=== PATIENT | male | born 1950 | race Caucasian/White ===

== ENCOUNTER 2017-03-02 13:34 | Emergency (ER) | payer MEDICARE ==
[~2017-03-02] VITALS: Ht 177.8 cm; Wt 89.4 kg
[2017-03-02 15:05] VITALS: BP 127/57
[2017-03-02] MEDS ORDERED: ACETAMINOPHEN/CODEINE#3 (300/30mg) TAB PO ONE (15:30)
== END 2017-03-02 16:12 | disposition home or self-care (01) ==
LOC: ER 13:38
DX: S52.501A Unspecified fracture of the lower end of right radius, initial encounter for closed fracture (principal); I10 Essential (primary) hypertension; E11.9 Type 2 diabetes mellitus without complications; E78.5 Hyperlipidemia, unspecified; Z88.6 Allergy status to analgesic agent; W18.2XXA Fall in (into) shower or empty bathtub, initial encounter; Y93.E1 Activity, personal bathing and showering; Y99.8 Other external cause status; Y92.89 Other specified places as the place of occurrence of the external cause
CPT/HCPCS: 29125; 73110

== ENCOUNTER 2017-09-13 10:59 | Inpatient (IN) | payer MEDICARE ==
[~2017-09-13] VITALS: Ht 177.8 cm; Wt 91.4 kg
[~2017-09-13 10:59] MED LIST: ASPI81CH43 PO; ATOR40TA52 PO; CLOP75TA28 PO; LISI10TA6 PO; METF-371 PO
[2017-09-13 12:11] LABS: Basophils # (auto) 0.1 uL; Basophils % (auto) 0.9 % (0.0-2.0); Eosinophils # (auto) 0.3 uL; Eosinophils % (auto) 3.4 % (0.0-7.0); Hematocrit 38.3 % (41.0-53.0); Hemoglobin 12.9 g/dL (13.5-17.5); Lymphocytes # (auto) 1.4 uL; Lymphocytes % (auto) 16.1 % (10.0-50.0); Mean Corpuscular Hemoglobin 31.4 pg (28.0-32.0); Mean Corpuscular Hgb Conc. 33.8 g/dL (32.0-36.0); Monocytes # (auto) 0.7 uL; Monocytes % (auto) 8.2 % (0.0-12.0); Neutrophils # (auto) 6.3 uL; Neutrophils % (auto) 71.4 % (37.0-80.0); Nucleated Red Blood Cells % 0.1 %; Platelet Count (auto) 358 10^3/uL (140-450); Red Blood Cells 4.12 10^6/uL (4.5-5.90); Red Cell Distribution Width 13.4 % (11.8-14.3); White Blood Cell 8.8 10^3/uL (4.4-10.8)
[2017-09-13 12:43] LABS: Potassium 4.8 mmol/L (3.5-5.1)
[2017-09-13 12:47] LABS: Albumin 3.9 g/dL (3.4-5.0); BUN/Creatinine Ratio 15.3; Magnesium 1.9 mg/dL (1.6-2.6)
[2017-09-13 12:52] LABS: Bilirubin, Total 0.6 mg/dL (0.2-1.0); Total Protein 8.9 g/dL (6.4-8.2)
[2017-09-13] MEDS ORDERED: ASPirin 81 mg TAB ONE (15:15)
[2017-09-13] MEDS ORDERED: ASPirin 81 mg TAB PO ONE ×2 (15:30)
[2017-09-13 16:03] LABS: INR 0.99 (0.9-1.15); Prothrombin Time 10.8 sec (9.37-12.3)
[2017-09-13] MEDS ORDERED: MORPHINE SULFATE 4 MG/ML SYR/VIAL IV PRN ×2 (16:30)
[2017-09-13] MEDS ORDERED: NITROGLYCERIN 0.4 MG SL TAB SL PRN (16:30)
[2017-09-13] MEDS ORDERED: LORazepam 0.5 MG TAB PO PRN (16:30)
[2017-09-13] MEDS ORDERED: TEMAZEPAM 15 MG CAP PO PRN (16:30)
[2017-09-13] MEDS ORDERED: LACTULOSE 20Gm/30ML SOLN PO PRN (16:30)
[2017-09-13] MEDS ORDERED: ACETAMINOPHEN 500 MG TAB PO PRN (16:30)
[2017-09-13] MEDS ORDERED: DEXTROSE (50%) 50ML SYRG IV PRN (16:30)
[2017-09-13] MEDS ORDERED: CLOPIDOGREL BISULFATE 75 MG TAB PO ONE (16:30)
[2017-09-13] MEDS ORDERED: HYDROcodone-ACET 5/325MG TAB PO PRN (16:30)
[2017-09-13] MEDS ORDERED: PROMETHAZINE HCL 25 MG/ML 1ML IV PRN (16:30)
[2017-09-13] MEDS ORDERED: CLOPIDOGREL BISULFATE 75 MG TAB ONE (17:00)
[2017-09-13] MEDS: ACCU-CHEK COMFORT CURVE STRIP VI SCH (17:44)
[2017-09-13] MEDS: InsuLIN REG 1unit/0.01ml Soln (100units/ml) SC SCH (17:53)
[2017-09-13] MEDS ORDERED: NITROGLYCERIN 50MG/250ML 250 ML IV SCH (17:54)
[2017-09-13] MEDS ORDERED: HEPARIN SODIUM (PORCINE) 5000 UNITS/ML 1ML VIAL ONE (17:57)
[2017-09-13] MEDS ORDERED: NITROGLYCERIN 50MG/250ML 250 ML IV ONE ×2 (17:57→18:00)
[2017-09-13] MEDS ORDERED: HEPARIN SODIUM (PORCINE) 5000 UNITS/ML 1ML VIAL IV ONE ×2 (18:00→18:15)
[2017-09-13] MEDS: SODIUM CHLORIDE 0.9% 1,000 ML IV SCH (18:04)
[2017-09-13 19:00] VITALS: BP 156/76
[2017-09-13 19:30] VITALS: BP 151/74
[2017-09-13] MEDS ORDERED: LIDOCAINE 2%HCL (LOCAL ANESTH.) INJ 20ML MDV ONE (19:57)
[2017-09-13] MEDS ORDERED: IOHEXOL 350 MG/ML 100ML IJ ONE (19:57)
[2017-09-13 20:00] VITALS: BP_SYST 151; BP_SYST 154; BP_DIAS 71; BP_DIAS 85
[2017-09-13] MEDS ORDERED: fentaNYL CITRATE 100 MCG/2 ML VL ONE (20:29)
[2017-09-13] MEDS ORDERED: MIDAZOLAM HCL 1MG/1ML-2 ML VIAL ONE (20:30)
[2017-09-13] MEDS ORDERED: IODIXANOL 320MG/ML 100ML BTL IV ONE (20:35)
[2017-09-13] MEDS ORDERED: EPTIFIBATIDE INJ (2MG/ML) 10ML VIAL IV ONE (20:45)
[2017-09-13] MEDS ORDERED: EPTIFIBATIDE DRIP(0.75MG/ML) 100 ML IV ONE (20:45)
[2017-09-13] MEDS ORDERED: PRASUGREL HCL 10 MG TAB ONE (21:15)
[2017-09-13] MEDS ORDERED: cloNIDine HCL 0.1 MG TAB ONE (21:16)
[2017-09-13] MEDS ORDERED: amLODIPine BESYLATE 5 MG TAB ONE (21:16)
[2017-09-13] MEDS ORDERED: cloNIDine HCL 0.1 MG TAB PO ONE (21:45)
[2017-09-13] MEDS ORDERED: amLODIPine BESYLATE 5 MG TAB PO ONE (21:45)
[2017-09-13] MEDS ORDERED: ENOXAPARIN SOD 80 MG/0.8ML SYRINGE SC SCH (22:00)
[2017-09-13] MEDS ORDERED: CARVEDILOL 3.125 MG TAB PO SCH ×2 (22:00)
[2017-09-13] MEDS ORDERED: ATORVASTATIN 20 MG TAB PO SCH (22:00)
[2017-09-14] MEDS: SODIUM CHLORIDE 0.9% 1,000 ML IV SCH (05:10)
[2017-09-14 05:23] VITALS: BP 129/76
[2017-09-14] MEDS ORDERED: cloNIDine HCL 0.1 MG TAB PO SCH (06:00)
[2017-09-14 06:37] LABS: Potassium 3.9 mmol/L (3.5-5.1)
[2017-09-14 06:46] LABS: Albumin 3.4 g/dL (3.4-5.0); BUN/Creatinine Ratio 15.6; Calcium 8.9 mg/dL (8.5-10.1); Total Protein 7.6 g/dL (6.4-8.2)
[2017-09-14] MEDS: InsuLIN REG 1unit/0.01ml Soln (100units/ml) SC SCH ×2 (06:54→12:27)
[2017-09-14] MEDS: ACCU-CHEK COMFORT CURVE STRIP VI SCH ×2 (06:54→12:27)
[2017-09-14 06:58] LABS: Bilirubin, Total 0.8 mg/dL (0.2-1.0)
[2017-09-14 08:33] VITALS: BP 126/72
[2017-09-14] MEDS ORDERED: CLOPIDOGREL BISULFATE 75 MG TAB PO SCH (10:00)
[2017-09-14] MEDS ORDERED: LISINOPRIL 10 MG TAB PO SCH (10:00)
[2017-09-14] MEDS ORDERED: amLODIPine BESYLATE 5 MG TAB PO SCH (10:00)
[2017-09-14] MEDS ORDERED: PANTOPRAZOLE 40 MG TAB PO SCH (10:00)
[2017-09-14] MEDS ORDERED: NITROGLYCERIN 0.2MG/HR TOPICAL PATCH TD SCH (10:00)
[2017-09-14] MEDS ORDERED: ASPirin 81 mg TAB PO ONE (12:45)
[2017-09-14 13:00] VITALS: BP 119/52
[2017-09-14 14:27] VITALS: BP 119/52
== END 2017-09-14 15:38 | disposition home or self-care (01) | DRG 250 ==
LOC: ER 10:59 → TELE 11:00 → TELE-WESTW 22:59
PROVIDERS: ADMIT Internal Medicine; ATTEND Family Medicine
PROC: 02703ZZ Dilation of Coronary Artery, One Artery, Percutaneous Approach (ICD-10-PCS; principal; 2017-09-13)
PROC: 4A023N7 Measurement of Cardiac Sampling and Pressure, Left Heart, Percutaneous Approach (ICD-10-PCS; 2017-09-13)
PROC: B2111ZZ Fluoroscopy of Multiple Coronary Arteries using Low Osmolar Contrast (ICD-10-PCS; 2017-09-13)
DX: T82.855A Stenosis of coronary artery stent, initial encounter (principal); I21.09 ST elevation (STEMI) myocardial infarction involving other coronary artery of anterior wall; I16.1 Hypertensive emergency; E11.22 Type 2 diabetes mellitus with diabetic chronic kidney disease; E11.41 Type 2 diabetes mellitus with diabetic mononeuropathy; D64.9 Anemia, unspecified; E78.00 Pure hypercholesterolemia, unspecified; E78.5 Hyperlipidemia, unspecified; I12.9 Hypertensive chronic kidney disease with stage 1 through stage 4 chronic kidney disease, or unspecified chronic kidney disease; Y84.0 Cardiac catheterization as the cause of abnormal reaction of the patient, or of later complication, without mention of misadventure at the time of the procedure; K59.00 Constipation, unspecified; F41.9 Anxiety disorder, unspecified; G47.00 Insomnia, unspecified; I25.10 Atherosclerotic heart disease of native coronary artery without angina pectoris; M54.12 Radiculopathy, cervical region; N18.2 Chronic kidney disease, stage 2 (mild); Z79.02 Long term (current) use of antithrombotics/antiplatelets; Z79.82 Long term (current) use of aspirin; Z82.49 Family history of ischemic heart disease and other diseases of the circulatory system; Z87.891 Personal history of nicotine dependence; Z88.6 Allergy status to analgesic agent; Z79.899 Other long term (current) drug therapy; Y92.89 Other specified places as the place of occurrence of the external cause
CPT/HCPCS: 36415; 71046; 80053; 80061; 82550; 82962; 83036; 83735; 83880; 84443; 84484; 85025; 85379; 85610; 85652; 85730; 87081; 92920; 93005; 93458; 94761; 96374; 96375; 99152; C1874; J1815; J2250; Q9967

== ENCOUNTER 2017-09-23 08:01 | Inpatient (IN) | payer MEDICARE ==
[~2017-09-23] VITALS: Ht 177.8 cm; Wt 86.2 kg
[2017-09-23] MEDS ORDERED: SODIUM CHLORIDE 0.9% 1,000 ML IV ONE ×2 (08:42→13:15)
[2017-09-23] MEDS ORDERED: LORazepam 2MG/ML-1ML VIAL IV ONE (08:45)
[2017-09-23] MEDS ORDERED: FUROSEMIDE 20 MG/2 ML VIAL IV ONE (08:45)
[2017-09-23] MEDS ORDERED: MECLIZINE HCL 25 MG TAB PO ONE (08:45)
[2017-09-23 09:50] LABS: Basophils # (auto) 0.1 uL; Basophils % (auto) 1.1 % (0.0-2.0); Eosinophils # (auto) 0.2 uL; Eosinophils % (auto) 2.8 % (0.0-7.0); Hematocrit 37.4 % (41.0-53.0); Hemoglobin 12.5 g/dL (13.5-17.5); Lymphocytes % (auto) 16.3 % (10.0-50.0); Mean Corpuscular Hemoglobin 30.6 pg (28.0-32.0); Mean Corpuscular Hgb Conc. 33.3 g/dL (32.0-36.0); Mean Corpuscular Volume 91.9 fL (80.0-100.0); Monocytes # (auto) 0.5 uL; Monocytes % (auto) 7.3 % (0.0-12.0); Neutrophils # (auto) 4.5 uL; Neutrophils % (auto) 72.5 % (37.0-80.0); Platelet Count (auto) 305 10^3/uL (140-450); Red Blood Cells 4.07 10^6/uL (4.5-5.90); Red Cell Distribution Width 12.8 % (11.8-14.3); White Blood Cell 6.2 10^3/uL (4.4-10.8)
[2017-09-23 10:01] LABS: INR 1.03 (0.9-1.15); Partial Thromboplastin Time 28.1 sec (22.64-33.71); Prothrombin Time 11.2 sec (9.37-12.3)
[2017-09-23 10:05] LABS: Albumin 3.5 g/dL (3.4-5.0); BUN/Creatinine Ratio 22.5; Calcium 8.4 mg/dL (8.5-10.1); Potassium 5.3 mmol/L (3.5-5.1)
[2017-09-23 10:10] LABS: Bilirubin, Total 0.4 mg/dL (0.2-1.0); Total Protein 7.9 g/dL (6.4-8.2)
[2017-09-23] MEDS ORDERED: PROMETHAZINE HCL 25 MG/ML 1ML IV PRN (12:45)
[2017-09-23] MEDS ORDERED: MORPHINE SULFATE 4 MG/ML SYR/VIAL IV PRN (12:45)
[2017-09-23] MEDS ORDERED: DEXTROSE (50%) 50ML SYRG IV PRN (12:45)
[2017-09-23] MEDS ORDERED: LACTULOSE 20Gm/30ML SOLN PO PRN (12:45)
[2017-09-23] MEDS ORDERED: LORazepam 0.5 MG TAB PO PRN (12:45)
[2017-09-23] MEDS ORDERED: ACETAMINOPHEN 500 MG TAB PO PRN (12:45)
[2017-09-23] MEDS ORDERED: NITROGLYCERIN 0.4 MG SL TAB SL PRN (12:45)
[2017-09-23] MEDS ORDERED: LABETALOL HCL 5 MG/ML ML 20ML VIAL IV PRN (12:45)
[2017-09-23] MEDS ORDERED: MECLIZINE HCL 25 MG TAB PO PRN (12:45)
[2017-09-23] MEDS ORDERED: SODIUM POLYSTYRENE SULF 15GM/60ML SUSP PO ONE (13:15)
[2017-09-23] MEDS: ENOXAPARIN SOD 40 MG/0.4 ML SYRINGE SC SCH (13:54)
[2017-09-23 13:59] LABS: CRP High Sensitivity 0.56 mg/dL (< 0.3)
[2017-09-23] MEDS ORDERED: ISOS20TA56 PO (16:20)
[2017-09-23] MEDS ORDERED: METF-370 PO (16:20)
[2017-09-23] MEDS ORDERED: GABA300C10 PO (16:20)
[2017-09-23] MEDS ORDERED: ACE3T PO (16:20)
[2017-09-23 16:22] VITALS: BP 153/80
[2017-09-23] MEDS: SODIUM CHLORIDE 0.9% 1,000 ML IV SCH (16:29)
[2017-09-23 16:58] VITALS: BP 153/80
[2017-09-23] MEDS: ACCU-CHEK COMFORT CURVE STRIP VI SCH ×2 (17:20→22:03)
[2017-09-23] MEDS: InsuLIN REG 1unit/0.01ml Soln (100units/ml) SC SCH ×2 (17:21→22:00)
[2017-09-23] MEDS ORDERED: PNEUMOCOCCAL VACC POLYS 25 MCG/0.5 ML VIAL IM ONE (18:15)
[2017-09-23] MEDS ORDERED: CARV3.1240 PO (18:51)
[2017-09-23] MEDS: ISOSORBIDE DINITRATE 10 MG TAB PO SCH (22:02)
[2017-09-23] MEDS: METOPROLOL TARTRATE 25 MG TAB PO SCH (22:02)
[2017-09-23] MEDS: ATORVASTATIN 20 MG TAB PO SCH (22:02)
[2017-09-23] MEDS: GABAPENTIN 300 MG CAP PO SCH (22:03)
[2017-09-23 22:49] VITALS: BP 137/77
[2017-09-24] MEDS: SODIUM CHLORIDE 0.9% 1,000 ML IV SCH ×2 (01:08→13:34)
[2017-09-24 04:00] VITALS: BP 122/67
[2017-09-24] MEDS: ACCU-CHEK COMFORT CURVE STRIP VI SCH ×4 (06:21→21:17)
[2017-09-24] MEDS: InsuLIN REG 1unit/0.01ml Soln (100units/ml) SC SCH ×4 (06:45→21:34)
[2017-09-24 07:22] LABS: Basophils # (auto) 0.1 uL; Basophils % (auto) 0.9 % (0.0-2.0); Eosinophils # (auto) 0.2 uL; Eosinophils % (auto) 2.3 % (0.0-7.0); Hematocrit 34.9 % (41.0-53.0); Hemoglobin 11.5 g/dL (13.5-17.5); Lymphocytes # (auto) 1.4 uL; Lymphocytes % (auto) 20.1 % (10.0-50.0); Mean Corpuscular Hemoglobin 30.6 pg (28.0-32.0); Mean Corpuscular Hgb Conc. 33.1 g/dL (32.0-36.0); Mean Corpuscular Volume 92.4 fL (80.0-100.0); Monocytes # (auto) 0.6 uL; Monocytes % (auto) 8.7 % (0.0-12.0); Neutrophils # (auto) 4.7 uL; Nucleated Red Blood Cells % 0.1 %; Platelet Count (auto) 308 10^3/uL (140-450); Red Blood Cells 3.78 10^6/uL (4.5-5.90); Red Cell Distribution Width 13.1 % (11.8-14.3); White Blood Cell 6.9 10^3/uL (4.4-10.8)
[2017-09-24 07:48] LABS: Albumin 3.2 g/dL (3.4-5.0); BUN/Creatinine Ratio 18.7; Calcium 8.3 mg/dL (8.5-10.1); Potassium 3.9 mmol/L (3.5-5.1)
[2017-09-24 07:51] LABS: Bilirubin, Total 0.5 mg/dL (0.2-1.0); Total Protein 7.1 g/dL (6.4-8.2)
[2017-09-24 08:00] VITALS: BP 144/79
[2017-09-24 08:16] LABS: Urine Bacteria NONE SEEN /hpf (None Seen); Urine Blood Negative /uL (Negative); Urine Mucus FEW (None Seen); Urine Specific Gravity 1.015 (1.001-1.035); Urine WBC 1 /hpf (0 - 3)
[2017-09-24 08:25] LABS: Alcohol, Urine < 3.0 mg/dL (0-5); Amphetamine Screen, Urine NEGATIVE (NEGATIVE); Barbiturate Scree,Urine NEGATIVE (NEGATIVE); Benzodiazephine Screen, Urine NEGATIVE (NEGATIVE); Cannabinoid Screen, Urine NEGATIVE (NEGATIVE); Cocaine Screen, Urine NEGATIVE (NEGATIVE); Opiate Scree,Urine NEGATIVE (NEGATIVE); Phencyclidine Screen, Urine NEGATIVE (NEGATIVE)
[2017-09-24] MEDS: PRASUGREL HCL 10 MG TAB PO SCH (08:56)
[2017-09-24] MEDS: PANTOPRAZOLE 40 MG TAB PO SCH (08:57)
[2017-09-24] MEDS: ASPirin 81 mg TAB PO SCH (08:58)
[2017-09-24] MEDS: ENOXAPARIN SOD 40 MG/0.4 ML SYRINGE SC SCH (08:59)
[2017-09-24] MEDS: ISOSORBIDE DINITRATE 10 MG TAB PO SCH ×2 (09:01→21:33)
[2017-09-24] MEDS: METOPROLOL TARTRATE 25 MG TAB PO SCH (09:02)
[2017-09-24] MEDS ORDERED: ASPirin 81 mg TAB PO SCH (10:00)
[2017-09-24] MEDS ORDERED: EFFIENT 10 MG PO SCH (10:00)
[2017-09-24] MEDS ORDERED: PATIENTS OWN MEDICATION (Atorvastatin Calcium 1 TAB) PO SCH (10:00)
[2017-09-24] MEDS ORDERED: LISINOPRIL 10 MG TAB PO SCH (10:00)
[2017-09-24 12:00] VITALS: BP 139/71
[2017-09-24] MEDS ORDERED: LISINOPRIL 10 MG TAB PO ONE (16:00)
[2017-09-24 17:04] VITALS: BP 166/88
[2017-09-24] MEDS: metFORMIN HYDROCHLORIDE 500 MG TAB PO SCH (17:23)
[2017-09-24] MEDS: GABAPENTIN 300 MG CAP PO SCH ×2 (21:33→21:34)
[2017-09-24] MEDS: CARVEDILOL 3.125 MG TAB PO SCH (21:33)
[2017-09-24] MEDS: ATORVASTATIN 20 MG TAB PO SCH (21:33)
[2017-09-24 22:00] VITALS: BP 159/84
[2017-09-24] MEDS: TEMAZEPAM 15 MG CAP PO PRN (22:37)
[2017-09-25] VITALS: BP 115/57
[2017-09-25] MEDS: SODIUM CHLORIDE 0.9% 1,000 ML IV SCH ×2 (02:04→18:34)
[2017-09-25 05:50] VITALS: BP 125/73
[2017-09-25] MEDS: ACCU-CHEK COMFORT CURVE STRIP VI SCH ×4 (06:02→21:51)
[2017-09-25] MEDS: InsuLIN REG 1unit/0.01ml Soln (100units/ml) SC SCH ×4 (06:02→21:50)
[2017-09-25] MEDS: metFORMIN HYDROCHLORIDE 500 MG TAB PO SCH ×2 (06:03→18:34)
[2017-09-25] MEDS: HYDROcodone-ACET 5/325MG TAB PO PRN (07:31)
[2017-09-25 08:07] VITALS: BP 130/75
[2017-09-25] MEDS: MORPHINE SULFATE 4 MG/ML SYR/VIAL IV PRN ×2 (09:35→14:50)
[2017-09-25 09:55] LABS: Folate (Folic Acid) 12.54 ng/mL (5.38-24)
[2017-09-25] MEDS: LISINOPRIL 10 MG TAB PO SCH (10:00)
[2017-09-25] MEDS: GABAPENTIN 300 MG CAP PO SCH ×2 (10:00→21:50)
[2017-09-25] MEDS: ENOXAPARIN SOD 40 MG/0.4 ML SYRINGE SC SCH (10:47)
[2017-09-25] MEDS: PANTOPRAZOLE 40 MG TAB PO SCH (10:49)
[2017-09-25] MEDS: ISOSORBIDE DINITRATE 10 MG TAB PO SCH ×2 (10:49→21:50)
[2017-09-25] MEDS: ASPirin 81 mg TAB PO SCH (10:49)
[2017-09-25] MEDS: CARVEDILOL 3.125 MG TAB PO SCH ×2 (10:50→21:49)
[2017-09-25] MEDS: PRASUGREL HCL 10 MG TAB PO SCH (10:51)
[2017-09-25 12:00] VITALS: BP 104/58
[2017-09-25 17:11] VITALS: BP 117/65
[2017-09-25] MEDS: ATORVASTATIN 20 MG TAB PO SCH (21:50)
[2017-09-25] MEDS: TEMAZEPAM 15 MG CAP PO PRN (21:51)
[2017-09-25 22:00] VITALS: BP 121/72
[2017-09-26] MEDS: SODIUM CHLORIDE 0.9% 1,000 ML IV SCH (03:04)
[2017-09-26 06:00] VITALS: BP 135/75
[2017-09-26] MEDS: InsuLIN REG 1unit/0.01ml Soln (100units/ml) SC SCH (06:28)
[2017-09-26] MEDS: metFORMIN HYDROCHLORIDE 500 MG TAB PO SCH (06:28)
[2017-09-26] MEDS: ACCU-CHEK COMFORT CURVE STRIP VI SCH (06:29)
[2017-09-26 08:00] VITALS: BP 140/72
[2017-09-26] MEDS: HYDROcodone-ACET 5/325MG TAB PO PRN (08:20)
[2017-09-26 09:22] VITALS: BP 121/72
[2017-09-26] MEDS: ISOSORBIDE DINITRATE 10 MG TAB PO SCH (09:52)
[2017-09-26] MEDS: PRASUGREL HCL 10 MG TAB PO SCH (09:53)
[2017-09-26] MEDS: PANTOPRAZOLE 40 MG TAB PO SCH (09:54)
[2017-09-26] MEDS: LISINOPRIL 10 MG TAB PO SCH (09:54)
[2017-09-26] MEDS: ASPirin 81 mg TAB PO SCH (09:56)
[2017-09-26] MEDS: CARVEDILOL 3.125 MG TAB PO SCH (09:57)
[2017-09-26] MEDS: ENOXAPARIN SOD 40 MG/0.4 ML SYRINGE SC SCH (10:00)
[2017-09-26] MEDS: GABAPENTIN 300 MG CAP PO SCH (10:00)
== END 2017-09-26 11:00 | disposition home or self-care (01) | DRG 310 ==
LOC: ER 08:01 → EDBD 08:01 → TELE 08:02 → TELE-CENTR 15:42
PROVIDERS: ADMIT Internal Medicine; ATTEND Family Medicine
DX: I49.9 Cardiac arrhythmia, unspecified (principal); E11.21 Type 2 diabetes mellitus with diabetic nephropathy; I67.2 Cerebral atherosclerosis; E11.22 Type 2 diabetes mellitus with diabetic chronic kidney disease; E78.00 Pure hypercholesterolemia, unspecified; E78.5 Hyperlipidemia, unspecified; I12.9 Hypertensive chronic kidney disease with stage 1 through stage 4 chronic kidney disease, or unspecified chronic kidney disease; R91.1 Solitary pulmonary nodule; I25.10 Atherosclerotic heart disease of native coronary artery without angina pectoris; J45.909 Unspecified asthma, uncomplicated; N18.3 Chronic kidney disease, stage 3 (moderate); Z79.82 Long term (current) use of aspirin; Z79.899 Other long term (current) drug therapy; Z23 Encounter for immunization; Z82.49 Family history of ischemic heart disease and other diseases of the circulatory system; Z82.5 Family history of asthma and other chronic lower respiratory diseases; I25.2 Old myocardial infarction; Z87.891 Personal history of nicotine dependence; Z95.5 Presence of coronary angioplasty implant and graft; Z98.49 Cataract extraction status, unspecified eye; Z88.6 Allergy status to analgesic agent
CPT/HCPCS: 36415; 70450; 71046; 71250; 80053; 80307; 81001; 82550; 82607; 82746; 82962; 83036; 83735; 84443; 84484; 85025; 85379; 85610; 85652; 85730; 86141; 87081; 93005; 93886; 94761; 96361; 96374; 96375; J1815

== ENCOUNTER 2024-01-18 23:05 | Inpatient (IN) | payer MEDICARE, OTHER ==
[~2024-01-18] VITALS: Ht 177.8 cm; Wt 79.5 kg
[~2024-01-18 23:05] MED LIST changes: +ACE3T PO; +CARV3.1240 PO; +GABA-1250 PO; +ISOS20TA5 PO; +LISI10TA34 PO; -LISI10TA6 PO; +METF-370 PO; -METF-371 PO
[2024-01-18 23:29] LABS: Basophils # (auto) 0.1 10 ^3/uL (0-0.2); Basophils % (auto) 0.6 % (0.0-2.0); Eosinophils # (auto) 0.3 10 ^3/uL (0-0.8); Eosinophils % (auto) 3.9 % (0.0-7.0); Hematocrit 31.3 % (41.0-53.0); Hemoglobin 10.4 g/dL (13.5-17.5); Lymphocytes # (auto) 1.3 10 ^3/uL (0.4-5.4); Lymphocytes % (auto) 15.5 % (10.0-50.0); Mean Corpuscular Hemoglobin 27.8 pg (28.0-32.0); Mean Corpuscular Hgb Conc. 33.3 g/dL (32.0-36.0); Mean Corpuscular Volume 83.4 fL (80.0-100.0); Monocytes # (auto) 0.4 10 ^3/uL (0-1.3); Monocytes % (auto) 5.2 % (0.0-12.0); Neutrophils # (auto) 6.3 10 ^3/uL (1.6-8.6); Neutrophils % (auto) 74.8 % (37.0-80.0); Nucleated Red Blood Cells % 0.1 %; Red Blood Cells 3.75 10^6/uL (4.5-5.90); Red Cell Distribution Width 19.8 % (11.8-14.3); White Blood Cell 8.4 10^3/uL (4.4-10.8)
[2024-01-18 23:44] LABS: Alanine Aminotransferase 17 U/L (7-40); Alkaline Phosphatase 136 U/L (46-116); Anion Gap 11 (5-15); Aspartate Aminotransferase < 8 U/L (13-40); BUN/Creatinine Ratio 17.9 (10.0-20.0); Bilirubin, Total 0.7 mg/dL (0.2-1.0); Blood Urea Nitrogen 49 mg/dL (9-23); Calcium 9.4 mg/dL (8.7-10.4); Carbon Dioxide 20 mmol/L (20-30); Chloride 103 mmol/L (98-107); Glucose 391 mg/dL (74-106); Potassium 3.9 mmol/L (3.5-5.1); Sodium 134 mmol/L (136-145); Total Protein 8.1 g/dL (5.7-8.2)
[2024-01-19 00:47] VITALS: PULSE 79; RESP 20; O2SAT 90
[2024-01-19] MEDS: FUROSEMIDE 100 MG/10ML VIAL IV ONE (01:19)
[2024-01-19] MEDS ORDERED: ACETAMINOPHEN 325 MG TAB PO PRN (02:00)
[2024-01-19] MEDS ORDERED: hydrALAZINE HCL 20 MG/ML VL IV PRN (02:00)
[2024-01-19] MEDS ORDERED: DEXTROSE (50%) 50ML SYRG IV PRN (02:00)
[2024-01-19] MEDS ORDERED: ONDANSETRON HCL 4 MG/2 ML VIAL IV PRN (02:00)
[2024-01-19] MEDS ORDERED: DOCUSATE SOD 100 MG CAP PO PRN (02:00)
[2024-01-19] MEDS ORDERED: HYDROcodone-ACET 5/325MG TAB PO PRN (02:00)
[2024-01-19] MEDS: ACCU-CHEK COMFORT CURVE STRIP VI SCH (04:00)
[2024-01-19] MEDS: InsuLIN REG 1unit/0.01ml Soln (100units/ml) SC SCH (04:39)
[2024-01-19 04:55] LABS: Basophils # (auto) 0.1 10 ^3/uL (0-0.2); Basophils % (auto) 0.9 % (0.0-2.0); Eosinophils # (auto) 0.3 10 ^3/uL (0-0.8); Eosinophils % (auto) 3.4 % (0.0-7.0); Hematocrit 29.4 % (41.0-53.0); Hemoglobin 9.3 g/dL (13.5-17.5); Lymphocytes # (auto) 1.1 10 ^3/uL (0.4-5.4); Mean Corpuscular Hemoglobin 26.3 pg (28.0-32.0); Mean Corpuscular Hgb Conc. 31.8 g/dL (32.0-36.0); Monocytes # (auto) 0.6 10 ^3/uL (0-1.3); Monocytes % (auto) 6.8 % (0.0-12.0); Neutrophils # (auto) 7.1 10 ^3/uL (1.6-8.6); Neutrophils % (auto) 76.9 % (37.0-80.0); Red Blood Cells 3.55 10^6/uL (4.5-5.90); Red Cell Distribution Width 19.7 % (11.8-14.3); White Blood Cell 9.3 10^3/uL (4.4-10.8)
[2024-01-19 05:05] LABS: Alanine Aminotransferase 15 U/L (7-40); Albumin 3.7 g/dL (3.2-4.8); Alkaline Phosphatase 124 U/L (46-116); Anion Gap 7 (5-15); Aspartate Aminotransferase < 8 U/L (13-40); BUN/Creatinine Ratio 18.8 (10.0-20.0); Blood Urea Nitrogen 49 mg/dL (9-23); Calcium 9.4 mg/dL (8.7-10.4); Carbon Dioxide 24 mmol/L (20-30); Chloride 104 mmol/L (98-107); Glucose 344 mg/dL (74-106); Sodium 135 mmol/L (136-145)
[2024-01-19 05:06] LABS: Bilirubin, Total 0.8 mg/dL (0.2-1.0); Total Protein 7.7 g/dL (5.7-8.2)
[2024-01-19] MEDS: SODIUM CHLOR 0.9% PF (SALINE LOCK) 10ML VIAL/SYR IV SCH (06:02)
[2024-01-19] MEDS ORDERED: NITROGLYCERIN 0.4 MG SL TAB SL PRN (06:15)
[2024-01-19] MEDS ORDERED: MORPHINE SULFATE INJ 2 MG/ml SYRG IV PRN (06:15)
[2024-01-19 09:36] VITALS: TEMP 98.3
[2024-01-19] MEDS: CLOPIDOGREL BISULFATE 75 MG TAB PO SCH (10:09)
[2024-01-19] MEDS: FUROSEMIDE 40 MG/4 ML VIAL IV SCH (10:10)
[2024-01-19] MEDS ORDERED: CLOP75TA28 PO (14:12)
[2024-01-19] MEDS ORDERED: FURO1TAB33 PO (14:13)
[2024-01-19 16:00] VITALS: BP 112/51; PULSE 62; RESP 12; O2SAT 92
[2024-01-19] MEDS ORDERED: ATORVASTATIN 20 MG TAB PO SCH (22:00)
== END 2024-01-19 16:30 | disposition home or self-care (01) | DRG 291 ==
LOC: ER 23:05 → TELE 01-19 06:02
PROVIDERS: ADMIT Nurse Practitioner Family; ATTEND Internal Medicine Geriatric Medicine
DX: I13.0 Hypertensive heart and chronic kidney disease with heart failure and stage 1 through stage 4 chronic kidney disease, or unspecified chronic kidney disease (principal); I50.43 Acute on chronic combined systolic (congestive) and diastolic (congestive) heart failure; E11.65 Type 2 diabetes mellitus with hyperglycemia; N18.30 Chronic kidney disease, stage 3 unspecified; I25.10 Atherosclerotic heart disease of native coronary artery without angina pectoris; E78.5 Hyperlipidemia, unspecified; I48.91 Unspecified atrial fibrillation; E11.22 Type 2 diabetes mellitus with diabetic chronic kidney disease; Z95.1 Presence of aortocoronary bypass graft; Z79.4 Long term (current) use of insulin; Z88.6 Allergy status to analgesic agent; Z87.891 Personal history of nicotine dependence; Z79.02 Long term (current) use of antithrombotics/antiplatelets; Z79.01 Long term (current) use of anticoagulants; Z95.5 Presence of coronary angioplasty implant and graft
CPT/HCPCS: 36415; 80053; 82962; 83036; 83880; 84484; 85025; 93005; 93306; 99291; G0378; J1815

== ENCOUNTER 2024-01-28 22:25 | Inpatient (IN) | payer OTHER ==
[~2024-01-28] VITALS: Ht 177.8 cm; Wt 79.0 kg
[~2024-01-28 22:25] MED LIST changes: +FURO1TAB33 PO
[2024-01-28 22:55] LABS: Basophils # (auto) 0.1 10 ^3/uL (0-0.2); Basophils % (auto) 0.7 % (0.0-2.0); Eosinophils # (auto) 0.3 10 ^3/uL (0-0.8); Eosinophils % (auto) 2.8 % (0.0-7.0); Hematocrit 29.3 % (41.0-53.0); Hemoglobin 9.4 g/dL (13.5-17.5); Lymphocytes # (auto) 0.9 10 ^3/uL (0.4-5.4); Lymphocytes % (auto) 9.9 % (10.0-50.0); Mean Corpuscular Hemoglobin 27.6 pg (28.0-32.0); Mean Corpuscular Hgb Conc. 32.3 g/dL (32.0-36.0); Mean Corpuscular Volume 85.6 fL (80.0-100.0); Monocytes # (auto) 0.4 10 ^3/uL (0-1.3); Monocytes % (auto) 4.6 % (0.0-12.0); Neutrophils # (auto) 7.7 10 ^3/uL (1.6-8.6); Red Blood Cells 3.42 10^6/uL (4.5-5.90); White Blood Cell 9.3 10^3/uL (4.4-10.8)
[2024-01-28 23:00] VITALS: PULSE 74; RESP 17; O2SAT 92
[2024-01-28 23:04] LABS: Red Cell Distribution Width 20.2 % (11.8-14.3)
[2024-01-28 23:14] LABS: Alanine Aminotransferase 10 U/L (7-40); Albumin 3.7 g/dL (3.2-4.8); Alkaline Phosphatase 119 U/L (46-116); Anion Gap 8 (5-15); Aspartate Aminotransferase < 8 U/L (13-40); Blood Urea Nitrogen 43 mg/dL (9-23); Calcium 8.8 mg/dL (8.7-10.4); Carbon Dioxide 23 mmol/L (20-30); Chloride 104 mmol/L (98-107); Glucose 141 mg/dL (74-106); Potassium 4.1 mmol/L (3.5-5.1); Sodium 135 mmol/L (136-145)
[2024-01-28 23:15] LABS: Bilirubin, Total 0.6 mg/dL (0.2-1.0); Total Protein 7.6 g/dL (5.7-8.2)
[2024-01-29] MEDS: IPRATROPIUM BROM 0.5 MG/2.5ML INH SOL NEB ONE (01:59)
[2024-01-29] MEDS: ALBUTEROL SULF 2.5 MG/0.5ML(0.5%) NEB SOLN NEB ONE (02:00)
[2024-01-29] MEDS: ALBUTEROL SULF 2.5 MG/0.5ML(0.5%) NEB SOLN ONE (02:00)
[2024-01-29] MEDS: IPRATROPIUM BROM 0.5 MG/2.5ML INH SOL ONE (02:01)
[2024-01-29] MEDS: AZITHROMYCIN 500MG/ 250ML 250 ML IV ONE (02:24)
[2024-01-29] MEDS: cefTRIAXone 1GM/50ML D5W 50 ML IV ONE ×2 (02:25→09:48)
[2024-01-29] MEDS: methylPREDNISolone SOD SUCC 125 MG/2 ML VL IV ONE (02:26)
[2024-01-29] MEDS: FUROSEMIDE 20 MG/2 ML VIAL IV ONE (02:29)
[2024-01-29 02:54] LABS: Base Excess -1.4 mmol/L (-2.0-2.0)
[2024-01-29] MEDS: ONDANSETRON HCL 4 MG/2 ML VIAL IV ONE (03:11)
[2024-01-29 05:05] LABS: INR 1.15 (0.9-1.15); Prothrombin Time 12.1 sec (9.3-11.8)
[2024-01-29] MEDS ORDERED: ACETAMINOPHEN 325 MG TAB PO PRN (07:00)
[2024-01-29] MEDS ORDERED: ONDANSETRON HCL 4 MG/2 ML VIAL IV PRN (07:00)
[2024-01-29] MEDS ORDERED: IPRATROPIUM BROM 0.5 MG/2.5ML INH SOL NEB PRN (07:00)
[2024-01-29] MEDS ORDERED: ALBUTEROL SULF 2.5 MG/0.5ML(0.5%) NEB SOLN NEB PRN (07:00)
[2024-01-29] MEDS ORDERED: MORPHINE SULFATE INJ 2 MG/ml SYRG IV PRN (07:00)
[2024-01-29] MEDS: ACCU-CHEK COMFORT CURVE STRIP VI SCH (07:00)
[2024-01-29] MEDS ORDERED: NITROGLYCERIN 0.4 MG SL TAB SL PRN (07:00)
[2024-01-29] MEDS ORDERED: DEXTROSE (50%) 50ML SYRG IV PRN (07:00)
[2024-01-29] MEDS: InsuLIN REG 1unit/0.01ml Soln (100units/ml) SC SCH ×2 (07:49→23:32)
[2024-01-29 08:00] VITALS: PULSE 71; RESP 12; O2SAT 93
[2024-01-29 08:00] LABS: Basophils # (auto) 0 10 ^3/uL (0-0.2); Basophils % (auto) 0.2 % (0.0-2.0); Eosinophils # (auto) 0 10 ^3/uL (0-0.8); Eosinophils % (auto) 0.1 % (0.0-7.0); Hematocrit 29.6 % (41.0-53.0); Hemoglobin 9.6 g/dL (13.5-17.5); Lymphocytes # (auto) 0.4 10 ^3/uL (0.4-5.4); Lymphocytes % (auto) 3.8 % (10.0-50.0); Mean Corpuscular Hemoglobin 27.7 pg (28.0-32.0); Mean Corpuscular Hgb Conc. 32.5 g/dL (32.0-36.0); Mean Corpuscular Volume 85.3 fL (80.0-100.0); Monocytes # (auto) 0.1 10 ^3/uL (0-1.3); Monocytes % (auto) 1.2 % (0.0-12.0); Neutrophils # (auto) 10.7 10 ^3/uL (1.6-8.6); Neutrophils % (auto) 94.7 % (37.0-80.0); Red Blood Cells 3.48 10^6/uL (4.5-5.90); Red Cell Distribution Width 20.9 % (11.8-14.3); White Blood Cell 11.3 10^3/uL (4.4-10.8)
[2024-01-29 08:07] LABS: Basophils % (manual) 0 (0.0-2.0); Blast Cells 0; Eosinophils % (manual) 0 (0-7); Metamyelocytes % 0; Myelocytes % 0; Promyelocytes % 0; Reactive Lymphocytes 0
[2024-01-29 08:20] LABS: Band Neutrophils % (manual) 5; Lymphocytes % (manual) 5 (10.0-50.0); Monocytes % (manual) 2 (0-12)
[2024-01-29 08:21] LABS: Anisocytosis Slight; Platelet Estimate Adequate
[2024-01-29 08:24] LABS: Alanine Aminotransferase 11 U/L (7-40); Alkaline Phosphatase 131 U/L (46-116); Anion Gap 10 (5-15); Aspartate Aminotransferase < 8 U/L (13-40); BUN/Creatinine Ratio 14.7 (10.0-20.0); Blood Urea Nitrogen 52 mg/dL (9-23); Carbon Dioxide 23 mmol/L (20-30); Chloride 101 mmol/L (98-107); Glucose 188 mg/dL (74-106); Potassium 4.2 mmol/L (3.5-5.1); Sodium 134 mmol/L (136-145)
[2024-01-29 08:25] LABS: Albumin 3.9 g/dL (3.2-4.8); Bilirubin, Total 0.6 mg/dL (0.2-1.0); Total Protein 7.6 g/dL (5.7-8.2)
[2024-01-29] MEDS ORDERED: CLOP75TA28 PO (08:59)
[2024-01-29] MEDS ORDERED: METO25TA5 PO (08:59)
[2024-01-29] MEDS ORDERED: METH500T44 PO (08:59)
[2024-01-29] MEDS ORDERED: ASCO500T11 PO (08:59)
[2024-01-29] MEDS ORDERED: ALLO100T PO (08:59)
[2024-01-29] MEDS ORDERED: APIX5TAB PO (08:59)
[2024-01-29] MEDS ORDERED: LORA-622 PO (08:59)
[2024-01-29] MEDS ORDERED: BUDE3CAP18 PO (08:59)
[2024-01-29] MEDS ORDERED: AMIO200T33 PO (08:59)
[2024-01-29] MEDS ORDERED: AMLO1TAB22 PO (08:59)
[2024-01-29] MEDS ORDERED: SODI650T PO (08:59)
[2024-01-29] MEDS ORDERED: INSLANTI SC (08:59)
[2024-01-29] MEDS ORDERED: PANC24002 PO (08:59)
[2024-01-29] MEDS ORDERED: MONT-8 PO (08:59)
[2024-01-29] MEDS ORDERED: MAGN400T40 PO (08:59)
[2024-01-29] MEDS ORDERED: DULA4.5I SC (08:59)
[2024-01-29] MEDS ORDERED: POM PO (08:59)
[2024-01-29] MEDS ORDERED: TAMS0.4C36 PO (08:59)
[2024-01-29] MEDS ORDERED: TRAZ-181 PO (08:59)
[2024-01-29] MEDS ORDERED: GABA-1250 PO (08:59)
[2024-01-29] MEDS ORDERED: MELA10CA PO (08:59)
[2024-01-29] MEDS ORDERED: KRIL1CAP14 PO (08:59)
[2024-01-29] MEDS: cefTRIAXone 1GM/50ML D5W 50 ML IV SCH (09:44)
[2024-01-29 09:50] LABS: Magnesium 2.4 mg/dL (1.6-2.6)
[2024-01-29 09:52] VITALS: BP 109/52; PULSE 69; RESP 12; O2SAT 93
[2024-01-29] MEDS: FUROSEMIDE 100 MG/10ML VIAL IV ONE (09:55)
[2024-01-29] MEDS: methylPREDNISolone SOD SUCC 40 MG/ML VL IV SCH (09:56)
[2024-01-29] MEDS ORDERED: FUROSEMIDE 20 MG/2 ML VIAL IV SCH (10:00)
[2024-01-29] MEDS: AZITHROMYCIN 500MG/ 250ML 250 ML IV SCH (10:51)
[2024-01-29] MEDS: CARVEDILOL 3.125 MG TAB PO SCH (10:55)
[2024-01-29] MEDS: ASPirin 81 mg TAB PO SCH (10:55)
[2024-01-29 11:47] LABS: Urine Bacteria None Seen /hpf (None Seen)
[2024-01-29 12:06] LABS: Urine Blood Negative /uL (Negative); Urine Clarity Clear (Clear); Urine Color Light-Yellow (Yellow); Urine Hyaline Cast MANY /lpf (0 - 2); Urine Mucus FEW (None Seen); Urine Protein, UAD Negative (Negative); Urine Specific Gravity 1.013 (1.001-1.035); Urine Urobilinogen Normal (Negative); Urine WBC <1 /hpf (0 - 3)
[2024-01-29 12:12] LABS: Creatinine, Urine 83.85 mg/dL (30.0-125.0)
[2024-01-29 13:07] LABS: COVID19 ANTIGEN SOFIA FIA NEGATIVE (NEGATIVE)
[2024-01-29] MEDS: SODIUM CHLOR 0.9% PF (SALINE LOCK) 10ML VIAL/SYR IV SCH (13:36)
[2024-01-29] MEDS ORDERED: methylPREDNISolone SOD SUCC 40 MG/ML VL IV SCH (14:00)
[2024-01-29 15:49] LABS: Phosphorus 4.9 mg/dL (2.4-5.1)
[2024-01-29 15:57] LABS: % Iron Saturation 14.5 % (20-55)
[2024-01-29] MEDS: FUROSEMIDE 40 MG/4 ML VIAL IV SCH ×2 (16:25→17:14)
[2024-01-29 16:52] LABS: Anion Gap 8 (5-15); Carbon Dioxide 23 mmol/L (20-30); Chloride 101 mmol/L (98-107); Potassium 4.3 mmol/L (3.5-5.1); Sodium 132 mmol/L (136-145)
[2024-01-29 16:58] LABS: BUN/Creatinine Ratio 14.8 (10.0-20.0); Blood Urea Nitrogen 54 mg/dL (9-23); Glucose 260 mg/dL (74-106)
[2024-01-29 17:38] VITALS: O2SAT 95
[2024-01-29 19:15] VITALS: PULSE 70; RESP 16; O2SAT 92
[2024-01-29 21:13] VITALS: BP 114/60; PULSE 74; RESP 17; RESP 18; O2SAT 91
[2024-01-29] MEDS: ATORVASTATIN 20 MG TAB PO SCH (23:24)
[2024-01-30] VITALS (19 sets, daily range): BP systolic 95–144; BP diastolic 52–73; PULSE 70–99; RESP 16–90; TEMP 97.7–98.7; O2SAT 78–95
[2024-01-30] MEDS ORDERED: POTA-215 PO (01:24)
[2024-01-30] MEDS ORDERED: PANT1INJ3 PO (01:24)
[2024-01-30] MEDS: TEMAZEPAM 15 MG CAP PO ONE ×2 (01:34→21:36)
[2024-01-30 07:13] LABS: Basophils # (auto) 0 10 ^3/uL (0-0.2); Basophils % (auto) 0.4 % (0.0-2.0); Eosinophils # (auto) 0 10 ^3/uL (0-0.8); Hematocrit 29.3 % (41.0-53.0); Hemoglobin 9.5 g/dL (13.5-17.5); Lymphocytes # (auto) 0.6 10 ^3/uL (0.4-5.4); Lymphocytes % (auto) 5.3 % (10.0-50.0); Mean Corpuscular Hemoglobin 27.4 pg (28.0-32.0); Mean Corpuscular Hgb Conc. 32.3 g/dL (32.0-36.0); Mean Corpuscular Volume 84.7 fL (80.0-100.0); Monocytes # (auto) 0.6 10 ^3/uL (0-1.3); Monocytes % (auto) 5.3 % (0.0-12.0); Neutrophils # (auto) 10.8 10 ^3/uL (1.6-8.6); Red Blood Cells 3.46 10^6/uL (4.5-5.90); White Blood Cell 12.2 10^3/uL (4.4-10.8)
[2024-01-30 07:39] LABS: Alanine Aminotransferase 11 U/L (7-40); Alkaline Phosphatase 113 U/L (46-116); Anion Gap 8 (5-15); BUN/Creatinine Ratio 18.2 (10.0-20.0); Blood Urea Nitrogen 60 mg/dL (9-23); Calcium 9.2 mg/dL (8.5-10.1); Carbon Dioxide 25 mmol/L (20-30); Chloride 102 mmol/L (98-107); Glucose 187 mg/dL (74-106); Potassium 4.2 mmol/L (3.5-5.1); Sodium 135 mmol/L (136-145)
[2024-01-30 07:40] LABS: Albumin 3.8 g/dL (3.2-4.8); Aspartate Aminotransferase < 8 U/L (13-40); Bilirubin, Total 0.7 mg/dL (0.2-1.0); Total Protein 7.5 g/dL (5.7-8.2)
[2024-01-30] MEDS: ACETYLCYSTEINE ORAL for CIN 20%(200MG/ML) 4ML PO SCH (13:08)
[2024-01-30 13:27] LABS: Base Excess -2.5 mmol/L (-2.0-2.0)
[2024-01-30] MEDS: ALPRAZolam 0.25 MG TAB PO ONE (13:53)
[2024-01-30] MEDS: FUROSEMIDE 40 MG/4 ML VIAL IV ONE (13:56)
[2024-01-30] MEDS: LIDOCAINE 2%HCL (LOCAL ANESTH.) INJ 20ML MDV ONE (13:57)
[2024-01-30] MEDS: IOHEXOL 350 MG/ML 100ML IJ ONE (13:57)
[2024-01-30] MEDS: HEPARIN IN NS 1000Units/500mL 1,500 ML ONE (13:58)
[2024-01-30] MEDS: DOBUTamine 1000MCG/ML 250 ML IV SCH (14:57)
[2024-01-30 14:58] LABS: Base Excess -3.6 mmol/L (-2.0-2.0)
[2024-01-30] MEDS: SODIUM CHLORIDE 0.9% 1,000 ML IV SCH (15:00)
[2024-01-30] MEDS: fentaNYL CITRATE 100 MCG/2 ML VL ONE (15:06)
[2024-01-30] MEDS: ANGIOMAX 250 MG VIAL IV ONE (15:06)
[2024-01-30] MEDS: MIDAZOLAM HCL 2MG/2ML 2ml VIAL (1mg/ml) ONE (15:07)
[2024-01-30] MEDS: IODIXANOL 320MG/ML 100ML BTL IV ONE (15:07)
[2024-01-30] MEDS: SODIUM CHL 0.9% 0 ML ONE (15:07)
[2024-01-30] MEDS: DOBUTamine 1000MCG/ML 250 ML IV ONE (15:08)
[2024-01-30] MEDS: HYDROcodone-ACET 5/325MG TAB PO PRN (15:44)
[2024-01-30] MEDS: FUROSEMIDE INJECTION 100 MG in SODIUM CHL 0.9% 100 ML IV SCH (18:25)
[2024-01-31] VITALS (11 sets, daily range): BP systolic 109–137; BP diastolic 40–93; PULSE 74–90; RESP 18–21; TEMP 97.9–98.2; O2SAT 94–100
[2024-01-31 07:05] LABS: Chloride 100 mmol/L (98-107); Potassium 4.1 mmol/L (3.5-5.1); Sodium 132 mmol/L (136-145)
[2024-01-31 07:06] LABS: Anion Gap 6 (5-15); Calcium 9.6 mg/dL (8.7-10.4); Carbon Dioxide 26 mmol/L (20-30)
[2024-01-31 07:09] LABS: Hematocrit 30.6 % (41.0-53.0); Hemoglobin 9.7 g/dL (13.5-17.5); Mean Corpuscular Hgb Conc. 31.8 g/dL (32.0-36.0); Red Blood Cells 3.61 10^6/uL (4.5-5.90); White Blood Cell 14.1 10^3/uL (4.4-10.8)
[2024-01-31 07:11] LABS: BUN/Creatinine Ratio 21.6 (10.0-20.0); Blood Urea Nitrogen 58 mg/dL (9-23); Glucose 223 mg/dL (74-106)
[2024-01-31 07:49] LABS: Band Neutrophils % (manual) 0; Basophils % (manual) 0 (0.0-2.0); Blast Cells 0; Eosinophils % (manual) 0 (0-7); Metamyelocytes % 0; Myelocytes % 0; Promyelocytes % 0; Reactive Lymphocytes 0
[2024-01-31] MEDS: CLOPIDOGREL BISULFATE 75 MG TAB PO SCH (09:32)
[2024-01-31 11:01] LABS: Lymphocytes % (manual) 3 (10.0-50.0); Monocytes % (manual) 6 (0-12)
[2024-01-31 11:02] LABS: Anisocytosis Slight; Platelet Estimate Adequate
[2024-01-31] MEDS ORDERED: DEXTROSE (50%) 50ML SYRG IV PRN (12:30)
[2024-01-31] MEDS: ACCU-CHEK COMFORT CURVE STRIP VI SCH (17:00)
[2024-01-31] MEDS: InsuLIN REG 1unit/0.01ml Soln (100units/ml) SC SCH ×2 (18:09→22:54)
[2024-01-31] MEDS: DOCUSATE SOD 100 MG CAP PO PRN (22:43)
[2024-01-31] MEDS: INSULIN LANTUS (GLARGINE) 1 /0.01ml (100units/ml) SC SCH (22:58)
[2024-01-31] MEDS: ACETYLCYSTEINE 20%(200MG/ML) SOL 4ML ONE (23:21)
[2024-01-31] MEDS: TEMAZEPAM 15 MG CAP PO ONE (23:53)
[2024-02-01] VITALS (10 sets, daily range): BP systolic 106–133; BP diastolic 58–75; PULSE 73–98; RESP 17–18; TEMP 97.4–98.5; O2SAT 92–99
[2024-02-01 06:10] LABS: Basophils # (auto) 0 10 ^3/uL (0-0.2); Basophils % (auto) 0.1 % (0.0-2.0); Eosinophils # (auto) 0 10 ^3/uL (0-0.8); Hematocrit 30.5 % (41.0-53.0); Lymphocytes # (auto) 0.7 10 ^3/uL (0.4-5.4); Lymphocytes % (auto) 5.7 % (10.0-50.0); Mean Corpuscular Hemoglobin 27.7 pg (28.0-32.0); Mean Corpuscular Hgb Conc. 32.8 g/dL (32.0-36.0); Mean Corpuscular Volume 84.5 fL (80.0-100.0); Monocytes # (auto) 0.7 10 ^3/uL (0-1.3); Monocytes % (auto) 5.8 % (0.0-12.0); Neutrophils # (auto) 10.4 10 ^3/uL (1.6-8.6); Neutrophils % (auto) 88.4 % (37.0-80.0); Red Blood Cells 3.61 10^6/uL (4.5-5.90); White Blood Cell 11.7 10^3/uL (4.4-10.8)
[2024-02-01 06:11] LABS: Red Cell Distribution Width 21.6 % (11.8-14.3)
[2024-02-01 06:32] LABS: Alkaline Phosphatase 94 U/L (46-116); Anion Gap 8 (5-15); Blood Urea Nitrogen 63 mg/dL (9-23); Calcium 9.9 mg/dL (8.7-10.4); Carbon Dioxide 28 mmol/L (20-30); Chloride 97 mmol/L (98-107); Glucose 193 mg/dL (74-106); Magnesium 2.2 mg/dL (1.6-2.6); Sodium 133 mmol/L (136-145)
[2024-02-01 06:33] LABS: Aspartate Aminotransferase < 8 U/L (13-40); Bilirubin, Total 1.1 mg/dL (0.2-1.0)
[2024-02-01 06:48] LABS: Alanine Aminotransferase 9 U/L (7-40)
[2024-02-01] MEDS: TEMAZEPAM 15 MG CAP PO ONE (23:05)
[2024-02-02] VITALS (8 sets, daily range): BP systolic 126–143; BP diastolic 60–78; PULSE 69–90; RESP 16–20; TEMP 97.4–98; O2SAT 93–98
[2024-02-02] MEDS: FUROSEMIDE 20 MG TAB PO SCH (09:27)
[2024-02-02 14:12] LABS: Basophils # (auto) 0 10 ^3/uL (0-0.2); Basophils % (auto) 0.1 % (0.0-2.0); Eosinophils # (auto) 0 10 ^3/uL (0-0.8); Hematocrit 35.8 % (41.0-53.0); Hemoglobin 11.6 g/dL (13.5-17.5); Lymphocytes # (auto) 0.5 10 ^3/uL (0.4-5.4); Lymphocytes % (auto) 4.2 % (10.0-50.0); Mean Corpuscular Hemoglobin 27.2 pg (28.0-32.0); Mean Corpuscular Hgb Conc. 32.4 g/dL (32.0-36.0); Mean Corpuscular Volume 84.2 fL (80.0-100.0); Monocytes # (auto) 0.2 10 ^3/uL (0-1.3); Monocytes % (auto) 1.7 % (0.0-12.0); Neutrophils # (auto) 11.6 10 ^3/uL (1.6-8.6); Red Blood Cells 4.26 10^6/uL (4.5-5.90); Red Cell Distribution Width 20.9 % (11.8-14.3); White Blood Cell 12.3 10^3/uL (4.4-10.8)
[2024-02-02 14:26] LABS: Alanine Aminotransferase 12 U/L (7-40); Albumin 4.1 g/dL (3.2-4.8); Alkaline Phosphatase 96 U/L (46-116); Anion Gap 9 (5-15); Aspartate Aminotransferase < 8 U/L (13-40); BUN/Creatinine Ratio 30.4 (10.0-20.0); Bilirubin, Total 0.7 mg/dL (0.2-1.0); Calcium 9.8 mg/dL (8.5-10.1); Carbon Dioxide 27 mmol/L (20-30); Chloride 95 mmol/L (98-107); Glucose 292 mg/dL (74-106); Magnesium 2.2 mg/dL (1.6-2.6); Potassium 3.9 mmol/L (3.5-5.1); Sodium 131 mmol/L (136-145); Total Protein 8.3 g/dL (5.7-8.2)
[2024-02-02 14:27] LABS: Blood Urea Nitrogen 73 mg/dL (9-23)
[2024-02-02] MEDS: BUMETANIDE 1 MG TAB PO SCH (17:54)
[2024-02-02] MEDS: TEMAZEPAM 15 MG CAP PO ONE (22:08)
[2024-02-03 01:23] VITALS: BP 128/66; PULSE 76; RESP 18; TEMP 97.8; O2SAT 93
[2024-02-03 01:24] VITALS: BP 143/71; PULSE 79; RESP 17; TEMP 97.7; O2SAT 99
[2024-02-03 05:00] VITALS: BP 108/59; PULSE 82; RESP 20; TEMP 98.2; O2SAT 94
[2024-02-03 07:23] VITALS: O2SAT 97
[2024-02-03 08:00] VITALS: PULSE 69
[2024-02-03] MEDS ORDERED: CLOP75TA70 PO (09:29)
[2024-02-03] MEDS ORDERED: BUM1T PO (09:29)
[2024-02-03] MEDS ORDERED: METH4PAK PO (09:29)
[2024-02-03] MEDS ORDERED: AZIT-185 PO (09:29)
[2024-02-03 09:43] VITALS: BP 120/80; PULSE 82; TEMP 36.8
== END 2024-02-03 10:50 | disposition home or self-care (01) | DRG 280 ==
LOC: ER 22:25 → EDBD 22:25 → ER 01-29 07:27 → TELE 01-29 07:27 → TELE-WESTW 01-29 21:12
PROVIDERS: ADMIT Nurse Practitioner Family; ATTEND Internal Medicine
PROC: B211YZZ Fluoroscopy of Multiple Coronary Arteries using Other Contrast (ICD-10-PCS; principal; 2024-01-30)
PROC: 4A023N7 Measurement of Cardiac Sampling and Pressure, Left Heart, Percutaneous Approach (ICD-10-PCS; 2024-01-30)
PROC: B218YZZ Fluoroscopy of Left Internal Mammary Bypass Graft using Other Contrast (ICD-10-PCS; 2024-01-30)
PROC: B21FYZZ Fluoroscopy of Other Bypass Graft using Other Contrast (ICD-10-PCS; 2024-01-30)
DX: I21.4 Non-ST elevation (NSTEMI) myocardial infarction (principal); I50.31 Acute diastolic (congestive) heart failure; J18.9 Pneumonia, unspecified organism; J96.01 Acute respiratory failure with hypoxia; I13.0 Hypertensive heart and chronic kidney disease with heart failure and stage 1 through stage 4 chronic kidney disease, or unspecified chronic kidney disease; N17.9 Acute kidney failure, unspecified; J44.0 Chronic obstructive pulmonary disease with (acute) lower respiratory infection; J44.1 Chronic obstructive pulmonary disease with (acute) exacerbation; I25.10 Atherosclerotic heart disease of native coronary artery without angina pectoris; I48.91 Unspecified atrial fibrillation; Z20.822 Contact with and (suspected) exposure to COVID-19; E78.5 Hyperlipidemia, unspecified; I35.0 Nonrheumatic aortic (valve) stenosis; I25.5 Ischemic cardiomyopathy; D63.1 Anemia in chronic kidney disease; E66.9 Obesity, unspecified; E11.65 Type 2 diabetes mellitus with hyperglycemia; G47.00 Insomnia, unspecified; G47.33 Obstructive sleep apnea (adult) (pediatric); J43.9 Emphysema, unspecified; E11.22 Type 2 diabetes mellitus with diabetic chronic kidney disease; N18.32 Chronic kidney disease, stage 3b; Z88.1 Allergy status to other antibiotic agents; Z79.82 Long term (current) use of aspirin; Z79.899 Other long term (current) drug therapy; Z95.1 Presence of aortocoronary bypass graft; Z88.6 Allergy status to analgesic agent; Z87.891 Personal history of nicotine dependence; Z79.4 Long term (current) use of insulin; Z79.01 Long term (current) use of anticoagulants; Z79.84 Long term (current) use of oral hypoglycemic drugs; Z82.49 Family history of ischemic heart disease and other diseases of the circulatory system; Z82.5 Family history of asthma and other chronic lower respiratory diseases; Z68.25 Body mass index [BMI] 25.0-25.9, adult; Z98.61 Coronary angioplasty status
CPT/HCPCS: 36415; 36600; 71045; 80048; 80053; 81001; 82043; 82570; 82728; 82805; 82962; 83540; 83550; 83605; 83735; 83880; 84100; 84300; 84484; 85007; 85025; 85027; 85379; 85610; 87426; 93005; 93459; 94640; 96365; 96367; 96368; 96372; 96375; 99152; 99291; G0378; J1815; J2250; J2405; Q9967

== ENCOUNTER → 2024-02-29 | Outpatient (CLI) | payer OTHER ==
[~2024-02-29] MED LIST changes: -ACE3T PO; +ALLO100T PO; +AMIO200T33 PO; +AMLO1TAB22 PO; +APIX5TAB PO; +ASCO500T11 PO; -ASPI81CH43 PO; +AZIT-185 PO; +BUM1T PO; -CARV3.1240 PO; -CLOP75TA28 PO; +CLOP75TA70 PO; +DULA4.5I SC; -FURO1TAB33 PO; -GABA-1250 PO; +INSLANTI SC; +KRIL1CAP14 PO; +LORA-622 PO; +MAGN400T40 PO; -METF-370 PO; +METH4PAK PO; +METO25TA5 PO; +MONT-8 PO; +PANC24002 PO; +PANT1INJ3 PO; +POTA-215 PO; +SODI650T PO; +TAMS0.4C36 PO; +TRAZ-181 PO
[2024-02-29 16:08] VITALS: BP 124/78; PULSE 54
[2024-02-29 16:22] VITALS: BP 118/78; PULSE 52
== END | disposition home or self-care (01) ==
LOC: CHF HDHVI 14:54
PROVIDERS: ATTEND Internal Medicine Cardiovascular Disease
DX: I25.118 Atherosclerotic heart disease of native coronary artery with other forms of angina pectoris (principal); I25.5 Ischemic cardiomyopathy; I50.23 Acute on chronic systolic (congestive) heart failure
CPT/HCPCS: G0166

== ENCOUNTER → 2024-03-01 | Outpatient (CLI) | payer OTHER ==
[2024-03-01 11:26] VITALS: BP 118/69; PULSE 60
[2024-03-01 11:27] VITALS: BP 119/68; PULSE 57
== END | disposition home or self-care (01) ==
LOC: CHF HDHVI 10:33
PROVIDERS: ATTEND Internal Medicine Cardiovascular Disease
DX: I25.118 Atherosclerotic heart disease of native coronary artery with other forms of angina pectoris (principal); I25.5 Ischemic cardiomyopathy; I50.23 Acute on chronic systolic (congestive) heart failure
CPT/HCPCS: G0166

== ENCOUNTER → 2024-03-04 | Outpatient (CLI) | payer OTHER ==
[2024-03-04 14:36] VITALS: BP 124/86; PULSE 56
[2024-03-04 14:37] VITALS: BP 118/78; PULSE 56
== END | disposition home or self-care (01) ==
LOC: CHF HDHVI 13:45
PROVIDERS: ATTEND Internal Medicine Cardiovascular Disease
DX: I25.118 Atherosclerotic heart disease of native coronary artery with other forms of angina pectoris (principal); I25.5 Ischemic cardiomyopathy; I50.23 Acute on chronic systolic (congestive) heart failure
CPT/HCPCS: G0166

== ENCOUNTER → 2024-03-11 | Outpatient (CLI) | payer OTHER ==
[2024-03-11 12:47] VITALS: BP 124/72; PULSE 58
[2024-03-11 12:48] VITALS: BP 122/71; PULSE 62
== END | disposition home or self-care (01) ==
LOC: CHF HDHVI 10:49
PROVIDERS: ATTEND Internal Medicine Cardiovascular Disease
DX: I25.118 Atherosclerotic heart disease of native coronary artery with other forms of angina pectoris (principal); I25.5 Ischemic cardiomyopathy; I50.23 Acute on chronic systolic (congestive) heart failure; Z98.61 Coronary angioplasty status; Z95.1 Presence of aortocoronary bypass graft; R06.02 Shortness of breath; E11.9 Type 2 diabetes mellitus without complications
CPT/HCPCS: G0166

== ENCOUNTER → 2024-03-12 | Outpatient (CLI) | payer OTHER ==
[~2024-03-12] MED LIST changes: +PANC2400 PO; -PANC24002 PO; -TAMS0.4C36 PO; +TAMS0.4C39 PO
[2024-03-12 13:41] VITALS: BP 120/68; PULSE 60
[2024-03-12 13:42] VITALS: BP 122/64; PULSE 57
== END | disposition home or self-care (01) ==
LOC: CHF HDHVI 09:51
PROVIDERS: ATTEND Internal Medicine Cardiovascular Disease
DX: I25.118 Atherosclerotic heart disease of native coronary artery with other forms of angina pectoris (principal); I25.5 Ischemic cardiomyopathy; I50.23 Acute on chronic systolic (congestive) heart failure; E11.9 Type 2 diabetes mellitus without complications; Z95.1 Presence of aortocoronary bypass graft
CPT/HCPCS: G0166

== ENCOUNTER → 2024-03-13 | Outpatient (CLI) | payer OTHER ==
[2024-03-13 12:44] VITALS: BP 122/68; PULSE 63
[2024-03-13 12:45] VITALS: BP 117/66; PULSE 66
== END | disposition home or self-care (01) ==
LOC: CHF HDHVI 10:58
PROVIDERS: ATTEND Internal Medicine Cardiovascular Disease
DX: I25.118 Atherosclerotic heart disease of native coronary artery with other forms of angina pectoris (principal); E11.9 Type 2 diabetes mellitus without complications; I25.5 Ischemic cardiomyopathy; I50.23 Acute on chronic systolic (congestive) heart failure; R06.02 Shortness of breath; Z95.1 Presence of aortocoronary bypass graft; Z98.61 Coronary angioplasty status
CPT/HCPCS: G0166

== ENCOUNTER → 2024-03-14 | Outpatient (CLI) | payer OTHER ==
[2024-03-14 10:49] VITALS: BP 121/68; PULSE 66
[2024-03-14 11:29] VITALS: BP 119/69; PULSE 64
== END | disposition home or self-care (01) ==
LOC: CHF HDHVI 09:57
PROVIDERS: ATTEND Internal Medicine Cardiovascular Disease
DX: I25.118 Atherosclerotic heart disease of native coronary artery with other forms of angina pectoris (principal); R94.31 Abnormal electrocardiogram [ECG] [EKG]; I25.5 Ischemic cardiomyopathy; I50.23 Acute on chronic systolic (congestive) heart failure
CPT/HCPCS: 93005; G0166

== ENCOUNTER → 2024-03-15 | Outpatient (CLI) | payer OTHER ==
[2024-03-15 10:44] VITALS: BP 121/70; PULSE 65
[2024-03-15 10:59] VITALS: BP 119/70; PULSE 66
== END | disposition home or self-care (01) ==
LOC: CHF HDHVI 09:49
PROVIDERS: ATTEND Internal Medicine Cardiovascular Disease
DX: I25.118 Atherosclerotic heart disease of native coronary artery with other forms of angina pectoris (principal); E11.9 Type 2 diabetes mellitus without complications; I25.5 Ischemic cardiomyopathy; I50.23 Acute on chronic systolic (congestive) heart failure; Z95.1 Presence of aortocoronary bypass graft; Z98.61 Coronary angioplasty status
CPT/HCPCS: G0166

== ENCOUNTER → 2024-03-18 | Outpatient (CLI) | payer OTHER ==
[2024-03-18 11:33] VITALS: BP 128/78; PULSE 57
[2024-03-18 11:34] VITALS: BP 127/85; PULSE 66
== END | disposition home or self-care (01) ==
LOC: CHF HDHVI 10:06
PROVIDERS: ATTEND Internal Medicine Cardiovascular Disease
DX: I25.118 Atherosclerotic heart disease of native coronary artery with other forms of angina pectoris (principal); I25.5 Ischemic cardiomyopathy; I50.23 Acute on chronic systolic (congestive) heart failure
CPT/HCPCS: G0166

== ENCOUNTER → 2024-03-19 | Outpatient (CLI) | payer OTHER ==
[2024-03-19 16:03] VITALS: BP_SYST 130; BP_SYST 132; BP_DIAS 68; BP_DIAS 80; PULSE 67; PULSE 78
== END | disposition home or self-care (01) ==
LOC: CHF HDHVI 14:12
PROVIDERS: ATTEND Internal Medicine Cardiovascular Disease
DX: I25.118 Atherosclerotic heart disease of native coronary artery with other forms of angina pectoris (principal); I25.5 Ischemic cardiomyopathy; I50.23 Acute on chronic systolic (congestive) heart failure
CPT/HCPCS: G0166

== ENCOUNTER → 2024-03-20 | Outpatient (CLI) | payer OTHER ==
[~2024-03-20] MED LIST changes: +IOHEXOL 300 MG/ML 100ML BOTTLE IJ ONE
[2024-03-20 14:21] VITALS: BP 122/78; PULSE 59
[2024-03-20 14:22] VITALS: BP 119/72; PULSE 62
== END | disposition home or self-care (01) ==
LOC: CHF HDHVI 10:08
PROVIDERS: ATTEND Internal Medicine Cardiovascular Disease
DX: I25.118 Atherosclerotic heart disease of native coronary artery with other forms of angina pectoris (principal); I25.5 Ischemic cardiomyopathy; E11.9 Type 2 diabetes mellitus without complications; I50.23 Acute on chronic systolic (congestive) heart failure; Z95.1 Presence of aortocoronary bypass graft
CPT/HCPCS: G0166

== ENCOUNTER → 2024-03-21 | Outpatient (CLI) | payer OTHER ==
[~2024-03-21] MED LIST changes: -IOHEXOL 300 MG/ML 100ML BOTTLE IJ ONE
[2024-03-21 13:01] VITALS: BP_SYST 119; BP_SYST 125; BP_DIAS 78; BP_DIAS 83; PULSE 59; PULSE 63
== END | disposition home or self-care (01) ==
LOC: CHF HDHVI 09:52
PROVIDERS: ATTEND Internal Medicine Cardiovascular Disease
DX: I25.118 Atherosclerotic heart disease of native coronary artery with other forms of angina pectoris (principal); I25.5 Ischemic cardiomyopathy; I50.23 Acute on chronic systolic (congestive) heart failure
CPT/HCPCS: G0166

== ENCOUNTER → 2024-03-22 | Outpatient (CLI) | payer OTHER ==
[2024-03-22 15:15] VITALS: BP 118/86; PULSE 59
[2024-03-22 15:16] VITALS: BP 116/88; PULSE 54
== END | disposition home or self-care (01) ==
LOC: CHF HDHVI 10:02
PROVIDERS: ATTEND Internal Medicine Cardiovascular Disease
DX: I25.118 Atherosclerotic heart disease of native coronary artery with other forms of angina pectoris (principal); I25.5 Ischemic cardiomyopathy; I50.23 Acute on chronic systolic (congestive) heart failure
CPT/HCPCS: G0166

== ENCOUNTER → 2024-03-25 | Outpatient (CLI) | payer OTHER ==
[2024-03-25 13:37] VITALS: BP 126/80; PULSE 54
[2024-03-25 13:38] VITALS: BP 119/84; PULSE 57
== END | disposition home or self-care (01) ==
LOC: CHF HDHVI 10:46
PROVIDERS: ATTEND Internal Medicine Cardiovascular Disease
DX: I25.118 Atherosclerotic heart disease of native coronary artery with other forms of angina pectoris (principal); I25.5 Ischemic cardiomyopathy; I50.23 Acute on chronic systolic (congestive) heart failure; R06.02 Shortness of breath; E11.9 Type 2 diabetes mellitus without complications; Z95.1 Presence of aortocoronary bypass graft
CPT/HCPCS: G0166

== ENCOUNTER → 2024-03-26 | Outpatient (CLI) | payer OTHER ==
[2024-03-26 11:31] VITALS: BP 126/83; PULSE 52
[2024-03-26 11:32] VITALS: BP 124/80; PULSE 56
== END | disposition home or self-care (01) ==
LOC: CHF HDHVI 09:58
PROVIDERS: ATTEND Internal Medicine Cardiovascular Disease
DX: I25.118 Atherosclerotic heart disease of native coronary artery with other forms of angina pectoris (principal); I25.5 Ischemic cardiomyopathy; I50.23 Acute on chronic systolic (congestive) heart failure; R06.02 Shortness of breath; E11.9 Type 2 diabetes mellitus without complications; Z95.1 Presence of aortocoronary bypass graft; Z98.61 Coronary angioplasty status
CPT/HCPCS: G0166

== ENCOUNTER → 2024-03-27 | Outpatient (CLI) | payer OTHER ==
[2024-03-27 13:57] VITALS: BP 124/78; PULSE 55
[2024-03-27 13:58] VITALS: BP 121/84; PULSE 57
== END | disposition home or self-care (01) ==
LOC: CHF HDHVI 11:01
PROVIDERS: ATTEND Internal Medicine Cardiovascular Disease
DX: I25.118 Atherosclerotic heart disease of native coronary artery with other forms of angina pectoris (principal); R06.02 Shortness of breath; E11.9 Type 2 diabetes mellitus without complications; I50.23 Acute on chronic systolic (congestive) heart failure; I25.5 Ischemic cardiomyopathy; Z95.1 Presence of aortocoronary bypass graft
CPT/HCPCS: G0166

== ENCOUNTER → 2024-03-28 | Outpatient (CLI) | payer OTHER ==
[2024-03-28 13:20] VITALS: BP 124/81; PULSE 58
[2024-03-28 13:21] VITALS: BP 126/81; PULSE 61
== END | disposition home or self-care (01) ==
LOC: CHF HDHVI 10:09
PROVIDERS: ATTEND Internal Medicine Cardiovascular Disease
DX: I25.118 Atherosclerotic heart disease of native coronary artery with other forms of angina pectoris (principal); I25.5 Ischemic cardiomyopathy; I50.23 Acute on chronic systolic (congestive) heart failure; R06.02 Shortness of breath; E11.9 Type 2 diabetes mellitus without complications; Z98.61 Coronary angioplasty status; Z95.1 Presence of aortocoronary bypass graft
CPT/HCPCS: G0166

== ENCOUNTER → 2024-04-10 | Outpatient (CLI) | payer OTHER ==
[2024-04-10 13:45] VITALS: BP 126/84; PULSE 63
[2024-04-10 13:46] VITALS: BP 121/83; PULSE 68
== END | disposition home or self-care (01) ==
LOC: CHF HDHVI 11:17
PROVIDERS: ATTEND Internal Medicine Cardiovascular Disease
DX: I25.118 Atherosclerotic heart disease of native coronary artery with other forms of angina pectoris (principal); I25.5 Ischemic cardiomyopathy; I50.33 Acute on chronic diastolic (congestive) heart failure; E11.9 Type 2 diabetes mellitus without complications; Z95.1 Presence of aortocoronary bypass graft
CPT/HCPCS: G0166

== ENCOUNTER → 2024-04-19 | Outpatient (CLI) | payer OTHER ==
[2024-04-19 11:23] VITALS: BP 134/78; PULSE 56
[2024-04-19 11:24] VITALS: BP 124/79; PULSE 68
== END | disposition home or self-care (01) ==
LOC: CHF HDHVI 10:04
PROVIDERS: ATTEND Internal Medicine Cardiovascular Disease
DX: I25.118 Atherosclerotic heart disease of native coronary artery with other forms of angina pectoris (principal); I25.5 Ischemic cardiomyopathy; I50.23 Acute on chronic systolic (congestive) heart failure
CPT/HCPCS: G0166

== ENCOUNTER → 2024-04-22 | Outpatient (CLI) | payer OTHER ==
[2024-04-22 11:14] VITALS: BP 124/84; PULSE 60
[2024-04-22 11:15] VITALS: BP 125/79; PULSE 70
== END | disposition home or self-care (01) ==
LOC: CHF HDHVI 10:03
PROVIDERS: ATTEND Internal Medicine Cardiovascular Disease
DX: I25.118 Atherosclerotic heart disease of native coronary artery with other forms of angina pectoris (principal); I25.5 Ischemic cardiomyopathy; I50.23 Acute on chronic systolic (congestive) heart failure
CPT/HCPCS: G0166

== ENCOUNTER → 2024-04-23 | Outpatient (CLI) | payer OTHER ==
[2024-04-23 11:38] VITALS: BP_SYST 119; BP_SYST 135; BP_DIAS 81; PULSE 60; PULSE 67
== END | disposition home or self-care (01) ==
LOC: CHF HDHVI 09:52
PROVIDERS: ATTEND Internal Medicine Cardiovascular Disease
DX: I25.118 Atherosclerotic heart disease of native coronary artery with other forms of angina pectoris (principal); I25.5 Ischemic cardiomyopathy; I50.23 Acute on chronic systolic (congestive) heart failure
CPT/HCPCS: G0166

== ENCOUNTER → 2024-04-24 | Outpatient (CLI) | payer OTHER ==
[2024-04-24 11:06] VITALS: BP 126/81; PULSE 55
[2024-04-24 11:07] VITALS: BP 123/78; PULSE 56
== END | disposition home or self-care (01) ==
LOC: CHF HDHVI 09:40
PROVIDERS: ATTEND Internal Medicine Cardiovascular Disease
DX: I25.118 Atherosclerotic heart disease of native coronary artery with other forms of angina pectoris (principal); I25.5 Ischemic cardiomyopathy; I50.23 Acute on chronic systolic (congestive) heart failure
CPT/HCPCS: G0166

== ENCOUNTER → 2024-04-25 | Outpatient (CLI) | payer OTHER ==
[2024-04-25 11:05] VITALS: BP 122/76; PULSE 62
[2024-04-25 11:08] VITALS: BP 127/71; PULSE 72
== END | disposition home or self-care (01) ==
LOC: CHF HDHVI 09:48
PROVIDERS: ATTEND Internal Medicine Cardiovascular Disease
DX: I25.118 Atherosclerotic heart disease of native coronary artery with other forms of angina pectoris (principal); I25.5 Ischemic cardiomyopathy; I50.23 Acute on chronic systolic (congestive) heart failure
CPT/HCPCS: G0166

== ENCOUNTER → 2024-04-29 | Outpatient (CLI) | payer OTHER ==
[2024-04-29 14:23] VITALS: BP 134/80; PULSE 64
[2024-04-29 14:24] VITALS: BP 128/79; PULSE 67
== END | disposition home or self-care (01) ==
LOC: CHF HDHVI 12:56
PROVIDERS: ATTEND Internal Medicine Cardiovascular Disease
DX: I25.118 Atherosclerotic heart disease of native coronary artery with other forms of angina pectoris (principal); I25.5 Ischemic cardiomyopathy; I50.23 Acute on chronic systolic (congestive) heart failure; R06.02 Shortness of breath; E11.9 Type 2 diabetes mellitus without complications; Z98.61 Coronary angioplasty status; Z95.1 Presence of aortocoronary bypass graft
CPT/HCPCS: G0166

== ENCOUNTER → 2024-05-10 | Outpatient (CLI) | payer OTHER | END | disposition home or self-care (01) | LOC: Rad HDHVI 10:52 | PROVIDERS: ATTEND Internal Medicine Cardiovascular Disease | DX: I10 Essential (primary) hypertension (principal); I25.5 Ischemic cardiomyopathy | CPT/HCPCS: 93306 ==

== ENCOUNTER 2024-08-04 05:24 | Inpatient (IN) | payer OTHER ==
[~2024-08-04] VITALS: Ht 177.8 cm; Wt 81.0 kg
[2024-08-04] VITALS (25 sets, daily range): BP systolic 91–162; BP diastolic 51–85; PULSE 43–83; RESP 16–28; O2SAT 96–100
[2024-08-04] MEDS: DOPamine 1600MCG/ML D5W 250 ML IV SCH (02:30)
[~2024-08-04 05:24] MED LIST changes: +BUME1TAB3 PO; +GABA-1250 PO; +INSU100I54 SC; +METO25TA93 PO; +PANT40TA57 PO; +SODI325T PO; +VERI5TAB PO
--- NOTE | 2024-08-04 06:22 | ED.PDOC ---
HPI Comments A 74 year old male brought in by EMS presents to the ED with a chief complaint of bradycardia and syncopal episode onset today. Per EMS, patient had an aortic valve replacement at [facility] about 2 days ago, has a Holter monitor in place. [facility] called patient to let him know his HR rate was low and he should go to ED. Upon ED arrival, HR was 36. Patient states he is currently experiencing dizziness, generalized weakness and nausea. PMHx anemia, CHF, COPD, DM, HLD, HTN. Denies chest pain, shortness of breath, headache, diarrhea, vomiting. No other symptoms or modifying factors present at this time. Chief Complaint: Syncope Time Seen by MD: 06:16 Primary Care Provider: Mandie Reviewed Notes: Medications, Allergies Allergies: Coded Allergies: Ibuprofen (Verified Allergy, Unknown, 03/02/17) Home Meds Active Scripts Bumetanide (Bumex Tablet) 1 Mg Tab, 1 MG PO BIDD, #60 TAB Prov:LOUIE MÁRQUEZ MD 02/03/24 Methylprednisolone (Medrol Dosepak) 4 Mg Bennie, 4 MG PO UD, #21 TAB UAD Prov:LOUIE MÁRQUEZ MD 02/03/24 Azithromycin (ZITHROMAX TABLET) 250 Mg Tb, 250 MG PO DAILY, #6 TAB Take 2 tablets the first day then one tab daily until finish. Prov:LOUIE MÁRQUEZ MD 02/03/24 Clopidogrel Bisulfate (CLOPIDOGREL) 75 Mg Tab, 75 MG PO DAILY, #30 TAB 5 Refills Prov:LOUIE MÁRQUEZ MD 02/03/24 Reported Medications Pantoprazole Sodium (PANTOPRAZOLE SODIUM) 40 Mg Inj, 40 MG PO DAILY, INJ 01/30/24 Potassium Chloride (Klor-Con M10) 10 Meq Tab, 1 TAB PO BID, #30 TAB 5 Refills 01/30/24 Pancreatic Enzymes (Creon) 24,000 Unt Cap, 14373 UNT PO TID, CAP 01/29/24 Amlodipine Besylate (Amlodipine Besylate) 5 Mg Tab, 10 MG PO QAM for HTN, MG 01/29/24 Tamsulosin Hcl (Tamsulosin Hcl) 0.4 Mg Cap, 0.4 MG PO QPM for BPH for 30 Days, MG 01/29/24 Sodium Bicarbonate (Sodium Bicarbonate) 650 Mg Tab, 650 MG PO BID, TAB 01/29/24 Montelukast Sodium (MONTELUKAST SODIUM) 10 Mg Tab, 1 TAB PO HS for ALLEGIES, #30 TAB 5 Refills 01/29/24 Loratadine (Claritin) 10 Mg Tab, 1 TAB PO DAILY for ALLERGIES, #30 TAB 5 Refills 01/29/24 Apixaban Base (ELIQUIS) 5 Mg Tab, 5 MG PO BID, TAB 01/29/24 Insulin Glargine (Lantus) 100 Unit/Ml Inj, 21-23 UNIT SC DAILY for DIABETES, INJ 01/29/24 Dulaglutide (Trulicity) 4.5 Mg/0.5 Ml Inj, 4.5 MG SC QWEEKLY for DIABETES, INJ 01/29/24 Amiodarone Hcl (Amiodarone Hcl) 200 Mg Tab, 200 MG PO DAILY for ARRHYTHMIA 01/29/24 Trazodone HCl (Trazodone Hydrochloride) 50 Mg Tab, 50 MG PO QPM for INSOMNIA, TAB 01/29/24 Ascorbic Acid (VITAMIN C TABLET) 500 Mg Tb, 2 TAB PO DAILY for SUPPLEMENT, #30 TAB 3 Refills 01/29/24 Magnesium Oxide (MAGNESIUM OXIDE) 400 Mg Tab, 1 TAB PO DAILY for SUPPLEMENT, #30 TAB 5 Refills 01/29/24 Krill Oil (Niles-3 500 mg) 1 Cap Cap, 2 CAP PO BID for SUPPLEMENT, CAP 01/29/24 Allopurinol (Allopurinol) 100 Mg Tab, 100 MG PO BID for GOUT, MG 01/29/24 Metoprolol Tartrate (Metoprolol Tartrate) 25 Mg Tab, 25 MG PO DAILY for HTN for 30 Days, MG 01/29/24 Isosorbide Dinitrate (Isosorbide Dinitrate) 20 Mg Tab, 20 MG PO BID, MG 09/23/17 Lisinopril (Lisinopril) 10 Mg Tab, 10 MG PO DAILY for 30 Days, MG 03/24/17 Atorvastatin Calcium (ATORVASTATIN CALCIUM) 40 Mg Tab, 1 TAB PO DAILY, #30 TAB 5 Refills 03/24/17 Information Source: Patient, Emergency Med Personnel Mode of Arrival: EMS Severity: Moderate Timing: Hours Duration: Since onset Prehospital treatment: 12 Lead EKG Modifying Factors: Nothing Associated Signs and Symptoms: N/V, Syncope, None (bradycardia ) Past Medical History PAST MEDICAL HISTORY: Anemia, CHF, COPD, DM, High Lipids, HTN Surgical History: CABG, PTCA Family History Family History: No family hx of Heart michael, No family hx of HTN Social History Smoker: Non-Smoker, Quit Greater Than 1 Year, Cigarettes Alcohol: Denies ETOH Use Drugs: Denies Drug Use Lives In: Home Constitutional: reports: weakness; denies: chills, diaphoresis, fatigue, fever, malaise, sweats, others EENTM: denies: blurred vision, double vision, ear bleeding, ear discharge, ear drainage, ear pain, ear ringing, eye pain, eye redness, hearing loss, mouth pain, mouth swelling, nasal discharge, nose bleeding, nose congestion, nose pain, photophobia, tearing, throat pain, throat swelling, voice changes, others Respiratory: denies: cough, hemoptysis, orthopnea, SOB at rest, shortness of breath, SOB with excertion, stridor, wheezing, others Cardiovascular: reports: irregular heart beat; denies: chest pain, dizzy spells, diaphoresis, Dyspnea on exertion, edema, left arm pain, lightheadedness, palpitations, PND, syncope, others Gastrointestinal: reports: nausea; denies: abdomen distended, abdominal pain, blood streaked bowels, constipated, diarrhea, dysphagia, difficulty swallowing, hematemesis, melena, poor appetite, poor fluid intake, rectal bleeding, rectal pain, vomiting, others Genitourinary: denies: burning, dysuria, flank pain, frequency, hematuria, incontinence, penile discharge, penile sore, pain, testicle pain, testicle swelling, urgency, others Neurological: reports: dizziness, weakness, others (syncope); denies: fainting, headache, left sided numbness, left sided weakness, numbness, paresthesia, pre- existing deficit, right sided numbness, right sided weakness, seizure, speech problems, tingling, tremors Musculoskeletal: denies: back pain, gout, joint pain, joint swelling, muscle pain, muscle stiffness, neck pain, others Integumetry: denies: bruises, change in color, change in hair/nails, dryness, laceration, lesions, lumps, rash, wounds, others Allergic/Immunocompromised: denies: Difficulty Healing, Frequent Infections, Hives, Itching, others Hematologic/Lymphatic: denies: anemia, blood clots, easy bleeding, easy bruising, swollen glands, others Endocrine: denies: excessive hunger, excessive sweating, excessive thirst, excessive urination, flushing, intolerance to cold, intolerance to heat, un explained weight gain, unexplained weight loss, others Psychiatric: denies: anxiety, bipolar disorder, depression, hopeless, panic disorder, schizophrenia, sleepless, suicidal, others All Other Systems: Reviewed and Negative Physical Exam General Appearance: Moderate Distress HEENT: Normal ENT Inspection, Pharynx Normal, TMs Normal Neck: Full Range of Motion, Non-Tender, Normal, Normal Inspection Respiratory: Chest Non-Tender, Lungs Clear, No Accessory Muscle Use, No Respiratory Distress, Normal Breath Sounds Cardiovascular: Bradycardia Breast Exam: Deferred Gastrointestinal: No Organomegaly, Non Tender, No Pulsatile Mass, Normal Bowel Sounds, Soft Genitalia: Deferred Pelvic: Deferred Rectal: Deferred Extremities: No calf tenderness, Normal capillary refill, Normal inspection, Normal range of motion, Non-tender, No pedal edema Musculoskeletal : Apperance: Normal Neurologic: Alert, cnc manager II-XII nml as Tested, No Motor Deficits, Normal Affect, Normal Mood, No Sensory Deficits Cerebellar Function: NOT DONE Reflexes: NOT DONE Skin: Dry, Normal Color, Warm Peripheral Pulses: 3+ Radial (R), 3+ Radial (L) Lymphatic: No Adenopathy Was a procedure done? Was a procedure done?: Yes Sedation Sedation?: Yes Informed consent obtained: Yes Sedation start time: 07:54 Sedation end time: 08:15 Sedation total time: 21 min Central Line Recorder of insertion practice: Electrical Sign Wirer Occupation of marketing program manager: Attending Physician Indication: Inability to obtain IV Room prepared for procedure: Yes Electrical Sign Wirer performed hand hygien: Yes Maximal sterile barrier precau: Mask/Eye shield, Sterile gown, Cap, Sterlie gloves, Large sterlie drape Skin Preparation: Chlorhexidine gluconate, Providine iodine Skin preparation completely dr: Yes Insertion site: Right, Internal jugular Central line catheter type: Smy-[id number] dialysis Number of lumens: 3 Central line exchanged over a: No Antiseptic ointment applied to: Yes Post Assessment: Chest X-Ray Informed consent obtained: Yes Risks/benefits/alt described: Yes Intubation Indication: Airway Protection Prep: Preoxygenation Pretreated with: Sedation Medicated with: Other (Etomidate 20 mg, Rocuronium 100 mg) Intubation Approach: Orotracheal Intubation size: cm (24) Informed consent obtained: Yes Risks/benefits/alt described: Yes CP Differential Dx Differential Diagnosis: A-fib, A-Flutter, Angina, Anxiety / Panic Attack, Atrial Dysrhythmia, Electrolyte Disorder X-Ray, Labs, Meds, VS Vital Signs Date Time Temp Pulse Resp B/P (MAP) Pulse Ox O2 Delivery O2 Flow Rate FiO2 08/04/24 14:30 70 13 134/74 (94) 100 08/04/24 14:15 69 19 148/68 (94) 98 08/04/24 14:00 97.4 69 25 148/68 (94) 99 97.4 08/04/24 13:45 69 25 138/65 (89) 98 08/04/24 13:30 69 24 134/67 (89) 97 08/04/24 13:15 53 24 138/60 (86) 97 08/04/24 13:00 69 24 141/67 (91) 96 08/04/24 12:45 69 26 115/73 (87) 96 08/04/24 12:30 69 26 123/63 (83) 96 08/04/24 12:22 69 26 133/66 (88) 96 30 08/04/24 12:16 69 26 133/66 (88) 96 100 08/04/24 12:15 69 26 133/66 (88) 96 08/04/24 12:00 69 25 124/58 (80) 96 08/04/24 11:45 68 25 139/63 (88) 96 08/04/24 11:30 69 08/04/24 11:30 70 25 135/55 (81) 96 08/04/24 11:27 135/63 08/04/24 11:15 70 18 141/61 (87) 97 08/04/24 11:01 79 17 154/70 (98) 100 08/04/24 11:00 154/70 08/04/24 10:46 83 24 100 Mechanical Ventilator+ 100 100 08/04/24 10:30 82 24 146/67 (93) 100 08/04/24 10:30 80 25 146/67 (93) 100 100 08/04/24 10:15 84 25 147/64 (91) 100 08/04/24 10:14 94 Ambu-Bag 08/04/24 10:00 150/60 08/04/24 10:00 87 23 150/60 (90) 100 08/04/24 09:45 91 24 151/58 (89) 100 08/04/24 09:30 91 24 153/58 (89) 100 08/04/24 09:15 92 24 147/61 (89) 100 08/04/24 09:00 98 22 143/57 (85) 100 08/04/24 09:00 143/57 08/04/24 08:49 111 23 168/69 (102) 100 08/04/24 08:30 122 22 173/70 (104) 100 08/04/24 08:29 54 21 197/82 (120) 96 100 08/04/24 08:24 197/82 08/04/24 08:15 131 22 204/89 (127) 100 08/04/24 08:00 58 25 184/62 (102) 89 08/04/24 07:54 105/38 08/04/24 07:45 51 26 105/38 (60) 89 08/04/24 07:34 29 14 108/36 (60) 94 08/04/24 07:30 27 08/04/24 06:30 36 14 126/42 (70) 96 08/04/24 06:00 139/37 08/04/24 05:32 97.6 36 20 156/48 (84) 93 08/04/24 05:27 33 Lab Test 08/04/24 11:02 08/04/24 10:13 08/04/24 08:55 08/04/24 07:42 Range/Units Blood Gas Specimen Type Arterial Arterial Blood Gas Sample Site Right radial Right radial Blood Gas Patient Temperature 37.0 37.0 Arterial Blood Date Drawn [id number] Arterial Blood pH 7.346 L 7.240 *L 7.350-7.450 Arterial Blood Partial Pressure CO2 44.7 53.0 H 35.0-48.0 mmHg Arterial Blood Partial Pressure O2 323.2 *H 263.3 H 83.0-108.0 mmHg Arterial Blood HCO3 23.9 22.2 21.0-28.0 mmol/L Arterial Blood Oxygen Saturation 99.3 H 99.1 H 94.0-98.0 % Arterial Blood Base Excess -1.8 -5.4 L -2.0-3.0 mmol/L Arterial Blood Oxyhemoglobin 98.5 H 98.2 H 94.0-98.0 % Arterial Blood Carboxyhemoglobin 0.5 0.6 0.5-1.5 % Arterial Blood Methemoglobin 0.3 0.3 0.0-1.5 % Mike Test Modified Modified Blood Gas Total Hemoglobin 10.70 L 10.90 L 13.5-17.5 g/dL Blood Gas Set Respiration Rate 24.0 18.0 Blood Gas Modality Vent - ac Vent - ac FiO2 % 100.0 100.0 Blood Gas Tidal Volume 500.0 500.0 Blood Gas PEEP or CPAP 5.0 5.0 Blood Gas Critical Value Read Back Yes yes Blood Gas Notified Whom Dr.tummala foster Blood Gas Notified Time [id number] Blood Gas Notified By Medical Liaison bety cardiology physician bety Lactic Acid Level 1.2 0.4-2.0 mmol/L White Blood Count 17.6 H 4.4-10.8 10^3/uL Red Blood Count 3.40 L 4.5-5.90 10^6/uL Hemoglobin 10.2 L 13.5-17.5 g/dL Hematocrit 31.5 L 41.0-53.0 % Mean Corpuscular Volume 92.6 80.0-100.0 fL Mean Corpuscular Hemoglobin 29.9 28.0-32.0 pg Mean Corpuscular Hemoglobin Concent 32.3 32.0-36.0 g/dL Red Cell Distribution Width 18.0 H 11.8-14.3 % Platelet Count 189 140-450 10^3/uL Mean Platelet Volume 7.9 6.9-10.8 fL Neutrophils (%) (Auto) 87.7 H 37.0-80.0 % Lymphocytes (%) (Auto) 6.1 L 10.0-50.0 % Monocytes (%) (Auto) 4.5 0.0-12.0 % Eosinophils (%) (Auto) 1.2 0.0-7.0 % Basophils (%) (Auto) 0.5 0.0-2.0 % Neutrophils # (Auto) 15.4 H 1.6-8.6 10 ^3/uL Lymphocytes # (Auto) 1.1 0.4-5.4 10 ^3/uL Monocytes # (Auto) 0.8 0-1.3 10 ^3/uL Eosinophils # (Auto) 0.2 0-0.8 10 ^3/uL Basophils # (Auto) 0.1 0-0.2 10 ^3/uL Nucleated Red Blood Cells 0.0 % Sodium Level 135 L 136-145 mmol/L Potassium Level 4.9 3.5-5.1 mmol/L Chloride Level 103 98-107 mmol/L Carbon Dioxide Level 23 20-31 mmol/L Anion Gap 9 5-15 Blood Urea Nitrogen 54 H 9-23 mg/dL Creatinine 2.75 H 0.700-1.30 mg/dL Glomerular Filtration Rate Calc 24 >90 mL/min BUN/Creatinine Ratio 19.6 10.0-20.0 Serum Glucose 331 H 74-106 mg/dL Hemoglobin A1c 7.1 H <5.7 % A1C Calcium Level 9.3 8.7-10.4 mg/dL Magnesium Level 2.2 1.6-2.6 mg/dL Troponin I High Sensitivity 66 *H </=54 ng/L B-Type Natriuretic Peptide 257.06 0-100 pg/mL Triglycerides Level 103 < 150 mg/dL Cholesterol Level 110 < 200 mg/dL LDL Cholesterol 64 < 100 mg/dL HDL Cholesterol 26 L 40-59 mg/dL Thyroid Stimulating Hormone (TSH) 2.48 0.55-4.78 uIU/mL Current Medications Medications (Trade) Dose Ordered Sig/Leatha Route Start Time Stop Time Status Last Admin Dopamine HCl/ Dextrose 250 ml @ 15.188 mls/ hr [id number] IV 08/04/24 06:15 08/04/24 06:00 Ondansetron HCl (Zofran) 4 mg ONCE ONCE IV 08/04/24 07:15 08/04/24 07:16 DC 08/04/24 07:15 Glucagon (Glucagen) 1 mg ONCE ONCE IV 08/04/24 06:45 08/04/24 07:12 DC 08/04/24 06:45 Midazolam HCl 50 ml @ 1 mls/hr Q24H IV 08/04/24 08:00 08/04/24 15:33 Etomidate 20 mg ONCE ONCE IV 08/04/24 07:54 08/04/24 08:03 DC 08/04/24 07:54 Rocuronium [place] 100 mg ONCE ONCE IV 08/04/24 07:54 08/04/24 08:03 DC 08/04/24 07:54 Ceftriaxone Sodium 50 ml @ 100 mls/hr ONCE ONCE IV 08/04/24 09:15 08/04/24 09:44 DC 08/04/24 11:54 Patient alert. Came in because of chest discomfort. Heart rate is low. Blood pressure within normal limits. Was given glucagon. Was given dopamine. Started isoproterenol. Complete block. Pacemaker. Cardiology consultation. EKG reviewed does show block. Reviewed his previous visit at [facility]. He had TAVR procedure. Has a history of coronary artery bypass graft in the past. Explained to the patient. Continue cardiac monitoring. Time of 1ST Reevaluation: 06:46 Reevaluation 1ST: Unchanged Patient Education/Counseling: Diagnosis, Treatment, Prognosis Family Education/Counseling: No Family Present Additional Information I reviewed the following notes from patient's past medical encounters: none The following tests were ordered, and results were reviewed by me: EKG, TROP, CBC, XY CHEST, BMP Additional Information was gathered from interviewing the following independent historians: EMT I reviewed and agreed with the following test results read by other providers: XY CHEST I discussed treatment and results with medical personnel and patient Departure 1 Departure Time of Disposition: 07:03 Impression: Primary Impression: Complete atrioventricular block Additional Impressions: Uncontrolled diabetes mellitus Qualified Codes: E13.65 - Other specified diabetes mellitus with hyperglycemia Acute exacerbation of congestive heart failure Qualified Codes: I50.43 - Acute on chronic combined systolic (congestive) and diastolic (congestive) heart failure Disposition: 09 ADMITTED INPATIENT Admit to: Med Surg Condition: Guarded Critical Care Note Critical Care Time?: Yes (90 min-critical care time only) Stability Stability form required: No Heart Score Heart Score: Heart Score Response (Comments) Value History Moderate Suspicious 1 EKG Normal 0 Age >65 2 Risk Factors >3 or Hx ASHD 2 Troponin Normal limit 0 Total 5 I personally scribed for SJ DINERO MD ([email or web address]) on 08/04/24 at 06:22. Electronically submitted by Rosalina Guerrero ([email or web address]). I personally scribed for SJ DINERO MD ([email or web address]) on 08/04/24 at 06:50. Electronically submitted by Rosalina Guerrero ([email or web address]). I personally scribed for SJ DINERO MD ([email or web address]) on 08/04/24 at 07:24. Electronically submitted by Rosalina Guerrero ([email or web address]). I personally scribed for SJ DINERO MD ([email or web address]) on 08/04/24 at 07:27. Electronically submitted by Rosalina Guerrero ([email or web address]). I personally scribed for SJ DINERO MD ([email or web address]) on 08/04/24 at 08:08. Electronically submitted by Rosalina Guerrero ([email or web address]). I personally scribed for SJ DINERO MD ([email or web address]) on 08/04/24 at 16:00. Electronically submitted by Rosalina Guerrero ([email or web address]). SJ DINERO MD Aug 04, 2024 06:22
[2024-08-04] MEDS: GLUCAGON EMERG KIT 1mg/1ml IV ONE (06:45)
[2024-08-04] MEDS: ONDANSETRON HCL 4 MG/2 ML VIAL IV ONE (07:15)
--- NOTE | 2024-08-04 07:45 | DVH ---
CHEST RADIOGRAPH Indication: sob Technique: Single frontal view of the chest was obtained Comparison: XY CHEST PORTABLE on DOS: 01/31/24, XY CHEST PORTABLE on DOS: 01/28/24, XY CHEST PORTABLE on DOS: 01/19/24, XY CHEST PORTABLE on DOS: 01/31/24 FINDINGS: Cardiomediastinal silhouette. Bilateral patchy infiltrates appear increased since the prior study. No effusions or pneumothorax. IMPRESSION: 1. Cardiomediastinal silhouette. Bilateral patchy infiltrates appear increased since the prior study. No effusions or pneumothorax.
[2024-08-04 07:53] LABS: Basophils # (auto) 0.1 10 ^3/uL (0-0.2); Basophils % (auto) 0.5 % (0.0-2.0); Eosinophils # (auto) 0.2 10 ^3/uL (0-0.8); Eosinophils % (auto) 1.2 % (0.0-7.0); Hematocrit 31.5 % (41.0-53.0); Hemoglobin 10.2 g/dL (13.5-17.5); Lymphocytes # (auto) 1.1 10 ^3/uL (0.4-5.4); Lymphocytes % (auto) 6.1 % (10.0-50.0); Mean Corpuscular Hemoglobin 29.9 pg (28.0-32.0); Mean Corpuscular Hgb Conc. 32.3 g/dL (32.0-36.0); Mean Corpuscular Volume 92.6 fL (80.0-100.0); Monocytes # (auto) 0.8 10 ^3/uL (0-1.3); Monocytes % (auto) 4.5 % (0.0-12.0); Neutrophils # (auto) 15.4 10 ^3/uL (1.6-8.6); Neutrophils % (auto) 87.7 % (37.0-80.0); Platelet Count (auto) 189 10^3/uL (140-450); White Blood Cell 17.6 10^3/uL (4.4-10.8)
[2024-08-04] MEDS: ROCURONIUM 10MG/ML 10ML VIAL IV ONE ×2 (07:54→13:50)
[2024-08-04] MEDS: ETOMIDATE (2MG/ML) 20ML VIAL IV ONE ×2 (07:54→13:50)
--- NOTE | 2024-08-04 07:56 | DVHINCON2 ---
Date Seen: Aug 04, 2024 Referring Physician MD Eric Reason for Consultation Complete heart block History of Present Illness This is a 74-year-old male who presented to the emergency room via EMS with a chief complaint of bradycardia. Per at bedside, the patient developed a sudden onset of involuntary muscle contractions and tremors around 0120 a.m. described as seizure-like activity with the patient never losing consciousness. The patient underwent a TAVR procedure at [facility] on 07/29/24 and discharged home the following day with an event monitor. At that time, he was told to stop his metoprolol therapy with the possibility of an eventual need for a permanent pacemaker implantation. Today, around 0430 a.m., the patient received a phone call from [facility] advised him for urgent referral to the nearest emergency room given severe bradycardia. Upon arrival to the emergency room he underwent a 12- lead electrocardiogram revealing a complete heart block with an associated right bundle branch block and a heart rate of 33 bpm. At time of assessment, the patient was found on a dopamine drip at 5 mcg/kg/min with a HR in the 20s bpm and to be symptomatic including lethargy, hypoxic, and and nausea. He was immediately initiated on TC pacing with subsequent cardiac arrest for approximately 1-2 min. He was then endotracheally intubated for airway protection and scheduled for emergent temporary transvenous pacing. Primary tool marker, Dr. Castro, was notified of patient's condition. Significant medical history includes critical aortic stenosis status post TAVR on 07/29/2024, coronary artery disease status post quintuple vessel CABG in 2019 status post PTCA of occluded stent on 01/30/2024 secondary to underinflated stent in 2017 and on Plavix therapy, paroxysmal atrial fibrillation on Eliquis/a miodarone, ischemic cardiomyopathy, hypertension, dyslipidemia, diabetes mellitus, chronic kidney disease, anemia and chronic disease, ANNEL on BiPAP HS, and obesity. Past Medical History Past medical history reviewed. No other significant than mentioned above. Past Surgical History See HPI. Family History: Asthma G8 FATHER FH: heart attack G8 FATHER Hypertension G8 MOTHER G8 FATHER Family History Family history reviewed. Social History Denies the use of illicit drugs, alcohol, or tobacco use. Allergies: Coded Allergies: Ibuprofen (Verified Allergy, Unknown, 03/02/17) Home Meds Active Scripts Bumetanide (Bumex Tablet) 1 Mg Tab, 1 MG PO BIDD, #60 TAB Prov:LOUIE MÁRQUEZ MD 02/03/24 Methylprednisolone (Medrol Dosepak) 4 Mg Bennie, 4 MG PO UD, #21 TAB UAD Prov:LOUIE MÁRQUEZ MD 02/03/24 Azithromycin (ZITHROMAX TABLET) 250 Mg Tb, 250 MG PO DAILY, #6 TAB Take 2 tablets the first day then one tab daily until finish. Prov:LOUIE MÁRQUEZ MD 02/03/24 Clopidogrel Bisulfate (CLOPIDOGREL) 75 Mg Tab, 75 MG PO DAILY, #30 TAB 5 Refills Prov:LOUIE MÁRQUEZ MD 02/03/24 Reported Medications Pantoprazole Sodium (PANTOPRAZOLE SODIUM) 40 Mg Inj, 40 MG PO DAILY, INJ 01/30/24 Potassium Chloride (Klor-Con M10) 10 Meq Tab, 1 TAB PO BID, #30 TAB 5 Refills 01/30/24 Pancreatic Enzymes (Creon) 24,000 Unt Cap, 77061 UNT PO TID, CAP 01/29/24 Amlodipine Besylate (Amlodipine Besylate) 5 Mg Tab, 10 MG PO QAM for HTN, MG 01/29/24 Tamsulosin Hcl (Tamsulosin Hcl) 0.4 Mg Cap, 0.4 MG PO QPM for BPH for 30 Days, MG 01/29/24 Sodium Bicarbonate (Sodium Bicarbonate) 650 Mg Tab, 650 MG PO BID, TAB 01/29/24 Montelukast Sodium (MONTELUKAST SODIUM) 10 Mg Tab, 1 TAB PO HS for ALLEGIES, #30 TAB 5 Refills 01/29/24 Loratadine (Claritin) 10 Mg Tab, 1 TAB PO DAILY for ALLERGIES, #30 TAB 5 Refills 01/29/24 Apixaban Base (ELIQUIS) 5 Mg Tab, 5 MG PO BID, TAB 01/29/24 Insulin Glargine (Lantus) 100 Unit/Ml Inj, 21-23 UNIT SC DAILY for DIABETES, INJ 01/29/24 Dulaglutide (Trulicity) 4.5 Mg/0.5 Ml Inj, 4.5 MG SC QWEEKLY for DIABETES, INJ 01/29/24 Amiodarone Hcl (Amiodarone Hcl) 200 Mg Tab, 200 MG PO DAILY for ARRHYTHMIA 01/29/24 Trazodone HCl (Trazodone Hydrochloride) 50 Mg Tab, 50 MG PO QPM for INSOMNIA, TAB 01/29/24 Ascorbic Acid (VITAMIN C TABLET) 500 Mg Tb, 2 TAB PO DAILY for SUPPLEMENT, #30 TAB 3 Refills 01/29/24 Magnesium Oxide (MAGNESIUM OXIDE) 400 Mg Tab, 1 TAB PO DAILY for SUPPLEMENT, #30 TAB 5 Refills 01/29/24 Krill Oil ([place]-3 500 mg) 1 Cap Cap, 2 CAP PO BID for SUPPLEMENT, CAP 01/29/24 Allopurinol (Allopurinol) 100 Mg Tab, 100 MG PO BID for GOUT, MG 01/29/24 Metoprolol Tartrate (Metoprolol Tartrate) 25 Mg Tab, 25 MG PO DAILY for HTN for 30 Days, MG 01/29/24 Isosorbide Dinitrate (Isosorbide Dinitrate) 20 Mg Tab, 20 MG PO BID, MG 09/23/17 Lisinopril (Lisinopril) 10 Mg Tab, 10 MG PO DAILY for 30 Days, MG 03/24/17 Atorvastatin Calcium (ATORVASTATIN CALCIUM) 40 Mg Tab, 1 TAB PO DAILY, #30 TAB 5 Refills 03/24/17 Home Meds Home medications reviewed. Current Medications Current Medications Medications (Trade) Dose Ordered Sig/Leatha Route PRN Reason Start Time Stop Time Status Last Admin Dopamine HCl/ Dextrose 250 ml @ 15.188 mls/ hr [id number] IV 08/04/24 06:15 08/04/24 06:00 Isoproterenol HCl 1 mg/Dextrose 255 ml @ 30.6 mls/hr Q8H20M IV 08/04/24 07:00 08/04/24 09:59 Review of Systems Constitutional: Generalized weakness, tremors Ears, Nose, & Throat: No symptom reported Eyes: No symptom reported Neurological: No symptoms reported Pulmonary/Respiratory: No symptom reported Cardiovascular: No symptom reported Gastrointestinal: Nausea Genitourinary: No symptom reported Musculoskeletal: No symptom reported Skin: No symptom reported Psychiatric: No symptom reported Endocrine: No symptom reported Hemotologic/Lymphatic: No symptom reported Vital Signs Vital Signs Date Time Temp Pulse Resp B/P (MAP) Pulse Ox O2 Delivery O2 Flow Rate FiO2 08/04/24 07:34 29 14 108/36 (60) 94 08/04/24 05:32 97.6 Physical Exam General Appearance: Cooperative. Lethargic. Severe acute distress Head Exam: Normal inspection Neck Exam: Normal inspection. Non-tender. Normal alignment Pulmonary/Respiratory: Coarse bilateral breath sounds Cardiovascular/Chest: Regular rate and rhythm. S1, S2. Complete heart block. + JVD. Peripheral Pulses: 2+ Radial (R). 2+ Radial (L). 2+ Pedal (R). 2+ Pedal (L) Abdominal Exam: Normal bowel sounds. Soft. Nontender. No hepatospenomegaly. No masses Ankle Exam: Negative ankle edema Lower extremities: Negative lower extremity edema Neuro/Mental Status: A&O x3. Coherent Thoughts/Psych: Normal thought pattern. Appearance: Severe acute distress Skin Exam: Normal inspection. Normal color. Warm. Dry Labs/Diagnostic Data Labs Test 08/04/24 07:42 Range/Units White Blood Count 17.6 H 4.4-10.8 10^3/uL Red Blood Count 3.40 L 4.5-5.90 10^6/uL Hemoglobin 10.2 L 13.5-17.5 g/dL Hematocrit 31.5 L 41.0-53.0 % Mean Corpuscular Volume 92.6 80.0-100.0 fL Mean Corpuscular Hemoglobin 29.9 28.0-32.0 pg Mean Corpuscular Hemoglobin Concent 32.3 32.0-36.0 g/dL Red Cell Distribution Width 18.0 H 11.8-14.3 % Platelet Count 189 140-450 10^3/uL Mean Platelet Volume 7.9 6.9-10.8 fL Neutrophils (%) (Auto) 87.7 H 37.0-80.0 % Lymphocytes (%) (Auto) 6.1 L 10.0-50.0 % Monocytes (%) (Auto) 4.5 0.0-12.0 % Eosinophils (%) (Auto) 1.2 0.0-7.0 % Basophils (%) (Auto) 0.5 0.0-2.0 % Neutrophils # (Auto) 15.4 H 1.6-8.6 10 ^3/uL Lymphocytes # (Auto) 1.1 0.4-5.4 10 ^3/uL Monocytes # (Auto) 0.8 0-1.3 10 ^3/uL Eosinophils # (Auto) 0.2 0-0.8 10 ^3/uL Basophils # (Auto) 0.1 0-0.2 10 ^3/uL Nucleated Red Blood Cells 0.0 % Assessment Complete heart block Transient cardiac arrest/asystole Conduction disturbances status post TAVR Severe CAD s/p 5 vessel CABG (2019) s/p PTCA (2023), on Plavix Paroxysmal atrial fibrillation on Eliquis/Amiodarone Acute on chronic decompensated HFpEF GRACIE on CKD Plan/Recommendation (Dr. Cali) Case discussed with Dr. Cali. The patient post TAVR at [facility] on 07/29/24 pr esents with conduction disturbances including a complete heart block and cardiac arrest for which he will undergo an emergent temporary transvenous pacemaker insertion. This was discussed with patient and at bedside who agreed with POC. In the meantime, continue dopamine drip for HR support and TC pacing as indicated. Avoid AV franco blocking agents. Obtain a transthoracic e chocardiogram. Primary tool marker Dr. Castro was notified on patient's status stating he will continue with rest of cardiac clinical care. Thank you for allowing us to participate in this patient's care. Please call if you have any questions or concerns. Critical care time: 74 min. This medical document was created using an electronic medical record system with voice recognition software and computerized dictation system. Although this document has been carefully reviewed, there might still be some phonetic and typographical errors. Occasional wrong-word or ``sound-alike substitutions may have occurred due to the inherent limitations of voice recognition software. These areas are purely typographical due to imperfections of the software programs and do not reflect any compromise in the patient's medical care. Please read the chart carefully and recognize, using context, where these substitutions have occurred. Plan discussed with: Patient, Spouse, Other Date of Service: Aug 04, 2024 Billing Provider: CONCHITA CALI MD Cardiology Common Codes: 90704-[id number] CARE 30-74 MIN ZHANE RAZA Aug 04, 2024 07:56
[2024-08-04 08:04] LABS: Chloride 103 mmol/L (98-107); Potassium 4.9 mmol/L (3.5-5.1)
[2024-08-04 08:05] LABS: Anion Gap 9 (5-15); Calcium 9.3 mg/dL (8.7-10.4); Carbon Dioxide 23 mmol/L (20-31)
[2024-08-04 08:10] LABS: BUN/Creatinine Ratio 19.6 (10.0-20.0); Blood Urea Nitrogen 54 mg/dL (9-23); Glucose 331 mg/dL (74-106); Sodium 135 mmol/L (136-145)
[2024-08-04 08:15] LABS: Magnesium 2.2 mg/dL (1.6-2.6)
[2024-08-04] MEDS: MIDAZOLAM DRIP 50 mg/50mL 50 ML IV SCH (08:24)
[2024-08-04 09:02] LABS: Base Excess -5.4 mmol/L (-2.0-3.0)
--- NOTE | 2024-08-04 09:06 | DVH ---
XY CHEST XRAY 1 VIEW, HISTORY: post intubation COMPARISON: XY CHEST PORTABLE on DOS: 08/04/24, XY CHEST PORTABLE on DOS: 01/31/24, XY CHEST PORTABLE on DOS: 01/28/24 XY CHEST PORTABLE on DOS: 08/04/24, XY CHEST PORTABLE on DOS: 01/31/24, XY CHEST PORTABLE on DOS: 01/28/24 TECHNICAL DATA: 1 view of the chest was obtained. FINDINGS: Lines and tubes: ET in the mid thoracic trachea. NG in the stomach. Cardiomediastinal silhouette: Enlarged Pulmonary vasculature: Prominent Lung expansion: normal Lung airspace: Patchy perihilar airspace opacities. Lung interstitium: prominent Pleura: normal Pneumothorax: no Bones: Unremarkable Other: no IMPRESSION: Patchy perihilar airspace opacities could be pulmonary edema. Tubes positioned, as above. Cardiomegaly.
[2024-08-04] MEDS: METOCLOPRAMIDE HCL 5MG/ml INJ 2ml VIAL IV ONE (09:26)
--- NOTE | 2024-08-04 10:14 | RESUS ---
CODE BLUE ASSESSSMENT History of Events History of Events: PATIENT'S HEART RATE DROPPED TO THE 20s BEFORE PATIENT LOST PULSES AT 0746. CPR INITIATED BY ARGELIA RAZA. ROSC ACHIEVED AT 0748. PT LOST PULSES AGAIN AT 0805. ROSC ACHIEVED AT 0806. Initial Information Date: Aug 04, 2024 Time: 07:46 Location of Arrest: ER Arrest Witnessed: Yes CPR started initial time: 07:46 CPR started by whom: Hospital Staff Type of arrest: Cardiac Pulse Present: No Monitoring: Pulse Oximetry, Telemetry Crash Cart Opened and Supplies: Yes Airway Ventilation Breathing at Onset: Assisted O2 Sat by Pulse Oximetry: 94 Oxygen Delivery Method: Ambu-Bag Artificial Ventilation: Bag/Endo tube Intubation Time: 07:58 Intubation Size: 8.0 cuffed Intubated by: DR DINERO Intubated orally: Yes Tube secured at: 24 CO2 indicator used: Yes Confirmation: Auscultation, Exhaled CO2, Chest X-ray Suctioning (Oral/Tracheal): Yes Circulation Circulation #1: Time: 07:48 Pulse Rate (adult): 99 Circulation Comment: ROSC Circulation #2: Time: 08:06 Pulse Rate (adult): 30 Circulation Comment: ROSC Medications & Response Medications and Responses #1: Medication Time: 08:06 ADULT Medications Given ADULT: Epinephrine 1 mg Route of Administration: IV Heart Rate: 0 EKG Rhythm: Asystole EKG Rhythm: 3rd Degree HB Medications and Responses #2: Medication Time: 08:07 ADULT Medications Given ADULT: Sodium Bacarbinate 50 meq Route of Administration: IV EKG Rhythm: 3rd Degree HB EKG Rhythm: 3rd Degree HB Nurses Notes Pupil Reaction: Brisk Time Code Ended Time Code Ended: 08:07 Outcome of code: Successful Code Team Present: DR DINERO RT HERLINDA RT NAVEED RAZA ROSC Time of ROSC: 08:06 MOAR GEE Aug 04, 2024 10:14
--- NOTE | 2024-08-04 11:05 | DVH ---
EXAM: CT HEAD WITHOUT CONTRAST INDICATION: S/p cardiac arrest TECHNIQUE: CT of the head without intravenous contrast. Radiation Dose Information: CT Dose: CTDI volume is 25 mGy. Dose-length product is 250 mGy*cm The dose indicators for CT are the volume Computed Tomography (CT) Dose Index (CTDIvol) and the Dose Length Product (DLP), and are measured in units of mGy and mGy-cm, respectively. These indicators are not patient dose, but values generated from the CT scanner acquisition factors. The report includes radiation exposure data for exposures received during this examination. COMPARISON: None FINDINGS: There is no evidence of acute intracranial hemorrhage, extra-axial collection, mass effect, midline s hift, herniation or hydrocephalus. The ventricles, sulci and cisterns are age appropriate. The isidro-white differentiation is intact. Patchy periventricular and subcortical white matter hypoattenuation is nonspecific but may be related to small vessel ischemic disease. The visualized paranasal sinuses and mastoid air cells are clear. The surrounding soft tissues and osseous structures are unremarkable. IMPRESSION: No acute intracranial abnormality.
[2024-08-04 11:09] LABS: Base Excess -1.8 mmol/L (-2.0-3.0)
[2024-08-04] MEDS: SODIUM CHLORIDE 0.9% 1,000 ML IV ONE (11:27)
[2024-08-04] MEDS: fentaNYL Drip 2500mCg/250mlNS 250 ML IV SCH (11:31)
[2024-08-04] MEDS: ISOPROTERENOL HCL INJECTION 1 MG in D5W 5% 250 ML IV SCH (11:31)
[2024-08-04] MEDS: cefTRIAXone 1GM/50ML D5W 50 ML IV ONE (11:54)
[2024-08-04] MEDS: DOPamine 1600MCG/ML D5W 250 ML IV ONE (13:49)
[2024-08-04] MEDS: MIDAZOLAM DRIP 50 mg/50mL 50 ML IV ONE (13:50)
[2024-08-04] MEDS: GLUCAGON EMERG KIT 1mg/1ml ONE (13:50)
[2024-08-04] MEDS: METOCLOPRAMIDE HCL 5MG/ml INJ 2ml VIAL ONE (13:50)
[2024-08-04] MEDS: LIDOCAINE 2%HCL (LOCAL ANESTH.) INJ 20ML MDV ONE (13:51)
[2024-08-04] MEDS ORDERED: NITROGLYCERIN 0.4 MG SL TAB SL PRN (14:45)
[2024-08-04 14:50] LABS: Urine Bacteria None Seen /hpf (None Seen)
[2024-08-04] MEDS ORDERED: DEXTROSE (50%) 50ML SYRG IV PRN (15:00)
[2024-08-04 15:01] LABS: Urine Blood Negative /uL (Negative); Urine Clarity Clear (Clear); Urine Color Light-Yellow (Yellow); Urine Hyaline Cast FEW /lpf (0 - 2); Urine Protein, UAD 1+ (Negative); Urine Specific Gravity 1.016 (1.001-1.035); Urine Squamous Epithelial Cell None Seen /hpf (<5); Urine Urobilinogen Normal (Negative); Urine WBC 1 /hpf (0 - 3); Urine pH 5.5 (5.0-9.0)
--- NOTE | 2024-08-04 15:02 | DVHSR ---
APPROVED REPORT EXAM: Two-dimensional and M-mode echocardiogram with Doppler and color Doppler. Blood Pressure: 143/57 mmHg INDICATION Cardiac Arrest Surgery/Intervention Valve Replacement: Type: TAVR RISK FACTORS Height: 5' 10", Weight: 178 DIMENSIONS LVDd4.9 (3.8-5.7cm)LA (2D)5.3 (1.9-4.0cm)Aortic Root (2.0-3.7cm) LVDs4.0 (2.5-4.0cm)LA (MM) (1.9-4.0cm)Aortic Cusp Exc (1.5-2.0cm) EF (%) 40.0 (55-70%)Rt. Atrium4.2 (1.9-4.0cm)Asc. Aorta cm IVSd1.2 (0.7-1.1cm)RV (D) (1.8-2.4cm) PWd1.2 (0.7-1.1cm) Mitral Valve MitralMitral Stenosis E wave1.80m/sMV Mean GR.mmHg E/A ratio0.02D MVAcm2 Aortic Valve Aortic ValveAortic Stenosis V10.70m/Maria Teresa Mean GR.9mmHg V22.00m/Maria Teresa Peak GR.17mmHg LVOT Diameter2.2 (1.8-2.4cm)Doppler AVA1.33cm2 LEFT VENTRICLE The left ventricle is normal size. There is normal left ventricular wall thickness. Left ventricular systolic function is midly reduced, LVEF is 40-45%. There is global hypokinesis of the left ventricle. Septal motion consistent with conduction abnormality. RIGHT VENTRICLE The right ventricular systolic function visually appears normal. There is a pacemaker lead in the right ventricle. ATRIA The left atrium is mildly dilated. The right atrium size is normal. MITRAL VALVE The mitral valve is grossly normal. Mitral regurgitation is mild. PULMONIC VALVE The pulmonic valve is not well visualized. TRICUSPID VALVE The tricuspid valve is not well visualized. There is trace tricuspid regurgitation. AORTIC VALVE The prosthetic aortic valve is not well visualized. PERICARDIAL EFFUSION No evidence of pericardial effusion. Other Information Quality : Technically LimitedRhythm : Technically limited study due to on vent. Conclusion Compared to prior echocardiogram from 04/2024: LVEF is mildly reduced to 40-45% from normal. The left ventricle is normal size.There is normal left ventricular wall thickness. Left ventricular s ystolic function is midly reduced, LVEF is 40-45%. There is global hypokinesis of the left ventricle. Septal motion consistent with conduction abnormality. The right ventricular systolic function visually appears normal. Temp pacer in the right ventricle. The left atrium is mildly dilated. The prosthetic aortic valve is not well visualized. No evidence of pericardial effusion.
--- NOTE | 2024-08-04 15:03 | DVHHP2 ---
History of Present Illness Reason for Visit: Bradycardia History of Present Illness This 74-year-old male presents in the ED via EMS with a chief complaint of bradycardia. The patient is currently intubated, medical history obtained from medical record who apparently patient came in with a complete heart block leading to syncopal episode and transient cardiac arrest. The patient is currently on dopamine and TC pacing for heart rate support. The patient with significant cardiac history including status post TAVR, paroxysmal AFib, CAD s/p CABG,HfpEF, diabetes, hypertension, COPD, anemia, and hyperlipidemia. Past Medical History As stated in HPI Past Surgical History CABG TAVR Family History Reviewed, non-contributory to the management of this case. Past Social History The patient lives at home, denies smoking, alcohol or illicit drugs abuse. Review of Systems Review of Systems ROS see HPI Allergies: Coded Allergies: Ibuprofen (Verified Allergy, Unknown, 03/02/17) Medications Current Medications Medications Dose Ordered Sig/Leatha Route Start Time Stop Time Status Last Admin Dose Admin Dopamine HCl/ Dextrose 250 ml @ 15.188 mls/ hr [id number] IV 08/04/24 06:15 08/04/24 06:00 15.188 MLS/HR Midazolam HCl 50 ml @ 1 mls/hr Q24H IV 08/04/24 08:00 08/04/24 11:27 10 MLS/HR Fentanyl Citrate 250 ml @ 2.5 mls/hr Q24H IV 08/04/24 08:00 Ceftriaxone Sodium 50 ml @ 100 mls/hr DAILY@09 IV 08/05/24 09:00 Exam Vital Signs Vital Signs Date Time Temp Pulse Resp B/P (MAP) Pulse Ox O2 Delivery O2 Flow Rate FiO2 08/04/24 14:00 97.4 69 25 148/68 (94) 99 97.4 08/04/24 12:22 30 08/04/24 10:46 Mechanical Ventilator+ Exam INITIAL VITAL SIGNS: Reviewed by me GENERAL: Intubated, Sedated HEAD: Head is normocephalic and atraumatic. EYES: EOMI, PERRL. ENT: Moist mucous membranes. RESPIRATORY: Orally intubated CV: TC pacing GI/: Active bowel sounds, soft, nondistended, nontender, indwelling urinary catheter draining yellow color urine output INTEGUMENTARY: Warm and dry. No obvious rashes. NEUROLOGIC: Sedated Labs/Xrays Labs Test 08/04/24 11:02 08/04/24 10:13 08/04/24 07:42 Range/Units Blood Gas Specimen Type Arterial Blood Gas Sample Site Right radial Blood Gas Patient Temperature 37.0 Arterial Blood Date Drawn [id number] Arterial Blood pH 7.346 L 7.350-7.450 Arterial Blood Partial Pressure CO2 44.7 35.0-48.0 mmHg Arterial Blood Partial Pressure O2 323.2 *H 83.0-108.0 mmHg Arterial Blood HCO3 23.9 21.0-28.0 mmol/L Arterial Blood Oxygen Saturation 99.3 H 94.0-98.0 % Arterial Blood Base Excess -1.8 -2.0-3.0 mmol/L Arterial Blood Oxyhemoglobin 98.5 H 94.0-98.0 % Arterial Blood Carboxyhemoglobin 0.5 0.5-1.5 % Arterial Blood Methemoglobin 0.3 0.0-1.5 % Mike Test Modified Blood Gas Total Hemoglobin 10.70 L 13.5-17.5 g/dL Blood Gas Set Respiration Rate 24.0 Blood Gas Modality Vent - ac FiO2 % 100.0 Blood Gas Tidal Volume 500.0 Blood Gas PEEP or CPAP 5.0 Blood Gas Critical Value Read Back Yes Blood Gas Notified Whom Blood Gas Notified Time [id number] Blood Gas Notified By Photostat Operator Helper bety Lactic Acid Level 1.2 0.4-2.0 mmol/L White Blood Count 17.6 H 4.4-10.8 10^3/uL Red Blood Count 3.40 L 4.5-5.90 10^6/uL Hemoglobin 10.2 L 13.5-17.5 g/dL Hematocrit 31.5 L 41.0-53.0 % Mean Corpuscular Volume 92.6 80.0-100.0 fL Mean Corpuscular Hemoglobin 29.9 28.0-32.0 pg Mean Corpuscular Hemoglobin Concent 32.3 32.0-36.0 g/dL Red Cell Distribution Width 18.0 H 11.8-14.3 % Platelet Count 189 140-450 10^3/uL Mean Platelet Volume 7.9 6.9-10.8 fL Neutrophils (%) (Auto) 87.7 H 37.0-80.0 % Lymphocytes (%) (Auto) 6.1 L 10.0-50.0 % Monocytes (%) (Auto) 4.5 0.0-12.0 % Eosinophils (%) (Auto) 1.2 0.0-7.0 % Basophils (%) (Auto) 0.5 0.0-2.0 % Neutrophils # (Auto) 15.4 H 1.6-8.6 10 ^3/uL Lymphocytes # (Auto) 1.1 0.4-5.4 10 ^3/uL Monocytes # (Auto) 0.8 0-1.3 10 ^3/uL Eosinophils # (Auto) 0.2 0-0.8 10 ^3/uL Basophils # (Auto) 0.1 0-0.2 10 ^3/uL Nucleated Red Blood Cells 0.0 % Sodium Level 135 L 136-145 mmol/L Potassium Level 4.9 3.5-5.1 mmol/L Chloride Level 103 98-107 mmol/L Carbon Dioxide Level 23 20-31 mmol/L Anion Gap 9 5-15 Blood Urea Nitrogen 54 H 9-23 mg/dL Creatinine 2.75 H 0.700-1.30 mg/dL Glomerular Filtration Rate Calc 24 >90 mL/min BUN/Creatinine Ratio 19.6 10.0-20.0 Serum Glucose 331 H 74-106 mg/dL Hemoglobin A1c 7.1 H <5.7 % A1C Calcium Level 9.3 8.7-10.4 mg/dL Magnesium Level 2.2 1.6-2.6 mg/dL Troponin I High Sensitivity 66 *H </=54 ng/L B-Type Natriuretic Peptide 257.06 0-100 pg/mL Triglycerides Level 103 < 150 mg/dL Cholesterol Level 110 < 200 mg/dL LDL Cholesterol 64 < 100 mg/dL HDL Cholesterol 26 L 40-59 mg/dL Thyroid Stimulating Hormone (TSH) 2.48 0.55-4.78 uIU/mL PROCEDURE(s): CXRP - CHEST PORTABLE REASON: sob ORDER NUMBER(s): [id number], ACCESSION NUMBER(s): [id number] CHEST RADIOGRAPH Indication: sob Technique: Single frontal view of the chest was obtained Comparison: XY CHEST PORTABLE on DOS: 01/31/24, XY CHEST PORTABLE on DOS: 01/28/24, XY CHEST PORTABLE on DOS: 01/19/24, XY CHEST PORTABLE on DOS: 01/31/24 FINDINGS: Cardiomediastinal silhouette. Bilateral patchy infiltrates appear increased since the prior study. No effusions or pneumothorax. IMPRESSION: 1. Cardiomediastinal silhouette. Bilateral patchy infiltrates appear increased since the prior study. No effusions or pneumothorax. Assessment/Plan Assessment/Plan # complete AV heart block # s/p cardiac arrest # paroxysmal AFib on Eliquis # s/p TAVR # CAD, HFpEF Admit to ICU Continue with dopamine and TC pacing for heart rate support Cardiology consult # possible pneumonia Empiric antibiotic azithromycin and ceftriaxone Blood and sputum culture Chest x-ray in a.m. # GRACIE on CKD 4 soft IV fluid Nephrology consult # DM type 2 with hyperglycemia, A1C 7.1 ISS lantus Check A1c, lipid panel # BPH Tamsulosin # Gout Allopurinol PUD and DVT prophylaxis Medical plan discussed with patient and RN Plan discussed with: Patient, Other (RN) My Orders Orders - JOVITA PARR Procedure Category Date Status Time Admit ADMIT 08/04/24 Verified 14:39 Code Status CODE 08/04/24 Verified 14:39 Enoxaparin Sodium PHA 08/05/24 Verified (Lovenox) 10:00 Fall Risk Precautions [facility] 08/04/[address] 14:39 Complete Blood Count LAB 08/05/24 Verified 04:00 Comprehensive LAB 08/05/24 Verified Metabolic Panel 04:00 Condition: Critical [facility] 08/04/24 Verified 14:39 Nitroglycerin PHA 08/04/24 Verified Sublingual (Ntrostat 14:45 Morphine Sulfate PHA 08/04/24 Verified Injection 14:45 Stat Ekg For Chest [facility] 08/04/24 Verified Pain 14:39 Notify Md Of Changes [facility] 08/04/24 Verified From Base 14:39 Bathing Suit Maker For [facility] 08/04/24 Verified 24 Hours 14:[address] [facility] 08/04/24 Verified Protocol 14:[address] [facility] 08/04/24 Verified Every Shift 14:39 Oxygen By Nasal RT 08/04/24 Verified Cannula 14:39 Azithromycin 500mg/ PHA 08/05/24 Verified 250ml (Zithromax 50 10:00 Azithromycin 500mg/ PHA 08/04/24 Verified 250ml (Zithromax 50 14:45 Urinalysis LAB 08/04/24 Verified 14:39 Urine Bacterial SHABBIR 08/04/24 Verified Culture 14:39 Date of Service: Aug 04, 2024 Billing Provider: JOVITA PARR Common Visit Codes: [id number] INP/OBS CARE (HIGH) JOVITA PARR Aug 04, 2024 15:03
[2024-08-04] MEDS: SODIUM CHLORIDE 0.9% 1,000 ML IV SCH (15:34)
[2024-08-04] MEDS: AZITHROMYCIN 500MG/ 250ML 250 ML IV ONE (15:40)
--- NOTE | 2024-08-04 16:27 | DVHNC2 ---
Central Line Recorder of insertion practice: Inside Barrel Polisher Occupation of report writer: Attending Physician Indication: Hypotension Room prepared for procedure: Yes Inside Barrel Polisher performed hand hygien: Yes Maximal sterile barrier precau: Mask/Eye shield, Sterile gown Skin Preparation: Chlorhexidine gluconate, Providine iodine Skin preparation completely dr: Yes Insertion site: Right, Femoral Central line catheter type: Lfg-[id number]-[id number] dialysis Number of lumens: 3 Antiseptic ointment applied to: Yes Date of Service: Aug 04, 2024 Billing Provider: SJ DINERO MD Common Visit Codes: [id number] INP/OBS CARE (HIGH) Secondary Visit Codes: [id number] STANDBY SERVICE Consultation Codes: [id number] CONSULT <45MIN Procedure Codes: 18369-[id number] SEDATION +15MIN SJ DINERO MD Aug 04, 2024 16:27
--- NOTE | 2024-08-04 17:26 | DVH ---
EXAM: XY CHEST PORTABLE TECHNIQUE: Single frontal chest radiograph CLINICAL HISTORY: Cortis confirmation COMPARISON: XY CHEST XRAY 1 VIEW on DOS: 08/04/24, XY CHEST PORTABLE on DOS: 08/04/24, XY CHEST PORTABLE on DOS: 01/31/24 Findings/Impression: Frontal chest radiograph demonstrates no acute osseous or superficial soft tissue abnormalities. Endotracheal tube measures 7.4 cm from the otis. Recommend advancing 2-3 cm for more optimal positi oning. Enteric tube is overlying the plane of the stomach. Right sided IJ catheter terminates in the right a trium. The trachea is midline. Mild cardiomegaly with pulmonary vascular congestion. No pneumothorax, pleural effusions, or consolidations.
[2024-08-04] MEDS: VANCOMYCIN 1GM/250ML KIT 250 ML IV ONE (18:18)
--- NOTE | 2024-08-04 18:47 | DVHOP2 ---
Operative Report Temporary transvenous pacemaker placement (IJ): Using a micropuncture technique and ultrasound guidance, right internal jugular venous access was obtained with placement of a 6Fr sheath over a wire. A bipolar pacing catheter was advanced into the sheath. The catheter was advanced to approximately 15 centimeters whereupon the balloon was inflated. It was further advanced into the right atrium and then the right ventricle to a depth of 35 cm at which point pacing was achieved. Capture achieved again at 0.3 mAmp. The patient tolerated the procedure well. Procedure: Temporary transvenous pacemaker Attending Physician: Mehul Parsons MD Referring Provider: Eber Reyes MD INDICATIONS: complete heart block PROCEDURES PERFORMED: Temporary transvenous pacemaker placement DESCRIPTION OF PROCEDURE Pre-procedural summary: The risks, benefits, alternatives, and expected outcomes were explained in full to the patient's . She verbalized understanding and wanted to proceed. Informed written consent was obtained and placed in chart. Patient was intubated, sedated post code blue due to complete heart block/asystole. Procedure done at bedside in the ER emergently. The patient was prepped and draped in the usual sterile fashion, and a timeout was performed. Temporary transvenous pacemaker placement (IJ): Previously placed Cordis in the right internal jugular accessed and a bipolar pacing catheter was advanced into the sheath. The catheter was advanced to approximately 15 centimeters whereupon the balloon was inflated. It was further advanced into the right atrium and then the right ventricle to a depth of 35 cm at which point pacing was achieved. Capture achieved again at 0.6 mAmp. The patient tolerated the procedure well. Temp wire visualized in the right ventricle on TTE. INTRAPROCEDURAL COMPLICATIONS: None. CONCLUSIONS: 1. Successful placement of a temporary transvenous pacemaker. Mehul Parsons MD [employer] And Joining Supervisor [facility] MEHUL PARSONS MD Aug 04, 2024 18:47
--- NOTE | 2024-08-04 18:53 | DVHOP2 ---
Operative Report Procedure: Temporary transvenous pacemaker repositioning Attending Physician: Mehul Parsons MD Referring Provider: Eber Buckner MD INDICATIONS: complete heart block loss of capture PROCEDURES PERFORMED: Temporary transvenous pacemaker placement DESCRIPTION OF PROCEDURE Pre-procedural summary: Emergent procedure. The patient was brought to the cardiac catheterization laboratory and prepped and draped in the usual sterile fashion, and a timeout was performed. Patient intubated, sedated on fentanyl and versed. Temporary transvenous pacemaker placement (IJ): The bipolar pacing catheter was noted looping in the RA. Balloon was checked and made sure it was deflated and catheter withdrawn under fluoroscopy. The catheter was then advanced past the sheath. The catheter was advanced to approximately 15 centimeters whereupon the balloon was inflated. It was further advanced into the right atrium and then the right ventricle to a depth of 39 cm at which point pac ing was achieved. Capture achieved again at 0.6 mAmp. The patient tolerated the procedure well. INTRAPROCEDURAL COMPLICATIONS: None. FLUORO TIME: see report AIR KERMA: see report TOTAL CONTRAST USED: 0 mls of contrast CONCLUSIONS: 1. Successful placement of temporary transvenous pacemaker. Mehul Parsons MD End User Support Specialist MEHUL PARSONS MD Aug 04, 2024 18:53
--- NOTE | 2024-08-04 18:56 | DVH ---
EXAM: XY CHEST PORTABLE TECHNIQUE: Single frontal chest radiograph CLINICAL HISTORY: S/P TEMPORARY PACEMAKER INSERTION COMPARISON: XY CHEST PORTABLE on DOS: 08/04/24, XY CHEST XRAY 1 VIEW on DOS: 08/04/24, XY CHEST PORTABLE on DOS: 08/04/24 Findings/Impression: Frontal chest radiograph demonstrates no acute osseous or superficial soft tissue abnormalities. Endotracheal tube terminates 6.7 cm from the otis. Enteric tube is overlying the plane of the stoma ch. Right sided IJ catheter terminates in the right atrium. The trachea is midline. Mild cardiomegaly with pulmonary vascular congestion, unchanged. No pneumothorax, pleural effusions, or consolidations.
[2024-08-04] MEDS: TAMSULOSIN HYDROCHLORIDE 0.4 MG CAP PO SCH (19:03)
[2024-08-04] MEDS: ACCU-CHEK COMFORT CURVE STRIP VI SCH (19:03)
[2024-08-04] MEDS: InsuLIN REG 1unit/0.01ml Soln (100units/ml) SC SCH (19:21)
[2024-08-04] MEDS: ALLOPURINOL 100 MG TAB PO SCH (22:00)
[2024-08-04] MEDS: INSULIN LANTUS (GLARGINE) 1 /0.01ml (100units/ml) SC SCH (22:00)
--- NOTE | 2024-08-04 23:41 | DVHINCON2 ---
Date of service: Aug 04, 2024 Referring Physician SIDNEY Carey Reason for Consultation Acute hypoxic respiratory failure requiring mechanical ventilator History of Present Illness A 74-year-old man with significant PMHx that includes status post TAVR, paroxysmal AFib, CAD s/p CABG, HFpEF, COPD, diabetes, hypertension, anemia, and hyperlipidemia. who presents to the ED today via EMS with a chief complaint of bradycardia. The patient is currently intubated, medical history obtained from medical record. Apparently, patient came in with a complete heart block leading to syncopal episode and transient cardiac arrest. The patient is currently on dopamine and TC pacing for heart rate support. He was admitted for further care and pulmonary consultation is called for evaluation and management of acute hypoxic respiratory failure requiring mechanical ventilator. Review of Systems: Unable to obtain d/t intubated status. Past Medical History COPD, status post TAVR, paroxysmal AFib, CAD s/p CABG, HFpEF, diabetes, hypertension, anemia, and hyperlipidemia. Past Surgical History CABG TAVR Medications: Reviewed. Allergies: Ibuprofen Family History: Asthma, heart attack, hypertension. Social History: Nonsmoker. No alcohol or illicit drug use. Family History: Asthma G8 FATHER FH: heart attack G8 FATHER Hypertension G8 MOTHER G8 FATHER Allergies: Coded Allergies: Ibuprofen (Verified Allergy, Unknown, 03/02/17) Home Meds Reported Medications Insulin Lispro (Insulin Lispro Kwikpen) 100 Unit/Ml Inj, 2-10 UNIT SC TID for 50 Days, #15 DIRECTED INJECT 2-10 UNITS SUBCUTANEOUSLY 3 TIMES DAILY WITH EACH MEAL PER SLINDING SCALE. 08/05/24 Gabapentin (Gabapentin) 300 Mg Cap, 1 CAP PO BID for 30 Days, #60 08/05/24 Vericiguat (Verquvo) 5 Mg Tab, 0.5 TAB PO BID for 30 Days, #30 TAKE 1/2 TABLET (2.5 MG) BY MOUTH 2 TIMES EVERY DAY. 08/05/24 Loratadine (Claritin) 10 Mg Tab, 1 TAB PO DAILY for 90 Days, #90 08/05/24 Clopidogrel Bisulfate (CLOPIDOGREL) 75 Mg Tab, 1 TAB PO DAILY for 88 Days, #88 08/05/24 Bumetanide (Bumetanide) 1 Mg Tab, 1 TAB PO BID for 90 Days, #180 08/05/24 Pantoprazole Sodium Sesquihydr (Pantoprazole Sodium Dr) 40 Mg Tab, 1 TAB PO DAILY for 90 Days, #90 08/05/24 Sodium Bicarbonate (Sodium Bicarbonate) 325 Mg Tab, 2 TAB PO BID for 90 Days, #360 08/05/24 Insulin Glargine (Insulin Glargine Solostar) 100 Unit/Ml Inj, 25 UNIT SC DAILY for 60 Days, #15 08/05/24 Metoprolol Succinate (Metoprolol Succinate Er) 25 Mg Tab, 1 TAB PO DAILY for 30 Days, #30 08/05/24 Potassium Chloride (Klor-Con M10) 10 Meq Tab, 1 TAB PO BID for 90 Days, #180 01/30/24 Pancreatic Enzymes (Creon) 24,000 Unt Cap, 1 CAP PO TID for 66 Days, #200 01/29/24 Amlodipine Besylate (Amlodipine Besylate) 5 Mg Tab, 10 MG PO QAM for HTN, MG 01/29/24 Tamsulosin Hcl (Tamsulosin Hcl) 0.4 Mg Cap, 0.4 MG PO QPM for BPH for 30 Days, MG 01/29/24 Montelukast Sodium (MONTELUKAST SODIUM) 10 Mg Tab, 1 TAB PO HS for ALLEGIES for 90 Days, #90 01/29/24 Apixaban Base (ELIQUIS) 5 Mg Tab, 1 TAB PO BID for 30 Days, #60 01/29/24 Dulaglutide (Trulicity) 4.5 Mg/0.5 Ml Inj, 4.5 MG SC QWEEKLY for DIABETES, INJ 01/29/24 Amiodarone Hcl (Amiodarone Hcl) 200 Mg Tab, 1 TAB PO DAILY for ARRHYTHMIA for 90 Days, #90 01/29/24 Trazodone HCl (Trazodone Hydrochloride) 50 Mg Tab, 2 TAB PO HS for INSOMNIA for 90 Days, #180 01/29/24 Ascorbic Acid (VITAMIN C TABLET) 500 Mg Tb, 2 TAB PO DAILY for SUPPLEMENT, #30 TAB 3 Refills 01/29/24 Magnesium Oxide (MAGNESIUM OXIDE) 400 Mg Tab, 1 TAB PO DAILY for SUPPLEMENT, #30 TAB 5 Refills 01/29/24 Krill Oil (Severance-3 500 mg) 1 Cap Cap, 2 CAP PO BID for SUPPLEMENT, CAP 01/29/24 Allopurinol (Allopurinol) 100 Mg Tab, 100 MG PO BID for GOUT, MG 01/29/24 Isosorbide Dinitrate (Isosorbide Dinitrate) 20 Mg Tab, 20 MG PO BID, MG 09/23/17 Lisinopril (Lisinopril) 10 Mg Tab, 10 MG PO DAILY for 30 Days, MG 03/24/17 Atorvastatin Calcium (ATORVASTATIN CALCIUM) 40 Mg Tab, 1 TAB PO DAILY, #30 TAB 5 Refills 03/24/17 Discontinued Reported Medications Pantoprazole Sodium (PANTOPRAZOLE SODIUM) 40 Mg Inj, 40 MG PO DAILY, INJ 01/30/24 Sodium Bicarbonate (Sodium Bicarbonate) 650 Mg Tab, 650 MG PO BID, TAB 01/29/24 Metoprolol Tartrate (Metoprolol Tartrate) 25 Mg Tab, 25 MG PO DAILY for HTN for 30 Days, MG 01/29/24 Current Medications Current Medications Medications (Trade) Dose Ordered Sig/Leatha Route PRN Reason Start Time Stop Time Status Last Admin Dopamine HCl/ Dextrose 250 ml @ 15.188 mls/ hr [id number] IV 08/04/24 06:15 08/04/24 06:00 Isoproterenol HCl 1 mg/Dextrose 255 ml @ 30.6 mls/hr Q8H20M IV 08/04/24 07:00 08/04/24 09:59 DC Midazolam HCl 50 ml @ 1 mls/hr Q24H IV 08/04/24 08:00 08/04/24 15:33 Fentanyl Citrate 250 ml @ 2.5 mls/hr Q24H IV 08/04/24 08:00 08/04/24 17:15 Ceftriaxone Sodium 50 ml @ 100 mls/hr DAILY@09 IV 08/05/24 09:00 Enoxaparin Sodium (Lovenox) 30 mg DAILY SC 08/05/24 10:00 Nitroglycerin (Ntrostat Sublingual) 0.4 mg Q5MINP PRN SL FOR CHEST PAIN 08/04/24 14:45 Morphine Sulfate 2 mg Q30M PRN IV FOR CHEST PAIN 08/04/24 14:45 Azithromycin 250 ml @ 125 mls/hr DAILY IV 08/05/24 10:00 Sodium Chloride 1,000 ml @ 75 mls/hr [id number] IV 08/04/24 15:00 08/04/24 15:34 Diagnostic Test (Pha) (Accu-Chek Comfort Curve T) 1 strip Q6HR 08/04/24 18:00 08/04/24 19:03 Insulin Human Regular (InsuLIN R) Q6HR SC 08/04/24 18:00 08/04/24 19:21 Dextrose 50 ml UD PRN IV Blood Sugar LESS THAN 60 08/04/24 15:00 Insulin Glargine (Lantus) 10 units HS SC 08/04/24 22:00 Pantoprazole Sodium (Protonix) 40 mg DAILY IV 08/05/24 10:00 Allopurinol (Zyloprim Tablet) 100 mg BID PO 08/04/24 22:00 Tamsulosin HCl (Flomax) 0.4 mg QPM PO 08/04/24 18:00 Vital Signs Vital Signs Date Time Temp Pulse Resp B/P (MAP) Pulse Ox O2 Delivery O2 Flow Rate FiO2 08/04/24 22:39 80 24 158/51 (86) 99 40 08/04/24 14:00 97.4 97.4 08/04/24 10:46 Mechanical Ventilator+ Physical Exam Gen.: Patient lying in bed in medical ICU. Sedated, intubated on mechanical ventilator. Head: Normocephalic, atraumatic. Eyes: PERRLA. Ears: Normal external anatomy. Throat: Endotracheal tube and orogastric tube in place. Neck: Supple, trachea midline. Chest: Transmitted breath sounds bilaterally. Decreased air entry bilaterally. No wheezing. Bibasilar crackles. Cardiovascular: Positive S1, positive S2. Regular rate and rhythm. Abdomen: Positive bowel sounds in all 4 quadrants. Soft, nontender, nondistended. : Lugo in place. Normal external genitalia. Rectal: Deferred. Skin: Warm, dry. Intact. Extremities: 2+ radial pulses bilaterally. No lower extremity edema. Neuro: Sedated. Labs/Diagnostic Data Labs Test 08/04/24 14:48 08/04/24 11:02 08/04/24 10:13 08/04/24 07:42 Range/Units Urine Color Light-yellow Yellow Urine Clarity Clear Clear Urine pH 5.5 5.0-9.0 Urine Specific [place] 1.016 1.001-1.035 Urine Protein 1+ H Negative Urine Ketones Negative Negative Urine Blood Negative Negative /uL Urine Nitrite Negative Negative Urine Bilirubin Negative Negative Urine Urobilinogen Normal Negative mg/dL Urine Leukocyte Esterase Negative Negative /uL Urine RBC 4 0 - 3 /hpf Urine WBC 1 0 - 3 /hpf Urine Squamous Epithelial Cells None seen <5 /hpf Urine Bacteria None seen None Seen /hpf Urine Hyaline Casts Few 0 - 2 /lpf Urine Glucose 3+ H Normal mg/dL Blood Gas Specimen Type Arterial Blood Gas Sample Site Right radial Blood Gas Patient Temperature 37.0 Arterial Blood Date Drawn [id number] Arterial Blood pH 7.346 L 7.350-7.450 Arterial Blood Partial Pressure CO2 44.7 35.0-48.0 mmHg Arterial Blood Partial Pressure O2 323.2 *H 83.0-108.0 mmHg Arterial Blood HCO3 23.9 21.0-28.0 mmol/L Arterial Blood Oxygen Saturation 99.3 H 94.0-98.0 % Arterial Blood Base Excess -1.8 -2.0-3.0 mmol/L Arterial Blood Oxyhemoglobin 98.5 H 94.0-98.0 % Arterial Blood Carboxyhemoglobin 0.5 0.5-1.5 % Arterial Blood Methemoglobin 0.3 0.0-1.5 % Mike Test Modified Blood Gas Total Hemoglobin 10.70 L 13.5-17.5 g/dL Blood Gas Set Respiration Rate 24.0 Blood Gas Modality Vent - ac FiO2 % 100.0 Blood Gas Tidal Volume 500.0 Blood Gas PEEP or CPAP 5.0 Blood Gas Critical Value Read Back Yes Blood Gas Notified Whom Blood Gas Notified Time [id number] Blood Gas Notified By Paste Up Copy Camera Operator bety Lactic Acid Level 1.2 0.4-2.0 mmol/L White Blood Count 17.6 H 4.4-10.8 10^3/uL Red Blood Count 3.40 L 4.5-5.90 10^6/uL Hemoglobin 10.2 L 13.5-17.5 g/dL Hematocrit 31.5 L 41.0-53.0 % Mean Corpuscular Volume 92.6 80.0-100.0 fL Mean Corpuscular Hemoglobin 29.9 28.0-32.0 pg Mean Corpuscular Hemoglobin Concent 32.3 32.0-36.0 g/dL Red Cell Distribution Width 18.0 H 11.8-14.3 % Platelet Count 189 140-450 10^3/uL Mean Platelet Volume 7.9 6.9-10.8 fL Neutrophils (%) (Auto) 87.7 H 37.0-80.0 % Lymphocytes (%) (Auto) 6.1 L 10.0-50.0 % Monocytes (%) (Auto) 4.5 0.0-12.0 % Eosinophils (%) (Auto) 1.2 0.0-7.0 % Basophils (%) (Auto) 0.5 0.0-2.0 % Neutrophils # (Auto) 15.4 H 1.6-8.6 10 ^3/uL Lymphocytes # (Auto) 1.1 0.4-5.4 10 ^3/uL Monocytes # (Auto) 0.8 0-1.3 10 ^3/uL Eosinophils # (Auto) 0.2 0-0.8 10 ^3/uL Basophils # (Auto) 0.1 0-0.2 10 ^3/uL Nucleated Red Blood Cells 0.0 % Sodium Level 135 L 136-145 mmol/L Potassium Level 4.9 3.5-5.1 mmol/L Chloride Level 103 98-107 mmol/L Carbon Dioxide Level 23 20-31 mmol/L Anion Gap 9 5-15 Blood Urea Nitrogen 54 H 9-23 mg/dL Creatinine 2.75 H 0.700-1.30 mg/dL Glomerular Filtration Rate Calc 24 >90 mL/min BUN/Creatinine Ratio 19.6 10.0-20.0 Serum Glucose 331 H 74-106 mg/dL Hemoglobin A1c 7.1 H <5.7 % A1C Calcium Level 9.3 8.7-10.4 mg/dL Magnesium Level 2.2 1.6-2.6 mg/dL Troponin I High Sensitivity 66 *H </=54 ng/L B-Type Natriuretic Peptide 257.06 0-100 pg/mL Triglycerides Level 103 < 150 mg/dL Cholesterol Level 110 < 200 mg/dL LDL Cholesterol 64 < 100 mg/dL HDL Cholesterol 26 L 40-59 mg/dL Thyroid Stimulating Hormone (TSH) 2.48 0.55-4.78 uIU/mL Assessment Impression: Acute hypoxic respiratory failure On mechanical ventilator Bradycardia/complete heart block S/p TAVR Acute exacerbation of CHF S/p cardiac arrest Elevated troponin Chronic kidney disease Plan: s/p intubation on mechanical ventilator. Note, pt is on transvenous pacing. CXR image and report reviewed. ABG reviewed, compensated. On AC mode; RR 24, VT 500, PEEP 5, FiO2 100% Titrate FIO2 to keep O2 saturation above 90%. VAP bundle. Daily ABG and CXR while intubated Sedate for ventilator synchrony - on Versed, Fentanyl Continue antibiotics. Dopamine 5 mcg/min d/t bradycardia Monitor renal function Monitor electrolytes. Supplement as necessary. Monitor ins and outs. Maintain euvolemia. GI prophylaxis. DVT prophylaxis. Prognosis: Poor given patient's multiple co-morbidities. Condition: Critical Rest of plan per hospitalist and other consultants. A total of 35 minutes of critical care time was spent reviewing the patient record, examining the patient, making a diagnostic and therapeutic plan, discussing this plan with the medical personnel, following up on diagnostic studies and following the patient for clinical stability excluding any and all procedures. At least 50% of this time was spent in direct, [id number] contact. Thank you, ARGELIA Roman, for allowing me to participate in this patient's care. Further recommendations will depend on the patient's clinical course. Please do not hesitate to contact me if you have any questions or concerns. This medical document was created using an electronic medical record system with [employer] dictation system. Although these documentations are being carefully reviewed, there may still be some phonetic and typographical changes. The errors are purely typographical, due to imperfection on the software program, and do not reflect any compromise in the patient's medical care. Plan discussed with: Other (NANCY Hurt/ARGELIA Roman/) FARIHA PRAKASH MD Aug 04, 2024 23:41
[2024-08-05] VITALS (102 sets, daily range): BP systolic 80–158; BP diastolic 48–82; PULSE 69–86; RESP 16–24; TEMP 97.7–98.8; O2SAT 95–100
[2024-08-05 03:56] LABS: Alanine Aminotransferase 34 U/L (7-40); Albumin 3.8 g/dL (3.2-4.8); Anion Gap 6 (5-15); Aspartate Aminotransferase 14 U/L (13-40); BUN/Creatinine Ratio 20.2 (10.0-20.0); Calcium 9.8 mg/dL (8.7-10.4); Carbon Dioxide 27 mmol/L (20-31); Chloride 106 mmol/L (98-107); Potassium 4.5 mmol/L (3.5-5.1); Sodium 139 mmol/L (136-145)
[2024-08-05 03:57] LABS: Bilirubin, Total 0.4 mg/dL (0.2-1.0); Total Protein 7.5 g/dL (5.7-8.2)
[2024-08-05 04:12] LABS: Basophils # (auto) 0.1 10 ^3/uL (0-0.2); Basophils % (auto) 0.5 % (0.0-2.0); Eosinophils # (auto) 0.2 10 ^3/uL (0-0.8); Eosinophils % (auto) 1.7 % (0.0-7.0); Hematocrit 30.6 % (41.0-53.0); Lymphocytes % (auto) 8.9 % (10.0-50.0); Mean Corpuscular Hemoglobin 29.9 pg (28.0-32.0); Mean Corpuscular Hgb Conc. 32.7 g/dL (32.0-36.0); Mean Corpuscular Volume 91.4 fL (80.0-100.0); Monocytes # (auto) 0.7 10 ^3/uL (0-1.3); Monocytes % (auto) 5.8 % (0.0-12.0); Neutrophils # (auto) 9.6 10 ^3/uL (1.6-8.6); Neutrophils % (auto) 83.1 % (37.0-80.0); Platelet Count (auto) 206 10^3/uL (140-450); Red Blood Cells 3.35 10^6/uL (4.5-5.90); Red Cell Distribution Width 17.7 % (11.8-14.3); White Blood Cell 11.5 10^3/uL (4.4-10.8)
[2024-08-05 04:15] LABS: Alkaline Phosphatase 161 U/L (46-116); Blood Urea Nitrogen 52 mg/dL (9-23); Glucose 164 mg/dL (74-106)
[2024-08-05 06:58] LABS: Base Excess 1.3 mmol/L (-2.0-3.0)
--- NOTE | 2024-08-05 08:35 | DVHPN2 ---
Progress Note - Dictate Date Seen: Aug 05, 2024 Medical Necessity Reason Pt with a Central, PICC or Fol: Yes The following are medically ne: Lugo Catheter Subjective PT RECENTLY UNDERWENT TAVR AT [facility] NOW WITH 3 DEGREE AV BLOCK DEVELOPED ASYSTOLE INTUBATED TEMPORARY PACER INSERTED NOW NEEDS DUAL PPI PMH: ORGANIC HD S/P CABG LHC * Left main, patent. * Distal left main, however, had 50% narrowing. * Left anterior descending artery severely diseased, at previous site of stent placement. * TOMPKINS to the LAD was patent. It was sequenced to diagonal 1 and diagonal 2 that were patent, but distal to the bypass, there was severe diffuse disease throughout the [place] coronary arteries. * Circumflex had about a 40-50% ostial narrowing. * With moderate diffuse disease throughout the circumflex territory. * Saphenous vein graft to the OM was occluded. 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 * Severe disease of the PDA. * Saphenous vein graft to the PDA was patent. At this point, the patient has diffuse disease. Distal flow was diminished. The patient had patent grafts, but [place] vessels that were ____ severely diseased. The best option for the patient at this time is conservative medical management, aggressive risk modification, dual antiplatelet therapy should be introduced. The patient is a candidate for EECP. The patient is also a candidate for dobutamine infusion. He should also be considered for Bi-V AICD implantation as well. We will continue to follow the patient. ECHO 05/23 LVH EF >60% LAE BERNARD CRITICAL HEAVILY CALCIFIED AV NOW S/P TAVR vital signs Vital Sign Date Time Temp Pulse Resp B/P (MAP) Pulse Ox O2 Delivery O2 Flow Rate FiO2 08/05/24 06:45 80 24 131/69 (89) 97 08/05/24 06:00 30 08/05/24 06:00 Mechanical Ventilator+ 08/05/24 04:00 98.4 98.4 Total Intake and Output 08/04/24 08/04/24 08/05/24 15:00 23:00 07:00 Intake Total 80 ml 601.0 ml 430.2 ml Balance 80 ml 601.0 ml 430.2 ml medications Current Medications Medications Dose Ordered Sig/Leatha Route Start Time Stop Time Status Last Admin Dose Admin Dopamine HCl/ Dextrose 250 ml @ 15.188 mls/ hr [id number] IV 08/04/24 06:15 08/04/24 02:30 15.188 MLS/HR Midazolam HCl 50 ml @ 1 mls/hr Q24H IV 08/04/24 08:00 08/05/24 05:30 15 MLS/HR Fentanyl Citrate 250 ml @ 2.5 mls/hr Q24H IV 08/04/24 08:00 08/04/24 17:15 10 MLS/HR Ceftriaxone Sodium 50 ml @ 100 mls/hr DAILY@09 IV 08/05/24 09:00 Enoxaparin Sodium 30 mg DAILY SC 08/05/24 10:00 Nitroglycerin 0.4 mg Q5MINP PRN SL 08/04/24 14:45 Morphine Sulfate 2 mg Q30M PRN IV 08/04/24 14:45 Azithromycin 250 ml @ 125 mls/hr DAILY IV 08/05/24 10:00 Sodium Chloride 1,000 ml @ 75 mls/hr [id number] IV 08/04/24 15:00 08/05/24 04:28 75 MLS/HR Diagnostic Test (Pha) 1 strip Q6HR 08/04/24 18:00 08/05/24 05:57 1 STRIP Insulin Human Regular Q6HR SC 08/04/24 18:00 08/05/24 00:00 4 UNITS Dextrose 50 ml UD PRN IV 08/04/24 15:00 Insulin Glargine 10 units HS SC 08/04/24 22:00 08/04/24 22:00 10 UNITS Pantoprazole Sodium 40 mg DAILY IV 08/05/24 10:00 Allopurinol 100 mg BID PO 08/04/24 22:00 08/04/24 22:00 100 MG Tamsulosin HCl 0.4 mg QPM PO 08/04/24 18:00 laboratory and microbiology Laboratory Tests 08/05/24 02:50 Test 08/05/24 02:50 Range/Units Serum Glucose 164 #H 74-106 mg/dL Problem List UNDERWENT TAVR AT [facility] NOW WITH 3 DEGREE AV BLOCK DEVELOPED ASYSTOLE INTUBATED TEMPORARY PACER INSERTED NOW NEEDS DUAL PPI PMH: ORGANIC HD S/P CABG LHC * Left main, patent. * Distal left main, however, had 50% narrowing. * Left anterior descending artery severely diseased, at previous site of stent placement. * TOMPKINS to the LAD was patent. It was sequenced to diagonal 1 and diagonal 2 that were patent, but distal to the bypass, there was severe diffuse disease throughout the [place] coronary arteries. * Circumflex had about a 40-50% ostial narrowing. * With moderate diffuse disease throughout the circumflex territory. * Saphenous vein graft to the OM was occluded. 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 * Severe disease of the PDA. * Saphenous vein graft to the PDA was patent. At this point, the patient has diffuse disease. Distal flow was diminished. The patient had patent grafts, but [place] vessels that were ____ severely diseased. The best option for the patient at this time is conservative medical management, aggressive risk modification, dual antiplatelet therapy should be introduced. The patient is a candidate for EECP. The patient is also a candidate for dobutamine infusion. He should also be considered for Bi-V AICD implantation as well. We will continue to follow the patient. ECHO 05/23 LVH EF >60% LAE BERNARD CRITICAL HEAVILY CALCIFIED AV NOW S/P TAVR Assessment/Plan ANTIBIOTIC SCHEDULE FOR PPI PT WILL BE PACER DEPENDENT SINCE WITH 3 AV BLOCK WILL CONSIDER LBB PACING Plan discussed with: Patient Critical Care Time(min): 35 CAROLE ELIZONDO MD Aug 05, 2024 08:35
[2024-08-05] MEDS: cefTRIAXone 1GM/50ML D5W 50 ML IV SCH (09:28)
[2024-08-05] MEDS: ENOXAPARIN SOD 30 MG/0.3 ML SYRINGE SC SCH (11:12)
[2024-08-05] MEDS: PANTOPRAZOLE 40 MG/10 ML VIAL INJ IV SCH (11:12)
[2024-08-05] MEDS: AZITHROMYCIN 500MG/ 250ML 250 ML IV SCH (11:13)
[2024-08-05] MEDS: VANCOMYCIN 1GM/250ML KIT 250 ML IV ONE (12:46)
[2024-08-05] MEDS: LIDOCAINE 2%HCL (LOCAL ANESTH.) INJ 20ML MDV ONE (12:46)
[2024-08-05] MEDS: VANCOMYCIN HCL 1000 MG VL ONE (12:46)
[2024-08-05] MEDS: FUROSEMIDE 20 MG/2 ML VIAL ONE ×2 (13:49→14:39)
--- NOTE | 2024-08-05 14:02 | ECG ---
[facility] Test Date: 2024-08-04 Test Time: 05:27:34 Pat Name: HARPREET MELGOZA Department: er Room: Cath ICU 5 Gender: M Direct Care Counselor: : 1950 Requested By: EMERGENCY EMERGENCY Order Number: [id number] Reading MD: Flex Ayers Measurements Intervals [place] Rate: 33 P: 0 WA: 0 QRS: 116 QRSD: 178 T: -58 QT: 652 QTc: 484 Interpretive Statements Complete AV block with wide QRS complex Right bundle branch block Electronically Signed On 08-06-2024 18:18:06 PST by Flex Ayers Please click the below link to view image of tracing.
[2024-08-05] MEDS ORDERED: INSU100I74 SC (14:12)
--- NOTE | 2024-08-05 16:29 | DVH ---
XY CHEST PORTABLE, HISTORY: S/P PACEMAKER COMPARISON: XY CHEST PORTABLE on DOS: 08/04/24, XY CHEST PORTABLE on DOS: 08/04/24, XY CHEST XRAY 1 VIEW on DOS: 08/04/24 XY CHEST PORTABLE on DOS: 08/04/24, XY CHEST PORTABLE on DOS: 08/04/24, XY CHEST XRAY 1 VIEW on DOS: TECHNICAL DATA: 1 view of the chest was obtained. FINDINGS: Lines and tubes: Cardiac pacer is visualized. ET in the mid thoracic trachea. NG in the stomach. Cardiomediastinal silhouette: Prominent. A prosthetic aortic valve is seen. Pulmonary vasculature: Prominent Lung expansion: normal Lung airspace: Patchy perihilar airspace opacities are noted. Lung interstitium: Prominent Pleura: normal Pneumothorax: no Bones: Unremarkable Other: no IMPRESSION: Stable lines and tubes, as above. Interval placement of a pacemaker. Similar lung aeration bilaterally.
[2024-08-05] MEDS: POTASSIUM CHL 20MEQ/100ML 100 ML IV ONE (16:30)
--- NOTE | 2024-08-05 17:56 | DVHINCON2 ---
Date of service: Aug 05, 2024 Reason for Consultation GRACIE History of Present Illness 74 years old male with past medical history of recent TAVR, coronary artery disease, status post CABG, AFib, cardiomyopathy, hypertension, dyslipidemia, diabetes, Chronic kidney disease, anemia, ANNEL on BiPAP, presented with chief co mplaints of involuntary tremors and a seizure-like activity low heart rate patient's heart rate was found in 20s patient had a code, emergent transvenous pacer was inserted currently on dopamine intubated and sedated and on pressors Past Medical History As per HPI Past Surgical History As per HPI Allergies: Coded Allergies: Ibuprofen (Verified Allergy, Unknown, 03/02/17) Home Meds Reported Medications Insulin Lispro (Insulin Lispro Kwikpen) 100 Unit/Ml Inj, 2-10 UNIT SC TID for 50 Days, #15 DIRECTED INJECT 2-10 UNITS SUBCUTANEOUSLY 3 TIMES DAILY WITH EACH MEAL PER SLINDING SCALE. 08/05/24 Gabapentin (Gabapentin) 300 Mg Cap, 1 CAP PO BID for 30 Days, #60 08/05/24 Vericiguat (Verquvo) 5 Mg Tab, 0.5 TAB PO BID for 30 Days, #30 TAKE 1/2 TABLET (2.5 MG) BY MOUTH 2 TIMES EVERY DAY. 08/05/24 Loratadine (Claritin) 10 Mg Tab, 1 TAB PO DAILY for 90 Days, #90 08/05/24 Clopidogrel Bisulfate (CLOPIDOGREL) 75 Mg Tab, 1 TAB PO DAILY for 88 Days, #88 08/05/24 Bumetanide (Bumetanide) 1 Mg Tab, 1 TAB PO BID for 90 Days, #180 08/05/24 Pantoprazole Sodium Sesquihydr (Pantoprazole Sodium Dr) 40 Mg Tab, 1 TAB PO DAILY for 90 Days, #90 08/05/24 Sodium Bicarbonate (Sodium Bicarbonate) 325 Mg Tab, 2 TAB PO BID for 90 Days, #360 08/05/24 Insulin Glargine (Insulin Glargine Solostar) 100 Unit/Ml Inj, 25 UNIT SC DAILY for 60 Days, #15 08/05/24 Metoprolol Succinate (Metoprolol Succinate Er) 25 Mg Tab, 1 TAB PO DAILY for 30 Days, #30 08/05/24 Potassium Chloride (Klor-Con M10) 10 Meq Tab, 1 TAB PO BID for 90 Days, #180 01/30/24 Pancreatic Enzymes (Creon) 24,000 Unt Cap, 1 CAP PO TID for 66 Days, #200 01/29/24 Amlodipine Besylate (Amlodipine Besylate) 5 Mg Tab, 10 MG PO QAM for HTN, MG 01/29/24 Tamsulosin Hcl (Tamsulosin Hcl) 0.4 Mg Cap, 0.4 MG PO QPM for BPH for 30 Days, MG 01/29/24 Montelukast Sodium (MONTELUKAST SODIUM) 10 Mg Tab, 1 TAB PO HS for ALLEGIES for 90 Days, #90 01/29/24 Apixaban Base (ELIQUIS) 5 Mg Tab, 1 TAB PO BID for 30 Days, #60 01/29/24 Dulaglutide (Trulicity) 4.5 Mg/0.5 Ml Inj, 4.5 MG SC QWEEKLY for DIABETES, INJ 01/29/24 Amiodarone Hcl (Amiodarone Hcl) 200 Mg Tab, 1 TAB PO DAILY for ARRHYTHMIA for 90 Days, #90 01/29/24 Trazodone HCl (Trazodone Hydrochloride) 50 Mg Tab, 2 TAB PO HS for INSOMNIA for 90 Days, #180 01/29/24 Ascorbic Acid (VITAMIN C TABLET) 500 Mg Tb, 2 TAB PO DAILY for SUPPLEMENT, #30 TAB 3 Refills 01/29/24 Magnesium Oxide (MAGNESIUM OXIDE) 400 Mg Tab, 1 TAB PO DAILY for SUPPLEMENT, #30 TAB 5 Refills 01/29/24 Krill Oil (Robeline-3 500 mg) 1 Cap Cap, 2 CAP PO BID for SUPPLEMENT, CAP 01/29/24 Allopurinol (Allopurinol) 100 Mg Tab, 100 MG PO BID for GOUT, MG 01/29/24 Isosorbide Dinitrate (Isosorbide Dinitrate) 20 Mg Tab, 20 MG PO BID, MG 09/23/17 Lisinopril (Lisinopril) 10 Mg Tab, 10 MG PO DAILY for 30 Days, MG 03/24/17 Atorvastatin Calcium (ATORVASTATIN CALCIUM) 40 Mg Tab, 1 TAB PO DAILY, #30 TAB 5 Refills 03/24/17 Discontinued Reported Medications Pantoprazole Sodium (PANTOPRAZOLE SODIUM) 40 Mg Inj, 40 MG PO DAILY, INJ 01/30/24 Sodium Bicarbonate (Sodium Bicarbonate) 650 Mg Tab, 650 MG PO BID, TAB 01/29/24 Metoprolol Tartrate (Metoprolol Tartrate) 25 Mg Tab, 25 MG PO DAILY for HTN for 30 Days, MG 01/29/24 Current Medications Current Medications Medications (Trade) Dose Ordered Sig/Leatha Route PRN Reason Start Time Stop Time Status Last Admin Ceftriaxone Sodium 50 ml @ 100 mls/hr DAILY@09 IV 08/05/24 09:00 08/05/24 09:28 Enoxaparin Sodium (Lovenox) 30 mg DAILY SC 08/05/24 10:00 Azithromycin 250 ml @ 125 mls/hr DAILY IV 08/05/24 10:00 08/05/24 11:13 Diagnostic Test (Pha) (Accu-Chek Comfort Curve T) 1 strip Q6HR 08/04/24 18:00 08/05/24 12:00 Insulin Human Regular (InsuLIN R) Q6HR SC 08/04/24 18:00 08/05/24 00:00 Insulin Glargine (Lantus) 10 units HS SC 08/04/24 22:00 08/04/24 22:00 Pantoprazole Sodium (Protonix) 40 mg DAILY IV 08/05/24 10:00 08/05/24 11:12 Allopurinol (Zyloprim Tablet) 100 mg BID PO 08/04/24 22:00 08/05/24 11:12 Tamsulosin HCl (Flomax) 0.4 mg QPM PO 08/04/24 18:00 Family History: Asthma G8 FATHER FH: heart attack G8 FATHER Hypertension G8 MOTHER G8 FATHER Review of Systems Unable to obtain H&P Exam Vital Signs/I&O Vital Sign Date Time Temp Pulse Resp B/P (MAP) Pulse Ox O2 Delivery O2 Flow Rate FiO2 08/05/24 17:30 80 24 127/66 (86) 99 08/05/24 16:50 30 08/05/24 16:00 98.8 98.8 08/05/24 16:00 Mechanical Ventilator+ Intake and Output 08/04/24 08/05/24 19:00 07:00 Intake Total 520.2 ml 706.188 ml Balance 520.2 ml 706.188 ml Intake IV Total 520.2 ml 706.188 ml Physical Exam General-intubated and sedated HEENT-normocephalic, no icterus, no pallor, neck supple Respiratory-fair air entry bilateral, no rhonchi, no wheeze [id number] heard, irregular rate Abdominal-soft, nontender, nondistended Musculoskeletal-no pedal edema, no calf tenderness Labs/Diagnostic Data Labs/Diagnostic Data Laboratory Tests Test 08/05/24 06:03 08/05/24 02:50 08/04/24 14:48 08/04/24 11:02 Range/Units Blood Gas Specimen Type Arterial Arterial Blood Gas Sample Site Left radial Right radial Blood Gas Patient Temperature 37.0 37.0 Arterial Blood Date Drawn [id number] Arterial Blood pH 7.403 7.346 L 7.350-7.450 Arterial Blood Partial Pressure CO2 43.1 44.7 35.0-48.0 mmHg Arterial Blood Partial Pressure O2 96.7 323.2 *H 83.0-108.0 mmHg Arterial Blood HCO3 26.3 23.9 21.0-28.0 mmol/L Arterial Blood Oxygen Saturation 96.8 99.3 H 94.0-98.0 % Arterial Blood Base Excess 1.3 -1.8 -2.0-3.0 mmol/L Arterial Blood Oxyhemoglobin 96.5 98.5 H 94.0-98.0 % Arterial Blood Carboxyhemoglobin 0.3 L 0.5 0.5-1.5 % Arterial Blood Methemoglobin 0.0 0.3 0.0-1.5 % Mike Test Modified Modified Blood Gas Total Hemoglobin 10.80 L 10.70 L 13.5-17.5 g/dL Blood Gas Set Respiration Rate 24.0 24.0 Blood Gas Modality Vent - ac Vent - ac FiO2 % 30.0 100.0 Blood Gas Tidal Volume 500.0 500.0 Blood Gas PEEP or CPAP 5.0 5.0 Blood Gas Critical Value Read Back Yes Yes White Blood Count 11.5 #H 4.4-10.8 10^3/uL Red Blood Count 3.35 L 4.5-5.90 10^6/uL Hemoglobin 10.0 L 13.5-17.5 g/dL Hematocrit 30.6 L 41.0-53.0 % Mean Corpuscular Volume 91.4 80.0-100.0 fL Mean Corpuscular Hemoglobin 29.9 28.0-32.0 pg Mean Corpuscular Hemoglobin Concent 32.7 32.0-36.0 g/dL Red Cell Distribution Width 17.7 H 11.8-14.3 % Platelet Count 206 140-450 10^3/uL Mean Platelet Volume 7.5 6.9-10.8 fL Neutrophils (%) (Auto) 83.1 H 37.0-80.0 % Lymphocytes (%) (Auto) 8.9 L 10.0-50.0 % Monocytes (%) (Auto) 5.8 0.0-12.0 % Eosinophils (%) (Auto) 1.7 0.0-7.0 % Basophils (%) (Auto) 0.5 0.0-2.0 % Neutrophils # (Auto) 9.6 H 1.6-8.6 10 ^3/uL Lymphocytes # (Auto) 1.0 0.4-5.4 10 ^3/uL Monocytes # (Auto) 0.7 0-1.3 10 ^3/uL Eosinophils # (Auto) 0.2 0-0.8 10 ^3/uL Basophils # (Auto) 0.1 0-0.2 10 ^3/uL Nucleated Red Blood Cells 0.0 % Sodium Level 139 136-145 mmol/L Potassium Level 4.5 3.5-5.1 mmol/L Chloride Level 106 98-107 mmol/L Carbon Dioxide Level 27 20-31 mmol/L Anion Gap 6 5-15 Blood Urea Nitrogen 52 H 9-23 mg/dL Creatinine 2.57 H 0.700-1.30 mg/dL Glomerular Filtration Rate Calc 26 >90 mL/min BUN/Creatinine Ratio 20.2 H 10.0-20.0 Serum Glucose 164 #H 74-106 mg/dL Calcium Level 9.8 8.7-10.4 mg/dL Total Bilirubin 0.4 0.2-1.0 mg/dL Aspartate Amino Transferase (AST) 14 13-40 U/L Alanine Aminotransferase (ALT) 34 7-40 U/L Alkaline Phosphatase 161 H 46-116 U/L Total Protein 7.5 5.7-8.2 g/dL Albumin 3.8 3.2-4.8 g/dL Urine Color Light-yellow Yellow Urine Clarity Clear Clear Urine pH 5.5 5.0-9.0 Urine Specific [place] 1.016 1.001-1.035 Urine Protein 1+ H Negative Urine Ketones Negative Negative Urine Blood Negative Negative /uL Urine Nitrite Negative Negative Urine Bilirubin Negative Negative Urine Urobilinogen Normal Negative mg/dL Urine Leukocyte Esterase Negative Negative /uL Urine RBC 4 0 - 3 /hpf Urine WBC 1 0 - 3 /hpf Urine Squamous Epithelial Cells None seen <5 /hpf Urine Bacteria None seen None Seen /hpf Urine Hyaline Casts Few 0 - 2 /lpf Urine Glucose 3+ H Normal mg/dL Blood Gas Notified Whom Blood Gas Notified Time [id number] Blood Gas Notified By Hand Screen Printer bety Test 08/04/24 10:13 08/04/24 08:55 08/04/24 07:42 Range/Units Lactic Acid Level 1.2 0.4-2.0 mmol/L Blood Gas Specimen Type Arterial Blood Gas Sample Site Right radial Blood Gas Patient Temperature 37.0 Arterial Blood Date Drawn [id number] Arterial Blood pH 7.240 *L 7.350-7.450 Arterial Blood Partial Pressure CO2 53.0 H 35.0-48.0 mmHg Arterial Blood Partial Pressure O2 263.3 H 83.0-108.0 mmHg Arterial Blood HCO3 22.2 21.0-28.0 mmol/L Arterial Blood Oxygen Saturation 99.1 H 94.0-98.0 % Arterial Blood Base Excess -5.4 L -2.0-3.0 mmol/L Arterial Blood Oxyhemoglobin 98.2 H 94.0-98.0 % Arterial Blood Carboxyhemoglobin 0.6 0.5-1.5 % Arterial Blood Methemoglobin 0.3 0.0-1.5 % Mike Test Modified Blood Gas Total Hemoglobin 10.90 L 13.5-17.5 g/dL Blood Gas Set Respiration Rate 18.0 Blood Gas Modality Vent - ac FiO2 % 100.0 Blood Gas Tidal Volume 500.0 Blood Gas PEEP or CPAP 5.0 Blood Gas Critical Value Read Back yes Blood Gas Notified Whom Blood Gas Notified Time [id number] Blood Gas Notified By logistics program manager bety White Blood Count 17.6 H 4.4-10.8 10^3/uL Red Blood Count 3.40 L 4.5-5.90 10^6/uL Hemoglobin 10.2 L 13.5-17.5 g/dL Hematocrit 31.5 L 41.0-53.0 % Mean Corpuscular Volume 92.6 80.0-100.0 fL Mean Corpuscular Hemoglobin 29.9 28.0-32.0 pg Mean Corpuscular Hemoglobin Concent 32.3 32.0-36.0 g/dL Red Cell Distribution Width 18.0 H 11.8-14.3 % Platelet Count 189 140-450 10^3/uL Mean Platelet Volume 7.9 6.9-10.8 fL Neutrophils (%) (Auto) 87.7 H 37.0-80.0 % Lymphocytes (%) (Auto) 6.1 L 10.0-50.0 % Monocytes (%) (Auto) 4.5 0.0-12.0 % Eosinophils (%) (Auto) 1.2 0.0-7.0 % Basophils (%) (Auto) 0.5 0.0-2.0 % Neutrophils # (Auto) 15.4 H 1.6-8.6 10 ^3/uL Lymphocytes # (Auto) 1.1 0.4-5.4 10 ^3/uL Monocytes # (Auto) 0.8 0-1.3 10 ^3/uL Eosinophils # (Auto) 0.2 0-0.8 10 ^3/uL Basophils # (Auto) 0.1 0-0.2 10 ^3/uL Nucleated Red Blood Cells 0.0 % Sodium Level 135 L 136-145 mmol/L Potassium Level 4.9 3.5-5.1 mmol/L Chloride Level 103 98-107 mmol/L Carbon Dioxide Level 23 20-31 mmol/L Anion Gap 9 5-15 Blood Urea Nitrogen 54 H 9-23 mg/dL Creatinine 2.75 H 0.700-1.30 mg/dL Glomerular Filtration Rate Calc 24 >90 mL/min BUN/Creatinine Ratio 19.6 10.0-20.0 Serum Glucose 331 H 74-106 mg/dL Hemoglobin A1c 7.1 H <5.7 % A1C Calcium Level 9.3 8.7-10.4 mg/dL Magnesium Level 2.2 1.6-2.6 mg/dL Troponin I High Sensitivity 66 *H </=54 ng/L B-Type Natriuretic Peptide 257.06 0-100 pg/mL Triglycerides Level 103 < 150 mg/dL Cholesterol Level 110 < 200 mg/dL LDL Cholesterol 64 < 100 mg/dL HDL Cholesterol 26 L 40-59 mg/dL Thyroid Stimulating Hormone (TSH) 2.48 0.55-4.78 uIU/mL Assessment Acute kidney injury on Chronic kidney disease four hemodynamic mediated Bradycardia status post cpr Encephalopathy Ventilator-dependent hypoxic respiratory failure Recommendations Remains nonoliguric We will follow closely Possible permanent pacemaker insertion today Plan discussed with: Other RODNEY CASAS MD Aug 05, 2024 17:56
--- NOTE | 2024-08-05 22:52 | DVHPN2 ---
Progress Note - Dictate Date Seen: Aug 05, 2024 Medical Necessity Reason Pt with a Central, PICC or Fol: Yes The following are medically ne: Mcdonald Catheter Reason for mcdonald catheter: Strict I&O Subjective Patient seen and examined at bedside. Sedated, intubated on mechanical ventilator. Overnight events reviewed. vital signs Vital Sign Date Time Temp Pulse Resp B/P (MAP) Pulse Ox O2 Delivery O2 Flow Rate FiO2 08/05/24 21:33 69 24 154/77 (102) 100 30 08/05/24 20:00 Mechanical Ventilator+ 08/05/24 16:00 98.8 98.8 Total Intake and Output 08/04/24 08/04/24 08/05/24 15:00 23:00 07:00 Intake Total 80 ml 601.0 ml 545.388 ml Balance 80 ml 601.0 ml 545.388 ml medications Current Medications Medications Dose Ordered Sig/Leatha Route Start Time Stop Time Status Last Admin Dose Admin Dopamine HCl/ Dextrose 250 ml @ 15.188 mls/ hr [id number] IV 08/04/24 06:15 08/05/24 18:55 15.188 MLS/HR Midazolam HCl 50 ml @ 1 mls/hr Q24H IV 08/04/24 08:00 08/05/24 18:56 15 MLS/HR Fentanyl Citrate 250 ml @ 2.5 mls/hr Q24H IV 08/04/24 08:00 08/04/24 17:15 10 MLS/HR Ceftriaxone Sodium 50 ml @ 100 mls/hr DAILY@09 IV 08/05/24 09:00 08/05/24 09:28 100 MLS/HR Enoxaparin Sodium 30 mg DAILY SC 08/05/24 10:00 Nitroglycerin 0.4 mg Q5MINP PRN SL 08/04/24 14:45 Morphine Sulfate 2 mg Q30M PRN IV 08/04/24 14:45 Azithromycin 250 ml @ 125 mls/hr DAILY IV 08/05/24 10:00 08/05/24 11:13 125 MLS/HR Sodium Chloride 1,000 ml @ 75 mls/hr [id number] IV 08/04/24 15:00 08/05/24 18:27 75 MLS/HR Diagnostic Test (Pha) 1 strip Q6HR 08/04/24 18:00 08/05/24 18:27 1 STRIP Insulin Human Regular Q6HR SC 08/04/24 18:00 08/05/24 00:00 4 UNITS Dextrose 50 ml UD PRN IV 08/04/24 15:00 Insulin Glargine 10 units HS SC 08/04/24 22:00 08/04/24 22:00 10 UNITS Pantoprazole Sodium 40 mg DAILY IV 08/05/24 10:00 08/05/24 11:12 40 MG Allopurinol 100 mg BID PO 08/04/24 22:00 08/05/24 11:12 100 MG Tamsulosin HCl 0.4 mg QPM PO 08/04/24 18:00 objective Gen.: Patient lying in bed in medical ICU. Sedated, intubated on mechanical ventilator. Head: Normocephalic, atraumatic. Eyes: PERRLA. Ears: Normal external anatomy. Throat: Endotracheal tube and orogastric tube in place. Neck: Supple, trachea midline. Chest: Transmitted breath sounds bilaterally. Decreased air entry bilaterally. No wheezing. Bibasilar crackles. Cardiovascular: Positive S1, positive S2. Regular rate and rhythm. Abdomen: Positive bowel sounds in all 4 quadrants. Soft, nontender, nondistended. : Mcdonald in place. Normal external genitalia. Rectal: Deferred. Skin: Warm, dry. Intact. Extremities: 2+ radial pulses bilaterally. No lower extremity edema. Neuro: Sedated. laboratory and microbiology Laboratory Tests 08/05/24 02:50 Test 08/05/24 02:50 Range/Units Serum Glucose 164 #H 74-106 mg/dL Assessment/Plan Impression: Acute hypoxic respiratory failure On mechanical ventilator Bradycardia/complete heart block S/p TAVR Acute exacerbation of CHF S/p cardiac arrest Elevated troponin Chronic kidney disease Events: Remains on vent support On AC mode; RR 24, VT 500, PEEP 5, FiO2 30% Improved FiO2 requirements Sedated on Versed, Fentanyl ABG reviewed, compensated. CXR demonstrates devices in place. Patchy perihilar airspace opacities. Continue Dopamine 5 mcg/min for bradycardia Potassium supplementation Monitor renal function S/p pacer today. CPAP with PS 8, PEEP of 5 in AM. Labs and imaging reviewed. Rest of plan as noted below. Plan: s/p intubation on mechanical ventilator. On AC mode; RR 24, VT 500, PEEP 5, FiO2 30% Titrate FIO2 to keep O2 saturation above 90%. VAP bundle. Daily ABG and CXR while intubated Sedate for ventilator synchrony Continue antibiotics. Dopamine 5 mcg/min d/t bradycardia Monitor renal function Monitor electrolytes. Supplement as necessary. Monitor ins and outs. Maintain euvolemia. GI prophylaxis. DVT prophylaxis. Prognosis: Poor given patient's multiple co-morbidities. Condition: Critical Rest of plan per hospitalist and other consultants. A total of 35 minutes of critical care time was spent reviewing the patient record, examining the patient, making a diagnostic and therapeutic plan, discussing this plan with the medical personnel, following up on diagnostic studies and following the patient for clinical stability excluding any and all procedures. At least 50% of this time was spent in direct, [id number] contact. Thank you, ARGELIA Roman, for allowing me to participate in this patient's care. Further recommendations will depend on the patient's clinical course. Please do not hesitate to contact me if you have any questions or concerns. This medical document was created using an electronic medical record system with [employer] dictation system. Although these documentations are being carefully reviewed, there may still be some phonetic and typographical changes. The errors are purely typographical, due to imperfection on the software program, and do not reflect any compromise in the patient's medical care. Plan discussed with: Other (NANCY Hurt) Critical Care Time(min): 35 FARIHA PRAKASH MD Aug 05, 2024 22:52
[2024-08-06] VITALS (104 sets, daily range): BP systolic 92–178; BP diastolic 54–99; PULSE 70–106; RESP 20–33; TEMP 98–100.3; O2SAT 93–100
[2024-08-06 06:54] LABS: Basophils # (auto) 0 10 ^3/uL (0-0.2); Basophils % (auto) 0.5 % (0.0-2.0); Eosinophils # (auto) 0.6 10 ^3/uL (0-0.8); Eosinophils % (auto) 6.6 % (0.0-7.0); Hematocrit 30.7 % (41.0-53.0); Lymphocytes # (auto) 0.8 10 ^3/uL (0.4-5.4); Mean Corpuscular Hemoglobin 29.7 pg (28.0-32.0); Mean Corpuscular Hgb Conc. 32.6 g/dL (32.0-36.0); Monocytes # (auto) 0.7 10 ^3/uL (0-1.3); Monocytes % (auto) 8.3 % (0.0-12.0); Neutrophils # (auto) 6.4 10 ^3/uL (1.6-8.6); Neutrophils % (auto) 75.6 % (37.0-80.0); Nucleated Red Blood Cells % 0.1 %; Platelet Count (auto) 195 10^3/uL (140-450); Red Blood Cells 3.37 10^6/uL (4.5-5.90); Red Cell Distribution Width 17.6 % (11.8-14.3); White Blood Cell 8.4 10^3/uL (4.4-10.8)
[2024-08-06 07:24] LABS: Alanine Aminotransferase 28 U/L (7-40); Anion Gap 6 (5-15); Calcium 9.7 mg/dL (8.7-10.4); Carbon Dioxide 25 mmol/L (20-31); Potassium 4.7 mmol/L (3.5-5.1); Sodium 140 mmol/L (136-145)
[2024-08-06 07:25] LABS: Albumin 3.6 g/dL (3.2-4.8); BUN/Creatinine Ratio 20.1 (10.0-20.0)
[2024-08-06 07:26] LABS: Alkaline Phosphatase 147 U/L (46-116); Blood Urea Nitrogen 42 mg/dL (9-23); Chloride 109 mmol/L (98-107); Glucose 157 mg/dL (74-106)
[2024-08-06 07:27] LABS: Bilirubin, Total 0.4 mg/dL (0.2-1.0)
[2024-08-06 07:30] LABS: Aspartate Aminotransferase < 8 U/L (13-40)
--- NOTE | 2024-08-06 08:15 | DVHPN2 ---
Progress Note Date Seen: Aug 06, 2024 Medical Necessity Reason Pt with a Central, PICC or Fol: Yes The following are medically ne: [place] Catheter Subjective Patient reports: Other Objective vital signs Vital Sign Date Time Temp Pulse Resp B/P (MAP) Pulse Ox O2 Delivery O2 Flow Rate FiO2 08/06/24 06:29 70 24 121/64 (83) 97 30 08/06/24 06:00 Mechanical Ventilator+ 08/06/24 04:00 98.4 98.4 Total Intake and Output 08/05/24 08/05/24 08/06/24 15:00 23:00 07:00 Intake Total 921.504 ml 921.564 ml 723.5 ml Output Total 2500 ml 1250 ml Balance 921.504 ml -1578.436 ml -526.5 ml medications Current Medications Medications Dose Ordered Sig/Leatha Route Start Time Stop Time Status Last Admin Dose Admin Dopamine HCl/ Dextrose 250 ml @ 15.188 mls/ hr [id number] IV 08/04/24 06:15 08/05/24 18:55 15.188 MLS/HR Midazolam HCl 50 ml @ 1 mls/hr Q24H IV 08/04/24 08:00 08/06/24 02:37 15 MLS/HR Fentanyl Citrate 250 ml @ 2.5 mls/hr Q24H IV 08/04/24 08:00 08/04/24 17:15 10 MLS/HR Ceftriaxone Sodium 50 ml @ 100 mls/hr DAILY@09 IV 08/05/24 09:00 08/05/24 09:28 100 MLS/HR Enoxaparin Sodium 30 mg DAILY SC 08/05/24 10:00 Nitroglycerin 0.4 mg Q5MINP PRN SL 08/04/24 14:45 Morphine Sulfate 2 mg Q30M PRN IV 08/04/24 14:45 Azithromycin 250 ml @ 125 mls/hr DAILY IV 08/05/24 10:00 08/05/24 11:13 125 MLS/HR Sodium Chloride 1,000 ml @ 75 mls/hr [id number] IV 08/04/24 15:00 08/05/24 18:27 75 MLS/HR Diagnostic Test (Pha) 1 strip Q6HR 08/04/24 18:00 08/06/24 06:15 1 STRIP Insulin Human Regular Q6HR SC 08/04/24 18:00 08/06/24 06:15 3 UNITS Dextrose 50 ml UD PRN IV 08/04/24 15:00 Insulin Glargine 10 units HS SC 08/04/24 22:00 08/05/24 22:00 10 UNITS Pantoprazole Sodium 40 mg DAILY IV 08/05/24 10:00 08/05/24 11:12 40 MG Allopurinol 100 mg BID PO 08/04/24 22:00 08/05/24 22:00 100 MG Tamsulosin HCl 0.4 mg QPM PO 08/04/24 18:00 Examination: GENERAL:Normal, LUNGS:Abnormal, CVS:Normal, ABDOMEN:Normal laboratory and microbiology Laboratory Tests 08/06/24 05:30 Test 08/06/24 05:30 Range/Units Serum Glucose 157 H 74-106 mg/dL Problem List/Assessment/Plan Problem List/Assessment/Plan 1) Acute respiratory failure, intubated 2) Cardiac arrest s/p CPR/ROSC 3) Complete heart block s/p PPI 4) s/p recent TAVR 06/2024 5) Afib 6) HTN 7) HLD 8) COPD 9) DM plan; remains on vent, plan for CPAP trial today, had PPI done yesterday with cardiology, echo showed ef 40-45%, still on dopamine gtt and will attempt to titrate off however i was informed by nurse that BP drops, pulm/cardio/renal on board, supportive care, gentle hydration, daily labs, will follow along Plan discussed with: Other DIANA SANTOS MD Aug 06, 2024 08:15
--- NOTE | 2024-08-06 08:25 | ECG ---
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
--- NOTE | 2024-08-06 10:41 | DVH ---
CHEST RADIOGRAPH Indication: ET PLACEMENT Technique: Single frontal view of the chest was obtained COMPARISON: XY CHEST PORTABLE on DOS: 08/05/24, XY CHEST PORTABLE on DOS: 08/04/24, XY CHEST PORTABLE on DOS: 08/04/24, XY CHEST XRAY 1 VIEW on DOS: 08/04/24, XY CHEST PORTABLE on DOS: 08/04/24 FINDINGS: Lines and Tubes: Median sternotomy. Left chest wall pacemaker in satisfactory position. Endotrachea l tube and enteric catheter in satisfactory position. Lungs: Mild congestion Pleura: No effusion. No pneumothorax. Cardiomediastinal contours: Unremarkable Bones: Unremarkable IMPRESSION: Lines and tubes in satisfactory position. No significant interval change.
--- NOTE | 2024-08-06 14:29 | DVHPN2 ---
Progress Note - Dictate Date Seen: Aug 06, 2024 Medical Necessity Reason Pt with a Central, PICC or Fol: Yes The following are medically ne: Lugo Catheter Subjective PT RECENTLY UNDERWENT TAVR AT [facility] NOW WITH 3 DEGREE AV BLOCK DEVELOPED ASYSTOLE INTUBATED TEMPORARY PACER INSERTED NOW NEEDS DUAL PPI PMH: ORGANIC HD S/P CABG LHC * Left main, patent. * Distal left main, however, had 50% narrowing. * Left anterior descending artery severely diseased, at previous site of stent placement. * TOMPKINS to the LAD was patent. It was sequenced to diagonal 1 and diagonal 2 that were patent, but distal to the bypass, there was severe diffuse disease throughout the [place] coronary arteries. * Circumflex had about a 40-50% ostial narrowing. * With moderate diffuse disease throughout the circumflex territory. * Saphenous vein graft to the OM was occluded. 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 * Severe disease of the PDA. * Saphenous vein graft to the PDA was patent. At this point, the patient has diffuse disease. Distal flow was diminished. The patient had patent grafts, but [place] vessels that were ____ severely diseased. The best option for the patient at this time is conservative medical management, aggressive risk modification, dual antiplatelet therapy should be introduced. The patient is a candidate for EECP. The patient is also a candidate for dobutamine infusion. He should also be considered for Bi-V AICD implantation as well. We will continue to follow the patient. ECHO 05/23 LVH EF >60% LAE BERNARD CRITICAL HEAVILY CALCIFIED AV NOW S/P TAVR vital signs Vital Sign Date Time Temp Pulse Resp B/P (MAP) Pulse Ox O2 Delivery O2 Flow Rate FiO2 08/06/24 14:00 89 08/06/24 14:00 30 08/06/24 14:00 24 100 Mechanical Ventilator+ 08/06/24 12:31 108/61 (77) 08/06/24 04:00 98.4 98.4 Total Intake and Output 08/05/24 08/05/24 08/06/24 15:00 23:00 07:00 Intake Total 921.504 ml 921.564 ml 813.688 ml Output Total 2500 ml 1250 ml Balance 921.504 ml -1578.436 ml -436.312 ml medications Current Medications Medications Dose Ordered Sig/Leatha Route Start Time Stop Time Status Last Admin Dose Admin Dopamine HCl/ Dextrose 250 ml @ 15.188 mls/ hr [id number] IV 08/04/24 06:15 08/05/24 18:55 15.188 MLS/HR Midazolam HCl 50 ml @ 1 mls/hr Q24H IV 08/04/24 08:00 08/06/24 02:37 15 MLS/HR Fentanyl Citrate 250 ml @ 2.5 mls/hr Q24H IV 08/04/24 08:00 08/04/24 17:15 10 MLS/HR Ceftriaxone Sodium 50 ml @ 100 mls/hr DAILY@09 IV 08/05/24 09:00 08/06/24 10:36 100 MLS/HR Nitroglycerin 0.4 mg Q5MINP PRN SL 08/04/24 14:45 Morphine Sulfate 2 mg Q30M PRN IV 08/04/24 14:45 Azithromycin 250 ml @ 125 mls/hr DAILY IV 08/05/24 10:00 08/06/24 11:00 125 MLS/HR Sodium Chloride 1,000 ml @ 75 mls/hr [id number] IV 08/04/24 15:00 08/05/24 18:27 75 MLS/HR Diagnostic Test (Pha) 1 strip Q6HR 08/04/24 18:00 08/06/24 12:56 1 STRIP Insulin Human Regular Q6HR SC 08/04/24 18:00 08/06/24 12:56 2 UNITS Dextrose 50 ml UD PRN IV 08/04/24 15:00 Insulin Glargine 10 units HS SC 08/04/24 22:00 08/05/24 22:00 10 UNITS Pantoprazole Sodium 40 mg DAILY IV 08/05/24 10:00 08/06/24 11:16 40 MG Allopurinol 100 mg BID PO 08/04/24 22:00 08/06/24 11:00 100 MG Tamsulosin HCl 0.4 mg QPM PO 08/04/24 18:00 laboratory and microbiology Laboratory Tests 08/06/24 05:30 Test 08/06/24 05:30 Range/Units Serum Glucose 157 H 74-106 mg/dL Problem List UNDERWENT TAVR AT [facility] NOW WITH 3 DEGREE AV BLOCK DEVELOPED ASYSTOLE INTUBATED TEMPORARY PACER INSERTED NOW NEEDS DUAL PPI PMH: ORGANIC HD S/P CABG LHC * Left main, patent. * Distal left main, however, had 50% narrowing. * Left anterior descending artery severely diseased, at previous site of stent placement. * TOMPKINS to the LAD was patent. It was sequenced to diagonal 1 and diagonal 2 that were patent, but distal to the bypass, there was severe diffuse disease throughout the [place] coronary arteries. * Circumflex had about a 40-50% ostial narrowing. * With moderate diffuse disease throughout the circumflex territory. * Saphenous vein graft to the OM was occluded. 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 * Severe disease of the PDA. * Saphenous vein graft to the PDA was patent. At this point, the patient has diffuse disease. Distal flow was diminished. The patient had patent grafts, but [place] vessels that were ____ severely diseased. The best option for the patient at this time is conservative medical management, aggressive risk modification, dual antiplatelet therapy should be introduced. The patient is a candidate for EECP. The patient is also a candidate for dobutamine infusion. He should also be considered for Bi-V AICD implantation as well. We will continue to follow the patient. ECHO 05/23 LVH EF >60% LAE BERNARD CRITICAL HEAVILY CALCIFIED AV NOW S/P TAVR Assessment/Plan ANTIBIOTIC SCHEDULE FOR PPI PT WILL BE PACER DEPENDENT SINCE WITH 3 AV BLOCK WILL CONSIDER LBB PACING S/P DUAL PPI OFF TRANSVENOUS PACING HEMODYNAMICALLY STABLE WILL EXTUBATE WHEN AWAKE CXR LABS Plan discussed with: Patient Critical Care Time(min): 35 CAROLE ELIZONDO MD Aug 06, 2024 14:29
--- NOTE | 2024-08-06 14:59 | ECG ---
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
--- NOTE | 2024-08-06 16:22 | DVHPN2 ---
Progress Note Date Seen: Aug 06, 2024 Medical Necessity Reason Pt with a Central, PICC or Fol: Yes The following are medically ne: Mcdonald Catheter Reason for mcdonald catheter: Strict I&O Subjective Patient reports: Other (Remains intubated) Review of Systems: Deferred Objective vital signs Vital Sign Date Time Temp Pulse Resp B/P (MAP) Pulse Ox O2 Delivery O2 Flow Rate FiO2 08/06/24 16:00 86 08/06/24 16:00 24 99 Mechanical Ventilator+ 30 30 08/06/24 15:00 167/87 (113) 08/06/24 12:00 98.0 98.0 Total Intake and Output 08/05/24 08/05/24 08/06/24 15:00 23:00 07:00 Intake Total 921.504 ml 921.564 ml 813.688 ml Output Total 2500 ml 1250 ml Balance 921.504 ml -1578.436 ml -436.312 ml medications Current Medications Medications Dose Ordered Sig/Leatha Route Start Time Stop Time Status Last Admin Dose Admin Dopamine HCl/ Dextrose 250 ml @ 15.188 mls/ hr [id number] IV 08/04/24 06:15 08/05/24 18:55 15.188 MLS/HR Midazolam HCl 50 ml @ 1 mls/hr Q24H IV 08/04/24 08:00 08/06/24 02:37 15 MLS/HR Fentanyl Citrate 250 ml @ 2.5 mls/hr Q24H IV 08/04/24 08:00 08/04/24 17:15 10 MLS/HR Ceftriaxone Sodium 50 ml @ 100 mls/hr DAILY@09 IV 08/05/24 09:00 08/06/24 10:36 100 MLS/HR Nitroglycerin 0.4 mg Q5MINP PRN SL 08/04/24 14:45 Morphine Sulfate 2 mg Q30M PRN IV 08/04/24 14:45 Azithromycin 250 ml @ 125 mls/hr DAILY IV 08/05/24 10:00 08/06/24 11:00 125 MLS/HR Sodium Chloride 1,000 ml @ 75 mls/hr [id number] IV 08/04/24 15:00 08/05/24 18:27 75 MLS/HR Diagnostic Test (Pha) 1 strip Q6HR 08/04/24 18:00 08/06/24 12:56 1 STRIP Insulin Human Regular Q6HR SC 08/04/24 18:00 08/06/24 12:56 2 UNITS Dextrose 50 ml UD PRN IV 08/04/24 15:00 Insulin Glargine 10 units HS SC 08/04/24 22:00 08/05/24 22:00 10 UNITS Pantoprazole Sodium 40 mg DAILY IV 08/05/24 10:00 08/06/24 11:16 40 MG Allopurinol 100 mg BID PO 08/04/24 22:00 08/06/24 11:00 100 MG Tamsulosin HCl 0.4 mg QPM PO 08/04/24 18:00 Examination: GENERAL:Abnormal, LUNGS:Abnormal, MSK:Abnormal laboratory and microbiology Laboratory Tests 08/06/24 05:30 Test 08/06/24 05:30 Range/Units Serum Glucose 157 H 74-106 mg/dL Microbiology Date/Time Source Procedure Growth Status 08/04/24 14:48 Voided Urine Urine Culture - Final Complete 08/04/24 10:13 Blood Blood Culture - Preliminary NO GROWTH AFTER 48 HOURS OF INCUBATION. Resulted 08/04/24 08:11 Sputum Gram Stain - Final Resulted 08/04/24 08:11 Sputum Respiratory Culture - Preliminary Resulted Problem List/Assessment/Plan Problem List/Assessment/Plan Acute kidney injury on Chronic kidney disease four hemodynamic mediated Bradycardia status post cpr Encephalopathy Ventilator-dependent hypoxic respiratory failure Recommendations DC IV fluids,, off dopamine Remains nonoliguric We will follow closely Status post permanent pacemaker insertion today Plan discussed with: Other RODNEY CASAS MD Aug 06, 2024 16:22
--- NOTE | 2024-08-06 19:32 | DVHNC2 ---
Procedure - Bronchoscopy procedure note: Indications: Increased endotracheal tube secretions, Possible mucous plugging. Medicines: See DOUBLE BACKER notes. Complications: None Procedure: Patient medications and allergies reviewed. The risks and benefits of the procedure and the sedation options and risk were discussed with the patient's healthcare proxy. All questions were answered and informed consent was obtained. Patient identification and proposed procedure were verified prior to the procedure by the physician, and a nurse, and the respiratory therapist in ICU room. The heart rate, respiratory rate, oxygen saturations, blood pressure, adequacy of pulmonary ventilation, and response to care were monitored throughout the procedure. The physical status of the patient was reassessed after the procedure. After obtaining informed consent, the bronchoscope was introduced through the endotracheal tube and advanced into the trachea bronchial tree of both lungs. The procedure was accomplished without difficulty. The patient tolerated the procedure well. Findings: The trachea is in normal caliber. The otis is sharp. The tracheobronchial tree of the right lung was examined to at least the first subsegmental level. The bronchial mucosa and anatomy in the right lung are normal. There are no endobronchial lesions. There was copious whitish and clear secretions from right main stem bronchus onward throughout R6-R10. The left upper lobe, lingula, and left lower lobe were examined to at least the first subsegmental level. Bronchial mucosa and anatomy in the left upper lobe and lingula are normal. There were no endobronchial lesions. There was copious whitish and clear secretions from left main stem bronchus onward throughout L6- L10. Mucous plugging removed from L6-L10. There was mucosal hemorrhage in right middle lobe bronchus that resolved with 20 mL of cold saline. It resolved. There was no active bleeding at the completion of the procedure. Estimated blood loss: Less than 5 mL. Impression: Right and LEFT lower lobe atelectasis due to mucous plugging Mucous plugging from L6-L10 and R6-R10 Recommendation: Pulmonary toileting and oral care. Aspiration secretions found in lower lobes Procedure codes: 68426, bronchoscopy, rigid and flexible, including fluoroscopic guidance, one performed; with bronchial endobronchial broncho-alveolar lavage, single or multiple sites FARIHA PRAKASH MD Aug 06, 2024 19:32
[2024-08-07] VITALS (95 sets, daily range): BP systolic 123–226; BP diastolic 48–114; PULSE 70–117; RESP 0–30; TEMP 96.8–100; O2SAT 94–100
[2024-08-07 05:25] LABS: Basophils # (auto) 0 10 ^3/uL (0-0.2); Basophils % (auto) 0.4 % (0.0-2.0); Eosinophils # (auto) 0.1 10 ^3/uL (0-0.8); Eosinophils % (auto) 1.1 % (0.0-7.0); Hematocrit 29.8 % (41.0-53.0); Hemoglobin 9.7 g/dL (13.5-17.5); Lymphocytes # (auto) 0.8 10 ^3/uL (0.4-5.4); Lymphocytes % (auto) 6.8 % (10.0-50.0); Mean Corpuscular Hemoglobin 29.6 pg (28.0-32.0); Mean Corpuscular Hgb Conc. 32.3 g/dL (32.0-36.0); Mean Corpuscular Volume 91.5 fL (80.0-100.0); Monocytes # (auto) 0.7 10 ^3/uL (0-1.3); Monocytes % (auto) 5.8 % (0.0-12.0); Neutrophils # (auto) 9.9 10 ^3/uL (1.6-8.6); Neutrophils % (auto) 85.9 % (37.0-80.0); Platelet Count (auto) 187 10^3/uL (140-450); Red Blood Cells 3.26 10^6/uL (4.5-5.90); Red Cell Distribution Width 17.8 % (11.8-14.3); White Blood Cell 11.5 10^3/uL (4.4-10.8)
[2024-08-07 05:38] LABS: Alanine Aminotransferase 22 U/L (7-40); Albumin 3.7 g/dL (3.2-4.8); Anion Gap 8 (5-15); BUN/Creatinine Ratio 18.6 (10.0-20.0); Calcium 9.6 mg/dL (8.7-10.4); Carbon Dioxide 24 mmol/L (20-31); Potassium 4.9 mmol/L (3.5-5.1); Sodium 141 mmol/L (136-145)
[2024-08-07 05:39] LABS: Bilirubin, Total 0.4 mg/dL (0.2-1.0); Total Protein 7.2 g/dL (5.7-8.2)
[2024-08-07 06:06] LABS: Alkaline Phosphatase 139 U/L (46-116); Aspartate Aminotransferase < 8 U/L (13-40); Blood Urea Nitrogen 39 mg/dL (9-23); Chloride 109 mmol/L (98-107); Glucose 163 mg/dL (74-106)
[2024-08-07 06:34] LABS: Base Excess -4.6 mmol/L (-2.0-3.0)
[2024-08-07] MEDS: hydrALAZINE HCL 20 MG/ML VL ONE (06:52)
[2024-08-07] MEDS: hydrALAZINE HCL 20 MG/ML VL IV ONE (06:52)
--- NOTE | 2024-08-07 07:07 | DVHPN2 ---
Progress Note Date Seen: Aug 07, 2024 Medical Necessity Reason Pt with a Central, PICC or Fol: Yes The following are medically ne: Mcdonald Catheter Reason for mcdonald catheter: Strict I&O Subjective Patient reports: Other Review of Systems: Not Done Objective vital signs Vital Sign Date Time Temp Pulse Resp B/P (MAP) Pulse Ox O2 Delivery O2 Flow Rate FiO2 08/07/24 06:52 194/83 08/07/24 06:15 97 10 99 08/07/24 06:00 Mechanical Ventilator+ 30 30 08/07/24 06:00 98.4 98.4 Total Intake and Output 08/06/24 08/06/24 08/07/24 15:00 23:00 07:00 Intake Total 1010.752 ml 135 ml 42.025 ml Output Total 700 ml 500 ml Balance 1010.752 ml -565 ml -457.975 ml medications Current Medications Medications Dose Ordered Sig/Leatha Route Start Time Stop Time Status Last Admin Dose Admin Dopamine HCl/ Dextrose 250 ml @ 15.188 mls/ hr [id number] IV 08/04/24 06:15 08/05/24 18:55 15.188 MLS/HR Midazolam HCl 50 ml @ 1 mls/hr Q24H IV 08/04/24 08:00 08/06/24 02:37 15 MLS/HR Fentanyl Citrate 250 ml @ 2.5 mls/hr Q24H IV 08/04/24 08:00 08/04/24 17:15 10 MLS/HR Ceftriaxone Sodium 50 ml @ 100 mls/hr DAILY@09 IV 08/05/24 09:00 08/06/24 10:36 100 MLS/HR Nitroglycerin 0.4 mg Q5MINP PRN SL 08/04/24 14:45 Morphine Sulfate 2 mg Q30M PRN IV 08/04/24 14:45 Azithromycin 250 ml @ 125 mls/hr DAILY IV 08/05/24 10:00 08/06/24 11:00 125 MLS/HR Diagnostic Test (Pha) 1 strip Q6HR 08/04/24 18:00 08/07/24 05:46 1 STRIP Insulin Human Regular Q6HR SC 08/04/24 18:00 08/07/24 06:02 3 UNITS Dextrose 50 ml UD PRN IV 08/04/24 15:00 Insulin Glargine 10 units HS SC 08/04/24 22:00 08/06/24 22:00 10 UNITS Pantoprazole Sodium 40 mg DAILY IV 08/05/24 10:00 08/06/24 11:16 40 MG Allopurinol 100 mg BID PO 08/04/24 22:00 08/06/24 22:52 100 MG Tamsulosin HCl 0.4 mg QPM PO 08/04/24 18:00 Dexmedetomidine HCl 400 mcg/ Dextrose 100 ml @ 4.05 mls/hr Q24H IV 08/06/24 19:15 08/06/24 22:59 4.05 MLS/HR Examination: GENERAL:Normal, LUNGS:Abnormal, CVS:Normal, ABDOMEN:Normal laboratory and microbiology Laboratory Tests 08/07/24 04:55 Test 08/07/24 04:55 Range/Units Serum Glucose 163 H 74-106 mg/dL Problem List/Assessment/Plan Problem List/Assessment/Plan 1) Acute respiratory failure, intubated 2) Cardiac arrest s/p CPR/ROSC 3) Complete heart block s/p PPI 4) s/p recent TAVR 06/2024 5) Afib 6) HTN 7) HLD 8) COPD 9) DM plan; remains on vent this AM, plan for CPAP trial today, had PPI done with cardiology 08/05, echo showed ef 40-45%, dopamine gtt has been weaned off, he underwent bronchoscopy with pulmonary yesterday 08/07 with clearance of noted mucous plugging, Cr downtrending with IV fluids with renal following, blood and urine cultures negative, pulm/cardio/renal on board, supportive care, gentle hydration, daily labs, will follow along Plan discussed with: DIANA Magallon MD Aug 07, 2024 07:07
--- NOTE | 2024-08-07 07:09 | DVH ---
CLINICAL INFORMATION: 74 years old, Male; ET PLACEMENT. TECHNIQUE: Single AP portable chest radiograph was obtained. COMPARISON: XY CHEST PORTABLE on DOS: 08/06/24, XY CHEST PORTABLE on DOS: 08/05/24, XY CHEST PORTABLE on DOS: 08/04/24 FINDINGS: Stable satisfactory positioning of the endotracheal tube and enteric tube. Stable appearing postsurgi isidro changes. No pneumothorax. No other significant interval change. The left costophrenic angle is no t included within the [id number] of the exam. IMPRESSION: No significant interval change as detailed above.
--- NOTE | 2024-08-07 12:04 | CONS ---
Pharmacy Clinical Information: CQM HF. Patient is currently hemodynamically unstable with mechanical ventil ation. Patient takes atorvastatin 40mg at home, per reconciled medication it will be continued at discharge. Once patient is stabilized and is able to take PO medication, atorvastatin should be re-started. BENI PRITCHARD PHARMACIST Aug 07, 2024 12:04
--- NOTE | 2024-08-07 12:14 | MEDREC ---
[facility] Intervention Section I [facility] Intervention: Review courses of therapy (PLEASE CONSIDER D/C ANTIBIOTIC(S) IN ABSENCE OF BACTERIAL INFECTION ) MITZY BAJWA PHARMACIST Aug 07, 2024 12:14
--- NOTE | 2024-08-07 13:14 | DVHPN2 ---
Progress Note - Dictate Date Seen: Aug 07, 2024 Medical Necessity Reason Pt with a Central, PICC or Fol: Yes The following are medically ne: Mcdonald Catheter Reason for mcdonald catheter: Strict I&O Subjective PT RECENTLY UNDERWENT TAVR AT [facility] NOW WITH 3 DEGREE AV BLOCK DEVELOPED ASYSTOLE INTUBATED TEMPORARY PACER INSERTED NOW NEEDS DUAL PPI PMH: ORGANIC HD S/P CABG LHC * Left main, patent. * Distal left main, however, had 50% narrowing. * Left anterior descending artery severely diseased, at previous site of stent placement. * TOMPKINS to the LAD was patent. It was sequenced to diagonal 1 and diagonal 2 that were patent, but distal to the bypass, there was severe diffuse disease throughout the [place] coronary arteries. * Circumflex had about a 40-50% ostial narrowing. * With moderate diffuse disease throughout the circumflex territory. * Saphenous vein graft to the OM was occluded. 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 * Severe disease of the PDA. * Saphenous vein graft to the PDA was patent. At this point, the patient has diffuse disease. Distal flow was diminished. The patient had patent grafts, but [place] vessels that were ____ severely diseased. The best option for the patient at this time is conservative medical management, aggressive risk modification, dual antiplatelet therapy should be introduced. The patient is a candidate for EECP. The patient is also a candidate for dobutamine infusion. He should also be considered for Bi-V AICD implantation as well. We will continue to follow the patient. ECHO 05/23 LVH EF >60% LAE BERNARD CRITICAL HEAVILY CALCIFIED AV NOW S/P TAVR vital signs Vital Sign Date Time Temp Pulse Resp B/P (MAP) Pulse Ox O2 Delivery O2 Flow Rate FiO2 08/07/24 13:10 91 18 178/81 (113) 98 30 08/07/24 12:00 99.1 99.1 08/07/24 12:00 Mechanical Ventilator+ Total Intake and Output 08/06/24 08/06/24 08/07/24 15:00 23:00 07:00 Intake Total 1010.752 ml 135 ml 42.025 ml Output Total 700 ml 500 ml Balance 1010.752 ml -565 ml -457.975 ml medications Current Medications Medications Dose Ordered Sig/Leatha Route Start Time Stop Time Status Last Admin Dose Admin Dopamine HCl/ Dextrose 250 ml @ 15.188 mls/ hr [id number] IV 08/04/24 06:15 08/05/24 18:55 15.188 MLS/HR Midazolam HCl 50 ml @ 1 mls/hr Q24H IV 08/04/24 08:00 08/06/24 02:37 15 MLS/HR Fentanyl Citrate 250 ml @ 2.5 mls/hr Q24H IV 08/04/24 08:00 08/04/24 17:15 10 MLS/HR Ceftriaxone Sodium 50 ml @ 100 mls/hr DAILY@09 IV 08/05/24 09:00 08/07/24 08:37 100 MLS/HR Nitroglycerin 0.4 mg Q5MINP PRN SL 08/04/24 14:45 Morphine Sulfate 2 mg Q30M PRN IV 08/04/24 14:45 Azithromycin 250 ml @ 125 mls/hr DAILY IV 08/05/24 10:00 08/07/24 09:29 125 MLS/HR Diagnostic Test (Pha) 1 strip Q6HR 08/04/24 18:00 08/07/24 11:45 1 STRIP Insulin Human Regular Q6HR SC 08/04/24 18:00 08/07/24 11:46 3 UNITS Dextrose 50 ml UD PRN IV 08/04/24 15:00 Insulin Glargine 10 units HS SC 08/04/24 22:00 08/06/24 22:00 10 UNITS Pantoprazole Sodium 40 mg DAILY IV 08/05/24 10:00 08/07/24 09:28 40 MG Allopurinol 100 mg BID PO 08/04/24 22:00 08/07/24 09:29 100 MG Tamsulosin HCl 0.4 mg QPM PO 08/04/24 18:00 Dexmedetomidine HCl 400 mcg/ Dextrose 100 ml @ 4.05 mls/hr Q24H IV 08/06/24 19:15 08/06/24 22:59 4.05 MLS/HR laboratory and microbiology Laboratory Tests 08/07/24 04:55 Test 08/07/24 04:55 Range/Units Serum Glucose 163 H 74-106 mg/dL Problem List UNDERWENT TAVR AT [facility] NOW WITH 3 DEGREE AV BLOCK DEVELOPED ASYSTOLE INTUBATED TEMPORARY PACER INSERTED NOW NEEDS DUAL PPI PMH: ORGANIC HD S/P CABG LHC * Left main, patent. * Distal left main, however, had 50% narrowing. * Left anterior descending artery severely diseased, at previous site of stent placement. * TOMPKINS to the LAD was patent. It was sequenced to diagonal 1 and diagonal 2 that were patent, but distal to the bypass, there was severe diffuse disease throughout the [place] coronary arteries. * Circumflex had about a 40-50% ostial narrowing. * With moderate diffuse disease throughout the circumflex territory. * Saphenous vein graft to the OM was occluded. 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 * Severe disease of the PDA. * Saphenous vein graft to the PDA was patent. At this point, the patient has diffuse disease. Distal flow was diminished. The patient had patent grafts, but [place] vessels that were ____ severely diseased. The best option for the patient at this time is conservative medical management, aggressive risk modification, dual antiplatelet therapy should be introduced. The patient is a candidate for EECP. The patient is also a candidate for dobutamine infusion. He should also be considered for Bi-V AICD implantation as well. We will continue to follow the patient. ECHO 05/23 LVH EF >60% LAE BERNARD CRITICAL HEAVILY CALCIFIED AV NOW S/P TAVR Assessment/Plan ANTIBIOTIC SCHEDULE FOR PPI PT WILL BE PACER DEPENDENT SINCE WITH 3 AV BLOCK WILL CONSIDER LBB PACING S/P DUAL PPI OFF TRANSVENOUS PACING HEMODYNAMICALLY STABLE WILL EXTUBATE WHEN AWAKE CXR LABS PPM INTERROGATED NL FUNCTION PLAVIX TO BE STARTED IN 2 DAYS Plan discussed with: Patient, Spouse Critical Care Time(min): 35 CAROLE ELIZONDO MD Aug 07, 2024 13:14
--- NOTE | 2024-08-07 14:27 | ECG ---
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
--- NOTE | 2024-08-07 14:27 | ECG ---
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
[2024-08-07] MEDS: hydrALAZINE HCL 20 MG/ML VL IV PRN (15:34)
--- NOTE | 2024-08-07 15:51 | DVHPN2 ---
Progress Note Date Seen: Aug 07, 2024 Medical Necessity Reason Pt with a Central, PICC or Fol: Yes The following are medically ne: Mcdonald Catheter Reason for mcdonald catheter: Strict I&O Subjective Patient reports: Other (intubated) Review of Systems: Deferred Objective vital signs Vital Sign Date Time Temp Pulse Resp B/P (MAP) Pulse Ox O2 Delivery O2 Flow Rate FiO2 08/07/24 15:34 182/79 08/07/24 15:15 81 18 98 30 08/07/24 14:00 Mechanical Ventilator+ 08/07/24 12:00 99.1 99.1 Total Intake and Output 08/06/24 08/06/24 08/07/24 15:00 23:00 07:00 Intake Total 1010.752 ml 135 ml 42.025 ml Output Total 700 ml 500 ml Balance 1010.752 ml -565 ml -457.975 ml medications Current Medications Medications Dose Ordered Sig/Leatha Route Start Time Stop Time Status Last Admin Dose Admin Dopamine HCl/ Dextrose 250 ml @ 15.188 mls/ hr [id number] IV 08/04/24 06:15 08/05/24 18:55 15.188 MLS/HR Midazolam HCl 50 ml @ 1 mls/hr Q24H IV 08/04/24 08:00 08/06/24 02:37 15 MLS/HR Fentanyl Citrate 250 ml @ 2.5 mls/hr Q24H IV 08/04/24 08:00 08/04/24 17:15 10 MLS/HR Ceftriaxone Sodium 50 ml @ 100 mls/hr DAILY@09 IV 08/05/24 09:00 08/07/24 08:37 100 MLS/HR Nitroglycerin 0.4 mg Q5MINP PRN SL 08/04/24 14:45 Morphine Sulfate 2 mg Q30M PRN IV 08/04/24 14:45 Azithromycin 250 ml @ 125 mls/hr DAILY IV 08/05/24 10:00 08/07/24 09:29 125 MLS/HR Diagnostic Test (Pha) 1 strip Q6HR 08/04/24 18:00 08/07/24 11:45 1 STRIP Insulin Human Regular Q6HR SC 08/04/24 18:00 08/07/24 11:46 3 UNITS Dextrose 50 ml UD PRN IV 08/04/24 15:00 Insulin Glargine 10 units HS SC 08/04/24 22:00 08/06/24 22:00 10 UNITS Pantoprazole Sodium 40 mg DAILY IV 08/05/24 10:00 08/07/24 09:28 40 MG Allopurinol 100 mg BID PO 08/04/24 22:00 08/07/24 09:29 100 MG Tamsulosin HCl 0.4 mg QPM PO 08/04/24 18:00 Dexmedetomidine HCl 400 mcg/ Dextrose 100 ml @ 4.05 mls/hr Q24H IV 08/06/24 19:15 08/06/24 22:59 4.05 MLS/HR Hydralazine HCl 10 mg Q6HP PRN IV 08/07/24 13:45 08/07/24 15:34 10 MG Examination: GENERAL:Abnormal, MSK:Abnormal, SKIN:Abnormal, NEURO:Abnormal laboratory and microbiology Laboratory Tests 08/07/24 04:55 Test 08/07/24 04:55 Range/Units Serum Glucose 163 H 74-106 mg/dL Microbiology Date/Time Source Procedure Growth Status 08/04/24 14:48 Voided Urine Urine Culture - Final Complete 08/04/24 10:13 Blood Blood Culture - Preliminary NO GROWTH AFTER 72 HOURS OF INCUBATION. Resulted 08/04/24 08:11 Sputum Gram Stain - Final Complete 08/04/24 08:11 Sputum Respiratory Culture - Final Complete Problem List/Assessment/Plan Problem List/Assessment/Plan Acute kidney injury on Chronic kidney disease four hemodynamic mediated Bradycardia status post cpr Encephalopathy Ventilator-dependent hypoxic respiratory failure Recommendations DC IV fluids,, off dopamine Remains nonoliguric We will follow closely Status post permanent pacemaker insertion today bp control Plan discussed with: Other My Orders My Orders Orders - RODNEY CASAS MD Procedure Category Date Status Time Hydralazine Injection PHA 08/07/24 In Process (Apresoline Inject 13:45 RODNEY CASAS MD Aug 07, 2024 15:51
--- NOTE | 2024-08-07 22:04 | DVHPN2 ---
Progress Note - Dictate Date Seen: Aug 07, 2024 Medical Necessity Reason Pt with a Central, PICC or Fol: Yes The following are medically ne: Mcdonald Catheter Reason for mcdonald catheter: Strict I&O Subjective Patient seen and examined at bedside. Sedated, intubated on mechanical ventilator. Overnight events reviewed. vital signs Vital Sign Date Time Temp Pulse Resp B/P (MAP) Pulse Ox O2 Delivery O2 Flow Rate FiO2 08/07/24 20:30 96.8 70 24 150/60 (90) 98 96.8 08/07/24 20:02 30 08/07/24 18:00 Mechanical Ventilator+ Total Intake and Output 08/06/24 08/06/24 08/07/24 15:00 23:00 07:00 Intake Total 1010.752 ml 135 ml 42.025 ml Output Total 700 ml 500 ml Balance 1010.752 ml -565 ml -457.975 ml medications Current Medications Medications Dose Ordered Sig/Leatha Route Start Time Stop Time Status Last Admin Dose Admin Dopamine HCl/ Dextrose 250 ml @ 15.188 mls/ hr [id number] IV 08/04/24 06:15 08/05/24 18:55 15.188 MLS/HR Midazolam HCl 50 ml @ 1 mls/hr Q24H IV 08/04/24 08:00 08/06/24 02:37 15 MLS/HR Fentanyl Citrate 250 ml @ 2.5 mls/hr Q24H IV 08/04/24 08:00 08/07/24 16:13 2.5 MLS/HR Ceftriaxone Sodium 50 ml @ 100 mls/hr DAILY@09 IV 08/05/24 09:00 08/07/24 08:37 100 MLS/HR Nitroglycerin 0.4 mg Q5MINP PRN SL 08/04/24 14:45 Morphine Sulfate 2 mg Q30M PRN IV 08/04/24 14:45 Azithromycin 250 ml @ 125 mls/hr DAILY IV 08/05/24 10:00 08/07/24 09:29 125 MLS/HR Diagnostic Test (Pha) 1 strip Q6HR 08/04/24 18:00 08/07/24 18:15 1 STRIP Insulin Human Regular Q6HR SC 08/04/24 18:00 08/07/24 18:40 2 UNITS Dextrose 50 ml UD PRN IV 08/04/24 15:00 Insulin Glargine 10 units HS SC 08/04/24 22:00 08/06/24 22:00 10 UNITS Pantoprazole Sodium 40 mg DAILY IV 08/05/24 10:00 08/07/24 09:28 40 MG Allopurinol 100 mg BID PO 08/04/24 22:00 08/07/24 09:29 100 MG Tamsulosin HCl 0.4 mg QPM PO 08/04/24 18:00 08/07/24 17:42 0.4 MG Dexmedetomidine HCl 400 mcg/ Dextrose 100 ml @ 4.05 mls/hr Q24H IV 08/06/24 19:15 08/07/24 20:28 10.125 MLS/HR Hydralazine HCl 10 mg Q6HP PRN IV 08/07/24 13:45 08/07/24 15:34 10 MG objective Gen.: Patient lying in bed in medical ICU. Sedated, intubated on mechanical ventilator. Head: Normocephalic, atraumatic. Eyes: PERRLA. Ears: Normal external anatomy. Throat: Endotracheal tube and orogastric tube in place. Neck: Supple, trachea midline. Chest: Transmitted breath sounds bilaterally. Decreased air entry bilaterally. No wheezing. Bibasilar crackles. Cardiovascular: Positive S1, positive S2. Regular rate and rhythm. Abdomen: Positive bowel sounds in all 4 quadrants. Soft, nontender, nondistended. : Mcdonald in place. Normal external genitalia. Rectal: Deferred. Skin: Warm, dry. Intact. Extremities: 2+ radial pulses bilaterally. No lower extremity edema. Neuro: Sedated. laboratory and microbiology Laboratory Tests 08/07/24 04:55 Test 08/07/24 04:55 Range/Units Serum Glucose 163 H 74-106 mg/dL Assessment/Plan Impression: Acute hypoxic respiratory failure On mechanical ventilator Bradycardia/complete heart block S/p TAVR Acute exacerbation of CHF S/p cardiac arrest Elevated troponin Chronic kidney disease Events: CPAP tolerated Awaiting for mentation to improve for extubation. Vent support On AC mode; RR 24, VT 500, PEEP 5, FiO2 30% Sedated on Fentanyl Precedex drip Hydralazine PRN systolic BP >160. ABG reviewed, compensated. CXR demonstrates devices in place. Patchy perihilar airspace opacities. S/p pacer. Labs and imaging reviewed. Rest of plan as noted below. Plan: s/p intubation on mechanical ventilator. On AC mode; RR 24, VT 500, PEEP 5, FiO2 30% Titrate FIO2 to keep O2 saturation above 90%. VAP bundle. Daily ABG and CXR while intubated Sedate for ventilator synchrony Continue antibiotics. Dopamine 5 mcg/min d/t bradycardia - on hold Monitor renal function Monitor electrolytes. Supplement as necessary. Monitor ins and outs. Maintain euvolemia. GI prophylaxis. DVT prophylaxis. Prognosis: Poor given patient's multiple co-morbidities. Condition: Critical Rest of plan per hospitalist and other consultants. A total of 35 minutes of critical care time was spent reviewing the patient record, examining the patient, making a diagnostic and therapeutic plan, discussing this plan with the medical personnel, following up on diagnostic studies and following the patient for clinical stability excluding any and all procedures. At least 50% of this time was spent in direct, [id number] contact. Thank you, ARGELIA Roman, for allowing me to participate in this patient's care. Further recommendations will depend on the patient's clinical course. Please do not hesitate to contact me if you have any questions or concerns. This medical document was created using an electronic medical record system with [employer] computerized dictation system. Although these documentations are being carefully reviewed, there may still be some phonetic and typographical changes. The errors are purely typographical, due to imperfection on the software program, and do not reflect any compromise in the patient's medical care. Plan discussed with: Other (NANCY Harp) Critical Care Time(min): 35 FARIHA PRAKASH MD Aug 07, 2024 22:04
[2024-08-08] VITALS (82 sets, daily range): BP systolic 86–197; BP diastolic 31–85; PULSE 70–140; RESP 0–38; TEMP 96.6–98.9; O2SAT 92–100
[2024-08-08 05:18] LABS: Basophils # (auto) 0.1 10 ^3/uL (0-0.2); Basophils % (auto) 0.8 % (0.0-2.0); Eosinophils # (auto) 0.3 10 ^3/uL (0-0.8); Eosinophils % (auto) 3.3 % (0.0-7.0); Hematocrit 26.5 % (41.0-53.0); Hemoglobin 8.5 g/dL (13.5-17.5); Lymphocytes # (auto) 1.1 10 ^3/uL (0.4-5.4); Lymphocytes % (auto) 14.9 % (10.0-50.0); Mean Corpuscular Hemoglobin 29.4 pg (28.0-32.0); Mean Corpuscular Hgb Conc. 32.3 g/dL (32.0-36.0); Monocytes # (auto) 0.7 10 ^3/uL (0-1.3); Monocytes % (auto) 8.6 % (0.0-12.0); Neutrophils # (auto) 5.5 10 ^3/uL (1.6-8.6); Neutrophils % (auto) 72.4 % (37.0-80.0); Platelet Count (auto) 199 10^3/uL (140-450); Red Blood Cells 2.91 10^6/uL (4.5-5.90); Red Cell Distribution Width 17.5 % (11.8-14.3); White Blood Cell 7.6 10^3/uL (4.4-10.8)
[2024-08-08 06:12] LABS: Anion Gap 10 (5-15); Carbon Dioxide 23 mmol/L (20-31); Potassium 4.1 mmol/L (3.5-5.1); Sodium 143 mmol/L (136-145)
[2024-08-08 06:14] LABS: Calcium 10.1 mg/dL (8.7-10.4)
[2024-08-08 06:16] LABS: Chloride 110 mmol/L (98-107)
[2024-08-08 06:18] LABS: BUN/Creatinine Ratio 16.2 (10.0-20.0)
[2024-08-08 06:33] LABS: Blood Urea Nitrogen 31 mg/dL (9-23); Glucose 117 mg/dL (74-106)
[2024-08-08 07:29] LABS: Base Excess -1.3 mmol/L (-2.0-3.0)
[2024-08-08] MEDS: ROCURONIUM 10MG/ML 10ML VIAL IV ONE (09:59)
[2024-08-08] MEDS: MIDAZOLAM HCL 2MG/2ML 2ml VIAL (1mg/ml) IM ONE (10:02)
[2024-08-08] MEDS: PROPOFOL 100 ML IV SCH (11:45)
--- NOTE | 2024-08-08 11:50 | DVHPN2 ---
Progress Note - Dictate Date Seen: Aug 08, 2024 Medical Necessity Reason Pt with a Central, PICC or Fol: Yes The following are medically ne: Mcdonald Catheter Reason for mcdonald catheter: Strict I&O Subjective PT RECENTLY UNDERWENT TAVR AT [facility] NOW WITH 3 DEGREE AV BLOCK DEVELOPED ASYSTOLE INTUBATED TEMPORARY PACER INSERTED NOW NEEDS DUAL PPI PMH: ORGANIC HD S/P CABG LHC * Left main, patent. * Distal left main, however, had 50% narrowing. * Left anterior descending artery severely diseased, at previous site of stent placement. * TOMPKINS to the LAD was patent. It was sequenced to diagonal 1 and diagonal 2 that were patent, but distal to the bypass, there was severe diffuse disease throughout the [place] coronary arteries. * Circumflex had about a 40-50% ostial narrowing. * With moderate diffuse disease throughout the circumflex territory. * Saphenous vein graft to the OM was occluded. 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 * Severe disease of the PDA. * Saphenous vein graft to the PDA was patent. At this point, the patient has diffuse disease. Distal flow was diminished. The patient had patent grafts, but [place] vessels that were ____ severely diseased. The best option for the patient at this time is conservative medical management, aggressive risk modification, dual antiplatelet therapy should be introduced. The patient is a candidate for EECP. The patient is also a candidate for dobutamine infusion. He should also be considered for Bi-V AICD implantation as well. We will continue to follow the patient. ECHO 05/23 LVH EF >60% LAE BERNARD CRITICAL HEAVILY CALCIFIED AV NOW S/P TAVR vital signs Vital Sign Date Time Temp Pulse Resp B/P (MAP) Pulse Ox O2 Delivery O2 Flow Rate FiO2 08/08/24 11:03 132/70 08/08/24 10:17 140 24 93 30 08/08/24 10:00 98.7 98.7 08/08/24 08:00 Mechanical Ventilator+ Total Intake and Output 08/07/24 08/07/24 08/08/24 15:00 23:00 07:00 Intake Total 328.350 ml 231.950 ml 196.125 ml Output Total 2300 ml 500 ml Balance 328.350 ml -2068.050 ml -303.875 ml medications Current Medications Medications Dose Ordered Sig/Leatha Route Start Time Stop Time Status Last Admin Dose Admin Dopamine HCl/ Dextrose 250 ml @ 15.188 mls/ hr [id number] IV 08/04/24 06:15 08/05/24 18:55 15.188 MLS/HR Midazolam HCl 50 ml @ 1 mls/hr Q24H IV 08/04/24 08:00 08/06/24 02:37 15 MLS/HR Fentanyl Citrate 250 ml @ 2.5 mls/hr Q24H IV 08/04/24 08:00 08/07/24 16:13 2.5 MLS/HR Ceftriaxone Sodium 50 ml @ 100 mls/hr DAILY@09 IV 08/05/24 09:00 08/08/24 09:00 100 MLS/HR Nitroglycerin 0.4 mg Q5MINP PRN SL 08/04/24 14:45 Morphine Sulfate 2 mg Q30M PRN IV 08/04/24 14:45 Azithromycin 250 ml @ 125 mls/hr DAILY IV 08/05/24 10:00 08/08/24 11:05 125 MLS/HR Diagnostic Test (Pha) 1 strip Q6HR 08/04/24 18:00 08/08/24 05:16 1 STRIP Insulin Human Regular Q6HR SC 08/04/24 18:00 08/07/24 18:40 2 UNITS Dextrose 50 ml UD PRN IV 08/04/24 15:00 Insulin Glargine 10 units HS SC 08/04/24 22:00 08/07/24 22:58 10 UNITS Pantoprazole Sodium 40 mg DAILY IV 08/05/24 10:00 08/08/24 10:05 40 MG Allopurinol 100 mg BID PO 08/04/24 22:00 08/08/24 10:05 100 MG Tamsulosin HCl 0.4 mg QPM PO 08/04/24 18:00 08/07/24 17:42 0.4 MG Dexmedetomidine HCl 400 mcg/ Dextrose 100 ml @ 4.05 mls/hr Q24H IV 08/06/24 19:15 08/08/24 11:03 14.175 MLS/HR Hydralazine HCl 10 mg Q6HP PRN IV 08/07/24 13:45 08/08/24 06:05 10 MG Propofol 100 ml @ 2.43 mls/hr Q24H IV 08/08/24 11:45 laboratory and microbiology Laboratory Tests 08/08/24 04:50 Test 08/08/24 04:50 Range/Units Serum Glucose 117 H 74-106 mg/dL Problem List UNDERWENT TAVR AT [facility] NOW WITH 3 DEGREE AV BLOCK DEVELOPED ASYSTOLE INTUBATED TEMPORARY PACER INSERTED NOW NEEDS DUAL PPI PMH: ORGANIC HD S/P CABG LHC * Left main, patent. * Distal left main, however, had 50% narrowing. * Left anterior descending artery severely diseased, at previous site of stent placement. * TOMPKINS to the LAD was patent. It was sequenced to diagonal 1 and diagonal 2 that were patent, but distal to the bypass, there was severe diffuse disease throughout the [place] coronary arteries. * Circumflex had about a 40-50% ostial narrowing. * With moderate diffuse disease throughout the circumflex territory. * Saphenous vein graft to the OM was occluded. 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 * Severe disease of the PDA. * Saphenous vein graft to the PDA was patent. At this point, the patient has diffuse disease. Distal flow was diminished. The patient had patent grafts, but [place] vessels that were ____ severely diseased. The best option for the patient at this time is conservative medical management, aggressive risk modification, dual antiplatelet therapy should be introduced. The patient is a candidate for EECP. The patient is also a candidate for dobutamine infusion. He should also be considered for Bi-V AICD implantation as well. We will continue to follow the patient. ECHO 05/23 LVH EF >60% LAE BERNARD CRITICAL HEAVILY CALCIFIED AV NOW S/P TAVR Assessment/Plan ANTIBIOTIC SCHEDULE FOR PPI PT WILL BE PACER DEPENDENT SINCE WITH 3 AV BLOCK WILL CONSIDER LBB PACING S/P DUAL PPI OFF TRANSVENOUS PACING HEMODYNAMICALLY STABLE WILL EXTUBATE WHEN AWAKE CXR LABS PPM INTERROGATED NL FUNCTION PLAVIX TO BE STARTED IN 2 DAYS still agitated non awake Plan discussed with: Patient, Spouse Critical Care Time(min): 35 CAROLE ELIZONDO MD Aug 08, 2024 11:50
--- NOTE | 2024-08-08 11:50 | DVHPN2 ---
Progress Note - Dictate Date Seen: Aug 04, 2024 Medical Necessity Reason Pt with a Central, PICC or Fol: Yes The following are medically ne: Mcdonald Catheter Reason for mcdonald catheter: Strict I&O Subjective PT RECENTLY UNDERWENT TAVR AT [facility] NOW WITH 3 DEGREE AV BLOCK DEVELOPED ASYSTOLE INTUBATED TEMPORARY PACER INSERTED NOW NEEDS DUAL PPI PMH: ORGANIC HD S/P CABG LHC * Left main, patent. * Distal left main, however, had 50% narrowing. * Left anterior descending artery severely diseased, at previous site of stent placement. * TOMPKINS to the LAD was patent. It was sequenced to diagonal 1 and diagonal 2 that were patent, but distal to the bypass, there was severe diffuse disease throughout the [place] coronary arteries. * Circumflex had about a 40-50% ostial narrowing. * With moderate diffuse disease throughout the circumflex territory. * Saphenous vein graft to the OM was occluded. 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 * Severe disease of the PDA. * Saphenous vein graft to the PDA was patent. At this point, the patient has diffuse disease. Distal flow was diminished. The patient had patent grafts, but [place] vessels that were ____ severely diseased. The best option for the patient at this time is conservative medical management, aggressive risk modification, dual antiplatelet therapy should be introduced. The patient is a candidate for EECP. The patient is also a candidate for dobutamine infusion. He should also be considered for Bi-V AICD implantation as well. We will continue to follow the patient. ECHO 05/23 LVH EF >60% LAE BERNARD CRITICAL HEAVILY CALCIFIED AV NOW S/P TAVR vital signs Vital Sign Date Time Temp Pulse Resp B/P (MAP) Pulse Ox O2 Delivery O2 Flow Rate FiO2 08/08/24 11:03 132/70 08/08/24 10:17 140 24 93 30 08/08/24 10:00 98.7 98.7 08/08/24 08:00 Mechanical Ventilator+ Total Intake and Output 08/07/24 08/07/24 08/08/24 15:00 23:00 07:00 Intake Total 328.350 ml 231.950 ml 196.125 ml Output Total 2300 ml 500 ml Balance 328.350 ml -2068.050 ml -303.875 ml medications Current Medications Medications Dose Ordered Sig/Leatha Route Start Time Stop Time Status Last Admin Dose Admin Dopamine HCl/ Dextrose 250 ml @ 15.188 mls/ hr [id number] IV 08/04/24 06:15 08/05/24 18:55 15.188 MLS/HR Midazolam HCl 50 ml @ 1 mls/hr Q24H IV 08/04/24 08:00 08/06/24 02:37 15 MLS/HR Fentanyl Citrate 250 ml @ 2.5 mls/hr Q24H IV 08/04/24 08:00 08/07/24 16:13 2.5 MLS/HR Ceftriaxone Sodium 50 ml @ 100 mls/hr DAILY@09 IV 08/05/24 09:00 08/08/24 09:00 100 MLS/HR Nitroglycerin 0.4 mg Q5MINP PRN SL 08/04/24 14:45 Morphine Sulfate 2 mg Q30M PRN IV 08/04/24 14:45 Azithromycin 250 ml @ 125 mls/hr DAILY IV 08/05/24 10:00 08/08/24 11:05 125 MLS/HR Diagnostic Test (Pha) 1 strip Q6HR 08/04/24 18:00 08/08/24 05:16 1 STRIP Insulin Human Regular Q6HR SC 08/04/24 18:00 08/07/24 18:40 2 UNITS Dextrose 50 ml UD PRN IV 08/04/24 15:00 Insulin Glargine 10 units HS SC 08/04/24 22:00 08/07/24 22:58 10 UNITS Pantoprazole Sodium 40 mg DAILY IV 08/05/24 10:00 08/08/24 10:05 40 MG Allopurinol 100 mg BID PO 08/04/24 22:00 08/08/24 10:05 100 MG Tamsulosin HCl 0.4 mg QPM PO 08/04/24 18:00 08/07/24 17:42 0.4 MG Dexmedetomidine HCl 400 mcg/ Dextrose 100 ml @ 4.05 mls/hr Q24H IV 08/06/24 19:15 08/08/24 11:03 14.175 MLS/HR Hydralazine HCl 10 mg Q6HP PRN IV 08/07/24 13:45 08/08/24 06:05 10 MG Propofol 100 ml @ 2.43 mls/hr Q24H IV 08/08/24 11:45 laboratory and microbiology Laboratory Tests 08/08/24 04:50 Test 08/08/24 04:50 Range/Units Serum Glucose 117 H 74-106 mg/dL Problem List UNDERWENT TAVR AT [facility] NOW WITH 3 DEGREE AV BLOCK DEVELOPED ASYSTOLE INTUBATED TEMPORARY PACER INSERTED NOW NEEDS DUAL PPI PMH: ORGANIC HD S/P CABG LHC * Left main, patent. * Distal left main, however, had 50% narrowing. * Left anterior descending artery severely diseased, at previous site of stent placement. * TOMPKINS to the LAD was patent. It was sequenced to diagonal 1 and diagonal 2 that were patent, but distal to the bypass, there was severe diffuse disease throughout the [place] coronary arteries. * Circumflex had about a 40-50% ostial narrowing. * With moderate diffuse disease throughout the circumflex territory. * Saphenous vein graft to the OM was occluded. 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 * Severe disease of the PDA. * Saphenous vein graft to the PDA was patent. At this point, the patient has diffuse disease. Distal flow was diminished. The patient had patent grafts, but [place] vessels that were ____ severely diseased. The best option for the patient at this time is conservative medical management, aggressive risk modification, dual antiplatelet therapy should be introduced. The patient is a candidate for EECP. The patient is also a candidate for dobutamine infusion. He should also be considered for Bi-V AICD implantation as well. We will continue to follow the patient. ECHO 05/23 LVH EF >60% LAE BERNARD CRITICAL HEAVILY CALCIFIED AV NOW S/P TAVR Assessment/Plan ANTIBIOTIC SCHEDULE FOR PPI PT WILL BE PACER DEPENDENT SINCE WITH 3 AV BLOCK WILL CONSIDER LBB PACING S/P DUAL PPI OFF TRANSVENOUS PACING HEMODYNAMICALLY STABLE WILL EXTUBATE WHEN AWAKE CXR LABS PPM INTERROGATED NL FUNCTION PLAVIX TO BE STARTED IN 2 DAYS still agitated non awake Plan discussed with: Patient Critical Care Time(min): 35 CAROLE ELIZONDO MD Aug 08, 2024 11:50
--- NOTE | 2024-08-08 13:28 | DVHPN2 ---
Progress Note - Dictate Date Seen: Aug 08, 2024 Medical Necessity Reason Pt with a Central, PICC or Fol: Yes The following are medically ne: Mcdonald Catheter Reason for mcdonald catheter: Strict I&O Subjective Patient chart reviewed and discussed with his nurse. Patient was unable to tolerate CPAP trial yesterday or today with patient having tachycardia and started pulling on lines and tubes. Patient was required to be placed on sedation and back to normal/stable vitals. vital signs Vital Sign Date Time Temp Pulse Resp B/P (MAP) Pulse Ox O2 Delivery O2 Flow Rate FiO2 08/08/24 12:45 98/31 08/08/24 12:16 72 24 97 30 08/08/24 12:00 98.7 98.7 08/08/24 10:00 Mechanical Ventilator+ Total Intake and Output 08/07/24 08/07/24 08/08/24 15:00 23:00 07:00 Intake Total 328.350 ml 231.950 ml 196.125 ml Output Total 2300 ml 500 ml Balance 328.350 ml -2068.050 ml -303.875 ml medications Current Medications Medications Dose Ordered Sig/Leatha Route Start Time Stop Time Status Last Admin Dose Admin Dopamine HCl/ Dextrose 250 ml @ 15.188 mls/ hr [id number] IV 08/04/24 06:15 08/05/24 18:55 15.188 MLS/HR Midazolam HCl 50 ml @ 1 mls/hr Q24H IV 08/04/24 08:00 08/08/24 11:40 1 MLS/HR Fentanyl Citrate 250 ml @ 2.5 mls/hr Q24H IV 08/04/24 08:00 08/07/24 16:13 2.5 MLS/HR Ceftriaxone Sodium 50 ml @ 100 mls/hr DAILY@09 IV 08/05/24 09:00 08/08/24 09:00 100 MLS/HR Nitroglycerin 0.4 mg Q5MINP PRN SL 08/04/24 14:45 Morphine Sulfate 2 mg Q30M PRN IV 08/04/24 14:45 Azithromycin 250 ml @ 125 mls/hr DAILY IV 08/05/24 10:00 08/08/24 11:05 125 MLS/HR Diagnostic Test (Pha) 1 strip Q6HR 08/04/24 18:00 08/08/24 11:48 1 STRIP Insulin Human Regular Q6HR SC 08/04/24 18:00 08/08/24 11:52 3 UNITS Dextrose 50 ml UD PRN IV 08/04/24 15:00 Insulin Glargine 10 units HS SC 08/04/24 22:00 08/07/24 22:58 10 UNITS Pantoprazole Sodium 40 mg DAILY IV 08/05/24 10:00 08/08/24 10:05 40 MG Allopurinol 100 mg BID PO 08/04/24 22:00 08/08/24 10:05 100 MG Tamsulosin HCl 0.4 mg QPM PO 08/04/24 18:00 08/07/24 17:42 0.4 MG Dexmedetomidine HCl 400 mcg/ Dextrose 100 ml @ 4.05 mls/hr Q24H IV 08/06/24 19:15 08/08/24 11:03 14.175 MLS/HR Hydralazine HCl 10 mg Q6HP PRN IV 08/07/24 13:45 08/08/24 06:05 10 MG Propofol 100 ml @ 2.43 mls/hr Q24H IV 08/08/24 11:45 08/08/24 11:45 2.43 MLS/HR objective GEN: Intubated and Sedated HEENT: NC/AT, Pupils are equally round and responsive to light CV: S1S2+, RRR Lungs: Clear to auscultation bilaterally Abd: Soft, bowel sounds are present, no rigidity LE; No LE edema laboratory and microbiology Laboratory Tests 08/08/24 04:50 Test 08/08/24 04:50 Range/Units Serum Glucose 117 H 74-106 mg/dL Problem List 1) Acute respiratory failure, intubated 2) Cardiac arrest s/p CPR/ROSC 3) Complete heart block s/p PPI 4) Acute Kidney Injury - resolving Secondary Diagnosis: 5) A fib 6) HTN 7) HLD 8) COPD 9) DM type 2 10) Recent TAVR 06/2024 at [facility] Assessment/Plan plan; - resume ICU monitoring - CPAP trail to be arranged again for tomorrow morning with plan for extubation - S/P PPI done with cardiology 08/05, Heart rates at 70 - Echo showed ef 40-45%, - PRN dopamine to maintain MAP > 65, patient no longer requiring - S/p bronchoscopy with pulmonary yesterday 08/07 with clearance of noted mucous plugging, - Cr downtrending daily, continue with IV fluids, strict I/Os, appreciate nephrology recommendations - blood and urine cultures NGTD - pulm/cardio/renal on board, - supportive care, dietary consult Full Code GI prophy: Protonix 40mg IV daily DVT prophy; SCDs Plan; Continue to monitor in the ICU Prognosis Stable Plan discussed with: Other ROXANA-LINDSAY GRUBER MD Aug 08, 2024 13:28
--- NOTE | 2024-08-08 14:43 | DVHPN2 ---
Progress Note Date Seen: Aug 08, 2024 Medical Necessity Reason Pt with a Central, PICC or Fol: Yes The following are medically ne: Mcdonald Catheter Reason for mcdonald catheter: Strict I&O Subjective Patient reports: Other (intubated) Review of Systems: Deferred Objective vital signs Vital Sign Date Time Temp Pulse Resp B/P (MAP) Pulse Ox O2 Delivery O2 Flow Rate FiO2 08/08/24 14:00 70 08/08/24 14:00 24 97 Mechanical Ventilator+ 30 30 08/08/24 13:34 118/46 (70) 08/08/24 12:00 98.7 98.7 Total Intake and Output 08/07/24 08/07/24 08/08/24 15:00 23:00 07:00 Intake Total 328.350 ml 231.950 ml 196.125 ml Output Total 2300 ml 500 ml Balance 328.350 ml -2068.050 ml -303.875 ml medications Current Medications Medications Dose Ordered Sig/Leatha Route Start Time Stop Time Status Last Admin Dose Admin Dopamine HCl/ Dextrose 250 ml @ 15.188 mls/ hr [id number] IV 08/04/24 06:15 08/05/24 18:55 15.188 MLS/HR Midazolam HCl 50 ml @ 1 mls/hr Q24H IV 08/04/24 08:00 08/08/24 11:40 1 MLS/HR Fentanyl Citrate 250 ml @ 2.5 mls/hr Q24H IV 08/04/24 08:00 08/07/24 16:13 2.5 MLS/HR Ceftriaxone Sodium 50 ml @ 100 mls/hr DAILY@09 IV 08/05/24 09:00 08/08/24 09:00 100 MLS/HR Nitroglycerin 0.4 mg Q5MINP PRN SL 08/04/24 14:45 Morphine Sulfate 2 mg Q30M PRN IV 08/04/24 14:45 Azithromycin 250 ml @ 125 mls/hr DAILY IV 08/05/24 10:00 08/08/24 11:05 125 MLS/HR Diagnostic Test (Pha) 1 strip Q6HR 08/04/24 18:00 08/08/24 11:48 1 STRIP Insulin Human Regular Q6HR SC 08/04/24 18:00 08/08/24 11:52 3 UNITS Dextrose 50 ml UD PRN IV 08/04/24 15:00 Insulin Glargine 10 units HS SC 08/04/24 22:00 08/07/24 22:58 10 UNITS Pantoprazole Sodium 40 mg DAILY IV 08/05/24 10:00 08/08/24 10:05 40 MG Allopurinol 100 mg BID PO 08/04/24 22:00 08/08/24 10:05 100 MG Tamsulosin HCl 0.4 mg QPM PO 08/04/24 18:00 08/07/24 17:42 0.4 MG Dexmedetomidine HCl 400 mcg/ Dextrose 100 ml @ 4.05 mls/hr Q24H IV 08/06/24 19:15 08/08/24 11:03 14.175 MLS/HR Hydralazine HCl 10 mg Q6HP PRN IV 08/07/24 13:45 08/08/24 06:05 10 MG Propofol 100 ml @ 2.43 mls/hr Q24H IV 08/08/24 11:45 08/08/24 11:45 2.43 MLS/HR Examination: GENERAL:Abnormal, MSK:Abnormal, SKIN:Abnormal, NEURO:Abnormal laboratory and microbiology Laboratory Tests 08/08/24 04:50 Test 08/08/24 04:50 Range/Units Serum Glucose 117 H 74-106 mg/dL Microbiology Date/Time Source Procedure Growth Status 08/04/24 14:48 Voided Urine Urine Culture - Final Complete 08/04/24 10:13 Blood Blood Culture - Preliminary NO GROWTH AFTER 72 HOURS OF INCUBATION. Resulted 08/04/24 08:11 Sputum Gram Stain - Final Complete 08/04/24 08:11 Sputum Respiratory Culture - Final Complete Problem List/Assessment/Plan Problem List/Assessment/Plan Acute kidney injury on Chronic kidney disease four hemodynamic mediated Bradycardia status post cpr Encephalopathy Ventilator-dependent hypoxic respiratory failure Recommendations improving Remains nonoliguric We will follow closely Status post permanent pacemaker insertion bp control Plan discussed with: Spouse Dietary Evaluation Review Comments: 1. For better controlled glucose level, recommend Glucerna TF 40ml/hr, in 24 hr providing 58g pro, 1152 kcal, supporting pt's protein needs at 89%, energy needs at 71%. 2. Consider a 2g Na low fat low Chol CCHO-60 diet when pt is off vent and pass speech eval. 3. Consider TPN per pharmacy if pt is no EN suitable and has been NPO > 7 days. Expected Outcomes/Goals: Off vent and advance to diet Maintain BW. RODNEY CASAS MD Aug 08, 2024 14:43
[2024-08-08 16:06] LABS: Basophils # (auto) 0.1 10 ^3/uL (0-0.2); Eosinophils # (auto) 0 10 ^3/uL (0-0.8); Hematocrit 25.8 % (41.0-53.0); Hemoglobin 8.4 g/dL (13.5-17.5); Monocytes # (auto) 0.8 10 ^3/uL (0-1.3); Neutrophils # (auto) 12.7 10 ^3/uL (1.6-8.6)
[2024-08-08 16:09] LABS: Basophils % (auto) 0.5 % (0.0-2.0); Eosinophils % (auto) 0.2 % (0.0-7.0); Lymphocytes # (auto) 0.5 10 ^3/uL (0.4-5.4); Lymphocytes % (auto) 3.6 % (10.0-50.0); Mean Corpuscular Hemoglobin 29.7 pg (28.0-32.0); Mean Corpuscular Hgb Conc. 32.8 g/dL (32.0-36.0); Mean Corpuscular Volume 90.7 fL (80.0-100.0); Monocytes % (auto) 5.9 % (0.0-12.0); Neutrophils % (auto) 89.8 % (37.0-80.0); Platelet Count (auto) 206 10^3/uL (140-450); Red Blood Cells 2.84 10^6/uL (4.5-5.90); Red Cell Distribution Width 17.2 % (11.8-14.3); White Blood Cell 14.1 10^3/uL (4.4-10.8)
--- NOTE | 2024-08-08 23:17 | DVHPN2 ---
Progress Note - Dictate Date Seen: Aug 08, 2024 Medical Necessity Reason Pt with a Central, PICC or Fol: Yes The following are medically ne: Mcdonald Catheter Reason for mcdonald catheter: Strict I&O Subjective Patient seen and examined at bedside. Sedated, intubated on mechanical ventilator. Overnight events reviewed. vital signs Vital Sign Date Time Temp Pulse Resp B/P (MAP) Pulse Ox O2 Delivery O2 Flow Rate FiO2 08/08/24 20:16 70 24 145/49 (81) 98 30 08/08/24 18:00 Mechanical Ventilator+ 08/08/24 16:00 98.9 98.9 Total Intake and Output 08/07/24 08/07/24 08/08/24 15:00 23:00 07:00 Intake Total 328.350 ml 231.950 ml 196.125 ml Output Total 2300 ml 500 ml Balance 328.350 ml -2068.050 ml -303.875 ml medications Current Medications Medications Dose Ordered Sig/Leatha Route Start Time Stop Time Status Last Admin Dose Admin Dopamine HCl/ Dextrose 250 ml @ 15.188 mls/ hr [id number] IV 08/04/24 06:15 08/05/24 18:55 15.188 MLS/HR Midazolam HCl 50 ml @ 1 mls/hr Q24H IV 08/04/24 08:00 08/08/24 11:40 1 MLS/HR Fentanyl Citrate 250 ml @ 2.5 mls/hr Q24H IV 08/04/24 08:00 08/08/24 20:39 10 MLS/HR Ceftriaxone Sodium 50 ml @ 100 mls/hr DAILY@09 IV 08/05/24 09:00 08/08/24 09:00 100 MLS/HR Nitroglycerin 0.4 mg Q5MINP PRN SL 08/04/24 14:45 Morphine Sulfate 2 mg Q30M PRN IV 08/04/24 14:45 Azithromycin 250 ml @ 125 mls/hr DAILY IV 08/05/24 10:00 08/08/24 11:05 125 MLS/HR Diagnostic Test (Pha) 1 strip Q6HR 08/04/24 18:00 08/08/24 17:22 1 STRIP Insulin Human Regular Q6HR SC 08/04/24 18:00 08/08/24 17:23 3 UNITS Dextrose 50 ml UD PRN IV 08/04/24 15:00 Insulin Glargine 10 units HS SC 08/04/24 22:00 08/08/24 20:41 10 UNITS Pantoprazole Sodium 40 mg DAILY IV 08/05/24 10:00 08/08/24 10:05 40 MG Allopurinol 100 mg BID PO 08/04/24 22:00 08/08/24 20:40 100 MG Tamsulosin HCl 0.4 mg QPM PO 08/04/24 18:00 08/08/24 17:18 0.4 MG Dexmedetomidine HCl 400 mcg/ Dextrose 100 ml @ 4.05 mls/hr Q24H IV 08/06/24 19:15 08/08/24 20:36 10.125 MLS/HR Hydralazine HCl 10 mg Q6HP PRN IV 08/07/24 13:45 08/08/24 06:05 10 MG Propofol 100 ml @ 2.43 mls/hr Q24H IV 08/08/24 11:45 08/08/24 11:45 2.43 MLS/HR objective Gen.: Patient lying in bed in medical ICU. Sedated, intubated on mechanical ventilator. Head: Normocephalic, atraumatic. Eyes: PERRLA. Ears: Normal external anatomy. Throat: Endotracheal tube and orogastric tube in place. Neck: Supple, trachea midline. Chest: Transmitted breath sounds bilaterally. Decreased air entry bilaterally. No wheezing. Bibasilar crackles. Cardiovascular: Positive S1, positive S2. Regular rate and rhythm. Abdomen: Positive bowel sounds in all 4 quadrants. Soft, nontender, nondistended. : Mcdonald in place. Normal external genitalia. Rectal: Deferred. Skin: Warm, dry. Intact. Extremities: 2+ radial pulses bilaterally. No lower extremity edema. Neuro: Sedated. laboratory and microbiology Laboratory Tests 08/08/24 14:58 08/08/24 04:50 Test 08/08/24 04:50 Range/Units Serum Glucose 117 H 74-106 mg/dL Assessment/Plan Impression: Acute hypoxic respiratory failure On mechanical ventilator Bradycardia/complete heart block S/p TAVR Acute exacerbation of CHF S/p cardiac arrest Elevated troponin Chronic kidney disease Events: Vent support On AC mode; RR 24, VT 500, PEEP 5, FiO2 30% Sedated on Fentanyl, Propofol Off versed Precedex drip for agitation Continue antibiotics Hydralazine PRN systolic BP >160. ABG reviewed, compensated. CXR on 08/07/[address] Patchy perihilar airspace opacities. Taper sedation as tolerated SBT/RUTH. S/p pacer. Labs and imaging reviewed. Rest of plan as noted below. Plan: s/p intubation on mechanical ventilator. On AC mode; RR 24, VT 500, PEEP 5, FiO2 30% Titrate FIO2 to keep O2 saturation above 90%. VAP bundle. Daily ABG and CXR while intubated Sedate for ventilator synchrony Continue antibiotics. Dopamine 5 mcg/min d/t bradycardia - on hold Monitor renal function Monitor electrolytes. Supplement as necessary. Monitor ins and outs. Maintain euvolemia. GI prophylaxis. DVT prophylaxis. Prognosis: Poor given patient's multiple co-morbidities. Condition: Critical Rest of plan per hospitalist and other consultants. A total of 35 minutes of critical care time was spent reviewing the patient record, examining the patient, making a diagnostic and therapeutic plan, discussing this plan with the medical personnel, following up on diagnostic studies and following the patient for clinical stability excluding any and all procedures. At least 50% of this time was spent in direct, [id number] contact. Thank you, S[employer] Abel, for allowing me to participate in this patient's care. Further recommendations will depend on the patient's clinical course. Please do not hesitate to contact me if you have any questions or concerns. This medical document was created using an electronic medical record system with KOWN dictation system. Although these documentations are being carefully reviewed, there may still be some phonetic and typographical changes. The errors are purely typographical, due to imperfection on the software program, and do not reflect any compromise in the patient's medical care. Dietary Evaluation Review Comments: 1. For better controlled glucose level, recommend Glucerna TF 40ml/hr, in 24 hr providing 58g pro, 1152 kcal, supporting pt's protein needs at 89%, energy needs at 71%. 2. Consider a 2g Na low fat low Chol CCHO-60 diet when pt is off vent and pass speech eval. 3. Consider TPN per pharmacy if pt is no EN suitable and has been NPO > 7 days. Expected Outcomes/Goals: Off vent and advance to diet Maintain BW. Plan discussed with: Other (NANCY Calabrese) Critical Care Time(min): 35 FARIHA PRAKASH MD Aug 08, 2024 23:17
[2024-08-09] VITALS (76 sets, daily range): BP systolic 101–207; BP diastolic 29–139; PULSE 70–146; RESP 0–53; TEMP 96.4–100.2; O2SAT 89–100
[2024-08-09 06:56] LABS: Base Excess -1.6 mmol/L (-2.0-3.0)
[2024-08-09 07:09] LABS: Basophils # (auto) 0.1 10 ^3/uL (0-0.2); Basophils % (auto) 0.6 % (0.0-2.0); Eosinophils # (auto) 0.2 10 ^3/uL (0-0.8); Eosinophils % (auto) 1.5 % (0.0-7.0); Hematocrit 25.9 % (41.0-53.0); Hemoglobin 8.5 g/dL (13.5-17.5); Lymphocytes # (auto) 1.1 10 ^3/uL (0.4-5.4); Lymphocytes % (auto) 10.4 % (10.0-50.0); Mean Corpuscular Hemoglobin 29.7 pg (28.0-32.0); Mean Corpuscular Hgb Conc. 32.7 g/dL (32.0-36.0); Mean Corpuscular Volume 90.9 fL (80.0-100.0); Monocytes # (auto) 0.8 10 ^3/uL (0-1.3); Monocytes % (auto) 6.9 % (0.0-12.0); Neutrophils # (auto) 8.8 10 ^3/uL (1.6-8.6); Neutrophils % (auto) 80.6 % (37.0-80.0); Platelet Count (auto) 234 10^3/uL (140-450); Red Blood Cells 2.85 10^6/uL (4.5-5.90); Red Cell Distribution Width 17.1 % (11.8-14.3); White Blood Cell 10.9 10^3/uL (4.4-10.8)
[2024-08-09 07:21] LABS: Anion Gap 8 (5-15); Carbon Dioxide 24 mmol/L (20-31); Potassium 4.2 mmol/L (3.5-5.1); Sodium 143 mmol/L (136-145)
[2024-08-09 07:22] LABS: Calcium 9.8 mg/dL (8.7-10.4)
[2024-08-09 07:27] LABS: Glucose 106 mg/dL (74-106)
[2024-08-09 07:36] LABS: Chloride 111 mmol/L (98-107)
[2024-08-09 07:37] LABS: BUN/Creatinine Ratio 17.8 (10.0-20.0); Blood Urea Nitrogen 37 mg/dL (9-23)
--- NOTE | 2024-08-09 08:21 | DVH ---
CLINICAL INFORMATION: 74 years old, Male; DAILY - TUBE PLACEMENT. TECHNIQUE: Single AP portable chest radiograph was obtained. COMPARISON: XY CHEST PORTABLE on DOS: 08/07/24, XY CHEST PORTABLE on DOS: 08/06/24, XY CHEST PORTABLE on DOS: 08/05/24 FINDINGS: Stable satisfactory positioning of the endotracheal tube. Enteric tube extends to the level of the di aphragm and below the [id number] of the exam. Grossly stable appearing postsurgical changes. Stab le positioning of the pacemaker leads. Atelectasis in the lung bases. No focal consolidation visualiz ed. No pneumothorax or pleural effusion. No other significant interval change. IMPRESSION: No significant interval change as detailed above.
--- NOTE | 2024-08-09 08:46 | DVHPN2 ---
Progress Note - Dictate Date Seen: Aug 09, 2024 Medical Necessity Reason Pt with a Central, PICC or Fol: Yes The following are medically ne: Mcdonald Catheter Reason for mcdonald catheter: Strict I&O Subjective Patient is afebrile overnight. Patient has been placed on sedation holiday this morning and is being prepd for CPAP trial. Patient is planned to have extubation completed today if he passes his CPAP trial. vital signs Vital Sign Date Time Temp Pulse Resp B/P (MAP) Pulse Ox O2 Delivery O2 Flow Rate FiO2 08/09/24 07:30 98.4 70 24 122/51 (74) 97 209.1 08/09/24 06:05 30 08/09/24 06:00 Mechanical Ventilator+ Total Intake and Output 08/08/24 08/08/24 08/09/24 15:00 23:00 07:00 Intake Total 372.750 ml 277.365 ml 275.890 ml Output Total 575 ml 500 ml Balance 372.750 ml -297.635 ml -224.110 ml medications Current Medications Medications Dose Ordered Sig/Leatha Route Start Time Stop Time Status Last Admin Dose Admin Dopamine HCl/ Dextrose 250 ml @ 15.188 mls/ hr [id number] IV 08/04/24 06:15 08/05/24 18:55 15.188 MLS/HR Midazolam HCl 50 ml @ 1 mls/hr Q24H IV 08/04/24 08:00 08/08/24 11:40 1 MLS/HR Fentanyl Citrate 250 ml @ 2.5 mls/hr Q24H IV 08/04/24 08:00 08/08/24 20:39 10 MLS/HR Ceftriaxone Sodium 50 ml @ 100 mls/hr DAILY@09 IV 08/05/24 09:00 08/09/24 08:16 100 MLS/HR Nitroglycerin 0.4 mg Q5MINP PRN SL 08/04/24 14:45 Morphine Sulfate 2 mg Q30M PRN IV 08/04/24 14:45 Azithromycin 250 ml @ 125 mls/hr DAILY IV 08/05/24 10:00 08/08/24 11:05 125 MLS/HR Diagnostic Test (Pha) 1 strip Q6HR 08/04/24 18:00 08/09/24 06:28 1 STRIP Insulin Human Regular Q6HR SC 08/04/24 18:00 08/09/24 00:47 2 UNITS Dextrose 50 ml UD PRN IV 08/04/24 15:00 Insulin Glargine 10 units HS SC 08/04/24 22:00 08/08/24 20:41 10 UNITS Pantoprazole Sodium 40 mg DAILY IV 08/05/24 10:00 08/08/24 10:05 40 MG Allopurinol 100 mg BID PO 08/04/24 22:00 08/08/24 20:40 100 MG Tamsulosin HCl 0.4 mg QPM PO 08/04/24 18:00 08/08/24 17:18 0.4 MG Dexmedetomidine HCl 400 mcg/ Dextrose 100 ml @ 4.05 mls/hr Q24H IV 08/06/24 19:15 08/08/24 20:36 10.125 MLS/HR Hydralazine HCl 10 mg Q6HP PRN IV 08/07/24 13:45 08/09/24 00:45 10 MG Propofol 100 ml @ 2.43 mls/hr Q24H IV 08/08/24 11:45 08/09/24 03:04 14.58 MLS/HR objective GEN: Intubated and Sedated HEENT: NC/AT, Pupils are equally round and responsive to light CV: S1S2+, RRR Lungs: Clear to auscultation bilaterally Abd: Soft, bowel sounds are present, no rigidity LE; No LE edema laboratory and microbiology Laboratory Tests 08/09/24 05:18 Test 08/09/24 05:18 Range/Units Serum Glucose 106 74-106 mg/dL Problem List 1) Acute respiratory failure, intubated 2) Cardiac arrest s/p CPR/ROSC 3) Complete heart block s/p PPI 4) Acute Kidney Injury - resolving Secondary Diagnosis: 5) A fib 6) HTN 7) HLD 8) COPD 9) DM type 2 10) Recent TAVR 06/2024 at [facility] Assessment/Plan plan; - resume ICU monitoring - CPAP trail this morning with plan for extubation - S/P PPI done with cardiology 08/05, Heart rates at 70 - Echo showed ef 40-45%, - S/p bronchoscopy on Aug 07 with clearance of noted mucous plugging, - Cr at 2.1, continue with IV fluids, strict I/Os, appreciate nephrology recommendations - blood and urine cultures NGTD - pulm/cardio/renal on board, - PT evaluation once extubation is completed Full Code GI prophy: Protonix 40mg IV daily DVT prophy; SCDs Plan; Continue to monitor in the ICU Dietary Evaluation Review Comments: 1. For better controlled glucose level, recommend Glucerna TF 40ml/hr, in 24 hr providing 58g pro, 1152 kcal, supporting pt's protein needs at 89%, energy needs at 71%. 2. Consider a 2g Na low fat low Chol CCHO-60 diet when pt is off vent and pass speech eval. 3. Consider TPN per pharmacy if pt is no EN suitable and has been NPO > 7 days. Expected Outcomes/Goals: Off vent and advance to diet Maintain BW. Plan discussed with: Spouse LINDSAY RUEDA MD Aug 09, 2024 08:46
[2024-08-09] MEDS: SODIUM BICARB 8.4% 50Meq/50ml SYR Vial IV ONE (12:09)
[2024-08-09] MEDS: EPINEPHrine HCL 0.5 ML NEB ONE (12:18)
[2024-08-09] MEDS: ALBUTEROL SULF 2.5 MG/0.5ML(0.5%) NEB SOLN ONE (12:18)
[2024-08-09] MEDS: EPINEPHrine HCL 0.5 ML NEB NEB ONE (12:20)
[2024-08-09] MEDS: ALBUTEROL SULF 2.5 MG/0.5ML(0.5%) NEB SOLN NEB ONE (12:20)
[2024-08-09] MEDS: methylPREDNISolone SOD SUCC 40 MG/ML VL IM ONE (12:28)
[2024-08-09] MEDS: FUROSEMIDE 40 MG/4 ML VIAL IV ONE (12:29)
--- NOTE | 2024-08-09 14:55 | DVHPN2 ---
Progress Note - Dictate Date Seen: Aug 09, 2024 Medical Necessity Reason Pt with a Central, PICC or Fol: Yes The following are medically ne: Mcdonald Catheter Reason for mcdonald catheter: Strict I&O Subjective PT RECENTLY UNDERWENT TAVR AT [facility] NOW WITH 3 DEGREE AV BLOCK DEVELOPED ASYSTOLE INTUBATED TEMPORARY PACER INSERTED NOW NEEDS DUAL PPI PMH: ORGANIC HD S/P CABG LHC * Left main, patent. * Distal left main, however, had 50% narrowing. * Left anterior descending artery severely diseased, at previous site of stent placement. * TOMPKINS to the LAD was patent. It was sequenced to diagonal 1 and diagonal 2 that were patent, but distal to the bypass, there was severe diffuse disease throughout the [place] coronary arteries. * Circumflex had about a 40-50% ostial narrowing. * With moderate diffuse disease throughout the circumflex territory. * Saphenous vein graft to the OM was occluded. 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 * Severe disease of the PDA. * Saphenous vein graft to the PDA was patent. At this point, the patient has diffuse disease. Distal flow was diminished. The patient had patent grafts, but [place] vessels that were ____ severely diseased. The best option for the patient at this time is conservative medical management, aggressive risk modification, dual antiplatelet therapy should be introduced. The patient is a candidate for EECP. The patient is also a candidate for dobutamine infusion. He should also be considered for Bi-V AICD implantation as well. We will continue to follow the patient. ECHO 05/23 LVH EF >60% [facility]E [facility] HEAVILY CALCIFIED AV NOW S/P TAVR vital signs Vital Sign Date Time Temp Pulse Resp B/P (MAP) Pulse Ox O2 Delivery O2 Flow Rate FiO2 08/09/24 13:02 111 16 172/78 (109) 100 08/09/24 12:45 99.5 99.5 08/09/24 12:20 Cool Aerosol 10 35 35 Total Intake and Output 08/08/24 08/08/24 08/09/24 14:59 22:59 06:59 Intake Total 379.775 ml 259.670 ml 279.605 ml Output Total 575 ml 500 ml Balance 379.775 ml -315.330 ml -220.395 ml medications Current Medications Medications Dose Ordered Sig/Leatha Route Start Time Stop Time Status Last Admin Dose Admin Dopamine HCl/ Dextrose 250 ml @ 15.188 mls/ hr [id number] IV 08/04/24 06:15 08/05/24 18:55 15.188 MLS/HR Midazolam HCl 50 ml @ 1 mls/hr Q24H IV 08/04/24 08:00 08/08/24 11:40 1 MLS/HR Fentanyl Citrate 250 ml @ 2.5 mls/hr Q24H IV 08/04/24 08:00 08/08/24 20:39 10 MLS/HR Ceftriaxone Sodium 50 ml @ 100 mls/hr DAILY@09 IV 08/05/24 09:00 08/09/24 08:16 100 MLS/HR Nitroglycerin 0.4 mg Q5MINP PRN SL 08/04/24 14:45 Morphine Sulfate 2 mg Q30M PRN IV 08/04/24 14:45 Azithromycin 250 ml @ 125 mls/hr DAILY IV 08/05/24 10:00 08/09/24 10:56 125 MLS/HR Diagnostic Test (Pha) 1 strip Q6HR 08/04/24 18:00 08/09/24 12:50 1 STRIP Insulin Human Regular Q6HR SC 08/04/24 18:00 08/09/24 12:48 3 UNITS Dextrose 50 ml UD PRN IV 08/04/24 15:00 Insulin Glargine 10 units HS SC 08/04/24 22:00 08/08/24 20:41 10 UNITS Pantoprazole Sodium 40 mg DAILY IV 08/05/24 10:00 08/09/24 10:56 40 MG Allopurinol 100 mg BID PO 08/04/24 22:00 08/09/24 10:56 100 MG Tamsulosin HCl 0.4 mg QPM PO 08/04/24 18:00 08/08/24 17:18 0.4 MG Dexmedetomidine HCl 400 mcg/ Dextrose 100 ml @ 4.05 mls/hr Q24H IV 08/06/24 19:15 08/09/24 08:57 6.075 MLS/HR Hydralazine HCl 10 mg Q6HP PRN IV 08/07/24 13:45 08/09/24 00:45 10 MG Propofol 100 ml @ 2.43 mls/hr Q24H IV 08/08/24 11:45 08/09/24 03:04 14.58 MLS/HR laboratory and microbiology Laboratory Tests 08/09/24 05:18 Test 08/09/24 05:18 Range/Units Serum Glucose 106 74-106 mg/dL Problem List UNDERWENT TAVR AT [facility] NOW WITH 3 DEGREE AV BLOCK DEVELOPED ASYSTOLE INTUBATED TEMPORARY PACER INSERTED NOW NEEDS DUAL PPI PMH: ORGANIC HD S/P CABG LHC * Left main, patent. * Distal left main, however, had 50% narrowing. * Left anterior descending artery severely diseased, at previous site of stent placement. * TOMPKINS to the LAD was patent. It was sequenced to diagonal 1 and diagonal 2 that were patent, but distal to the bypass, there was severe diffuse disease throughout the [place] coronary arteries. * Circumflex had about a 40-50% ostial narrowing. * With moderate diffuse disease throughout the circumflex territory. * Saphenous vein graft to the OM was occluded. 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 * Severe disease of the PDA. * Saphenous vein graft to the PDA was patent. At this point, the patient has diffuse disease. Distal flow was diminished. The patient had patent grafts, but [place] vessels that were ____ severely diseased. The best option for the patient at this time is conservative medical management, aggressive risk modification, dual antiplatelet therapy should be introduced. The patient is a candidate for EECP. The patient is also a candidate for dobutamine infusion. He should also be considered for Bi-V AICD implantation as well. We will continue to follow the patient. ECHO 05/23 LVH EF >60% LAE BERNARD CRIT[facility] HEAVILY CALCIFIED AV NOW S/P TAVR Assessment/Plan ANTIBIOTIC SCHEDULE FOR PPI PT WILL BE PACER DEPENDENT SINCE WITH 3 AV BLOCK WILL CONSIDER LBB PACING S/P DUAL PPI OFF TRANSVENOUS PACING HEMODYNAMICALLY STABLE WILL EXTUBATE WHEN AWAKE CXR LABS PPM INTERROGATED NL FUNCTION PLAVIX TO BE STARTED IN 2 DAYS still agitated non awake CPAP GOOD EXTUBATE Dietary Evaluation Review Comments: 1. For better controlled glucose level, recommend Glucerna TF 40ml/hr, in 24 hr providing 58g pro, 1152 kcal, supporting pt's protein needs at 89%, energy needs at 71%. 2. Consider a 2g Na low fat low Chol CCHO-60 diet when pt is off vent and pass speech eval. 3. Consider TPN per pharmacy if pt is no EN suitable and has been NPO > 7 days. Expected Outcomes/Goals: Off vent and advance to diet Maintain BW. Plan discussed with: Patient Critical Care Time(min): 35 CAROLE ELIZONDO MD Aug 09, 2024 14:55
[2024-08-09] MEDS: LORazepam 2MG/ML-1ML VIAL IV PRN (15:17)
[2024-08-09] MEDS: HALOPERIDOL LACTATE 5 MG/ML INJ VIAL IM PRN (16:56)
[2024-08-09] MEDS ORDERED: hydrALAZINE HCL 20 MG/ML VL IV PRN (17:15)
[2024-08-09] MEDS: MORPHINE SULFATE INJ 2 MG/ml SYRG IV PRN ×2 (17:29→18:44)
[2024-08-09] MEDS: METOPROLOL TARTRATE 1MG/1ML-5ML VIAL IV ONE (20:37)
[2024-08-09] MEDS: hydrALAZINE HCL 20 MG/ML VL IV PRN (21:53)
[2024-08-09] MEDS: DOXYCYCLINE 100MG/100ML 100 ML IV SCH (21:54)
--- NOTE | 2024-08-09 23:37 | DVHPN2 ---
Progress Note - Dictate Date Seen: Aug 09, 2024 Medical Necessity Reason Pt with a Central, PICC or Fol: Yes The following are medically ne: Mcdonald Catheter Reason for mcdonald catheter: Strict I&O Subjective Patient seen and examined at bedside. S/p extubation, on supplemental oxygen Overnight events reviewed. vital signs Vital Sign Date Time Temp Pulse Resp B/P (MAP) Pulse Ox O2 Delivery O2 Flow Rate FiO2 08/09/24 22:45 170/69 08/09/24 20:37 115 08/09/24 19:31 99.5 24 97 211.1 08/09/24 18:00 Cool Aerosol 6 28 28 Total Intake and Output 08/08/24 08/08/24 08/09/24 15:00 23:00 07:00 Intake Total 372.750 ml 277.365 ml 275.890 ml Output Total 575 ml 500 ml Balance 372.750 ml -297.635 ml -224.110 ml medications Current Medications Medications Dose Ordered Sig/Leatha Route Start Time Stop Time Status Last Admin Dose Admin Dopamine HCl/ Dextrose 250 ml @ 15.188 mls/ hr [id number] IV 08/04/24 06:15 08/05/24 18:55 15.188 MLS/HR Fentanyl Citrate 250 ml @ 2.5 mls/hr Q24H IV 08/04/24 08:00 08/08/24 20:39 10 MLS/HR Ceftriaxone Sodium 50 ml @ 100 mls/hr DAILY@09 IV 08/05/24 09:00 08/09/24 08:16 100 MLS/HR Nitroglycerin 0.4 mg Q5MINP PRN SL 08/04/24 14:45 Morphine Sulfate 2 mg Q30M PRN IV 08/04/24 14:45 08/09/24 17:29 2 MG Diagnostic Test (Pha) 1 strip Q6HR 08/04/24 18:00 08/09/24 18:26 1 STRIP Insulin Human Regular Q6HR SC 08/04/24 18:00 08/09/24 12:48 3 UNITS Dextrose 50 ml UD PRN IV 08/04/24 15:00 Insulin Glargine 10 units HS SC 08/04/24 22:00 08/09/24 22:09 10 UNITS Pantoprazole Sodium 40 mg DAILY IV 08/05/24 10:00 08/09/24 10:56 40 MG Allopurinol 100 mg BID PO 08/04/24 22:00 08/09/24 10:56 100 MG Tamsulosin HCl 0.4 mg QPM PO 08/04/24 18:00 08/08/24 17:18 0.4 MG Doxycycline Hyclate 100 ml @ 50 mls/hr Q12H IV 08/09/24 22:00 08/09/24 21:54 50 MLS/HR Lorazepam 0.5 mg Q12HR PRN IV 08/09/24 17:15 Hydralazine HCl 10 mg Q6HP PRN IV 08/09/24 17:15 Hydralazine HCl 20 mg Q6HP PRN IV 08/09/24 17:15 08/09/24 21:53 20 MG Morphine Sulfate 2 mg Q4HPRN PRN IV 08/09/24 18:00 08/09/24 18:44 2 MG Hydralazine HCl 20 mg Q6HP PRN IV 08/09/24 21:15 Dexmedetomidine HCl 400 mcg/ Dextrose 100 ml @ 4.05 mls/hr Q24H IV 08/09/24 22:30 UNV Dexmedetomidine HCl 400 mcg/ Dextrose 100 ml @ 4.05 mls/hr Q24H IV 08/09/24 22:45 08/09/24 22:45 4.05 MLS/HR objective Gen.: Patient lying in bed in no apparent distress. On supplemental oxygen. Head: Normocephalic, atraumatic. Eyes: EOMI/PERRLA. Ears: Normal hearing. Normal anatomy. Neck/trachea: Trachea midline, supple. Nose: Normal external anatomy. Mouth: Moist mucous membranes. Chest: Decreased air entry bilaterally. No wheezing or rhonchi. Cardiovascular: Positive S1, positive S2. Regular rate and rhythm. Abdomen: Positive bowel sounds in all 4 quadrants. Soft, non-tender, non- distended. : Deferred. Rectal: Deferred. Skin: Warm, dry. Intact. Extremities: 2+ radial pulses bilaterally. No lower extremity edema. Neuro: Awake, alert, oriented x3. No gross motor or sensory deficits. Cranial nerves II through XII intact. Gait not assessed. laboratory and microbiology Laboratory Tests 08/09/24 05:18 Test 08/09/24 05:18 Range/Units Serum Glucose 106 74-106 mg/dL Assessment/Plan Impression: Acute hypoxic respiratory failure On mechanical ventilator Bradycardia/complete heart block S/p TAVR Acute exacerbation of CHF S/p cardiac arrest Elevated troponin Chronic kidney disease Events: Patient tolerated CPAP, was extubated uneventfully On supplemental O2, 5 LPM NC Taper o2 as tolerated Restless - OK to resume Precedex drip for agitation Off sedation Cardiology recs appreciated Continue antibiotics Hydralazine PRN systolic BP >160. S/p pacer. Labs and imaging reviewed. Rest of plan as noted below. Plan: s/p extubation Supplemental oxygen Titrate to keep O2 sats above 90%. Continue antibiotics. Dopamine 5 mcg/min d/t bradycardia - on hold Monitor renal function Monitor electrolytes. Supplement as necessary. Monitor ins and outs. Maintain euvolemia. GI prophylaxis. DVT prophylaxis. Prognosis: Poor given patient's multiple co-morbidities. Condition: Critical Rest of plan per hospitalist and other consultants. A total of 35 minutes of critical care time was spent reviewing the patient record, examining the patient, making a diagnostic and therapeutic plan, discussing this plan with the medical personnel, following up on diagnostic studies and following the patient for clinical stability excluding any and all procedures. At least 50% of this time was spent in direct, [id number] contact. Thank you, MANAGER FLOAT Abel, for allowing me to participate in this patient's care. Further recommendations will depend on the patient's clinical course. Please do not hesitate to contact me if you have any questions or concerns. This medical document was created using an electronic medical record system with [employer] computerized dictation system. Although these documentations are being carefully reviewed, there may still be some phonetic and typographical changes. The errors are purely typographical, due to imperfection on the software program, and do not reflect any compromise in the patient's medical care. Dietary Evaluation Review Comments: 1. For better controlled glucose level, recommend Glucerna TF 40ml/hr, in 24 hr providing 58g pro, 1152 kcal, supporting pt's protein needs at 89%, energy needs at 71%. 2. Consider a 2g Na low fat low Chol CCHO-60 diet when pt is off vent and pass speech eval. 3. Consider TPN per pharmacy if pt is no EN suitable and has been NPO > 7 days. Expected Outcomes/Goals: Off vent and advance to diet Maintain BW. Plan discussed with: Other (NANCY Ragland) Critical Care Time(min): 35 FARIHA PRAKASH MD Aug 09, 2024 23:37
[2024-08-09] MEDS: LABETALOL HCL 20 MG/4 ML VL IV ONE (23:45)
[2024-08-10] VITALS (96 sets, daily range): BP systolic 14–209; BP diastolic 64–153; PULSE 72–119; RESP 9–43; TEMP 77.7–100.2; O2SAT 88–100
[2024-08-10 00:03] LABS: Base Excess -9.9 mmol/L (-2.0-3.0)
[2024-08-10] MEDS: SODIUM BICARB 8.4% 50Meq/50ml SYR Vial IV ONE (01:22)
[2024-08-10] MEDS: LABETALOL HCL 20 MG/4 ML VL IV ONE (01:37)
[2024-08-10] MEDS: hydrALAZINE HCL 20 MG/ML VL IV PRN (03:29)
[2024-08-10] MEDS: LORazepam 2MG/ML-1ML VIAL IV PRN (05:06)
[2024-08-10 05:19] LABS: Potassium 4.5 mmol/L (3.5-5.1)
[2024-08-10 05:20] LABS: Anion Gap 18 (5-15); Carbon Dioxide 22 mmol/L (20-31)
[2024-08-10 05:25] LABS: BUN/Creatinine Ratio 22.6 (10.0-20.0)
[2024-08-10 05:32] LABS: Basophils # (auto) 0 10 ^3/uL (0-0.2); Basophils % (auto) 0.3 % (0.0-2.0); Eosinophils # (auto) 0 10 ^3/uL (0-0.8); Hematocrit 28.6 % (41.0-53.0); Hemoglobin 9.1 g/dL (13.5-17.5); Lymphocytes # (auto) 0.9 10 ^3/uL (0.4-5.4); Lymphocytes % (auto) 6.2 % (10.0-50.0); Mean Corpuscular Hemoglobin 28.5 pg (28.0-32.0); Mean Corpuscular Hgb Conc. 31.9 g/dL (32.0-36.0); Mean Corpuscular Volume 89.5 fL (80.0-100.0); Monocytes # (auto) 1.1 10 ^3/uL (0-1.3); Monocytes % (auto) 7.3 % (0.0-12.0); Neutrophils # (auto) 12.8 10 ^3/uL (1.6-8.6); Neutrophils % (auto) 86.2 % (37.0-80.0); Nucleated Red Blood Cells % 0.1 %; Platelet Count (auto) 290 10^3/uL (140-450); Red Cell Distribution Width 17.7 % (11.8-14.3); White Blood Cell 14.9 10^3/uL (4.4-10.8)
[2024-08-10 05:34] LABS: Blood Urea Nitrogen 61 mg/dL (9-23); Chloride 111 mmol/L (98-107); Glucose 165 mg/dL (74-106); Sodium 151 mmol/L (136-145)
--- NOTE | 2024-08-10 07:16 | DVH ---
CLINICAL INFORMATION: 74 years old, Male; Increase oxygen demand. TECHNIQUE: Single AP portable chest radiograph was obtained. COMPARISON: XY CHEST PORTABLE on DOS: 08/09/24, XY CHEST PORTABLE on DOS: 08/07/24, XY CHEST PORTABLE on DOS: 08/06/24 FINDINGS: New bilateral airspace opacities and interstitial opacities throughout both lungs, likely pulmonary e leora in the appropriate clinical setting. No pneumothorax. No other significant interval change. IMPRESSION: New bilateral airspace opacities and interstitial opacities throughout both lungs, likely pulmonary e leora in the appropriate clinical setting. Multifocal pneumonia could also have a similar appearance.
[2024-08-10] MEDS: ALBUTEROL SULF 2.5 MG/0.5ML(0.5%) NEB SOLN NEB ONE (07:26)
[2024-08-10 07:39] LABS: Base Excess -2.5 mmol/L (-2.0-3.0)
--- NOTE | 2024-08-10 10:33 | MEDREC ---
[facility] Intervention Section I [facility] Intervention: Review courses of therapy (THE CHEST X-RAY TODAY 08/10 SHOW NEW OPACITIES TODAY IN BOTH LUNGS. THE WBC REMAINS ELEVATED. PATIENT HAS RECEIVED ANTIBIOTIC FOR 7 DAYS. PLEASE REVIEW IF PATIENT NEEDS MORE BROAD SPECTRUM ANTIBIOTICS OR DRAW NEW RESPIRATORY CULTURE) ESTELA HERNANDEZ Aug 10, 2024 10:33
[2024-08-10] MEDS: FUROSEMIDE 20 MG/2 ML VIAL IV ONE (11:53)
--- NOTE | 2024-08-10 13:02 | DVHPN2 ---
Progress Note - Dictate Date Seen: Aug 10, 2024 Medical Necessity Reason Pt with a Central, PICC or Fol: Yes The following are medically ne: Mcdonald Catheter Reason for mcdonald catheter: Strict I&O Subjective Patient restless and not following commands. No focal deficits. Requiring restraints. vital signs Vital Sign Date Time Temp Pulse Resp B/P (MAP) Pulse Ox O2 Delivery O2 Flow Rate FiO2 08/10/24 12:30 84 23 141/75 (97) 97 08/10/24 12:00 Nasal Cannula* 6 44 08/10/24 12:00 98.8 98.8 Total Intake and Output 08/09/24 08/09/24 08/10/24 15:00 23:00 07:00 Intake Total 443.305 ml 59.05 ml 138.150 ml Output Total 1400 ml 400 ml Balance 443.305 ml -1340.95 ml -261.850 ml medications Current Medications Medications Dose Ordered Sig/Leatha Route Start Time Stop Time Status Last Admin Dose Admin Dopamine HCl/ Dextrose 250 ml @ 15.188 mls/ hr [id number] IV 08/04/24 06:15 08/05/24 18:55 15.188 MLS/HR Fentanyl Citrate 250 ml @ 2.5 mls/hr Q24H IV 08/04/24 08:00 08/08/24 20:39 10 MLS/HR Ceftriaxone Sodium 50 ml @ 100 mls/hr DAILY@09 IV 08/05/24 09:00 08/10/24 08:08 100 MLS/HR Nitroglycerin 0.4 mg Q5MINP PRN SL 08/04/24 14:45 Morphine Sulfate 2 mg Q30M PRN IV 08/04/24 14:45 08/09/24 17:29 2 MG Diagnostic Test (Pha) 1 strip Q6HR 08/04/24 18:00 08/10/24 11:41 1 STRIP Insulin Human Regular Q6HR SC 08/04/24 18:00 08/10/24 06:07 2 UNITS Dextrose 50 ml UD PRN IV 08/04/24 15:00 Insulin Glargine 10 units HS SC 08/04/24 22:00 08/09/24 22:09 10 UNITS Pantoprazole Sodium 40 mg DAILY IV 08/05/24 10:00 08/10/24 09:45 40 MG Allopurinol 100 mg BID PO 08/04/24 22:00 08/09/24 10:56 100 MG Tamsulosin HCl 0.4 mg QPM PO 08/04/24 18:00 08/08/24 17:18 0.4 MG Doxycycline Hyclate 100 ml @ 50 mls/hr Q12H IV 08/09/24 22:00 08/10/24 09:45 50 MLS/HR Lorazepam 0.5 mg Q12HR PRN IV 08/09/24 17:15 08/10/24 05:06 0.5 MG Morphine Sulfate 2 mg Q4HPRN PRN IV 08/09/24 18:00 08/09/24 18:44 2 MG Hydralazine HCl 20 mg Q6HP PRN IV 08/09/24 21:15 08/10/24 03:29 20 MG Dexmedetomidine HCl 400 mcg/ Dextrose 100 ml @ 4.05 mls/hr Q24H IV 08/09/24 22:30 UNV Dexmedetomidine HCl 400 mcg/ Dextrose 100 ml @ 4.05 mls/hr Q24H IV 08/09/24 22:45 08/10/24 09:46 14.175 MLS/HR objective General appearance: Restless Respiratory: Coarse crackles Cardiovascular: Regular rate and rhythm, no murmurs. No edema Abdomen: Soft, nondistended, nontender, bowel sounds present MSK: Normal range of motion. No focal deficits. Neuro: A/O x0. PERRLA. no focal deficits. No facial droop. Psych:Agitated laboratory and microbiology Laboratory Tests 08/10/24 04:38 Test 08/10/24 04:38 Range/Units Serum Glucose 165 H 74-106 mg/dL Assessment/Plan 1) Acute respiratory failure, intubated 2) Cardiac arrest s/p CPR/ROSC 3) Complete heart block s/p PPI 4) Acute Kidney Injury - resolving Secondary Diagnosis: 5) A fib 6) HTN 7) HLD 8) COPD 9) DM type 2 10) Recent TAVR 06/2024 at [facility] 11) Altered mental status Assessment/Plan plan; - Continue ICU monitoring - Extubated 08/09/24 - S/P PPI done with cardiology 08/05, Heart rates at 70 - Echo showed ef 40-45% - S/p bronchoscopy on Aug 07 with clearance of noted mucous plugging, - Cr at 2.7, worsening. Given additional lasix 20mg IV x1 for pulmonary vascular congestion - blood and urine cultures NGTD - pulm/cardio/renal on board, - Neurology consulted due to AMS. Unable to obtain EEG due to movement -CT brain WO contrast ordered once oxygen requirement improves. No focal deficits to suggest acute stroke at this time. Concern for anoxic brain injury vs metabolic encephalopathy. -Discussed plan of care with spouse and daughter at bedside. -Full Code. Dietary Evaluation Review Comments: 1. For better controlled glucose level, recommend Glucerna TF 40ml/hr, in 24 hr providing 58g pro, 1152 kcal, supporting pt's protein needs at 89%, energy needs at 71%. 2. Consider a 2g Na low fat low Chol CCHO-60 diet when pt is off vent and pass speech eval. 3. Consider TPN per pharmacy if pt is no EN suitable and has been NPO > 7 days. Expected Outcomes/Goals: Off vent and advance to diet Maintain BW. Plan discussed with: Spouse, Daughter MARJAN GARCIA DO Aug 10, 2024 13:02
--- NOTE | 2024-08-10 14:40 | DVHPN2 ---
Progress Note - Dictate Date Seen: Aug 10, 2024 Medical Necessity Reason Pt with a Central, PICC or Fol: Yes The following are medically ne: Mcdonald Catheter Reason for mcdonald catheter: Strict I&O Subjective Remains altered vital signs Vital Sign Date Time Temp Pulse Resp B/P (MAP) Pulse Ox O2 Delivery O2 Flow Rate FiO2 08/10/24 14:15 75 18 173/75 (107) 100 08/10/24 14:00 99.0 210.2 08/10/24 12:00 Nasal Cannula* 6 44 Total Intake and Output 08/09/24 08/09/24 08/10/24 15:00 23:00 07:00 Intake Total 443.305 ml 59.05 ml 138.150 ml Output Total 1400 ml 400 ml Balance 443.305 ml -1340.95 ml -261.850 ml medications Current Medications Medications Dose Ordered Sig/Leatha Route Start Time Stop Time Status Last Admin Dose Admin Dopamine HCl/ Dextrose 250 ml @ 15.188 mls/ hr [id number] IV 08/04/24 06:15 08/05/24 18:55 15.188 MLS/HR Fentanyl Citrate 250 ml @ 2.5 mls/hr Q24H IV 08/04/24 08:00 08/08/24 20:39 10 MLS/HR Ceftriaxone Sodium 50 ml @ 100 mls/hr DAILY@09 IV 08/05/24 09:00 08/10/24 08:08 100 MLS/HR Nitroglycerin 0.4 mg Q5MINP PRN SL 08/04/24 14:45 Morphine Sulfate 2 mg Q30M PRN IV 08/04/24 14:45 08/09/24 17:29 2 MG Diagnostic Test (Pha) 1 strip Q6HR 08/04/24 18:00 08/10/24 11:41 1 STRIP Insulin Human Regular Q6HR SC 08/04/24 18:00 08/10/24 06:07 2 UNITS Dextrose 50 ml UD PRN IV 08/04/24 15:00 Insulin Glargine 10 units HS SC 08/04/24 22:00 08/09/24 22:09 10 UNITS Pantoprazole Sodium 40 mg DAILY IV 08/05/24 10:00 08/10/24 09:45 40 MG Allopurinol 100 mg BID PO 08/04/24 22:00 08/09/24 10:56 100 MG Tamsulosin HCl 0.4 mg QPM PO 08/04/24 18:00 08/08/24 17:18 0.4 MG Doxycycline Hyclate 100 ml @ 50 mls/hr Q12H IV 08/09/24 22:00 08/10/24 09:45 50 MLS/HR Lorazepam 0.5 mg Q12HR PRN IV 08/09/24 17:15 08/10/24 05:06 0.5 MG Morphine Sulfate 2 mg Q4HPRN PRN IV 08/09/24 18:00 08/09/24 18:44 2 MG Hydralazine HCl 20 mg Q6HP PRN IV 08/09/24 21:15 08/10/24 03:29 20 MG Dexmedetomidine HCl 400 mcg/ Dextrose 100 ml @ 4.05 mls/hr Q24H IV 08/09/24 22:30 UNV Dexmedetomidine HCl 400 mcg/ Dextrose 100 ml @ 4.05 mls/hr Q24H IV 08/09/24 22:45 08/10/24 09:46 14.175 MLS/HR objective Gen: nad cachectic lungs: Coarse breath sounds cvs: no rub abd: soft, bowel sounds audible ext: no edema laboratory and microbiology Laboratory Tests 08/10/24 04:38 Test 08/10/24 04:38 Range/Units Serum Glucose 165 H 74-106 mg/dL Assessment/Plan Problem List/Assessment/Plan Acute kidney injury on Chronic kidney disease four hemodynamic mediated Bradycardia status post cpr Encephalopathy Ventilator-dependent hypoxic respiratory failure Recommendations - agree with holding further diuretics, given mild hypernatremia and up trending serum creatinine Speak for possible mild volume deplete state - we will continue to follow closely Dietary Evaluation Review Comments: 1. For better controlled glucose level, recommend Glucerna TF 40ml/hr, in 24 hr providing 58g pro, 1152 kcal, supporting pt's protein needs at 89%, energy needs at 71%. 2. Consider a 2g Na low fat low Chol CCHO-60 diet when pt is off vent and pass speech eval. 3. Consider TPN per pharmacy if pt is no EN suitable and has been NPO > 7 days. Expected Outcomes/Goals: Off vent and advance to diet Maintain BW. Plan discussed with: ALMA Gambino MD Aug 10, 2024 14:40
--- NOTE | 2024-08-10 21:07 | DVHPN2 ---
Progress Note - Dictate Date Seen: Aug 10, 2024 Medical Necessity Reason Pt with a Central, PICC or Fol: Yes The following are medically ne: Mcdonald Catheter Reason for mcdonald catheter: Strict I&O Subjective Patient seen and examined at bedside. Remains on supplemental oxygen Overnight events reviewed. vital signs Vital Sign Date Time Temp Pulse Resp B/P (MAP) Pulse Ox O2 Delivery O2 Flow Rate FiO2 08/10/24 18:54 119 40 172/80 08/10/24 18:30 99 08/10/24 18:00 Nasal Cannula* 6 44 08/10/24 16:00 99.1 210.4 Total Intake and Output 08/09/24 08/09/24 08/10/24 15:00 23:00 07:00 Intake Total 443.305 ml 59.05 ml 138.150 ml Output Total 1400 ml 400 ml Balance 443.305 ml -1340.95 ml -261.850 ml medications Current Medications Medications Dose Ordered Sig/Leatha Route Start Time Stop Time Status Last Admin Dose Admin Dopamine HCl/ Dextrose 250 ml @ 15.188 mls/ hr [id number] IV 08/04/24 06:15 08/05/24 18:55 15.188 MLS/HR Fentanyl Citrate 250 ml @ 2.5 mls/hr Q24H IV 08/04/24 08:00 08/08/24 20:39 10 MLS/HR Ceftriaxone Sodium 50 ml @ 100 mls/hr DAILY@09 IV 08/05/24 09:00 08/10/24 08:08 100 MLS/HR Nitroglycerin 0.4 mg Q5MINP PRN SL 08/04/24 14:45 Morphine Sulfate 2 mg Q30M PRN IV 08/04/24 14:45 08/09/24 17:29 2 MG Diagnostic Test (Pha) 1 strip Q6HR 08/04/24 18:00 08/10/24 17:42 1 STRIP Insulin Human Regular Q6HR SC 08/04/24 18:00 08/10/24 17:43 3 UNITS Dextrose 50 ml UD PRN IV 08/04/24 15:00 Insulin Glargine 10 units HS SC 08/04/24 22:00 08/09/24 22:09 10 UNITS Pantoprazole Sodium 40 mg DAILY IV 08/05/24 10:00 08/10/24 09:45 40 MG Allopurinol 100 mg BID PO 08/04/24 22:00 08/09/24 10:56 100 MG Tamsulosin HCl 0.4 mg QPM PO 08/04/24 18:00 08/08/24 17:18 0.4 MG Doxycycline Hyclate 100 ml @ 50 mls/hr Q12H IV 08/09/24 22:00 08/10/24 09:45 50 MLS/HR Lorazepam 0.5 mg Q12HR PRN IV 08/09/24 17:15 08/10/24 05:06 0.5 MG Morphine Sulfate 2 mg Q4HPRN PRN IV 08/09/24 18:00 08/10/24 18:54 2 MG Hydralazine HCl 20 mg Q6HP PRN IV 08/09/24 21:15 08/10/24 18:20 20 MG Dexmedetomidine HCl 400 mcg/ Dextrose 100 ml @ 4.05 mls/hr Q24H IV 08/09/24 22:30 UNV Dexmedetomidine HCl 400 mcg/ Dextrose 100 ml @ 4.05 mls/hr Q24H IV 08/09/24 22:45 08/10/24 16:53 14.175 MLS/HR objective Gen.: Patient lying in bed in no apparent distress. On supplemental oxygen. Head: Normocephalic, atraumatic. Eyes: EOMI/PERRLA. Ears: Normal hearing. Normal anatomy. Neck/trachea: Trachea midline, supple. Nose: Normal external anatomy. Mouth: Moist mucous membranes. Chest: Decreased air entry bilaterally. No wheezing or rhonchi. Cardiovascular: Positive S1, positive S2. Regular rate and rhythm. Abdomen: Positive bowel sounds in all 4 quadrants. Soft, non-tender, non- distended. : Deferred. Rectal: Deferred. Skin: Warm, dry. Intact. Extremities: 2+ radial pulses bilaterally. No lower extremity edema. Neuro: Awake, alert, oriented x3. No gross motor or sensory deficits. Cranial nerves II through XII intact. Gait not assessed. laboratory and microbiology Laboratory Tests 08/10/24 04:38 Test 08/10/24 04:38 Range/Units Serum Glucose 165 H 74-106 mg/dL Assessment/Plan Impression: Acute hypoxic respiratory failure On mechanical ventilator Bradycardia/complete heart block S/p TAVR Acute exacerbation of CHF S/p cardiac arrest Elevated troponin Chronic kidney disease Events: Remains on supplemental O2, 6 LPM NC Taper o2 as tolerated On Precedex drip for agitation Off sedation Neurology consultation - obtain EEG, CT head Cardiology recs appreciated Lasix IVP for diuresis Monitor renal function Continue antibiotics Hydralazine PRN systolic BP >160. Patient remains with altered mental status. S/p pacer. Labs and imaging reviewed. Rest of plan as noted below. Plan: s/p extubation on 08/09/24 Supplemental oxygen Titrate to keep O2 sats above 90%. Continue antibiotics. Dopamine 5 mcg/min d/t bradycardia - on hold Monitor renal function Monitor electrolytes. Supplement as necessary. Monitor ins and outs. Maintain euvolemia. GI prophylaxis. DVT prophylaxis. Prognosis: Poor given patient's multiple co-morbidities. Condition: Critical Rest of plan per hospitalist and other consultants. A total of 35 minutes of critical care time was spent reviewing the patient record, examining the patient, making a diagnostic and therapeutic plan, discussing this plan with the medical personnel, following up on diagnostic studies and following the patient for clinical stability excluding any and all procedures. At least 50% of this time was spent in direct, [id number] contact. Thank you, ADMINISTRATIVE OPERATIONS COORDINATOR Abel, for allowing me to participate in this patient's care. Further recommendations will depend on the patient's clinical course. Please do not hesitate to contact me if you have any questions or concerns. This medical document was created using an electronic medical record system with [employer] dictation system. Although these documentations are being carefully reviewed, there may still be some phonetic and typographical changes. The errors are purely typographical, due to imperfection on the software program, and do not reflect any compromise in the patient's medical care. Dietary Evaluation Review Comments: 1. For better controlled glucose level, recommend Glucerna TF 40ml/hr, in 24 hr providing 58g pro, 1152 kcal, supporting pt's protein needs at 89%, energy needs at 71%. 2. Consider a 2g Na low fat low Chol CCHO-60 diet when pt is off vent and pass speech eval. 3. Consider TPN per pharmacy if pt is no EN suitable and has been NPO > 7 days. Expected Outcomes/Goals: Off vent and advance to diet Maintain BW. Plan discussed with: Other (NANCY Richter) Critical Care Time(min): 35 PRAKASH,FARIHA M MD Aug 10, 2024 21:07
[2024-08-10 21:09] LABS: Base Excess -4.5 mmol/L (-2.0-3.0)
[2024-08-11] VITALS (95 sets, daily range): BP systolic 135–190; BP diastolic 36–142; PULSE 70–108; RESP 12–25; TEMP 87.4–98.7; O2SAT 95–100
[2024-08-11] MEDS: POTASSIUM CHLORIDE 20 MEQ in D5W 5% 1,000 ML IV SCH (01:03)
[2024-08-11 05:25] LABS: Basophils # (auto) 0.1 10 ^3/uL (0-0.2); Basophils % (auto) 0.4 % (0.0-2.0); Eosinophils # (auto) 0 10 ^3/uL (0-0.8); Hematocrit 28.5 % (41.0-53.0); Hemoglobin 9.1 g/dL (13.5-17.5); Lymphocytes # (auto) 1.3 10 ^3/uL (0.4-5.4); Lymphocytes % (auto) 7.9 % (10.0-50.0); Mean Corpuscular Hemoglobin 28.7 pg (28.0-32.0); Mean Corpuscular Volume 89.7 fL (80.0-100.0); Monocytes # (auto) 1.4 10 ^3/uL (0-1.3); Monocytes % (auto) 8.9 % (0.0-12.0); Neutrophils # (auto) 13.4 10 ^3/uL (1.6-8.6); Neutrophils % (auto) 82.8 % (37.0-80.0); Nucleated Red Blood Cells % 0.2 %; Platelet Count (auto) 250 10^3/uL (140-450); Red Blood Cells 3.18 10^6/uL (4.5-5.90); White Blood Cell 16.2 10^3/uL (4.4-10.8)
[2024-08-11 05:41] LABS: Anion Gap 13 (5-15); Carbon Dioxide 26 mmol/L (20-31); Potassium 4.4 mmol/L (3.5-5.1)
[2024-08-11 05:43] LABS: Calcium 10.1 mg/dL (8.7-10.4)
[2024-08-11 05:47] LABS: Chloride 116 mmol/L (98-107); Sodium 155 mmol/L (136-145)
[2024-08-11 05:48] LABS: BUN/Creatinine Ratio 25.3 (10.0-20.0); Glucose 104 mg/dL (74-106)
[2024-08-11 06:02] LABS: Blood Urea Nitrogen 78 mg/dL (9-23)
[2024-08-11] MEDS: FUROSEMIDE 40 MG/4 ML VIAL IV SCH (10:15)
--- NOTE | 2024-08-11 14:09 | DVHPN2 ---
Progress Note - Dictate Date Seen: Aug 11, 2024 Medical Necessity Reason Pt with a Central, PICC or Fol: Yes The following are medically ne: Mcdonald Catheter Reason for mcdonald catheter: Strict I&O Subjective Patient restless and not following commands. No focal deficits. Requiring restraints. vital signs Vital Sign Date Time Temp Pulse Resp B/P (MAP) Pulse Ox O2 Delivery O2 Flow Rate FiO2 08/11/24 13:45 93 19 160/59 (92) 100 08/11/24 12:00 Oxymizer 5 N/A 08/11/24 12:00 98.4 209.1 Total Intake and Output 08/10/24 08/10/24 08/11/24 15:00 23:00 07:00 Intake Total 262 ml 84 ml 112 ml Output Total 625 ml 725 ml Balance 262 ml -541 ml -613 ml medications Current Medications Medications Dose Ordered Sig/Leatha Route Start Time Stop Time Status Last Admin Dose Admin Dopamine HCl/ Dextrose 250 ml @ 15.188 mls/ hr [id number] IV 08/04/24 06:15 08/05/24 18:55 15.188 MLS/HR Fentanyl Citrate 250 ml @ 2.5 mls/hr Q24H IV 08/04/24 08:00 08/08/24 20:39 10 MLS/HR Ceftriaxone Sodium 50 ml @ 100 mls/hr DAILY@09 IV 08/05/24 09:00 08/11/24 08:02 100 MLS/HR Nitroglycerin 0.4 mg Q5MINP PRN SL 08/04/24 14:45 Morphine Sulfate 2 mg Q30M PRN IV 08/04/24 14:45 08/09/24 17:29 2 MG Diagnostic Test (Pha) 1 strip Q6HR 08/04/24 18:00 08/11/24 11:34 1 STRIP Insulin Human Regular Q6HR SC 08/04/24 18:00 08/11/24 11:35 2 UNITS Dextrose 50 ml UD PRN IV 08/04/24 15:00 Insulin Glargine 10 units HS SC 08/04/24 22:00 08/10/24 22:52 10 UNITS Pantoprazole Sodium 40 mg DAILY IV 08/05/24 10:00 08/11/24 09:01 40 MG Allopurinol 100 mg BID PO 08/04/24 22:00 08/09/24 10:56 100 MG Tamsulosin HCl 0.4 mg QPM PO 08/04/24 18:00 08/08/24 17:18 0.4 MG Doxycycline Hyclate 100 ml @ 50 mls/hr Q12H IV 08/09/24 22:00 08/11/24 09:01 50 MLS/HR Lorazepam 0.5 mg Q12HR PRN IV 08/09/24 17:15 08/10/24 22:50 0.5 MG Morphine Sulfate 2 mg Q4HPRN PRN IV 08/09/24 18:00 08/11/24 13:05 2 MG Hydralazine HCl 20 mg Q6HP PRN IV 08/09/24 21:15 08/11/24 13:04 20 MG Dexmedetomidine HCl 400 mcg/ Dextrose 100 ml @ 4.05 mls/hr Q24H IV 08/09/24 22:30 UNV Dexmedetomidine HCl 400 mcg/ Dextrose 100 ml @ 4.05 mls/hr Q24H IV 08/09/24 22:45 08/11/24 09:02 14.175 MLS/HR Potassium Chloride 20 meq/ Dextrose 1,010 ml @ 75 mls/hr [id number] IV 08/11/24 10:00 08/11/24 11:48 75 MLS/HR Furosemide 40 mg BIDD IV 08/11/24 10:00 08/11/24 10:15 40 MG objective General appearance: Restless Respiratory: Coarse crackles Cardiovascular: Regular rate and rhythm, no murmurs. No edema Abdomen: Soft, nondistended, nontender, bowel sounds present MSK: Normal range of motion. No focal deficits. Neuro: A/O x0. PERRLA. no focal deficits. No facial droop. Psych:Agitated laboratory and microbiology Laboratory Tests 08/11/24 05:02 Test 08/11/24 05:02 Range/Units Serum Glucose 104 74-106 mg/dL Assessment/Plan 1) Acute respiratory failure, intubated 2) Cardiac arrest s/p CPR/ROSC 3) Complete heart block s/p PPI 4) Acute Kidney Injury - resolving Secondary Diagnosis: 5) A fib 6) HTN 7) HLD 8) COPD 9) DM type 2 10) Recent TAVR 06/2024 at [facility] 11) Altered mental status 12) CHF EF 40-45% Reduced Systolic Function Assessment/Plan plan; - Continue ICU monitoring - Extubated 08/09/24 - S/P PPI done with cardiology 08/05, Heart rates at 70 - Echo showed ef 40-45% - S/p bronchoscopy on Aug 07 with clearance of noted mucous plugging, - Cr worsening with hypernatremia. Starting D5W with Lasix 40mg IV BID. Repeat CMP this afternoon. - blood and urine cultures NGTD - pulm/cardio/renal on board, - Neurology consulted due to AMS. Unable to obtain EEG due to movement. -CT brain WO contrast ordered once oxygen requirement improves. No focal deficits to suggest acute stroke at this time. Concern for anoxic brain injury vs metabolic encephalopathy. -Full Code. Dietary Evaluation Review Comments: 1. For better controlled glucose level, recommend Glucerna TF 40ml/hr, in 24 hr providing 58g pro, 1152 kcal, supporting pt's protein needs at 89%, energy needs at 71%. 2. Consider a 2g Na low fat low Chol CCHO-60 diet when pt is off vent and pass speech eval. 3. Consider TPN per pharmacy if pt is no EN suitable and has been NPO > 7 days. Expected Outcomes/Goals: Off vent and advance to diet Maintain BW. Plan discussed with: Other MARJAN GARCIA DO Aug 11, 2024 14:09
[2024-08-11 15:38] LABS: Albumin 3.8 g/dL (3.2-4.8); Anion Gap 14 (5-15); BUN/Creatinine Ratio 27.9 (10.0-20.0); Calcium 9.9 mg/dL (8.7-10.4); Carbon Dioxide 24 mmol/L (20-31); Potassium 4.2 mmol/L (3.5-5.1)
[2024-08-11 15:39] LABS: Bilirubin, Total 0.9 mg/dL (0.2-1.0); Total Protein 7.4 g/dL (5.7-8.2)
[2024-08-11 15:49] LABS: Chloride 115 mmol/L (98-107); Glucose 167 mg/dL (74-106); Sodium 153 mmol/L (136-145)
[2024-08-11 15:50] LABS: Alanine Aminotransferase 289 U/L (7-40); Alkaline Phosphatase 121 U/L (46-116); Aspartate Aminotransferase 271 U/L (13-40)
[2024-08-11 15:52] LABS: Blood Urea Nitrogen 82 mg/dL (9-23)
--- NOTE | 2024-08-11 16:08 | DVHPN2 ---
Progress Note - Dictate Date Seen: Aug 11, 2024 Medical Necessity Reason Pt with a Central, PICC or Fol: Yes The following are medically ne: Mcdonald Catheter Reason for mcdonald catheter: Strict I&O Subjective Patient with noted mittens, he is not directable, he remains altered vital signs Vital Sign Date Time Temp Pulse Resp B/P (MAP) Pulse Ox O2 Delivery O2 Flow Rate FiO2 08/11/24 16:00 16 100 Oxymizer 5 N/A 08/11/24 15:15 82 152/70 (97) 08/11/24 12:00 98.4 209.1 Total Intake and Output 08/10/24 08/10/24 08/11/24 15:00 23:00 07:00 Intake Total 262 ml 84 ml 112 ml Output Total 625 ml 725 ml Balance 262 ml -541 ml -613 ml medications Current Medications Medications Dose Ordered Sig/Leatha Route Start Time Stop Time Status Last Admin Dose Admin Dopamine HCl/ Dextrose 250 ml @ 15.188 mls/ hr [id number] IV 08/04/24 06:15 08/05/24 18:55 15.188 MLS/HR Fentanyl Citrate 250 ml @ 2.5 mls/hr Q24H IV 08/04/24 08:00 08/08/24 20:39 10 MLS/HR Ceftriaxone Sodium 50 ml @ 100 mls/hr DAILY@09 IV 08/05/24 09:00 08/11/24 08:02 100 MLS/HR Nitroglycerin 0.4 mg Q5MINP PRN SL 08/04/24 14:45 Morphine Sulfate 2 mg Q30M PRN IV 08/04/24 14:45 08/09/24 17:29 2 MG Diagnostic Test (Pha) 1 strip Q6HR 08/04/24 18:00 08/11/24 11:34 1 STRIP Insulin Human Regular Q6HR SC 08/04/24 18:00 08/11/24 11:35 2 UNITS Dextrose 50 ml UD PRN IV 08/04/24 15:00 Insulin Glargine 10 units HS SC 08/04/24 22:00 08/10/24 22:52 10 UNITS Pantoprazole Sodium 40 mg DAILY IV 08/05/24 10:00 08/11/24 09:01 40 MG Allopurinol 100 mg BID PO 08/04/24 22:00 08/09/24 10:56 100 MG Tamsulosin HCl 0.4 mg QPM PO 08/04/24 18:00 08/08/24 17:18 0.4 MG Doxycycline Hyclate 100 ml @ 50 mls/hr Q12H IV 08/09/24 22:00 08/11/24 09:01 50 MLS/HR Lorazepam 0.5 mg Q12HR PRN IV 08/09/24 17:15 08/10/24 22:50 0.5 MG Morphine Sulfate 2 mg Q4HPRN PRN IV 08/09/24 18:00 08/11/24 13:05 2 MG Hydralazine HCl 20 mg Q6HP PRN IV 08/09/24 21:15 08/11/24 13:04 20 MG Dexmedetomidine HCl 400 mcg/ Dextrose 100 ml @ 4.05 mls/hr Q24H IV 08/09/24 22:30 UNV Dexmedetomidine HCl 400 mcg/ Dextrose 100 ml @ 4.05 mls/hr Q24H IV 08/09/24 22:45 08/11/24 09:02 14.175 MLS/HR Potassium Chloride 20 meq/ Dextrose 1,010 ml @ 75 mls/hr [id number] IV 08/11/24 10:00 08/11/24 11:48 75 MLS/HR Furosemide 40 mg BIDD IV 08/11/24 10:00 08/11/24 10:15 40 MG objective Gen: nad cachectic lungs: Coarse breath sounds cvs: no rub abd: soft, bowel sounds audible ext: no edema laboratory and microbiology Laboratory Tests 08/11/24 15:09 08/11/24 05:02 Test 08/11/24 15:09 Range/Units Serum Glucose 167 H 74-106 mg/dL Assessment/Plan Problem List/Assessment/Plan Acute kidney injury on Chronic kidney disease four hemodynamic mediated Bradycardia status post cpr Encephalopathy Ventilator-dependent hypoxic respiratory failure Recommendations - agree with hypotonic IV fluids - Consideration / evaluation for alternate etiology for hypoxia/ pulmonary infiltrates - Given mild hypernatremia and positive peripheral edema he appears euvolemic/ volume deplete on exam - Discussed with Dr. West, agree with plan of care. - Will continue to follow closely. Dietary Evaluation Review Comments: 1. For better controlled glucose level, recommend Glucerna TF 40ml/hr, in 24 hr providing 58g pro, 1152 kcal, supporting pt's protein needs at 89%, energy needs at 71%. 2. Consider a 2g Na low fat low Chol CCHO-60 diet when pt is off vent and pass speech eval. 3. Consider TPN per pharmacy if pt is no EN suitable and has been NPO > 7 days. Expected Outcomes/Goals: Off vent and advance to diet Maintain BW. Plan discussed with: Other ALMA KULKARNI MD Aug 11, 2024 16:08
--- NOTE | 2024-08-11 20:46 | DVHINCON2 ---
Date of service: Aug 11, [address] Scott Reason for Consultation ALOC History of Present Illness Mr. Wilkins is a 74 years old right-handed gentleman with a history of hypertension, diabetes, dyslipidemia, coronary artery disease, the patient came to the hospital on 08/04/2024 with a chief come of bradycardic, syncopal event on 08/04/2024. At this time, the patient was is awake, he responds to verbal stimuli, he tracks, but he does not vocalize, or follows, he was two point restraint, no family available for the history, the information is obtained from chart review talked to his nurse, and jonathon I saw him on 03/24/2017 for syncope, 09/23/17 for dizziness and possible TIA The patient was had bradycardia syncopal episode on 08/04/2024. The patient was had aortic valve replacement as a [facility] about two days ago, and the patient was on a Holter monitoring at home. [facility] advise him to come to emergency room if his heart rate was low. On arrived to the ER, he was heart rate was 36 (the lowest: 27) and the patient was reported experiencing dizziness, general weakness, nausea. Unfortunately, the patient coded in the ER a record as below Code blue note Code started: 08/04/2024 0746 Etiology: Cardiac arrest ROSC: 08/04/2024 07:58 Code end: 08/04/2024 0807 The patient was also received temporal intravenous pacemaker insertion With appropriate treatment, the patient was extubated on 08/09/2024, but the patient was does not improve mentally as anticipated. He moves excessively in the bed, he does not follow or less than two verbal orders [phone], no answer, no answer, Urinalysis, 08/04/2024: Unremarkable ABG, 08/04/2024: Respiratory acidosis WBC/HB/PLT/MCV, 08/11/2024: 16.2/9.1/250/897 Na, 08/04/2024: 135, 08/07/2019 5:141, 08/09/2024: 143, 08/10/2024: 151, 08/11/2024: 153 BUN/CR, 08/04/2024: 54/2.75, 08/06/2024: 42/2.09, 08/08/2024: 31/1.91, 08/10/2024: 61/2.7, 08/11/2024: 82/2.94 HGB A1c, 08/04/2024: 7.1 TBI/AST/ALT/AP, 08/11/2024: 0.9/271/289/221 TG/HDL/LDL/HDL, 08/07/2024: 0.4/8/22/139 08/04/2024: 103/110/64/26 TSH, 08/04/2024: 2.48 EEG, 03/26/18: Normal EKG, 08/04/2024: Complete AV block with wide QRS complex Right bundle branch block Chest x-ray, 08/04/2024: Cardiomediastinal silhouette. Bilateral patchy infiltrates appear increased since the prior study. No effusions or pneumothorax. Chest x-ray, 08/04/2024: ET in the mid thoracic trachea. NG in the stomach. Patchy perihilar airspace opacities could be pulmonary edema CT brain scan, 03/23/17: Unremarkable CT head, 08/04/24: No acute intracranial abnormality Past Medical History Hypertension, dyslipidemia, dyslipidemia, diabetes, coronary artery disease s/p stenting, congestive heart failure, COPD, bradycardia, syncope Past Surgical History Cataract surgeries, aortic valve replacements (08/02/2024), temperature transfer venous pacemaker insertion (08/04/2024) Family History: Asthma G8 FATHER FH: heart attack G8 FATHER Hypertension G8 MOTHER G8 FATHER Family History Hypertension, heart attack, asthma Social History Smoking: Quit more than one year ago Alcohol: None Drugs: None Lives In: Home Allergies: Coded Allergies: Ibuprofen (Verified Allergy, Unknown, 03/02/17) Home Meds Reported Medications Insulin Lispro (Insulin Lispro Kwikpen) 100 Unit/Ml Inj, 2-10 UNIT SC TID for 50 Days, #15 DIRECTED INJECT 2-10 UNITS SUBCUTANEOUSLY 3 TIMES DAILY WITH EACH MEAL PER SLINDING SCALE. 08/05/24 Gabapentin (Gabapentin) 300 Mg Cap, 1 CAP PO BID for 30 Days, #60 08/05/24 Vericiguat (Verquvo) 5 Mg Tab, 0.5 TAB PO BID for 30 Days, #30 TAKE 1/2 TABLET (2.5 MG) BY MOUTH 2 TIMES EVERY DAY. 08/05/24 Loratadine (Claritin) 10 Mg Tab, 1 TAB PO DAILY for 90 Days, #90 08/05/24 Clopidogrel Bisulfate (CLOPIDOGREL) 75 Mg Tab, 1 TAB PO DAILY for 88 Days, #88 08/05/24 Bumetanide (Bumetanide) 1 Mg Tab, 1 TAB PO BID for 90 Days, #180 08/05/24 Pantoprazole Sodium Sesquihydr (Pantoprazole Sodium Dr) 40 Mg Tab, 1 TAB PO DAILY for 90 Days, #90 08/05/24 Sodium Bicarbonate (Sodium Bicarbonate) 325 Mg Tab, 2 TAB PO BID for 90 Days, #360 08/05/24 Insulin Glargine (Insulin Glargine Solostar) 100 Unit/Ml Inj, 25 UNIT SC DAILY for 60 Days, #15 08/05/24 Metoprolol Succinate (Metoprolol Succinate Er) 25 Mg Tab, 1 TAB PO DAILY for 30 Days, #30 08/05/24 Potassium Chloride (Klor-Con M10) 10 Meq Tab, 1 TAB PO BID for 90 Days, #180 01/30/24 Pancreatic Enzymes (Creon) 24,000 Unt Cap, 1 CAP PO TID for 66 Days, #200 01/29/24 Amlodipine Besylate (Amlodipine Besylate) 5 Mg Tab, 10 MG PO QAM for HTN, MG 01/29/24 Tamsulosin Hcl (Tamsulosin Hcl) 0.4 Mg Cap, 0.4 MG PO QPM for BPH for 30 Days, MG 01/29/24 Montelukast Sodium (MONTELUKAST SODIUM) 10 Mg Tab, 1 TAB PO HS for ALLEGIES for 90 Days, #90 01/29/24 Apixaban Base (ELIQUIS) 5 Mg Tab, 1 TAB PO BID for 30 Days, #60 01/29/24 Dulaglutide (Trulicity) 4.5 Mg/0.5 Ml Inj, 4.5 MG SC QWEEKLY for DIABETES, INJ 01/29/24 Amiodarone Hcl (Amiodarone Hcl) 200 Mg Tab, 1 TAB PO DAILY for ARRHYTHMIA for 90 Days, #90 01/29/24 Trazodone HCl (Trazodone Hydrochloride) 50 Mg Tab, 2 TAB PO HS for INSOMNIA for 90 Days, #180 01/29/24 Ascorbic Acid (VITAMIN C TABLET) 500 Mg Tb, 2 TAB PO DAILY for SUPPLEMENT, #30 TAB 3 Refills 01/29/24 Magnesium Oxide (MAGNESIUM OXIDE) 400 Mg Tab, 1 TAB PO DAILY for SUPPLEMENT, #30 TAB 5 Refills 01/29/24 Krill Oil ([place]-3 500 mg) 1 Cap Cap, 2 CAP PO BID for SUPPLEMENT, CAP 01/29/24 Allopurinol (Allopurinol) 100 Mg Tab, 100 MG PO BID for GOUT, MG 01/29/24 Isosorbide Dinitrate (Isosorbide Dinitrate) 20 Mg Tab, 20 MG PO BID, MG 09/23/17 Lisinopril (Lisinopril) 10 Mg Tab, 10 MG PO DAILY for 30 Days, MG 03/24/17 Atorvastatin Calcium (ATORVASTATIN CALCIUM) 40 Mg Tab, 1 TAB PO DAILY, #30 TAB 5 Refills 03/24/17 Discontinued Reported Medications Pantoprazole Sodium (PANTOPRAZOLE SODIUM) 40 Mg Inj, 40 MG PO DAILY, INJ 01/30/24 Sodium Bicarbonate (Sodium Bicarbonate) 650 Mg Tab, 650 MG PO BID, TAB 01/29/24 Metoprolol Tartrate (Metoprolol Tartrate) 25 Mg Tab, 25 MG PO DAILY for HTN for 30 Days, MG 01/29/24 Current Medications Current Medications Medications (Trade) Dose Ordered Sig/Leatha Route PRN Reason Start Time Stop Time Status Last Admin Potassium Chloride 20 meq/ Dextrose 1,010 ml @ 75 mls/hr [id number] IV 08/11/24 10:00 08/11/24 11:48 Furosemide (Lasix Injection) 40 mg BIDD IV 08/11/24 10:00 08/11/24 17:10 Review of Systems As above, the other systems are negative Vital Signs Vital Signs Date Time Temp Pulse Resp B/P (MAP) Pulse Ox O2 Delivery O2 Flow Rate FiO2 08/11/24 20:17 82 15 174/70 08/11/24 18:45 100 08/11/24 18:00 Oxymizer 5 N/A 08/11/24 16:00 98.5 98.5 Physical Exam GENERAL EXAM: General: the patient is well developed and nourished. No acute distress. HEENT: Normocephalic, neck is supple, no carotid bruits. No mass. RESPIRATORY: Normal respiratory effort with symmetrical lung expansion. Lungs clear to auscultation. CARDIOVASCULAR: Regular rate and rhythm with no murmurs. S1, S2. ABDOMEN: Soft, nontender, normal bowel sound NEUROLOGICAL: MENTAL STATUS: HPI SPEECH, LANGUAGE, HIGHER CORTICAL FUNCTION: He does not vocalize CRANIAL NERVES: #2: Visual [place] to confrontation is fine (visual thread0. #3,4,6: Pupils are equal, round and reactive. EOMs full and conjugate. #5: Facial sensation intact in all three divisions bilaterally. Mandibular strength intact. #7: Facial muscles symmetrical and strength intact. #8: Hearing grossly normal to voice. #9,10: DEFERRED #11: Trapezius and sternomastoid strength LOOKS NORMAL #12: Tongue midline. SENSATION: Sensation to touch and pinprick is FINE MOTOR: Normal tone in the upper and lower extremity. Normal muscle bulk. No fasciculations. No abnormal movements or posturing. MUSCLE POWER IN THE ARMS AND LEGS IS FINE. REFLEXES: Deep tendon reflexes are symmetrical. No pathological reflexes. CEREBELLAR/COORDINATION: Deferred GAIT/STATION: deferred. Labs/Diagnostic Data Labs Test 08/11/24 17:07 08/11/24 15:09 08/11/24 05:02 08/10/24 20:56 Range/Units POC Glucose 184 H 70-106 mg/dl Sodium Level 153 H 136-145 mmol/L Potassium Level 4.2 3.5-5.1 mmol/L Chloride Level 115 H 98-107 mmol/L Carbon Dioxide Level 24 20-31 mmol/L Anion Gap 14 5-15 Blood Urea Nitrogen 82 *H 9-23 mg/dL Creatinine 2.94 H 0.700-1.30 mg/dL Glomerular Filtration Rate Calc 22 >90 mL/min BUN/Creatinine Ratio 27.9 H 10.0-20.0 Serum Glucose 167 H 74-106 mg/dL Calcium Level 9.9 8.7-10.4 mg/dL Total Bilirubin 0.9 0.2-1.0 mg/dL Aspartate Amino Transferase (AST) 271 H 13-40 U/L Alanine Aminotransferase (ALT) 289 H 7-40 U/L Alkaline Phosphatase 121 H 46-116 U/L Total Protein 7.4 5.7-8.2 g/dL Albumin 3.8 3.2-4.8 g/dL White Blood Count 16.2 H 4.4-10.8 10^3/uL Red Blood Count 3.18 L 4.5-5.90 10^6/uL Hemoglobin 9.1 L 13.5-17.5 g/dL Hematocrit 28.5 L 41.0-53.0 % Mean Corpuscular Volume 89.7 80.0-100.0 fL Mean Corpuscular Hemoglobin 28.7 28.0-32.0 pg Mean Corpuscular Hemoglobin Concent 32.0 32.0-36.0 g/dL Red Cell Distribution Width 18.0 H 11.8-14.3 % Platelet Count 250 140-450 10^3/uL Mean Platelet Volume 7.4 6.9-10.8 fL Neutrophils (%) (Auto) 82.8 H 37.0-80.0 % Lymphocytes (%) (Auto) 7.9 L 10.0-50.0 % Monocytes (%) (Auto) 8.9 0.0-12.0 % Eosinophils (%) (Auto) 0.0 0.0-7.0 % Basophils (%) (Auto) 0.4 0.0-2.0 % Neutrophils # (Auto) 13.4 H 1.6-8.6 10 ^3/uL Lymphocytes # (Auto) 1.3 0.4-5.4 10 ^3/uL Monocytes # (Auto) 1.4 H 0-1.3 10 ^3/uL Eosinophils # (Auto) 0 0-0.8 10 ^3/uL Basophils # (Auto) 0.1 0-0.2 10 ^3/uL Nucleated Red Blood Cells 0.2 % Blood Gas Specimen Type Arterial Blood Gas Sample Site Left radial Blood Gas Patient Temperature 37.0 Arterial Blood Date Drawn [id number] Arterial Blood pH 7.453 H 7.350-7.450 Arterial Blood Partial Pressure CO2 27.1 L 35.0-48.0 mmHg Arterial Blood Partial Pressure O2 205.3 H 83.0-108.0 mmHg Arterial Blood HCO3 18.5 L 21.0-28.0 mmol/L Arterial Blood Oxygen Saturation 98.4 H 94.0-98.0 % Arterial Blood Base Excess -4.5 L -2.0-3.0 mmol/L Arterial Blood Oxyhemoglobin 97.6 94.0-98.0 % Arterial Blood Carboxyhemoglobin 0.3 L 0.5-1.5 % Arterial Blood Methemoglobin 0.5 0.0-1.5 % Mike Test Yes Blood Gas Total Hemoglobin 9.40 L 13.5-17.5 g/dL Blood Gas Liter Flow 10.00 Blood Gas Modality Mask - simple FiO2 % 50.0 Test 08/10/24 07:24 08/10/24 06:00 08/09/24 11:52 08/09/24 06:48 Range/Units Blood Gas Spontaneous Rate 28 Blood Gas Critical Value Read Back Yes Blood Gas Notified Whom samuel Whitmore Blood Gas Notified Time [id number] Blood Gas Notified By Troponin I High Sensitivity 188 *H </=54 ng/L Blood Gas Pressure Support 8 Blood Gas PEEP or CPAP 5.0 Blood Gas Set Respiration Rate 24.0 Blood Gas Tidal Volume 500.0 Test 08/04/24 14:48 08/04/24 10:13 08/04/24 07:42 Range/Units Urine Color Light-yellow Yellow Urine Clarity Clear Clear Urine pH 5.5 5.0-9.0 Urine Specific [place] 1.016 1.001-1.035 Urine Protein 1+ H Negative Urine Ketones Negative Negative Urine Blood Negative Negative /uL Urine Nitrite Negative Negative Urine Bilirubin Negative Negative Urine Urobilinogen Normal Negative mg/dL Urine Leukocyte Esterase Negative Negative /uL Urine RBC 4 0 - 3 /hpf Urine WBC 1 0 - 3 /hpf Urine Squamous Epithelial Cells None seen <5 /hpf Urine Bacteria None seen None Seen /hpf Urine Hyaline Casts Few 0 - 2 /lpf Urine Glucose 3+ H Normal mg/dL Lactic Acid Level 1.2 0.4-2.0 mmol/L Hemoglobin A1c 7.1 H <5.7 % A1C Magnesium Level 2.2 1.6-2.6 mg/dL B-Type Natriuretic Peptide 257.06 0-100 pg/mL Triglycerides Level 103 < 150 mg/dL Cholesterol Level 110 < 200 mg/dL LDL Cholesterol 64 < 100 mg/dL HDL Cholesterol 26 L 40-59 mg/dL Thyroid Stimulating Hormone (TSH) 2.48 0.55-4.78 uIU/mL Microbiology Date/Time Source Procedure Growth Status 08/10/24 06:37 Urine - [place] Urine Culture - Preliminary Resulted 1/5/25 10:13 Blood Blood Culture - Final NO GROWTH AFTER 5 DAYS OF INCUBATION. Complete 08/04/24 08:11 Sputum Gram Stain - Final Complete 08/04/24 08:11 Sputum Respiratory Culture - Final Complete Assessment Metabolic encephalopathy Hypoxic encephalopathy Status post CPR Cardio pulmonary arrest Acute respiratory failure, extubated on 08/09/2024 Bradycardia status post pacemaker insertion Syncope Status post recent aortic valve replacement Atrial fibrillation Plan/Recommendation Monitoring Supportive treatment ICU care EEG Follow-up CT head IV antibiotics Haldol 2 mg IM Q 8 hours p.r.n. for agitation GI prophylaxis Cardiology on case Pulmonology on case Shanker Out case More recommendation per clinical course Progress: Poor Condition: Critical Critical care time spent is 45 minutes Plan discussed with: Other ANDRA LAZAR MD Aug 11, 2024 20:46
[2024-08-11] MEDS ORDERED: HALOPERIDOL LACTATE 5 MG/ML INJ VIAL IM PRN (22:00)
--- NOTE | 2024-08-11 23:47 | DVHPN2 ---
Progress Note - Dictate Date Seen: Aug 11, 2024 Medical Necessity Reason Pt with a Central, PICC or Fol: Yes The following are medically ne: Mcdonald Catheter Reason for mcdonald catheter: Strict I&O Subjective Patient seen and examined at bedside. Remains on supplemental oxygen Overnight events reviewed. vital signs Vital Sign Date Time Temp Pulse Resp B/P (MAP) Pulse Ox O2 Delivery O2 Flow Rate FiO2 08/11/24 21:45 97.9 85 17 174/73 (106) 100 208.2 08/11/24 18:00 Oxymizer 5 N/A Total Intake and Output 08/10/24 08/10/24 08/11/24 15:00 23:00 07:00 Intake Total 262 ml 84 ml 112 ml Output Total 625 ml 725 ml Balance 262 ml -541 ml -613 ml medications Current Medications Medications Dose Ordered Sig/Leatha Route Start Time Stop Time Status Last Admin Dose Admin Dopamine HCl/ Dextrose 250 ml @ 15.188 mls/ hr [id number] IV 08/04/24 06:15 08/05/24 18:55 15.188 MLS/HR Fentanyl Citrate 250 ml @ 2.5 mls/hr Q24H IV 08/04/24 08:00 08/08/24 20:39 10 MLS/HR Ceftriaxone Sodium 50 ml @ 100 mls/hr DAILY@09 IV 08/05/24 09:00 08/11/24 08:02 100 MLS/HR Nitroglycerin 0.4 mg Q5MINP PRN SL 08/04/24 14:45 Morphine Sulfate 2 mg Q30M PRN IV 08/04/24 14:45 08/09/24 17:29 2 MG Diagnostic Test (Pha) 1 strip Q6HR 08/04/24 18:00 08/11/24 17:10 1 STRIP Insulin Human Regular Q6HR SC 08/04/24 18:00 08/11/24 17:12 3 UNITS Dextrose 50 ml UD PRN IV 08/04/24 15:00 Insulin Glargine 10 units HS SC 08/04/24 22:00 08/11/24 20:19 10 UNITS Pantoprazole Sodium 40 mg DAILY IV 08/05/24 10:00 08/11/24 09:01 40 MG Allopurinol 100 mg BID PO 08/04/24 22:00 08/09/24 10:56 100 MG Tamsulosin HCl 0.4 mg QPM PO 08/04/24 18:00 08/08/24 17:18 0.4 MG Doxycycline Hyclate 100 ml @ 50 mls/hr Q12H IV 08/09/24 22:00 08/11/24 09:01 50 MLS/HR Morphine Sulfate 2 mg Q4HPRN PRN IV 08/09/24 18:00 08/11/24 20:17 2 MG Hydralazine HCl 20 mg Q6HP PRN IV 08/09/24 21:15 08/11/24 20:15 20 MG Dexmedetomidine HCl 400 mcg/ Dextrose 100 ml @ 4.05 mls/hr Q24H IV 08/09/24 22:30 UNV Potassium Chloride 20 meq/ Dextrose 1,010 ml @ 75 mls/hr [id number] IV 08/11/24 10:00 08/11/24 11:48 75 MLS/HR Furosemide 40 mg BIDD IV 08/11/24 10:00 08/11/24 17:10 40 MG Haloperidol Lactate 2 mg ONCE PRN IV 08/11/24 21:15 Haloperidol Lactate 2 mg Q8HP PRN IM 08/11/24 22:00 Cancel objective Gen.: Patient lying in bed in no apparent distress. On supplemental oxygen. Head: Normocephalic, atraumatic. Eyes: EOMI/PERRLA. Ears: Normal hearing. Normal anatomy. Neck/trachea: Trachea midline, supple. Nose: Normal external anatomy. Mouth: Moist mucous membranes. Chest: Decreased air entry bilaterally. No wheezing or rhonchi. Cardiovascular: Positive S1, positive S2. Regular rate and rhythm. Abdomen: Positive bowel sounds in all 4 quadrants. Soft, non-tender, non- distended. : Deferred. Rectal: Deferred. Skin: Warm, dry. Intact. Extremities: 2+ radial pulses bilaterally. No lower extremity edema. Neuro: Awake, alert, oriented x3. No gross motor or sensory deficits. Cranial nerves II through XII intact. Gait not assessed. laboratory and microbiology Laboratory Tests 08/11/24 15:09 08/11/24 05:02 Test 08/11/24 15:09 Range/Units Serum Glucose 167 H 74-106 mg/dL Assessment/Plan Impression: Acute hypoxic respiratory failure On mechanical ventilator Bradycardia/complete heart block S/p TAVR Acute exacerbation of CHF S/p cardiac arrest Elevated troponin Chronic kidney disease Events: Remains on supplemental O2, 5 LPM Oxymizer Taper o2 as tolerated On Precedex drip for agitation Off sedation Neurology consultation - obtain EEG, CT head Cardiology recs appreciated Diurese as tolerated w/ Lasix Monitor renal function Monitor electrolytes. Supplement as necessary. Monitor ins and outs IV fluids with D5W + KCl. Continue antibiotics Hydralazine PRN systolic BP >160. S/p pacer. Labs and imaging reviewed. Rest of plan as noted below. Plan: s/p extubation on 08/09/24 Supplemental oxygen Titrate to keep O2 sats above 90%. Continue antibiotics. Dopamine 5 mcg/min d/t bradycardia - on hold Monitor renal function Monitor electrolytes. Supplement as necessary. Monitor ins and outs. Maintain euvolemia. GI prophylaxis. DVT prophylaxis. Prognosis: Poor given patient's multiple co-morbidities. Condition: Critical Rest of plan per hospitalist and other consultants. A total of 35 minutes of critical care time was spent reviewing the patient record, examining the patient, making a diagnostic and therapeutic plan, discussing this plan with the medical personnel, following up on diagnostic studies and following the patient for clinical stability excluding any and all procedures. At least 50% of this time was spent in direct, [id number] contact. Thank you, ARGELIA Roman, for allowing me to participate in this patient's care. Further recommendations will depend on the patient's clinical course. Please do not hesitate to contact me if you have any questions or concerns. This medical document was created using an electronic medical record system with [employer] dictation system. Although these documentations are being carefully reviewed, there may still be some phonetic and typographical changes. The errors are purely typographical, due to imperfection on the software program, and do not reflect any compromise in the patient's medical care. Dietary Evaluation Review Comments: 1. For better controlled glucose level, recommend Glucerna TF 40ml/hr, in 24 hr providing 58g pro, 1152 kcal, supporting pt's protein needs at 89%, energy needs at 71%. 2. Consider a 2g Na low fat low Chol CCHO-60 diet when pt is off vent and pass speech eval. 3. Consider TPN per pharmacy if pt is no EN suitable and has been NPO > 7 days. Expected Outcomes/Goals: Off vent and advance to diet Maintain BW. Plan discussed with: Other (NANCY Richter) Critical Care Time(min): 35 FARIHA PRAKASH MD Aug 11, 2024 23:47
[2024-08-12] VITALS (35 sets, daily range): BP systolic 135–178; BP diastolic 50–123; PULSE 90–112; RESP 12–30; TEMP 95.7–99.7; O2SAT 95–100
--- NOTE | 2024-08-12 08:55 | DVHPN2 ---
Progress Note - Dictate Date Seen: Aug 12, 2024 Medical Necessity Reason Pt with a Central, PICC or Fol: Yes The following are medically ne: Mcdonald Catheter Reason for mcdonald catheter: Strict I&O Subjective Mr. Wilkins is a 74 years old right-handed gentleman with a history of hypertension, diabetes, dyslipidemia, coronary artery disease, the patient came to the hospital on 08/04/2024 with a chief come of bradycardic, syncopal event on 08/04/2024. I have seen and examined the patient, I have discussed with his nurse, the patient was is significant improved, he was awake, oriented to person, place, he knows year, he follow commands, answer questions, voice is soft and slurry, he moves the arms and legs, he was not able to provide history I saw him on 03/24/2017 for syncope, 09/23/17 for dizziness and possible TIA His in the room, she tells me the patient had TAVR on 07/30/2024 in the [facility], and the patient was sent home with a heart monitor. Around 1:00 a.m. on 08/04/2024, the patient woke up with shaking all over the body as if he was seizing, meanwhile the patient asked his to help him to get up. He woke up again around 4:00 p.m. on 08/04/2024, with similar but less intense shaking in the arms and legs, and at the same time [facility] called them that he need medical attention right away because his heart rate dropped to 22. Of the arrived in the emergency room, the patient was nausea, and then he coded Urinalysis, 08/04/2024: Unremarkable ABG, 08/04/2024: Respiratory acidosis WBC/HB/PLT/MCV, 08/11/2024: 16.2/9.1/250/897 Na, 08/04/2024: 135, 08/07/2019 5:141, 08/09/2024: 143, 08/10/2024: 151, 08/11/2024: 153 BUN/CR, 08/04/2024: 54/2.75, 08/06/2024: 42/2.09, 08/08/2024: 31/1.91, 08/10/2024: 61/2.7, 08/11/2024: 82/2.94 HGB A1c, 08/04/2024: 7.1 TBI/AST/ALT/AP, 08/07/2024: 0.4/8/22/139, 08/11/2024: 0.9/271/289/221 TG/HDL/LDL/HDL, 08/04/2024: 103/110/64/26 TSH, 08/04/2024: 2.48 EEG, 03/26/18: Normal EKG, 08/04/2024: Complete AV block with wide QRS complex Right bundle branch block Chest x-ray, 08/04/2024: Cardiomediastinal silhouette. Bilateral patchy infiltrates appear increased since the prior study. No effusions or pneumothorax. Chest x-ray, 08/04/2024: ET in the mid thoracic trachea. NG in the stomach. Patchy perihilar airspace opacities could be pulmonary edema CT brain scan, 03/23/17: Unremarkable CT head, 08/04/24: No acute intracranial abnormality vital signs Vital Sign Date Time Temp Pulse Resp B/P (MAP) Pulse Ox O2 Delivery O2 Flow Rate FiO2 08/12/24 06:00 105 08/12/24 06:00 19 99 Oxymizer 3 N/A 08/12/24 06:00 99.0 155/76 (102) 210.2 Total Intake and Output 08/11/24 08/11/24 08/12/24 15:00 23:00 07:00 Intake Total 497 ml 609 ml 625 ml Output Total 1850 ml 2300 ml Balance 497 ml -1241 ml -1675 ml medications Current Medications Medications Dose Ordered Sig/Leatha Route Start Time Stop Time Status Last Admin Dose Admin Dopamine HCl/ Dextrose 250 ml @ 15.188 mls/ hr [id number] IV 08/04/24 06:15 08/05/24 18:55 15.188 MLS/HR Fentanyl Citrate 250 ml @ 2.5 mls/hr Q24H IV 08/04/24 08:00 08/08/24 20:39 10 MLS/HR Ceftriaxone Sodium 50 ml @ 100 mls/hr DAILY@09 IV 08/05/24 09:00 08/11/24 08:02 100 MLS/HR Nitroglycerin 0.4 mg Q5MINP PRN SL 08/04/24 14:45 Morphine Sulfate 2 mg Q30M PRN IV 08/04/24 14:45 08/09/24 17:29 2 MG Diagnostic Test (Pha) 1 strip Q6HR 08/04/24 18:00 08/12/24 06:00 1 STRIP Insulin Human Regular Q6HR SC 08/04/24 18:00 08/12/24 05:53 4 UNITS Dextrose 50 ml UD PRN IV 08/04/24 15:00 Insulin Glargine 10 units HS SC 08/04/24 22:00 08/11/24 20:19 10 UNITS Pantoprazole Sodium 40 mg DAILY IV 08/05/24 10:00 08/11/24 09:01 40 MG Allopurinol 100 mg BID PO 08/04/24 22:00 08/09/24 10:56 100 MG Tamsulosin HCl 0.4 mg QPM PO 08/04/24 18:00 08/08/24 17:18 0.4 MG Doxycycline Hyclate 100 ml @ 50 mls/hr Q12H IV 08/09/24 22:00 08/12/24 01:03 50 MLS/HR Morphine Sulfate 2 mg Q4HPRN PRN IV 08/09/24 18:00 08/12/24 02:52 2 MG Hydralazine HCl 20 mg Q6HP PRN IV 08/09/24 21:15 08/12/24 02:50 20 MG Dexmedetomidine HCl 400 mcg/ Dextrose 100 ml @ 4.05 mls/hr Q24H IV 08/09/24 22:30 UNV Potassium Chloride 20 meq/ Dextrose 1,010 ml @ 75 mls/hr [id number] IV 08/11/24 10:00 08/11/24 01:03 75 MLS/HR Furosemide 40 mg BIDD IV 08/11/24 10:00 08/12/24 05:57 40 MG Haloperidol Lactate 2 mg ONCE PRN IV 08/11/24 21:15 Haloperidol Lactate 2 mg Q8HP PRN IM 08/11/24 22:00 Cancel objective General: the patient is well developed and nourished. No acute distress. MENTAL STATUS: Subjective SPEECH, LANGUAGE, HIGHER CORTICAL FUNCTION: No aphasia CRANIAL NERVES: Pupils are equal, round and reactive. EOMs full and conjugate. Facial sensation intact in all three divisions bilaterally. Mandibular strength intact. Facial muscles symmetrical and strength intact. SENSATION: Sensation to touch and pinprick is fine MOTOR: Normal tone in the upper and lower extremity. Normal muscle bulk. No fasciculations. No abnormal movements or posturing. Muscle power is a normal in the extremities REFLEXES: Deep tendon reflexes are symmetrical. No pathological reflexes. CEREBELLAR/COORDINATION: Deferred GAIT/STATION: deferred. laboratory and microbiology Laboratory Tests 08/11/24 15:09 08/11/24 05:02 Test 08/11/24 15:09 Range/Units Serum Glucose 167 H 74-106 mg/dL Problem List Metabolic encephalopathy Hypoxic encephalopathy Status post CPR Cardio pulmonary arrest Acute respiratory failure, extubated on 08/09/2024 Bradycardia status post pacemaker insertion Syncope Status post recent aortic valve replacement Atrial fibrillation Assessment/Plan Monitoring Supportive treatment ICU care EEG Follow-up CT head IV antibiotics Haldol 2 mg IM Q 8 hours p.r.n. for agitation GI prophylaxis Cardiology on case Pulmonology on case Insurance Claim Representative case More recommendation per clinical course This medical document was created using an electronic medical record system with [employer] dictation system. Although this document has been carefully reviewed, there may still be some phonetic and typographical errors. These areas are purely typographical due to imperfections of the software programs, and do not reflect any compromise in the patient's medical care. Prognosis Critical Dietary Evaluation Review Comments: 1. For better controlled glucose level, recommend Glucerna TF 40ml/hr, in 24 hr providing 58g pro, 1152 kcal, supporting pt's protein needs at 89%, energy needs at 71%. 2. Consider a 2g Na low fat low Chol CCHO-60 diet when pt is off vent and pass speech eval. 3. Consider TPN per pharmacy if pt is no EN suitable and has been NPO > 7 days. Expected Outcomes/Goals: Off vent and advance to diet Maintain BW. Plan discussed with: Spouse, Other Critical Care Time(min): 45 ANDRA LAZAR MD Aug 12, 2024 08:55
--- NOTE | 2024-08-12 10:02 | DVH ---
CHEST RADIOGRAPH Indication: Resp failure with congestion Technique: Single frontal view of the chest was obtained COMPARISON: XY CHEST PORTABLE on DOS: 08/10/24, XY CHEST PORTABLE on DOS: 08/09/24, XY CHEST PORTABLE o n DOS: 08/07/24, XY CHEST PORTABLE on DOS: 08/06/24, XY CHEST PORTABLE on DOS: 08/05/24 FINDINGS: Lines and Tubes: Median sternotomy. Left chest wall pacemaker Lungs: Clear Pleura: No effusion. No pneumothorax. Cardiomediastinal contours: Cardiac valve replacement. Bones: Unremarkable IMPRESSION: No acute disease.
[2024-08-12] MEDS: ALBUTEROL SULF 2.5 MG/0.5ML(0.5%) NEB SOLN NEB PRN (10:24)
[2024-08-12] MEDS: IPRATROPIUM BROM 0.5 MG/2.5ML INH SOL NEB SCH (10:24)
--- NOTE | 2024-08-12 12:05 | DVHPN2 ---
Progress Note Date Seen: Aug 12, 2024 Medical Necessity Reason Pt with a Central, PICC or Fol: Yes The following are medically ne: Mcdonald Catheter Reason for mcdonald catheter: Strict I&O Subjective Patient reports: No new complaints Objective vital signs Vital Sign Date Time Temp Pulse Resp B/P (MAP) Pulse Ox O2 Delivery O2 Flow Rate FiO2 08/12/24 11:00 98.8 100 13 158/69 (98) 99 209.8 08/12/24 10:00 Nasal Cannula* 3 32 Total Intake and Output 08/11/24 08/11/24 08/12/24 15:00 23:00 07:00 Intake Total 497 ml 609 ml 625 ml Output Total 1850 ml 2300 ml Balance 497 ml -1241 ml -1675 ml medications Current Medications Medications Dose Ordered Sig/Leatha Route Start Time Stop Time Status Last Admin Dose Admin Dopamine HCl/ Dextrose 250 ml @ 15.188 mls/ hr [id number] IV 08/04/24 06:15 08/05/24 18:55 15.188 MLS/HR Fentanyl Citrate 250 ml @ 2.5 mls/hr Q24H IV 08/04/24 08:00 08/08/24 20:39 10 MLS/HR Ceftriaxone Sodium 50 ml @ 100 mls/hr DAILY@09 IV 08/05/24 09:00 08/12/24 10:33 100 MLS/HR Nitroglycerin 0.4 mg Q5MINP PRN SL 08/04/24 14:45 Morphine Sulfate 2 mg Q30M PRN IV 08/04/24 14:45 08/09/24 17:29 2 MG Diagnostic Test (Pha) 1 strip Q6HR 08/04/24 18:00 08/12/24 11:04 1 STRIP Insulin Human Regular Q6HR SC 08/04/24 18:00 08/12/24 11:03 3 UNITS Dextrose 50 ml UD PRN IV 08/04/24 15:00 Insulin Glargine 10 units HS SC 08/04/24 22:00 08/11/24 20:19 10 UNITS Pantoprazole Sodium 40 mg DAILY IV 08/05/24 10:00 08/12/24 10:33 40 MG Allopurinol 100 mg BID PO 08/04/24 22:00 08/09/24 10:56 100 MG Tamsulosin HCl 0.4 mg QPM PO 08/04/24 18:00 08/08/24 17:18 0.4 MG Doxycycline Hyclate 100 ml @ 50 mls/hr Q12H IV 08/09/24 22:00 08/12/24 10:33 50 MLS/HR Morphine Sulfate 2 mg Q4HPRN PRN IV 08/09/24 18:00 08/12/24 02:52 2 MG Hydralazine HCl 20 mg Q6HP PRN IV 08/09/24 21:15 08/12/24 02:50 20 MG Dexmedetomidine HCl 400 mcg/ Dextrose 100 ml @ 4.05 mls/hr Q24H IV 08/09/24 22:30 UNV Potassium Chloride 20 meq/ Dextrose 1,010 ml @ 75 mls/hr [id number] IV 08/11/24 10:00 08/11/24 01:03 75 MLS/HR Haloperidol Lactate 2 mg ONCE PRN IV 08/11/24 21:15 Haloperidol Lactate 2 mg Q8HP PRN IM 08/11/24 22:00 Cancel Ipratropium [place] 0.5 mg Q4HR NEB 08/12/24 10:00 08/12/24 10:24 0.5 MG Albuterol 2.5 mg Q4HPRN PRN NEB 08/12/24 09:00 08/12/24 10:24 2.5 MG Furosemide 40 mg DAILY IV 08/13/24 10:00 Examination: GENERAL:Normal, CVS:Normal laboratory and microbiology Laboratory Tests 08/11/24 15:09 08/11/24 05:02 Test 08/11/24 15:09 Range/Units Serum Glucose 167 H 74-106 mg/dL Microbiology Date/Time Source Procedure Growth Status 08/10/24 06:37 Urine - Mcdonald [place] Urine Culture - Final Complete 08/04/24 10:13 Blood Blood Culture - Final NO GROWTH AFTER 5 DAYS OF INCUBATION. Complete 08/04/24 08:11 Sputum Gram Stain - Final Complete 08/04/24 08:11 Sputum Respiratory Culture - Final Complete Problem List/Assessment/Plan Problem List/Assessment/Plan Acute kidney injury on Chronic kidney disease four hemodynamic mediated Bradycardia status post cpr Encephalopathy Ventilator-dependent hypoxic respiratory failure hypernatremia hypotonic fluids obtain labs today fluids have potassium require close monitoring Plan discussed with: Patient My Orders My Orders Orders - DALI GILMORE MD Procedure Category Date Status Time Basic Metabolic Panel LAB 08/12/24 Logged 11:54 Basic Metabolic Panel LAB 08/13/24 Verified 04:00 Dietary Evaluation Review Comments: 1. For better controlled glucose level, recommend Glucerna TF 40ml/hr, in 24 hr providing 58g pro, 1152 kcal, supporting pt's protein needs at 89%, energy needs at 71%. 2. Consider a 2g Na low fat low Chol CCHO-60 diet when pt is off vent and pass speech eval. 3. Consider TPN per pharmacy if pt is no EN suitable and has been NPO > 7 days. Expected Outcomes/Goals: Off vent and advance to diet Maintain BW. DALI GILMORE MD Aug 12, 2024 12:05
[2024-08-12 12:35] LABS: Potassium 3.9 mmol/L (3.5-5.1)
[2024-08-12 12:36] LABS: Anion Gap 13 (5-15); Carbon Dioxide 26 mmol/L (20-31)
[2024-08-12 12:39] LABS: Chloride 113 mmol/L (98-107); Sodium 152 mmol/L (136-145)
[2024-08-12 12:41] LABS: BUN/Creatinine Ratio 24.9 (10.0-20.0)
[2024-08-12 12:43] LABS: Blood Urea Nitrogen 69 mg/dL (9-23); Glucose 211 mg/dL (74-106)
--- NOTE | 2024-08-12 12:49 | DVHPN2 ---
Progress Note - Dictate Date Seen: Aug 12, 2024 Medical Necessity Reason Pt with a Central, PICC or Fol: Yes The following are medically ne: Mcdonald Catheter Reason for mcdonald catheter: Strict I&O Subjective Patient's mentation significantly improved today. Noted to engage in conversation and verbalize he wants to return home. vital signs Vital Sign Date Time Temp Pulse Resp B/P (MAP) Pulse Ox O2 Delivery O2 Flow Rate FiO2 08/12/24 12:00 19 98 Nasal Cannula* 3 32 08/12/24 12:00 97 08/12/24 11:00 98.8 158/69 (98) 209.8 Total Intake and Output 08/11/24 08/11/24 08/12/24 15:00 23:00 07:00 Intake Total 497 ml 609 ml 625 ml Output Total 1850 ml 2300 ml Balance 497 ml -1241 ml -1675 ml medications Current Medications Medications Dose Ordered Sig/Leatha Route Start Time Stop Time Status Last Admin Dose Admin Dopamine HCl/ Dextrose 250 ml @ 15.188 mls/ hr [id number] IV 08/04/24 06:15 08/05/24 18:55 15.188 MLS/HR Fentanyl Citrate 250 ml @ 2.5 mls/hr Q24H IV 08/04/24 08:00 08/08/24 20:39 10 MLS/HR Ceftriaxone Sodium 50 ml @ 100 mls/hr DAILY@09 IV 08/05/24 09:00 08/12/24 10:33 100 MLS/HR Nitroglycerin 0.4 mg Q5MINP PRN SL 08/04/24 14:45 Morphine Sulfate 2 mg Q30M PRN IV 08/04/24 14:45 08/09/24 17:29 2 MG Diagnostic Test (Pha) 1 strip Q6HR 08/04/24 18:00 08/12/24 11:04 1 STRIP Insulin Human Regular Q6HR SC 08/04/24 18:00 08/12/24 11:03 3 UNITS Dextrose 50 ml UD PRN IV 08/04/24 15:00 Insulin Glargine 10 units HS SC 08/04/24 22:00 08/11/24 20:19 10 UNITS Pantoprazole Sodium 40 mg DAILY IV 08/05/24 10:00 08/12/24 10:33 40 MG Allopurinol 100 mg BID PO 08/04/24 22:00 08/09/24 10:56 100 MG Tamsulosin HCl 0.4 mg QPM PO 08/04/24 18:00 08/08/24 17:18 0.4 MG Doxycycline Hyclate 100 ml @ 50 mls/hr Q12H IV 08/09/24 22:00 08/12/24 10:33 50 MLS/HR Morphine Sulfate 2 mg Q4HPRN PRN IV 08/09/24 18:00 08/12/24 02:52 2 MG Hydralazine HCl 20 mg Q6HP PRN IV 08/09/24 21:15 08/12/24 02:50 20 MG Dexmedetomidine HCl 400 mcg/ Dextrose 100 ml @ 4.05 mls/hr Q24H IV 08/09/24 22:30 UNV Potassium Chloride 20 meq/ Dextrose 1,010 ml @ 75 mls/hr [id number] IV 08/11/24 10:00 08/11/24 01:03 75 MLS/HR Haloperidol Lactate 2 mg ONCE PRN IV 08/11/24 21:15 Haloperidol Lactate 2 mg Q8HP PRN IM 08/11/24 22:00 Cancel Ipratropium [place] 0.5 mg Q4HR NEB 08/12/24 10:00 08/12/24 10:24 0.5 MG Albuterol 2.5 mg Q4HPRN PRN NEB 08/12/24 09:00 08/12/24 10:24 2.5 MG Furosemide 40 mg DAILY IV 08/13/24 10:00 objective General appearance: Comfortable Respiratory: Coarse crackles Cardiovascular: Regular rate and rhythm, no murmurs. No edema Abdomen: Soft, nondistended, nontender, bowel sounds present MSK: Normal range of motion. No focal deficits. Neuro:A/O x3, moving all extremities Psych:Comfortable laboratory and microbiology Laboratory Tests 08/11/24 05:02 Test 08/12/24 05:35 Range/Units Serum Glucose Pending Assessment/Plan 1) Acute respiratory failure, intubated 2) Cardiac arrest s/p CPR/ROSC 3) Complete heart block s/p PPI 4) Acute Kidney Injury - resolving Secondary Diagnosis: 5) A fib 6) HTN 7) HLD 8) COPD 9) DM type 2 10) Recent TAVR 06/[address] [facility] 11) Altered mental status-resolved 12) CHF EF 40-45% Reduced Systolic Function Assessment/Plan plan; - Continue ICU monitoring - Extubated 08/09/24 - S/P PPI done with cardiology 08/05, Heart rates at 70 - Echo showed ef 40-45% - S/p bronchoscopy on Aug 07 with clearance of noted mucous plugging, - Cr worsening with hypernatremia. Starting D5W with Lasix 40mg IV daily. - blood and urine cultures NGTD - pulm/cardio/renal on board, - Neurology consulted due to AMS now resolved. CT brain WO contrast cancelled. -Speech evaluation ordered, then can proceed with diet -PT eval ordered -Full Code. Dietary Evaluation Review Comments: 1. For better controlled glucose level, recommend Glucerna TF 40ml/hr, in 24 hr providing 58g pro, 1152 kcal, supporting pt's protein needs at 89%, energy needs at 71%. 2. Consider a 2g Na low fat low Chol CCHO-60 diet when pt is off vent and pass speech eval. 3. Consider TPN per pharmacy if pt is no EN suitable and has been NPO > 7 days. Expected Outcomes/Goals: Off vent and advance to diet Maintain BW. Plan discussed with: Patient, Spouse YINAKEENAMARJAN DO Aug 12, 2024 12:49
--- NOTE | 2024-08-12 13:19 | DVHPN2 ---
Progress Note - Dictate Date Seen: Aug 10, 2024 Medical Necessity Reason Pt with a Central, PICC or Fol: Yes The following are medically ne: Mcdonald Catheter Reason for mcdonald catheter: Strict I&O Subjective PT RECENTLY UNDERWENT TAVR AT [facility] NOW WITH 3 DEGREE AV BLOCK DEVELOPED ASYSTOLE INTUBATED TEMPORARY PACER INSERTED NOW NEEDS DUAL PPI PMH: ORGANIC HD S/P CABG LHC * Left main, patent. * Distal left main, however, had 50% narrowing. * Left anterior descending artery severely diseased, at previous site of stent placement. * TOMPKINS to the LAD was patent. It was sequenced to diagonal 1 and diagonal 2 that were patent, but distal to the bypass, there was severe diffuse disease throughout the marshall coronary arteries. * Circumflex had about a 40-50% ostial narrowing. * With moderate diffuse disease throughout the circumflex territory. * Saphenous vein graft to the OM was occluded. 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 * Severe disease of the PDA. * Saphenous vein graft to the PDA was patent. At this point, the patient has diffuse disease. Distal flow was diminished. The patient had patent grafts, but marshall vessels that were ____ severely diseased. The best option for the patient at this time is conservative medical management, aggressive risk modification, dual antiplatelet therapy should be introduced. The patient is a candidate for EECP. The patient is also a candidate for dobutamine infusion. He should also be considered for Bi-V AICD implantation as well. We will continue to follow the patient. ECHO 05/23 LVH EF >60% LAE [facility] HEAVILY CALCIFIED AV NOW S/P TAVR vital signs Vital Sign Date Time Temp Pulse Resp B/P (MAP) Pulse Ox O2 Delivery O2 Flow Rate FiO2 08/12/24 12:00 19 98 Nasal Cannula* 3 32 08/12/24 12:00 97 08/12/24 11:00 98.8 158/69 (98) 209.8 Total Intake and Output 08/11/24 08/11/24 08/12/24 15:00 23:00 07:00 Intake Total 497 ml 609 ml 625 ml Output Total 1850 ml 2300 ml Balance 497 ml -1241 ml -1675 ml medications Current Medications Medications Dose Ordered Sig/Leatha Route Start Time Stop Time Status Last Admin Dose Admin Dopamine HCl/ Dextrose 250 ml @ 15.188 mls/ hr [id number] IV 08/04/24 06:15 08/05/24 18:55 15.188 MLS/HR Fentanyl Citrate 250 ml @ 2.5 mls/hr Q24H IV 08/04/24 08:00 08/08/24 20:39 10 MLS/HR Ceftriaxone Sodium 50 ml @ 100 mls/hr DAILY@09 IV 08/05/24 09:00 08/12/24 10:33 100 MLS/HR Nitroglycerin 0.4 mg Q5MINP PRN SL 08/04/24 14:45 Morphine Sulfate 2 mg Q30M PRN IV 08/04/24 14:45 08/09/24 17:29 2 MG Diagnostic Test (Pha) 1 strip Q6HR 08/04/24 18:00 08/12/24 11:04 1 STRIP Insulin Human Regular Q6HR SC 08/04/24 18:00 08/12/24 11:03 3 UNITS Dextrose 50 ml UD PRN IV 08/04/24 15:00 Insulin Glargine 10 units HS SC 08/04/24 22:00 08/11/24 20:19 10 UNITS Pantoprazole Sodium 40 mg DAILY IV 08/05/24 10:00 08/12/24 10:33 40 MG Allopurinol 100 mg BID PO 08/04/24 22:00 08/09/24 10:56 100 MG Tamsulosin HCl 0.4 mg QPM PO 08/04/24 18:00 08/08/24 17:18 0.4 MG Doxycycline Hyclate 100 ml @ 50 mls/hr Q12H IV 08/09/24 22:00 08/12/24 10:33 50 MLS/HR Morphine Sulfate 2 mg Q4HPRN PRN IV 08/09/24 18:00 08/12/24 02:52 2 MG Hydralazine HCl 20 mg Q6HP PRN IV 08/09/24 21:15 08/12/24 02:50 20 MG Dexmedetomidine HCl 400 mcg/ Dextrose 100 ml @ 4.05 mls/hr Q24H IV 08/09/24 22:30 UNV Potassium Chloride 20 meq/ Dextrose 1,010 ml @ 75 mls/hr [id number] IV 08/11/24 10:00 08/11/24 01:03 75 MLS/HR Haloperidol Lactate 2 mg ONCE PRN IV 08/11/24 21:15 Haloperidol Lactate 2 mg Q8HP PRN IM 08/11/24 22:00 Cancel Ipratropium [place] 0.5 mg Q4HR NEB 08/12/24 10:00 08/12/24 10:24 0.5 MG Albuterol 2.5 mg Q4HPRN PRN NEB 08/12/24 09:00 08/12/24 10:24 2.5 MG Furosemide 40 mg DAILY IV 08/13/24 10:00 laboratory and microbiology Laboratory Tests 08/12/24 05:35 08/11/24 05:02 Test 08/12/24 05:35 Range/Units Serum Glucose 211 H 74-106 mg/dL Problem List UNDERWENT TAVR AT [facility] NOW WITH 3 DEGREE AV BLOCK DEVELOPED ASYSTOLE INTUBATED TEMPORARY PACER INSERTED NOW NEEDS DUAL PPI PMH: ORGANIC HD S/P CABG LHC * Left main, patent. * Distal left main, however, had 50% narrowing. * Left anterior descending artery severely diseased, at previous site of stent placement. * TOMPKINS to the LAD was patent. It was sequenced to diagonal 1 and diagonal 2 that were patent, but distal to the bypass, there was severe diffuse disease throughout the marshall coronary arteries. * Circumflex had about a 40-50% ostial narrowing. * With moderate diffuse disease throughout the circumflex territory. * Saphenous vein graft to the OM was occluded. 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 * Severe disease of the PDA. * Saphenous vein graft to the PDA was patent. At this point, the patient has diffuse disease. Distal flow was diminished. The patient had patent grafts, but marshall vessels that were ____ severely diseased. The best option for the patient at this time is conservative medical management, aggressive risk modification, dual antiplatelet therapy should be introduced. The patient is a candidate for EECP. The patient is also a candidate for dobutamine infusion. He should also be considered for Bi-V AICD implantation as well. We will continue to follow the patient. ECHO 05/23 LVH EF >60% LAE [facility] HEAVILY CALCIFIED AV NOW S/P TAVR Assessment/Plan ANTIBIOTIC SCHEDULE FOR PPI PT WILL BE PACER DEPENDENT SINCE WITH 3 AV BLOCK WILL CONSIDER LBB PACING S/P DUAL PPI OFF TRANSVENOUS PACING HEMODYNAMICALLY STABLE WILL EXTUBATE WHEN AWAKE CXR LABS PPM INTERROGATED NL FUNCTION PLAVIX TO BE STARTED IN 2 DAYS still agitated non awake CPAP GOOD EXTUBATE ANOXIC INSULT Dietary Evaluation Review Comments: 1. For better controlled glucose level, recommend Glucerna TF 40ml/hr, in 24 hr providing 58g pro, 1152 kcal, supporting pt's protein needs at 89%, energy needs at 71%. 2. Consider a 2g Na low fat low Chol CCHO-60 diet when pt is off vent and pass speech eval. 3. Consider TPN per pharmacy if pt is no EN suitable and has been NPO > 7 days. Expected Outcomes/Goals: Off vent and advance to diet Maintain BW. Plan discussed with: Patient Critical Care Time(min): 35 CAROLE ELIZONDO MD Aug 12, 2024 13:19
--- NOTE | 2024-08-12 13:39 | DVHPN2 ---
Progress Note - Dictate Date Seen: Aug 11, 2024 Medical Necessity Reason Pt with a Central, PICC or Fol: Yes The following are medically ne: Mcdonald Catheter Reason for mcdonald catheter: Strict I&O Subjective PT RECENTLY UNDERWENT TAVR AT [facility] NOW WITH 3 DEGREE AV BLOCK DEVELOPED ASYSTOLE INTUBATED TEMPORARY PACER INSERTED NOW NEEDS DUAL PPI PMH: ORGANIC HD S/P CABG LHC * Left main, patent. * Distal left main, however, had 50% narrowing. * Left anterior descending artery severely diseased, at previous site of stent placement. * TOMPKINS to the LAD was patent. It was sequenced to diagonal 1 and diagonal 2 that were patent, but distal to the bypass, there was severe diffuse disease throughout the [place] coronary arteries. * Circumflex had about a 40-50% ostial narrowing. * With moderate diffuse disease throughout the circumflex territory. * Saphenous vein graft to the OM was occluded. 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 * Severe disease of the PDA. * Saphenous vein graft to the PDA was patent. At this point, the patient has diffuse disease. Distal flow was diminished. The patient had patent grafts, but tulalip vessels that were ____ severely diseased. The best option for the patient at this time is conservative medical management, aggressive risk modification, dual antiplatelet therapy should be introduced. The patient is a candidate for EECP. The patient is also a candidate for dobutamine infusion. He should also be considered for Bi-V AICD implantation as well. We will continue to follow the patient. ECHO 05/23 LVH EF >60% LAE [facility] CRITICAL HEAVILY CALCIFIED AV NOW S/P TAVR vital signs Vital Sign Date Time Temp Pulse Resp B/P (MAP) Pulse Ox O2 Delivery O2 Flow Rate FiO2 08/12/24 12:00 19 98 Nasal Cannula* 3 32 08/12/24 12:00 97 08/12/24 11:00 98.8 158/69 (98) 209.8 Total Intake and Output 08/11/24 08/11/24 08/12/24 15:00 23:00 07:00 Intake Total 497 ml 609 ml 625 ml Output Total 1850 ml 2300 ml Balance 497 ml -1241 ml -1675 ml medications Current Medications Medications Dose Ordered Sig/Leatha Route Start Time Stop Time Status Last Admin Dose Admin Dopamine HCl/ Dextrose 250 ml @ 15.188 mls/ hr [id number] IV 08/04/24 06:15 08/05/24 18:55 15.188 MLS/HR Fentanyl Citrate 250 ml @ 2.5 mls/hr Q24H IV 08/04/24 08:00 08/08/24 20:39 10 MLS/HR Ceftriaxone Sodium 50 ml @ 100 mls/hr DAILY@09 IV 08/05/24 09:00 08/12/24 10:33 100 MLS/HR Nitroglycerin 0.4 mg Q5MINP PRN SL 08/04/24 14:45 Morphine Sulfate 2 mg Q30M PRN IV 08/04/24 14:45 08/09/24 17:29 2 MG Diagnostic Test (Pha) 1 strip Q6HR 08/04/24 18:00 08/12/24 11:04 1 STRIP Insulin Human Regular Q6HR SC 08/04/24 18:00 08/12/24 11:03 3 UNITS Dextrose 50 ml UD PRN IV 08/04/24 15:00 Insulin Glargine 10 units HS SC 08/04/24 22:00 08/11/24 20:19 10 UNITS Pantoprazole Sodium 40 mg DAILY IV 08/05/24 10:00 08/12/24 10:33 40 MG Allopurinol 100 mg BID PO 08/04/24 22:00 08/09/24 10:56 100 MG Tamsulosin HCl 0.4 mg QPM PO 08/04/24 18:00 08/08/24 17:18 0.4 MG Doxycycline Hyclate 100 ml @ 50 mls/hr Q12H IV 08/09/24 22:00 08/12/24 10:33 50 MLS/HR Morphine Sulfate 2 mg Q4HPRN PRN IV 08/09/24 18:00 08/12/24 02:52 2 MG Hydralazine HCl 20 mg Q6HP PRN IV 08/09/24 21:15 08/12/24 02:50 20 MG Dexmedetomidine HCl 400 mcg/ Dextrose 100 ml @ 4.05 mls/hr Q24H IV 08/09/24 22:30 UNV Potassium Chloride 20 meq/ Dextrose 1,010 ml @ 75 mls/hr [id number] IV 08/11/24 10:00 08/11/24 01:03 75 MLS/HR Haloperidol Lactate 2 mg ONCE PRN IV 08/11/24 21:15 Haloperidol Lactate 2 mg Q8HP PRN IM 08/11/24 22:00 Cancel Ipratropium [place] 0.5 mg Q4HR NEB 08/12/24 10:00 08/12/24 10:24 0.5 MG Albuterol 2.5 mg Q4HPRN PRN NEB 08/12/24 09:00 08/12/24 10:24 2.5 MG Furosemide 40 mg DAILY IV 08/13/24 10:00 laboratory and microbiology Laboratory Tests 08/12/24 05:35 08/11/24 05:02 Test 08/12/24 05:35 Range/Units Serum Glucose 211 H 74-106 mg/dL Problem List UNDERWENT TAVR AT [facility] NOW WITH 3 DEGREE AV BLOCK DEVELOPED ASYSTOLE INTUBATED TEMPORARY PACER INSERTED NOW NEEDS DUAL PPI PMH: ORGANIC HD S/P CABG LHC * Left main, patent. * Distal left main, however, had 50% narrowing. * Left anterior descending artery severely diseased, at previous site of stent placement. * TOMPKINS to the LAD was patent. It was sequenced to diagonal 1 and diagonal 2 that were patent, but distal to the bypass, there was severe diffuse disease throughout the [place] coronary arteries. * Circumflex had about a 40-50% ostial narrowing. * With moderate diffuse disease throughout the circumflex territory. * Saphenous vein graft to the OM was occluded. 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 * Severe disease of the PDA. * Saphenous vein graft to the PDA was patent. At this point, the patient has diffuse disease. Distal flow was diminished. The patient had patent grafts, but tulalip vessels that were ____ severely diseased. The best option for the patient at this time is conservative medical management, aggressive risk modification, dual antiplatelet therapy should be introduced. The patient is a candidate for EECP. The patient is also a candidate for dobutamine infusion. He should also be considered for Bi-V AICD implantation as well. We will continue to follow the patient. ECHO 05/23 LVH EF >60% LAE [facility]ERNARD CRITICAL HEAVILY CALCIFIED AV NOW S/P TAVR Assessment/Plan ANTIBIOTIC SCHEDULE FOR PPI PT WILL BE PACER DEPENDENT SINCE WITH 3 AV BLOCK WILL CONSIDER LBB PACING S/P DUAL PPI OFF TRANSVENOUS PACING HEMODYNAMICALLY STABLE WILL EXTUBATE WHEN AWAKE CXR LABS PPM INTERROGATED NL FUNCTION PLAVIX TO BE STARTED IN 2 DAYS still agitated non awake CPAP GOOD EXTUBATE ANOXIC INSULT LEUKOCYTOSIS Dietary Evaluation Review Comments: 1. For better controlled glucose level, recommend Glucerna TF 40ml/hr, in 24 hr providing 58g pro, 1152 kcal, supporting pt's protein needs at 89%, energy needs at 71%. 2. Consider a 2g Na low fat low Chol CCHO-60 diet when pt is off vent and pass speech eval. 3. Consider TPN per pharmacy if pt is no EN suitable and has been NPO > 7 days. Expected Outcomes/Goals: Off vent and advance to diet Maintain BW. Plan discussed with: Patient Critical Care Time(min): 35 CAROLE ELIZONDO MD Aug 12, 2024 13:39
[2024-08-12] MEDS: HALOPERIDOL LACTATE 5 MG/ML INJ VIAL IV PRN (14:25)
--- NOTE | 2024-08-12 19:28 | DVHPN2 ---
Progress Note - Dictate Date Seen: Aug 12, 2024 Medical Necessity Reason Pt with a Central, PICC or Fol: No Subjective Patient seen and examined at bedside. Remains on supplemental oxygen Overnight events reviewed. vital signs Vital Sign Date Time Temp Pulse Resp B/P (MAP) Pulse Ox O2 Delivery O2 Flow Rate FiO2 08/12/24 18:52 96 Nasal Cannula 2.0 08/12/24 18:52 28 08/12/24 18:52 100 25 08/12/24 18:00 95.7 165/69 (101) 204.3 Total Intake and Output 08/11/24 08/11/24 08/12/24 15:00 23:00 07:00 Intake Total 497 ml 609 ml 625 ml Output Total 1850 ml 2300 ml Balance 497 ml -1241 ml -1675 ml medications Current Medications Medications Dose Ordered Sig/Leatha Route Start Time Stop Time Status Last Admin Dose Admin Dopamine HCl/ Dextrose 250 ml @ 15.188 mls/ hr [id number] IV 08/04/24 06:15 08/05/24 18:55 15.188 MLS/HR Fentanyl Citrate 250 ml @ 2.5 mls/hr Q24H IV 08/04/24 08:00 08/08/24 20:39 10 MLS/HR Ceftriaxone Sodium 50 ml @ 100 mls/hr DAILY@09 IV 08/05/24 09:00 08/12/24 10:33 100 MLS/HR Nitroglycerin 0.4 mg Q5MINP PRN SL 08/04/24 14:45 Morphine Sulfate 2 mg Q30M PRN IV 08/04/24 14:45 08/09/24 17:29 2 MG Diagnostic Test (Pha) 1 strip Q6HR 08/04/24 18:00 08/12/24 18:04 1 STRIP Insulin Human Regular Q6HR SC 08/04/24 18:00 08/12/24 18:02 6 UNITS Dextrose 50 ml UD PRN IV 08/04/24 15:00 Insulin Glargine 10 units HS SC 08/04/24 22:00 08/11/24 20:19 10 UNITS Pantoprazole Sodium 40 mg DAILY IV 08/05/24 10:00 08/12/24 10:33 40 MG Allopurinol 100 mg BID PO 08/04/24 22:00 08/09/24 10:56 100 MG Tamsulosin HCl 0.4 mg QPM PO 08/04/24 18:00 08/08/24 17:18 0.4 MG Doxycycline Hyclate 100 ml @ 50 mls/hr Q12H IV 08/09/24 22:00 08/12/24 10:33 50 MLS/HR Morphine Sulfate 2 mg Q4HPRN PRN IV 08/09/24 18:00 08/12/24 02:52 2 MG Hydralazine HCl 20 mg Q6HP PRN IV 08/09/24 21:15 08/12/24 15:10 20 MG Dexmedetomidine HCl 400 mcg/ Dextrose 100 ml @ 4.05 mls/hr Q24H IV 08/09/24 22:30 UNV Potassium Chloride 20 meq/ Dextrose 1,010 ml @ 75 mls/hr [id number] IV 08/11/24 10:00 08/12/24 15:01 75 MLS/HR Haloperidol Lactate 2 mg Q8HP PRN IM 08/11/24 22:00 Cancel Ipratropium [place] 0.5 mg Q4HR NEB 08/12/24 10:00 08/12/24 18:52 0.5 MG Albuterol 2.5 mg Q4HPRN PRN NEB 08/12/24 09:00 08/12/24 18:52 2.5 MG Furosemide 40 mg DAILY IV 08/13/24 10:00 objective Gen.: Patient lying in bed in no apparent distress. On supplemental oxygen. Head: Normocephalic, atraumatic. Eyes: EOMI/PERRLA. Ears: Normal hearing. Normal anatomy. Neck/trachea: Trachea midline, supple. Nose: Normal external anatomy. Mouth: Moist mucous membranes. Chest: Decreased air entry bilaterally. No wheezing or rhonchi. Cardiovascular: Positive S1, positive S2. Regular rate and rhythm. Abdomen: Positive bowel sounds in all 4 quadrants. Soft, non-tender, non- distended. : Deferred. Rectal: Deferred. Skin: Warm, dry. Intact. Extremities: 2+ radial pulses bilaterally. No lower extremity edema. Neuro: Awake, alert, oriented x3. No gross motor or sensory deficits. Cranial nerves II through XII intact. Gait not assessed. laboratory and microbiology Laboratory Tests 08/12/24 05:35 08/11/24 05:02 Test 08/12/24 05:35 Range/Units Serum Glucose 211 H 74-106 mg/dL Assessment/Plan Impression: Acute hypoxic respiratory failure On mechanical ventilator Bradycardia/complete heart block S/p TAVR Acute exacerbation of CHF S/p cardiac arrest Elevated troponin Chronic kidney disease Events: Remains on supplemental O2, 3 LPM NC Taper o2 as tolerated Off Precedex Neurology consulted due to AMS, now resolved. CT brain WO contrast cancelled. Mentation significantly improved today. Cardiology recs appreciated Diurese as tolerated w/ Lasix Monitor renal function Monitor electrolytes. Supplement as necessary. Off [place] IV fluids with D5W + KCl. Continue antibiotics Hydralazine PRN systolic BP >160. S/p pacer. Labs and imaging reviewed. Rest of plan as noted below. Plan: s/p extubation on 08/09/24 Supplemental oxygen Titrate to keep O2 sats above 90%. Continue antibiotics. Dopamine 5 mcg/min d/t bradycardia - on hold Monitor renal function Monitor electrolytes. Supplement as necessary. Monitor ins and outs. Maintain euvolemia. GI prophylaxis. DVT prophylaxis. Prognosis: Poor given patient's multiple co-morbidities. Condition: Critical Rest of plan per hospitalist and other consultants. A total of 35 minutes of critical care time was spent reviewing the patient record, examining the patient, making a diagnostic and therapeutic plan, discussing this plan with the medical personnel, following up on diagnostic studies and following the patient for clinical stability excluding any and all procedures. At least 50% of this time was spent in direct, [id number] contact. Thank you, ARGELIA Roman, for allowing me to participate in this patient's care. Further recommendations will depend on the patient's clinical course. Please do not hesitate to contact me if you have any questions or concerns. This medical document was created using an electronic medical record system with [employer] dictation system. Although these documentations are being carefully reviewed, there may still be some phonetic and typographical changes. The errors are purely typographical, due to imperfection on the software program, and do not reflect any compromise in the patient's medical care. Dietary Evaluation Review Comments: 1. For better controlled glucose level, recommend Glucerna TF 40ml/hr, in 24 hr providing 58g pro, 1152 kcal, supporting pt's protein needs at 89%, energy needs at 71%. 2. Consider a 2g Na low fat low Chol CCHO-60 diet when pt is off vent and pass speech eval. 3. Consider TPN per pharmacy if pt is no EN suitable and has been NPO > 7 days. Expected Outcomes/Goals: Off vent and advance to diet Maintain BW. Plan discussed with: Patient, Other (NANCY Kennedy) Critical Care Time(min): 35 FARIHA PRAKASH MD Aug 12, 2024 19:28
[2024-08-13] VITALS (30 sets, daily range): BP systolic 114–170; BP diastolic 60–78; PULSE 92–105; RESP 11–27; TEMP 98.1–99.7; O2SAT 95–100
[2024-08-13 06:16] LABS: Chloride 107 mmol/L (98-107); Potassium 3.9 mmol/L (3.5-5.1); Sodium 144 mmol/L (136-145)
[2024-08-13 06:17] LABS: Anion Gap 9 (5-15); Calcium 9.7 mg/dL (8.7-10.4); Carbon Dioxide 28 mmol/L (20-31)
[2024-08-13 06:29] LABS: Blood Urea Nitrogen 61 mg/dL (9-23); Glucose 214 mg/dL (74-106)
[2024-08-13 09:27] LABS: Basophils # (auto) 0.1 10 ^3/uL (0-0.2); Basophils % (auto) 0.4 % (0.0-2.0); Eosinophils # (auto) 0.1 10 ^3/uL (0-0.8); Eosinophils % (auto) 0.4 % (0.0-7.0); Hematocrit 34.4 % (41.0-53.0); Lymphocytes # (auto) 1.3 10 ^3/uL (0.4-5.4); Lymphocytes % (auto) 7.2 % (10.0-50.0); Mean Corpuscular Hemoglobin 28.6 pg (28.0-32.0); Mean Corpuscular Hgb Conc. 31.8 g/dL (32.0-36.0); Monocytes # (auto) 1.3 10 ^3/uL (0-1.3); Nucleated Red Blood Cells % 0.3 %; Platelet Count (auto) 270 10^3/uL (140-450); Red Blood Cells 3.83 10^6/uL (4.5-5.90); Red Cell Distribution Width 17.6 % (11.8-14.3); White Blood Cell 18.8 10^3/uL (4.4-10.8)
[2024-08-13] MEDS ORDERED: FUROSEMIDE 40 MG/4 ML VIAL IV SCH (10:00)
--- NOTE | 2024-08-13 10:05 | DVHPN2 ---
Progress Note - Dictate Date Seen: Aug 13, 2024 Medical Necessity Reason Pt with a Central, PICC or Fol: No Subjective Mr. Wilkins is a 74 years old right-handed gentleman with a history of hypertension, diabetes, dyslipidemia, coronary artery disease, the patient came to the hospital on 08/04/2024 with a chief come of bradycardic, syncopal event on 08/04/2024. I saw him on 03/24/2017 for syncope, 09/23/17 for dizziness and possible TIA I have seen and examined the patient, I have discussed with his nurse, he did not sleep well last night, so looked tired, but overall he was improving, he is oriented to person, place, he knows year, voice is still slurry but is better socially appropriate, he moves the arms and legs Urinalysis, 08/04/2024: Unremarkable ABG, 08/04/2024: Respiratory acidosis WBC/HB/PLT/MCV, 08/11/2024: 16.2/9.1/250/897 Na, 08/04/2024: 135, 08/07/2019 5:141, 08/09/2024: 143, 08/10/2024: 151, 08/11/2024: 153 BUN/CR, 08/04/2024: 54/2.75, 08/06/2024: 42/2.09, 08/08/2024: 31/1.91, 08/10/2024: 61/2.7, 08/11/2024: 82/2.94 HGB A1c, 08/04/2024: 7.1 TBI/AST/ALT/AP, 08/07/2024: 0.4/8/22/139, 08/11/2024: 0.9/271/289/221 TG/HDL/LDL/HDL, 08/04/2024: 103/110/64/26 TSH, 08/04/2024: 2.48 EEG, 03/26/18: Normal EKG, 08/04/2024: Complete AV block with wide QRS complex Right bundle branch block Chest x-ray, 08/04/2024: Cardiomediastinal silhouette. Bilateral patchy infiltrates appear increased since the prior study. No effusions or pneumothorax. Chest x-ray, 08/04/2024: ET in the mid thoracic trachea. NG in the stomach. Patchy perihilar airspace opacities could be pulmonary edema CT brain scan, 03/23/17: Unremarkable CT head, 08/04/24: No acute intracranial abnormality vital signs Vital Sign Date Time Temp Pulse Resp B/P (MAP) Pulse Ox O2 Delivery O2 Flow Rate FiO2 08/13/24 08:00 105 15 97 Nasal Cannula* 3 32 08/13/24 08:00 99.3 129/60 (83) 210.7 Total Intake and Output 08/12/24 08/12/24 08/13/24 15:00 23:00 07:00 Intake Total 700 ml 525 ml Output Total 200 ml 280 ml Balance 500 ml 245 ml medications Current Medications Medications Dose Ordered Sig/Leatha Route Start Time Stop Time Status Last Admin Dose Admin Dopamine HCl/ Dextrose 250 ml @ 15.188 mls/ hr [id number] IV 08/04/24 06:15 08/05/24 18:55 15.188 MLS/HR Fentanyl Citrate 250 ml @ 2.5 mls/hr Q24H IV 08/04/24 08:00 08/08/24 20:39 10 MLS/HR Ceftriaxone Sodium 50 ml @ 100 mls/hr DAILY@09 IV 08/05/24 09:00 08/13/24 08:13 100 MLS/HR Nitroglycerin 0.4 mg Q5MINP PRN SL 08/04/24 14:45 Morphine Sulfate 2 mg Q30M PRN IV 08/04/24 14:45 08/09/24 17:29 2 MG Diagnostic Test (Pha) 1 strip Q6HR 08/04/24 18:00 08/13/24 05:38 1 STRIP Insulin Human Regular Q6HR SC 08/04/24 18:00 08/13/24 05:40 4 UNITS Dextrose 50 ml UD PRN IV 08/04/24 15:00 Insulin Glargine 10 units HS SC 08/04/24 22:00 08/13/24 00:32 10 UNITS Pantoprazole Sodium 40 mg DAILY IV 08/05/24 10:00 08/13/24 09:24 40 MG Allopurinol 100 mg BID PO 08/04/24 22:00 08/09/24 10:56 100 MG Tamsulosin HCl 0.4 mg QPM PO 08/04/24 18:00 08/08/24 17:18 0.4 MG Doxycycline Hyclate 100 ml @ 50 mls/hr Q12H IV 08/09/24 22:00 08/13/24 09:24 50 MLS/HR Morphine Sulfate 2 mg Q4HPRN PRN IV 08/09/24 18:00 08/12/24 02:52 2 MG Hydralazine HCl 20 mg Q6HP PRN IV 08/09/24 21:15 08/12/24 15:10 20 MG Dexmedetomidine HCl 400 mcg/ Dextrose 100 ml @ 4.05 mls/hr Q24H IV 08/09/24 22:30 UNV Haloperidol Lactate 2 mg Q8HP PRN IM 08/11/24 22:00 Cancel Ipratropium [place] 0.5 mg Q4HR NEB 08/12/24 10:00 08/13/24 06:31 0.5 MG Albuterol 2.5 mg Q4HPRN PRN NEB 08/12/24 09:00 08/13/24 06:31 2.5 MG objective General: the patient is well developed and nourished. No acute distress. MENTAL STATUS: Subjective SPEECH, LANGUAGE, HIGHER CORTICAL FUNCTION: No aphasia CRANIAL NERVES: Pupils are equal, round and reactive. EOMs full and conjugate. Facial sensation intact in all three divisions bilaterally. Mandibular strength intact. Facial muscles symmetrical and strength intact. SENSATION: Sensation to touch and pinprick is fine MOTOR: Normal tone in the upper and lower extremity. Normal muscle bulk. No fasciculations. No abnormal movements or posturing. Muscle power is a normal in the extremities REFLEXES: Deep tendon reflexes are symmetrical. No pathological reflexes. CEREBELLAR/COORDINATION: Deferred GAIT/STATION: deferred. laboratory and microbiology Laboratory Tests 08/13/24 04:50 Test 08/13/24 04:50 Range/Units Serum Glucose 214 H 74-106 mg/dL Problem List Metabolic encephalopathy Hypoxic encephalopathy Status post CPR Cardio pulmonary arrest Acute respiratory failure, extubated on 08/09/2024 Bradycardia status post pacemaker insertion Syncope Status post recent aortic valve replacement Atrial fibrillation Assessment/Plan Monitoring Supportive treatment EEG Follow-up CT head IV antibiotics Haldol 2 mg IM Q 8 hours p.r.n. for agitation GI prophylaxis Cardiology on case Pulmonology on case [employer] case More recommendation per clinical course This medical document was created using an electronic medical record system with [employer] dictation system. Although this document has been carefully reviewed, there may still be some phonetic and typographical errors. These areas are purely typographical due to imperfections of the software programs, and do not reflect any compromise in the patient's medical care. Prognosis poor Dietary Evaluation Review Comments: 1. For better controlled glucose level, recommend Glucerna TF 40ml/hr, in 24 hr providing 58g pro, 1152 kcal, supporting pt's protein needs at 89%, energy needs at 71%. 2. Consider a 2g Na low fat low Chol CCHO-60 diet when pt is off vent and pass speech eval. 3. Consider TPN per pharmacy if pt is no EN suitable and has been NPO > 7 days. Expected Outcomes/Goals: Off vent and advance to diet Maintain BW. Plan discussed with: Other ANDRA LAZAR MD Aug 13, 2024 10:05
--- NOTE | 2024-08-13 10:07 | DVH ---
EXAM: XY CHEST XRAY 1 VIEW Indication: sob Technique: Single frontal view of the chest was obtained Comparison: XY CHEST XRAY 1 VIEW on DOS: 08/12/24, XY CHEST PORTABLE on DOS: 08/10/24, XY CHEST PORTABL E on DOS: 08/09/24, XY CHEST PORTABLE on DOS: 08/07/24, XY CHEST PORTABLE on DOS: 08/06/24 FINDINGS: Lines and Tubes: Cardiac pacemaker projects over left chest wall. Lungs: Pulmonary vascular congestion. Pleura: No effusion. No pneumothorax. Cardiomediastinal contours: Cardiomegaly. Bones: No acute osseous abnormality. IMPRESSION: Cardiomegaly with pulmonary vascular congestion.
--- NOTE | 2024-08-13 10:35 | DVHPN2 ---
Progress Note - Dictate Date Seen: Aug 13, 2024 Medical Necessity Reason Pt with a Central, PICC or Fol: No Subjective PT RECENTLY UNDERWENT TAVR AT [facility] NOW WITH 3 DEGREE AV BLOCK DEVELOPED ASYSTOLE INTUBATED TEMPORARY PACER INSERTED NOW NEEDS DUAL PPI PMH: ORGANIC HD S/P CABG LHC * Left main, patent. * Distal left main, however, had 50% narrowing. * Left anterior descending artery severely diseased, at previous site of stent placement. * TOMPKINS to the LAD was patent. It was sequenced to diagonal 1 and diagonal 2 that were patent, but distal to the bypass, there was severe diffuse disease throughout the [place] coronary arteries. * Circumflex had about a 40-50% ostial narrowing. * With moderate diffuse disease throughout the circumflex territory. * Saphenous vein graft to the OM was occluded. 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 * Severe disease of the PDA. * Saphenous vein graft to the PDA was patent. At this point, the patient has diffuse disease. Distal flow was diminished. The patient had patent grafts, but [place] vessels that were ____ severely diseased. The best option for the patient at this time is conservative medical management, aggressive risk modification, dual antiplatelet therapy should be introduced. The patient is a candidate for EECP. The patient is also a candidate for dobutamine infusion. He should also be considered for Bi-V AICD implantation as well. We will continue to follow the patient. ECHO 05/23 LVH EF >60% LAE BERNARD CRITICAL HEAVILY CALCIFIED AV NOW S/P TAVR vital signs Vital Sign Date Time Temp Pulse Resp B/P (MAP) Pulse Ox O2 Delivery O2 Flow Rate FiO2 08/13/24 10:00 99.7 104 19 114/64 (81) 95 211.5 08/13/24 10:00 Nasal Cannula* 3 32 Total Intake and Output 08/12/24 08/12/24 08/13/24 15:00 23:00 07:00 Intake Total 700 ml 525 ml Output Total 200 ml 280 ml Balance 500 ml 245 ml medications Current Medications Medications Dose Ordered Sig/Leatha Route Start Time Stop Time Status Last Admin Dose Admin Dopamine HCl/ Dextrose 250 ml @ 15.188 mls/ hr [id number] IV 08/04/24 06:15 08/05/24 18:55 15.188 MLS/HR Fentanyl Citrate 250 ml @ 2.5 mls/hr Q24H IV 08/04/24 08:00 08/08/24 20:39 10 MLS/HR Ceftriaxone Sodium 50 ml @ 100 mls/hr DAILY@09 IV 08/05/24 09:00 08/13/24 08:13 100 MLS/HR Nitroglycerin 0.4 mg Q5MINP PRN SL 08/04/24 14:45 Morphine Sulfate 2 mg Q30M PRN IV 08/04/24 14:45 08/09/24 17:29 2 MG Diagnostic Test (Pha) 1 strip Q6HR 08/04/24 18:00 08/13/24 05:38 1 STRIP Insulin Human Regular Q6HR SC 08/04/24 18:00 08/13/24 05:40 4 UNITS Dextrose 50 ml UD PRN IV 08/04/24 15:00 Insulin Glargine 10 units HS SC 08/04/24 22:00 08/13/24 00:32 10 UNITS Pantoprazole Sodium 40 mg DAILY IV 08/05/24 10:00 08/13/24 09:24 40 MG Allopurinol 100 mg BID PO 08/04/24 22:00 08/09/24 10:56 100 MG Tamsulosin HCl 0.4 mg QPM PO 08/04/24 18:00 08/08/24 17:18 0.4 MG Doxycycline Hyclate 100 ml @ 50 mls/hr Q12H IV 08/09/24 22:00 08/13/24 09:24 50 MLS/HR Morphine Sulfate 2 mg Q4HPRN PRN IV 08/09/24 18:00 08/12/24 02:52 2 MG Hydralazine HCl 20 mg Q6HP PRN IV 08/09/24 21:15 08/12/24 15:10 20 MG Dexmedetomidine HCl 400 mcg/ Dextrose 100 ml @ 4.05 mls/hr Q24H IV 08/09/24 22:30 UNV Haloperidol Lactate 2 mg Q8HP PRN IM 08/11/24 22:00 Cancel Ipratropium [place] 0.5 mg Q4HR NEB 08/12/24 10:00 08/13/24 10:30 0.5 MG Albuterol 2.5 mg Q4HPRN PRN NEB 08/12/24 09:00 08/13/24 10:31 2.5 MG laboratory and microbiology Laboratory Tests 08/13/24 04:50 Test 08/13/24 04:50 Range/Units Serum Glucose 214 H 74-106 mg/dL Problem List UNDERWENT TAVR AT [facility] NOW WITH 3 DEGREE AV BLOCK DEVELOPED ASYSTOLE INTUBATED TEMPORARY PACER INSERTED NOW NEEDS DUAL PPI PMH: ORGANIC HD S/P CABG LHC * Left main, patent. * Distal left main, however, had 50% narrowing. * Left anterior descending artery severely diseased, at previous site of stent placement. * TOMPKINS to the LAD was patent. It was sequenced to diagonal 1 and diagonal 2 that were patent, but distal to the bypass, there was severe diffuse disease throughout the [place] coronary arteries. * Circumflex had about a 40-50% ostial narrowing. * With moderate diffuse disease throughout the circumflex territory. * Saphenous vein graft to the OM was occluded. 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 * Severe disease of the PDA. * Saphenous vein graft to the PDA was patent. At this point, the patient has diffuse disease. Distal flow was diminished. The patient had patent grafts, but [place] vessels that were ____ severely diseased. The best option for the patient at this time is conservative medical management, aggressive risk modification, dual antiplatelet therapy should be introduced. The patient is a candidate for EECP. The patient is also a candidate for dobutamine infusion. He should also be considered for Bi-V AICD implantation as well. We will continue to follow the patient. ECHO 05/23 LVH EF >60% LAE BERNARD CRITICAL HEAVILY CALCIFIED AV NOW S/P TAVR Assessment/Plan ANTIBIOTIC SCHEDULE FOR PPI PT WILL BE PACER DEPENDENT SINCE WITH 3 AV BLOCK WILL CONSIDER LBB PACING S/P DUAL PPI OFF TRANSVENOUS PACING HEMODYNAMICALLY STABLE WILL EXTUBATE WHEN AWAKE CXR LABS PPM INTERROGATED NL FUNCTION PLAVIX TO BE STARTED IN 2 DAYS still agitated non awake CPAP GOOD EXTUBATE ANOXIC INSULT LEUKOCYTOSIS Dietary Evaluation Review Comments: 1. For better controlled glucose level, recommend Glucerna TF 40ml/hr, in 24 hr providing 58g pro, 1152 kcal, supporting pt's protein needs at 89%, energy needs at 71%. 2. Consider a 2g Na low fat low Chol CCHO-60 diet when pt is off vent and pass speech eval. 3. Consider TPN per pharmacy if pt is no EN suitable and has been NPO > 7 days. Expected Outcomes/Goals: Off vent and advance to diet Maintain BW. Plan discussed with: Patient Critical Care Time(min): 35 CAROLE ELIZONDO MD Aug 13, 2024 10:35
--- NOTE | 2024-08-13 12:41 | DVHPN2 ---
Progress Note Date Seen: Aug 13, 2024 Medical Necessity Reason Pt with a Central, PICC or Fol: No Subjective Review of Systems: Deferred Objective vital signs Vital Sign Date Time Temp Pulse Resp B/P (MAP) Pulse Ox O2 Delivery O2 Flow Rate FiO2 08/13/24 12:00 99.1 102 16 150/68 (95) 98 210.4 08/13/24 10:30 Nasal Cannula 3.0 08/13/24 10:30 32 Total Intake and Output 08/12/24 08/12/24 08/13/24 15:00 23:00 07:00 Intake Total 700 ml 525 ml Output Total 200 ml 280 ml Balance 500 ml 245 ml medications Current Medications Medications Dose Ordered Sig/Leatha Route Start Time Stop Time Status Last Admin Dose Admin Dopamine HCl/ Dextrose 250 ml @ 15.188 mls/ hr [id number] IV 08/04/24 06:15 08/05/24 18:55 15.188 MLS/HR Ceftriaxone Sodium 50 ml @ 100 mls/hr DAILY@09 IV 08/05/24 09:00 08/13/24 08:13 100 MLS/HR Nitroglycerin 0.4 mg Q5MINP PRN SL 08/04/24 14:45 Morphine Sulfate 2 mg Q30M PRN IV 08/04/24 14:45 08/09/24 17:29 2 MG Diagnostic Test (Pha) 1 strip Q6HR 08/04/24 18:00 08/13/24 05:38 1 STRIP Insulin Human Regular Q6HR SC 08/04/24 18:00 08/13/24 05:40 4 UNITS Dextrose 50 ml UD PRN IV 08/04/24 15:00 Insulin Glargine 10 units HS SC 08/04/24 22:00 08/13/24 00:32 10 UNITS Pantoprazole Sodium 40 mg DAILY IV 08/05/24 10:00 08/13/24 09:24 40 MG Allopurinol 100 mg BID PO 08/04/24 22:00 08/09/24 10:56 100 MG Tamsulosin HCl 0.4 mg QPM PO 08/04/24 18:00 08/08/24 17:18 0.4 MG Doxycycline Hyclate 100 ml @ 50 mls/hr Q12H IV 08/09/24 22:00 08/13/24 09:24 50 MLS/HR Morphine Sulfate 2 mg Q4HPRN PRN IV 08/09/24 18:00 08/12/24 02:52 2 MG Hydralazine HCl 20 mg Q6HP PRN IV 08/09/24 21:15 08/12/24 15:10 20 MG Dexmedetomidine HCl 400 mcg/ Dextrose 100 ml @ 4.05 mls/hr Q24H IV 08/09/24 22:30 UNV Haloperidol Lactate 2 mg Q8HP PRN IM 08/11/24 22:00 Cancel Ipratropium [place] 0.5 mg Q4HR NEB 08/12/24 10:00 08/13/24 10:30 0.5 MG Albuterol 2.5 mg Q4HPRN PRN NEB 08/12/24 09:00 08/13/24 10:31 2.5 MG Examination: GENERAL:Normal laboratory and microbiology Laboratory Tests 08/13/24 04:50 Test 08/13/24 04:50 Range/Units Serum Glucose 214 H 74-106 mg/dL Microbiology Date/Time Source Procedure Growth Status 08/10/24 06:37 Urine - [place] Urine Culture - Final Complete 08/04/24 10:13 Blood Blood Culture - Final NO GROWTH AFTER 5 DAYS OF INCUBATION. Complete 08/04/24 08:11 Sputum Gram Stain - Final Complete 08/04/24 08:11 Sputum Respiratory Culture - Final Complete Problem List/Assessment/Plan Problem List/Assessment/Plan Acute kidney injury on Chronic kidney disease four hemodynamic mediated Bradycardia status post cpr Encephalopathy Ventilator-dependent hypoxic respiratory failure hypernatremia hypotonic fluids fluids have potassium require close monitoring stable from a renal standpoint Plan discussed with: Patient Dietary Evaluation Review Comments: 1. For better controlled glucose level, recommend Glucerna TF 40ml/hr, in 24 hr providing 58g pro, 1152 kcal, supporting pt's protein needs at 89%, energy needs at 71%. 2. Consider a 2g Na low fat low Chol CCHO-60 diet when pt is off vent and pass speech eval. 3. Consider TPN per pharmacy if pt is no EN suitable and has been NPO > 7 days. Expected Outcomes/Goals: Off vent and advance to diet Maintain BW. DALI GILMORE MD Aug 13, 2024 12:41
--- NOTE | 2024-08-13 15:23 | DVHPN2 ---
Progress Note - Dictate Date Seen: Aug 13, 2024 Medical Necessity Reason Pt with a Central, PICC or Fol: No Subjective Patient's mentation stable. Noted to have significant coughing episodes. vital signs Vital Sign Date Time Temp Pulse Resp B/P (MAP) Pulse Ox O2 Delivery O2 Flow Rate FiO2 08/13/24 14:14 97 19 100 08/13/24 14:05 Nasal Cannula 3.0 08/13/24 14:05 32 08/13/24 13:00 99.5 143/68 (93) 211.1 Total Intake and Output 08/12/24 08/12/24 08/13/24 15:00 23:00 07:00 Intake Total 700 ml 525 ml Output Total 200 ml 280 ml Balance 500 ml 245 ml medications Current Medications Medications Dose Ordered Sig/Leatha Route Start Time Stop Time Status Last Admin Dose Admin Dopamine HCl/ Dextrose 250 ml @ 15.188 mls/ hr [id number] IV 08/04/24 06:15 08/05/24 18:55 15.188 MLS/HR Ceftriaxone Sodium 50 ml @ 100 mls/hr DAILY@09 IV 08/05/24 09:00 08/13/24 08:13 100 MLS/HR Nitroglycerin 0.4 mg Q5MINP PRN SL 08/04/24 14:45 Morphine Sulfate 2 mg Q30M PRN IV 08/04/24 14:45 08/09/24 17:29 2 MG Diagnostic Test (Pha) 1 strip Q6HR 08/04/24 18:00 08/13/24 12:00 1 STRIP Insulin Human Regular Q6HR SC 08/04/24 18:00 08/13/24 05:40 4 UNITS Dextrose 50 ml UD PRN IV 08/04/24 15:00 Insulin Glargine 10 units HS SC 08/04/24 22:00 08/13/24 00:32 10 UNITS Pantoprazole Sodium 40 mg DAILY IV 08/05/24 10:00 08/13/24 09:24 40 MG Allopurinol 100 mg BID PO 08/04/24 22:00 08/09/24 10:56 100 MG Tamsulosin HCl 0.4 mg QPM PO 08/04/24 18:00 08/08/24 17:18 0.4 MG Doxycycline Hyclate 100 ml @ 50 mls/hr Q12H IV 08/09/24 22:00 08/13/24 09:24 50 MLS/HR Morphine Sulfate 2 mg Q4HPRN PRN IV 08/09/24 18:00 08/12/24 02:52 2 MG Hydralazine HCl 20 mg Q6HP PRN IV 08/09/24 21:15 08/12/24 15:10 20 MG Dexmedetomidine HCl 400 mcg/ Dextrose 100 ml @ 4.05 mls/hr Q24H IV 08/09/24 22:30 UNV Haloperidol Lactate 2 mg Q8HP PRN IM 08/11/24 22:00 Cancel Ipratropium [place] 0.5 mg Q4HR NEB 08/12/24 10:00 08/13/24 14:05 0.5 MG Albuterol 2.5 mg Q4HPRN PRN NEB 08/12/24 09:00 08/13/24 14:05 2.5 MG objective General appearance: Comfortable Respiratory: Coarse crackles Cardiovascular: Regular rate and rhythm, no murmurs. No edema Abdomen: Soft, nondistended, nontender, bowel sounds present MSK: Normal range of motion. No focal deficits. Neuro:A/O x3, moving all extremities Psych:Comfortable laboratory and microbiology Laboratory Tests 08/13/24 04:50 Test 08/13/24 04:50 Range/Units Serum Glucose 214 H 74-106 mg/dL Assessment/Plan 1) Acute respiratory failure 2) Cardiac arrest s/p CPR/ROSC 3) Complete heart block s/p PPI 4) Acute Kidney Injury - resolving Secondary Diagnosis: 5) A fib 6) HTN 7) HLD 8) COPD 9) DM type 2 10) Recent TAVR 06/2024 at [facility] 11) Altered mental status-resolved 12) CHF EF 40-45% Reduced Systolic Function Assessment/Plan plan; - Continue ICU monitoring - Extubated 08/09/24 - S/P PPI done with cardiology 08/05, Heart rates at 70 - Echo showed ef 40-45% - S/p bronchoscopy on Aug 07 with clearance of noted mucous plugging, - Cr improving. DC Lasix and fluids. - blood and urine cultures NGTD - pulm/cardio/renal on board, - Neurology consulted due to AMS now resolved. CT brain WO contrast cancelled. -Speech evaluation ordered, then can proceed with diet -PT eval ordered -CM consulted for LTACH evaluation -Full Code. Dietary Evaluation Review Comments: 1. For better controlled glucose level, recommend Glucerna TF 40ml/hr, in 24 hr providing 58g pro, 1152 kcal, supporting pt's protein needs at 89%, energy needs at 71%. 2. Consider a 2g Na low fat low Chol CCHO-60 diet when pt is off vent and pass speech eval. 3. Consider TPN per pharmacy if pt is no EN suitable and has been NPO > 7 days. Expected Outcomes/Goals: Off vent and advance to diet Maintain BW. Plan discussed with: Spouse MARJAN GARCIA DO Aug 13, 2024 15:23
--- NOTE | 2024-08-13 22:52 | DVHPN2 ---
Progress Note - Dictate Date Seen: Aug 13, 2024 Medical Necessity Reason Pt with a Central, PICC or Fol: No Subjective Patient seen and examined at bedside. Remains on supplemental oxygen Overnight events reviewed. vital signs Vital Sign Date Time Temp Pulse Resp B/P (MAP) Pulse Ox O2 Delivery O2 Flow Rate FiO2 08/13/24 22:37 95 16 100 08/13/24 22:31 Nasal Cannula 2.0 08/13/24 22:31 28 08/13/24 17:00 98.5 143/71 (95) 98.5 Total Intake and Output 08/12/24 08/12/24 08/13/24 15:00 23:00 07:00 Intake Total 700 ml 525 ml Output Total 200 ml 280 ml Balance 500 ml 245 ml medications Current Medications Medications Dose Ordered Sig/Leatha Route Start Time Stop Time Status Last Admin Dose Admin Ceftriaxone Sodium 50 ml @ 100 mls/hr DAILY@09 IV 08/05/24 09:00 08/13/24 08:13 100 MLS/HR Nitroglycerin 0.4 mg Q5MINP PRN SL 08/04/24 14:45 Diagnostic Test (Pha) 1 strip Q6HR 08/04/24 18:00 08/13/24 18:07 1 STRIP Insulin Human Regular Q6HR SC 08/04/24 18:00 08/13/24 18:08 4 UNITS Dextrose 50 ml UD PRN IV 08/04/24 15:00 Insulin Glargine 10 units HS SC 08/04/24 22:00 08/13/24 21:53 10 UNITS Pantoprazole Sodium 40 mg DAILY IV 08/05/24 10:00 08/13/24 09:24 40 MG Allopurinol 100 mg BID PO 08/04/24 22:00 08/13/24 21:46 100 MG Tamsulosin HCl 0.4 mg QPM PO 08/04/24 18:00 08/08/24 17:18 0.4 MG Doxycycline Hyclate 100 ml @ 50 mls/hr Q12H IV 08/09/24 22:00 08/13/24 21:46 50 MLS/HR Morphine Sulfate 2 mg Q4HPRN PRN IV 08/09/24 18:00 08/12/24 02:52 2 MG Hydralazine HCl 20 mg Q6HP PRN IV 08/09/24 21:15 08/12/24 15:10 20 MG Dexmedetomidine HCl 400 mcg/ Dextrose 100 ml @ 4.05 mls/hr Q24H IV 08/09/24 22:30 UNV Haloperidol Lactate 2 mg Q8HP PRN IM 08/11/24 22:00 Cancel Ipratropium [place] 0.5 mg Q4HR NEB 08/12/24 10:00 08/13/24 22:31 0.5 MG Albuterol 2.5 mg Q4HPRN PRN NEB 08/12/24 09:00 08/13/24 22:31 2.5 MG objective Gen.: Patient lying in bed in no apparent distress. On supplemental oxygen. Head: Normocephalic, atraumatic. Eyes: EOMI/PERRLA. Ears: Normal hearing. Normal anatomy. Neck/trachea: Trachea midline, supple. Nose: Normal external anatomy. Mouth: Moist mucous membranes. Chest: Decreased air entry bilaterally. No wheezing or rhonchi. Cardiovascular: Positive S1, positive S2. Regular rate and rhythm. Abdomen: Positive bowel sounds in all 4 quadrants. Soft, non-tender, non- distended. : Deferred. Rectal: Deferred. Skin: Warm, dry. Intact. Extremities: 2+ radial pulses bilaterally. No lower extremity edema. Neuro: Awake, alert, oriented x3. No gross motor or sensory deficits. Cranial nerves II through XII intact. Gait not assessed. laboratory and microbiology Laboratory Tests 08/13/24 04:50 Test 08/13/24 04:50 Range/Units Serum Glucose 214 H 74-106 mg/dL Assessment/Plan Impression: Acute hypoxic respiratory failure On mechanical ventilator Bradycardia/complete heart block S/p TAVR Acute exacerbation of CHF S/p cardiac arrest Elevated troponin Chronic kidney disease Events: Remains on supplemental O2, 3 LPM NC Taper o2 as tolerated Off Precedex since yesterday NPO, swallow evaluation Follow up Cardiology recs. Off Lasix Off fluids Monitor renal function Monitor electrolytes. Supplement as necessary. Off [place] CXR reviewed, demonstrates pulmonary vascular congestion. Bronchodilators PRN Continue antibiotics Hydralazine PRN systolic BP >160. Patient is stable for downgrade from the pulmonary standpoint. S/p pacer. Labs and imaging reviewed. Rest of plan as noted below. Plan: s/p extubation on 08/09/24 Supplemental oxygen Titrate to keep O2 sats above 90%. Continue antibiotics. Dopamine 5 mcg/min d/t bradycardia - on hold Monitor renal function Monitor electrolytes. Supplement as necessary. Monitor ins and outs. Maintain euvolemia. GI prophylaxis. DVT prophylaxis. Prognosis: Poor given patient's multiple co-morbidities. Rest of plan per hospitalist and other consultants. Thank you, [employer] Abel, for allowing me to participate in this patient's care. Further recommendations will depend on the patient's clinical course. Please do not hesitate to contact me if you have any questions or concerns. This medical document was created using an electronic medical record system with [employer] dictation system. Although these documentations are being carefully reviewed, there may still be some phonetic and typographical changes. The errors are purely typographical, due to imperfection on the software program, and do not reflect any compromise in the patient's medical care. Dietary Evaluation Review Comments: 1. For better controlled glucose level, recommend Glucerna TF 40ml/hr, in 24 hr providing 58g pro, 1152 kcal, supporting pt's protein needs at 89%, energy needs at 71%. 2. Consider a 2g Na low fat low Chol CCHO-60 diet when pt is off vent and pass speech eval. 3. Consider TPN per pharmacy if pt is no EN suitable and has been NPO > 7 days. Expected Outcomes/Goals: Off vent and advance to diet Maintain BW. Plan discussed with: Patient, Other (NANCY Hernández) FARIHA PRAKASH MD Aug 13, 2024 22:52
[2024-08-14] VITALS (8 sets, daily range): BP systolic 116–162; BP diastolic 59–84; PULSE 85–112; RESP 18–20; TEMP 36.7; O2SAT 94–98
[2024-08-14 09:33] LABS: Basophils # (auto) 0.1 10 ^3/uL (0-0.2); Basophils % (auto) 0.4 % (0.0-2.0); Eosinophils # (auto) 0.3 10 ^3/uL (0-0.8); Eosinophils % (auto) 1.4 % (0.0-7.0); Hematocrit 33.9 % (41.0-53.0); Hemoglobin 10.9 g/dL (13.5-17.5); Lymphocytes # (auto) 2.2 10 ^3/uL (0.4-5.4); Lymphocytes % (auto) 11.3 % (10.0-50.0); Mean Corpuscular Hemoglobin 28.6 pg (28.0-32.0); Mean Corpuscular Hgb Conc. 32.1 g/dL (32.0-36.0); Monocytes # (auto) 1.3 10 ^3/uL (0-1.3); Monocytes % (auto) 6.6 % (0.0-12.0); Neutrophils # (auto) 15.7 10 ^3/uL (1.6-8.6); Neutrophils % (auto) 80.3 % (37.0-80.0); Nucleated Red Blood Cells % 0.2 %; Platelet Count (auto) 267 10^3/uL (140-450); Red Blood Cells 3.81 10^6/uL (4.5-5.90); Red Cell Distribution Width 17.5 % (11.8-14.3); White Blood Cell 19.6 10^3/uL (4.4-10.8)
[2024-08-14 12:41] LABS: Albumin 3.7 g/dL (3.2-4.8); Alkaline Phosphatase 111 U/L (46-116); Anion Gap 9 (5-15); Aspartate Aminotransferase 26 U/L (13-40); BUN/Creatinine Ratio 25.7 (10.0-20.0); Carbon Dioxide 26 mmol/L (20-31)
[2024-08-14 12:42] LABS: Alanine Aminotransferase 195 U/L (7-40); Blood Urea Nitrogen 59 mg/dL (9-23); Chloride 111 mmol/L (98-107); Glucose 116 mg/dL (74-106); Potassium 3.7 mmol/L (3.5-5.1); Sodium 146 mmol/L (136-145); Total Protein 7.6 g/dL (5.7-8.2)
--- NOTE | 2024-08-14 13:03 | DVHPN2 ---
Progress Note - Dictate Date Seen: Aug 14, 2024 Medical Necessity Reason Pt with a Central, PICC or Fol: No Subjective PT RECENTLY UNDERWENT TAVR AT [facility] NOW WITH 3 DEGREE AV BLOCK DEVELOPED ASYSTOLE INTUBATED TEMPORARY PACER INSERTED NOW NEEDS DUAL PPI PMH: ORGANIC HD S/P CABG LHC * Left main, patent. * Distal left main, however, had 50% narrowing. * Left anterior descending artery severely diseased, at previous site of stent placement. * TOMPKINS to the LAD was patent. It was sequenced to diagonal 1 and diagonal 2 that were patent, but distal to the bypass, there was severe diffuse disease throughout the [place] coronary arteries. * Circumflex had about a 40-50% ostial narrowing. * With moderate diffuse disease throughout the circumflex territory. * Saphenous vein graft to the OM was occluded. 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 * Severe disease of the PDA. * Saphenous vein graft to the PDA was patent. At this point, the patient has diffuse disease. Distal flow was diminished. The patient had patent grafts, but [place] vessels that were ____ severely diseased. The best option for the patient at this time is conservative medical management, aggressive risk modification, dual antiplatelet therapy should be introduced. The patient is a candidate for EECP. The patient is also a candidate for dobutamine infusion. He should also be considered for Bi-V AICD implantation as well. We will continue to follow the patient. ECHO 05/23 LVH EF >60% LAE BERNARD CRITICAL HEAVILY CALCIFIED AV NOW S/P TAVR vital signs Vital Sign Date Time Temp Pulse Resp B/P (MAP) Pulse Ox O2 Delivery O2 Flow Rate FiO2 08/14/24 09:00 97.7 112 20 116/71 (86) 96 97.7 08/13/24 22:31 Nasal Cannula 2.0 08/13/24 22:31 28 Total Intake and Output 08/13/24 08/13/24 08/14/24 15:00 23:00 07:00 Intake Total 225 ml 240 ml 0 ml Output Total 300 ml 5 ml Balance 225 ml -60 ml -5 ml medications Current Medications Medications Dose Ordered Sig/Leatha Route Start Time Stop Time Status Last Admin Dose Admin Ceftriaxone Sodium 50 ml @ 100 mls/hr DAILY@09 IV 08/05/24 09:00 08/14/24 09:56 100 MLS/HR Nitroglycerin 0.4 mg Q5MINP PRN SL 08/04/24 14:45 Diagnostic Test (Pha) 1 strip Q6HR 08/04/24 18:00 08/14/24 12:28 1 STRIP Insulin Human Regular Q6HR SC 08/04/24 18:00 08/14/24 12:24 3 UNITS Dextrose 50 ml UD PRN IV 08/04/24 15:00 Insulin Glargine 10 units HS SC 08/04/24 22:00 08/13/24 21:53 10 UNITS Pantoprazole Sodium 40 mg DAILY IV 08/05/24 10:00 08/14/24 09:56 40 MG Allopurinol 100 mg BID PO 08/04/24 22:00 08/14/24 09:56 100 MG Tamsulosin HCl 0.4 mg QPM PO 08/04/24 18:00 08/08/24 17:18 0.4 MG Doxycycline Hyclate 100 ml @ 50 mls/hr Q12H IV 08/09/24 22:00 08/14/24 09:56 50 MLS/HR Morphine Sulfate 2 mg Q4HPRN PRN IV 08/09/24 18:00 08/12/24 02:52 2 MG Hydralazine HCl 20 mg Q6HP PRN IV 08/09/24 21:15 08/12/24 15:10 20 MG Dexmedetomidine HCl 400 mcg/ Dextrose 100 ml @ 4.05 mls/hr Q24H IV 08/09/24 22:30 UNV Haloperidol Lactate 2 mg Q8HP PRN IM 08/11/24 22:00 Cancel Ipratropium [place] 0.5 mg Q4HR NEB 08/12/24 10:00 08/13/24 22:31 0.5 MG Albuterol 2.5 mg Q4HPRN PRN NEB 08/12/24 09:00 08/13/24 22:31 2.5 MG laboratory and microbiology Laboratory Tests 08/14/24 08:24 Test 08/14/24 08:24 Range/Units Serum Glucose 116 H 74-106 mg/dL Problem List UNDERWENT TAVR AT [facility] NOW WITH 3 DEGREE AV BLOCK DEVELOPED ASYSTOLE INTUBATED TEMPORARY PACER INSERTED NOW NEEDS DUAL PPI PMH: ORGANIC HD S/P CABG LHC * Left main, patent. * Distal left main, however, had 50% narrowing. * Left anterior descending artery severely diseased, at previous site of stent placement. * TOMPKINS to the LAD was patent. It was sequenced to diagonal 1 and diagonal 2 that were patent, but distal to the bypass, there was severe diffuse disease throughout the [place] coronary arteries. * Circumflex had about a 40-50% ostial narrowing. * With moderate diffuse disease throughout the circumflex territory. * Saphenous vein graft to the OM was occluded. 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 * Severe disease of the PDA. * Saphenous vein graft to the PDA was patent. At this point, the patient has diffuse disease. Distal flow was diminished. The patient had patent grafts, but [place] vessels that were ____ severely diseased. The best option for the patient at this time is conservative medical management, aggressive risk modification, dual antiplatelet therapy should be introduced. The patient is a candidate for EECP. The patient is also a candidate for dobutamine infusion. He should also be considered for Bi-V AICD implantation as well. We will continue to follow the patient. ECHO 05/23 LVH EF >60% LAE BERNARD CRITICAL HEAVILY CALCIFIED AV NOW S/P TAVR Assessment/Plan ANTIBIOTIC SCHEDULE FOR PPI PT WILL BE PACER DEPENDENT SINCE WITH 3 AV BLOCK WILL CONSIDER LBB PACING S/P DUAL PPI OFF TRANSVENOUS PACING HEMODYNAMICALLY STABLE WILL EXTUBATE WHEN AWAKE CXR LABS PPM INTERROGATED NL FUNCTION PLAVIX TO BE STARTED IN 2 DAYS still agitated non awake CPAP GOOD EXTUBATE ANOXIC INSULT LEUKOCYTOSIS Dietary Evaluation Review Comments: 1. For better controlled glucose level, recommend Glucerna TF 40ml/hr, in 24 hr providing 58g pro, 1152 kcal, supporting pt's protein needs at 89%, energy needs at 71%. 2. Consider a 2g Na low fat low Chol CCHO-60 diet when pt is off vent and pass speech eval. 3. Consider TPN per pharmacy if pt is no EN suitable and has been NPO > 7 days. Expected Outcomes/Goals: Off vent and advance to diet Maintain BW. Plan discussed with: Patient, Spouse Critical Care Time(min): 35 CAROLE ELIZONDO MD Aug 14, 2024 13:03
--- NOTE | 2024-08-14 16:31 | DVHDS2 ---
Discharge Summary Date of Admission Aug 04, 2024 at 14:39 Date of Discharge: Aug 14, 2024 Labs/Diagnostic Data: Laboratory Results Test 08/14/24 11:23 08/14/24 08:24 08/10/24 20:56 08/10/24 07:24 POC Glucose 175 mg/dl (70-106) White Blood Count 19.6 10^3/uL (4.4-10.8) Red Blood Count 3.81 10^6/uL (4.5-5.90) Hemoglobin 10.9 g/dL (13.5-17.5) Hematocrit 33.9 % (41.0-53.0) Mean Corpuscular Volume 89.0 fL (80.0-100.0) Mean Corpuscular Hemoglobin 28.6 pg (28.0-32.0) Mean Corpuscular Hemoglobin Concent 32.1 g/dL (32.0-36.0) Red Cell Distribution Width 17.5 % (11.8-14.3) Platelet Count 267 10^3/uL (140-450) Mean Platelet Volume 7.7 fL (6.9-10.8) Neutrophils (%) (Auto) 80.3 % (37.0-80.0) Lymphocytes (%) (Auto) 11.3 % (10.0-50.0) Monocytes (%) (Auto) 6.6 % (0.0-12.0) Eosinophils (%) (Auto) 1.4 % (0.0-7.0) Basophils (%) (Auto) 0.4 % (0.0-2.0) Neutrophils # (Auto) 15.7 10 ^3/uL (1.6-8.6) Lymphocytes # (Auto) 2.2 10 ^3/uL (0.4-5.4) Monocytes # (Auto) 1.3 10 ^3/uL (0-1.3) Eosinophils # (Auto) 0.3 10 ^3/uL (0-0.8) Basophils # (Auto) 0.1 10 ^3/uL (0-0.2) Nucleated Red Blood Cells 0.2 % Sodium Level 146 mmol/L (136-145) Potassium Level 3.7 mmol/L (3.5-5.1) Chloride Level 111 mmol/L (98-107) Carbon Dioxide Level 26 mmol/L (20-31) Anion Gap 9 (5-15) Blood Urea Nitrogen 59 mg/dL (9-23) Creatinine 2.30 mg/dL (0.700-1.30) Glomerular Filtration Rate Calc 29 mL/min (>90) BUN/Creatinine Ratio 25.7 (10.0-20.0) Serum Glucose 116 mg/dL (74-106) Calcium Level 10.0 mg/dL (8.7-10.4) Total Bilirubin 1.0 mg/dL (0.2-1.0) Aspartate Amino Transferase (AST) 26 U/L (13-40) Alanine Aminotransferase (ALT) 195 U/L (7-40) Alkaline Phosphatase 111 U/L (46-116) Total Protein 7.6 g/dL (5.7-8.2) Albumin 3.7 g/dL (3.2-4.8) Blood Gas Specimen Type Arterial Blood Gas Sample Site Left radial Blood Gas Patient Temperature 37.0 Arterial Blood Date Drawn [id number] Arterial Blood pH 7.453 (7.350-7.450) Arterial Blood Partial Pressure CO2 27.1 mmHg (35.0-48.0) Arterial Blood Partial Pressure O2 205.3 mmHg (83.0-108.0) Arterial Blood HCO3 18.5 mmol/L (21.0-28.0) Arterial Blood Oxygen Saturation 98.4 % (94.0-98.0) Arterial Blood Base Excess -4.5 mmol/L (-2.0-3.0) Arterial Blood Oxyhemoglobin 97.6 % (94.0-98.0) Arterial Blood Carboxyhemoglobin 0.3 % (0.5-1.5) Arterial Blood Methemoglobin 0.5 % (0.0-1.5) Mike Test Yes Blood Gas Total Hemoglobin 9.40 g/dL (13.5-17.5) Blood Gas Liter Flow 10.00 Blood Gas Modality Mask - simple FiO2 % 50.0 Blood Gas Spontaneous Rate 28 Blood Gas Critical Value Read Back Yes Blood Gas Notified Whom samuel Whitmore Blood Gas Notified Time [id number] Blood Gas Notified By Test 08/10/24 06:00 08/09/24 11:52 08/09/24 06:48 08/04/24 14:48 Troponin I High Sensitivity 188 ng/L (</=54) Blood Gas Pressure Support 8 Blood Gas PEEP or CPAP 5.0 Blood Gas Set Respiration Rate 24.0 Blood Gas Tidal Volume 500.0 Urine Color Light-yellow (Yellow) Urine Clarity Clear (Clear) Urine pH 5.5 (5.0-9.0) Urine Specific Roland 1.016 (1.001-1.035) Urine Protein 1+ (Negative) Urine Ketones Negative (Negative) Urine Blood Negative /uL (Negative) Urine Nitrite Negative (Negative) Urine Bilirubin Negative (Negative) Urine Urobilinogen Normal mg/dL (Negative) Urine Leukocyte Esterase Negative /uL (Negative) Urine RBC 4 /hpf (0 - 3) Urine WBC 1 /hpf (0 - 3) Urine Squamous Epithelial Cells None seen /hpf (<5) Urine Bacteria None seen /hpf (None Seen) Urine Hyaline Casts Few /lpf (0 - 2) Urine Glucose 3+ mg/dL (Normal) Test 08/04/24 10:13 08/04/24 07:42 Lactic Acid Level 1.2 mmol/L (0.4-2.0) Hemoglobin A1c 7.1 % A1C (<5.7) Magnesium Level 2.2 mg/dL (1.6-2.6) B-Type Natriuretic Peptide 257.06 pg/mL (0-100) Triglycerides Level 103 mg/dL (< 150) Cholesterol Level 110 mg/dL (< 200) LDL Cholesterol 64 mg/dL (< 100) HDL Cholesterol 26 mg/dL (40-59) Thyroid Stimulating Hormone (TSH) 2.48 uIU/mL (0.55-4.78) Other Laboratory Tests 08/14/24 08:24 Brief Hx & Hospital Course: Patient is a 74-year-old male with past medical history of CABG, CAD, history of atrial fibrillation, type 2 diabetes, who presented to the ER with bradycardia. Patient presented with complete heart block and it was noted that the patient underwent cardiac arrest in the ER. He was successfully resuscitated and patient was subsequently on ventilator support. Please eval by cardiology who placed a permanent pacemaker. Patient was extubated but noted to be confused for his first 2 days postextubation. Patient's mental status subsequently improved on its own and patient returned to his baseline. Patient's hospital course was complicated by GRACIE on CKD. Patient appeared to return to his baseline prior to discharge with BUN/creatinine of 59/2.3. Patient was also noted to require nasal cannula support of 2 L prior to discharge. He was treated with ceftriaxone and doxycycline during this admission. Blood cultures, urine cultures, respiratory cultures did not show any growth. Patient was discharged on Augmentin and doxycycline for continued pneumonia treatment. Patient is to be discharged to SNF for further physical therapy. Patient is to follow-up with cardiology and nephrology outpatient. Patient discharged in stable condition. [facility] case management arrange follow-up appointments. Condition at Discharge: Good Final Diagnosis/Problems List Complete Heart Block S/P Pacemaker Secondary Diagnosis: CKD Stage 4 CHF-Reduced Systolic Function Acute Respiratory Failure Pnuemonia-Due to unspecified organism Type 2 Diabetes Discharge Disposition: Senior Living Facility Discharge Instruct/Medications Diet: See Comment Diet comment: Mechanical Soft/Cardiac Diet Activity: No Restrictions, As Tolerated Follow Up/Referral: Follow up with cardiology. Follow up with nephrology. Discharge Statement: "Patient was advised to return to the ER or call 911 if any headaches, dizziness, shortness of breath, chest pain, abdominal pain, bleeding, fevers, or worsening of medical condition. Patient was counseled about treatment plan, medications, possible side effects, patientverbalized understanding. All questions were answered to the best of my ability. This discharge took greater then 30 minutes in planning, reviewing documentation, counseling the patient, and discussing with other team members." ASSESSMENT ASSESSMENT Assessment Sick Sinus Syndrome MARJAN GARCIA DO Aug 14, 2024 16:30
--- NOTE | 2024-08-14 17:58 | DVHPN2 ---
Progress Note Date Seen: Aug 14, 2024 Medical Necessity Reason Pt with a Central, PICC or Fol: No Objective vital signs Vital Sign Date Time Temp Pulse Resp B/P (MAP) Pulse Ox O2 Delivery O2 Flow Rate FiO2 08/14/24 16:44 98.1 85 18 141/59 (86) 95 98.1 08/14/24 08:00 Nasal Cannula* 2 28 Total Intake and Output 08/13/24 08/13/24 08/14/24 15:00 23:00 07:00 Intake Total 225 ml 240 ml 0 ml Output Total 300 ml 5 ml Balance 225 ml -60 ml -5 ml medications Current Medications Medications Dose Ordered Sig/Leatha Route Start Time Stop Time Status Last Admin Dose Admin Ceftriaxone Sodium 50 ml @ 100 mls/hr DAILY@09 IV 08/05/24 09:00 08/14/24 09:56 100 MLS/HR Nitroglycerin 0.4 mg Q5MINP PRN SL 08/04/24 14:45 Diagnostic Test (Pha) 1 strip Q6HR 08/04/24 18:00 08/14/24 17:53 1 STRIP Insulin Human Regular Q6HR SC 08/04/24 18:00 08/14/24 12:24 3 UNITS Dextrose 50 ml UD PRN IV 08/04/24 15:00 Insulin Glargine 10 units HS SC 08/04/24 22:00 08/13/24 21:53 10 UNITS Pantoprazole Sodium 40 mg DAILY IV 08/05/24 10:00 08/14/24 09:56 40 MG Allopurinol 100 mg BID PO 08/04/24 22:00 08/14/24 09:56 100 MG Tamsulosin HCl 0.4 mg QPM PO 08/04/24 18:00 08/14/24 17:53 0.4 MG Doxycycline Hyclate 100 ml @ 50 mls/hr Q12H IV 08/09/24 22:00 08/14/24 09:56 50 MLS/HR Morphine Sulfate 2 mg Q4HPRN PRN IV 08/09/24 18:00 08/12/24 02:52 2 MG Hydralazine HCl 20 mg Q6HP PRN IV 08/09/24 21:15 08/12/24 15:10 20 MG Dexmedetomidine HCl 400 mcg/ Dextrose 100 ml @ 4.05 mls/hr Q24H IV 08/09/24 22:30 UNV Haloperidol Lactate 2 mg Q8HP PRN IM 08/11/24 22:00 Cancel Ipratropium [place] 0.5 mg Q4HR NEB 08/12/24 10:00 08/13/24 22:31 0.5 MG Albuterol 2.5 mg Q4HPRN PRN NEB 08/12/24 09:00 08/13/24 22:31 2.5 MG Examination: GENERAL:Abnormal, CVS:Normal laboratory and microbiology Laboratory Tests 08/14/24 08:24 Test 08/14/24 08:24 Range/Units Serum Glucose 116 H 74-106 mg/dL Microbiology Date/Time Source Procedure Growth Status 08/10/24 06:37 Urine - [place] Urine Culture - Final Complete 08/04/24 10:13 Blood Blood Culture - Final NO GROWTH AFTER 5 DAYS OF INCUBATION. Complete 08/04/24 08:11 Sputum Gram Stain - Final Complete 08/04/24 08:11 Sputum Respiratory Culture - Final Complete Problem List/Assessment/Plan Problem List/Assessment/Plan Acute kidney injury on Chronic kidney disease four hemodynamic mediated Bradycardia status post cpr Encephalopathy Ventilator-dependent hypoxic respiratory failure hypernatremia fluids have potassium require close monitoring stable from a renal standpoint Plan discussed with: Patient Dietary Evaluation Review Comments: 1. For better controlled glucose level, recommend Glucerna TF 40ml/hr, in 24 hr providing 58g pro, 1152 kcal, supporting pt's protein needs at 89%, energy needs at 71%. 2. Consider a 2g Na low fat low Chol CCHO-60 diet when pt is off vent and pass speech eval. 3. Consider TPN per pharmacy if pt is no EN suitable and has been NPO > 7 days. Expected Outcomes/Goals: Off vent and advance to diet Maintain BW. DALI GILMORE MD Aug 14, 2024 17:57
--- NOTE | 2024-08-14 22:40 | DVHPN2 ---
Progress Note - Dictate Date Seen: Aug 14, 2024 Medical Necessity Reason Pt with a Central, PICC or Fol: No Subjective Patient seen and examined at bedside. Remains on supplemental oxygen Overnight events reviewed. vital signs Vital Sign Date Time Temp Pulse Resp B/P (MAP) Pulse Ox O2 Delivery O2 Flow Rate FiO2 08/14/24 18:44 36.7 85 94 08/14/24 18:35 Nasal Cannula* 2 28 08/14/24 16:44 18 141/59 (86) Total Intake and Output 08/13/24 08/13/24 08/14/24 15:00 23:00 07:00 Intake Total 225 ml 240 ml 0 ml Output Total 300 ml 5 ml Balance 225 ml -60 ml -5 ml medications Current Medications Medications Dose Ordered Sig/Leatha Route Start Time Stop Time Status Last Admin Dose Admin Ceftriaxone Sodium 50 ml @ 100 mls/hr DAILY@09 IV 08/05/24 09:00 08/14/24 09:56 100 MLS/HR Nitroglycerin 0.4 mg Q5MINP PRN SL 08/04/24 14:45 Diagnostic Test (Pha) 1 strip Q6HR 08/04/24 18:00 08/14/24 17:53 1 STRIP Insulin Human Regular Q6HR SC 08/04/24 18:00 08/14/24 18:37 2 UNITS Dextrose 50 ml UD PRN IV 08/04/24 15:00 Insulin Glargine 10 units HS SC 08/04/24 22:00 08/13/24 21:53 10 UNITS Pantoprazole Sodium 40 mg DAILY IV 08/05/24 10:00 08/14/24 09:56 40 MG Allopurinol 100 mg BID PO 08/04/24 22:00 08/14/24 09:56 100 MG Tamsulosin HCl 0.4 mg QPM PO 08/04/24 18:00 08/14/24 17:53 0.4 MG Doxycycline Hyclate 100 ml @ 50 mls/hr Q12H IV 08/09/24 22:00 08/14/24 09:56 50 MLS/HR Morphine Sulfate 2 mg Q4HPRN PRN IV 08/09/24 18:00 08/12/24 02:52 2 MG Hydralazine HCl 20 mg Q6HP PRN IV 08/09/24 21:15 08/12/24 15:10 20 MG Dexmedetomidine HCl 400 mcg/ Dextrose 100 ml @ 4.05 mls/hr Q24H IV 08/09/24 22:30 UNV Haloperidol Lactate 2 mg Q8HP PRN IM 08/11/24 22:00 Cancel Ipratropium [place] 0.5 mg Q4HR NEB 08/12/24 10:00 08/13/24 22:31 0.5 MG Albuterol 2.5 mg Q4HPRN PRN NEB 08/12/24 09:00 08/13/24 22:31 2.5 MG objective Gen.: Patient lying in bed in no apparent distress. On supplemental oxygen. Head: Normocephalic, atraumatic. Eyes: EOMI/PERRLA. Ears: Normal hearing. Normal anatomy. Neck/trachea: Trachea midline, supple. Nose: Normal external anatomy. Mouth: Moist mucous membranes. Chest: Decreased air entry bilaterally. No wheezing or rhonchi. Cardiovascular: Positive S1, positive S2. Regular rate and rhythm. Abdomen: Positive bowel sounds in all 4 quadrants. Soft, non-tender, non- distended. : Deferred. Rectal: Deferred. Skin: Warm, dry. Intact. Extremities: 2+ radial pulses bilaterally. No lower extremity edema. Neuro: Awake, alert, oriented x3. No gross motor or sensory deficits. Cranial nerves II through XII intact. Gait not assessed. laboratory and microbiology Laboratory Tests 08/14/24 08:24 Test 08/14/24 08:24 Range/Units Serum Glucose 116 H 74-106 mg/dL Assessment/Plan Impression: Acute hypoxic respiratory failure Bradycardia/complete heart block S/p TAVR Acute exacerbation of CHF S/p cardiac arrest Elevated troponin Chronic kidney disease Events: Remains on supplemental O2, 1.5 LPM NC Taper o2 as tolerated Improved O2 requirements NPO, swallow evaluation Cardiology recs appreciated Off Lasix Off fluids Monitor renal function Monitor electrolytes. Supplement as necessary. Off [place] Bronchodilators PRN Continue antibiotics Hydralazine PRN systolic BP >160. Disposition per hospitalist. Labs and imaging reviewed. Rest of plan as noted below. Plan: s/p extubation on 08/09/24 Supplemental oxygen Titrate to keep O2 sats above 90%. Continue antibiotics. Monitor renal function Monitor electrolytes. Supplement as necessary. Monitor ins and outs. Maintain euvolemia. S/p pacer. GI prophylaxis. DVT prophylaxis. Prognosis: Guarded given patient's multiple co-morbidities. Rest of plan per hospitalist and other consultants. Thank you, FOUNDATION RELATIONS DIRECTOR Abel, for allowing me to participate in this patient's care. Further recommendations will depend on the patient's clinical course. Please do not hesitate to contact me if you have any questions or concerns. This medical document was created using an electronic medical record system with [employer] dictation system. Although these documentations are being carefully reviewed, there may still be some phonetic and typographical changes. The errors are purely typographical, due to imperfection on the software program, and do not reflect any compromise in the patient's medical care. Dietary Evaluation Review Comments: 1. For better controlled glucose level, recommend Glucerna TF 40ml/hr, in 24 hr providing 58g pro, 1152 kcal, supporting pt's protein needs at 89%, energy needs at 71%. 2. Consider a 2g Na low fat low Chol CCHO-60 diet when pt is off vent and pass speech eval. 3. Consider TPN per pharmacy if pt is no EN suitable and has been NPO > 7 days. Expected Outcomes/Goals: Off vent and advance to diet Maintain BW. Plan discussed with: Patient, Other (NANCY Conway) FARIHA PRAKASH MD Aug 14, 2024 22:40
== END 2024-08-14 19:31 | DRG 242 ==
LOC: ER 05:24 → EDBD 05:24 → TELE 14:39 → CATH ICU 18:47 → ICU CENTRL 08-06 22:40 → TELE-EAST 08-13 16:55
PROVIDERS: ADMIT Internal Medicine; ATTEND Student in an Organized Health Care Education/Training Program
PROC: 5A1223Z Performance of Cardiac Pacing, Continuous (ICD-10-PCS; 2024-08-04)
PROC: 5A12012 Performance of Cardiac Output, Single, Manual (ICD-10-PCS; 2024-08-04)
PROC: 06HY33Z Insertion of Infusion Device into Lower Vein, Percutaneous Approach (ICD-10-PCS; 2024-08-04)
PROC: 0BH17EZ Insertion of Endotracheal Airway into Trachea, Via Natural or Artificial Opening (ICD-10-PCS; 2024-08-04)
PROC: 5A1955Z Respiratory Ventilation, Greater than 96 Consecutive Hours (ICD-10-PCS; 2024-08-04)
PROC: 02H633Z Insertion of Infusion Device into Right Atrium, Percutaneous Approach (ICD-10-PCS; 2024-08-04)
PROC: 0JH606Z Insertion of Pacemaker, Dual Chamber into Chest Subcutaneous Tissue and Fascia, Open Approach (ICD-10-PCS; principal; 2024-08-05)
PROC: 02H63JZ Insertion of Pacemaker Lead into Right Atrium, Percutaneous Approach (ICD-10-PCS; 2024-08-05)
PROC: 02HK3JZ Insertion of Pacemaker Lead into Right Ventricle, Percutaneous Approach (ICD-10-PCS; 2024-08-05)
PROC: 0B978ZZ Drainage of Left Main Bronchus, Via Natural or Artificial Opening Endoscopic (ICD-10-PCS; 2024-08-06)
PROC: 0B938ZZ Drainage of Right Main Bronchus, Via Natural or Artificial Opening Endoscopic (ICD-10-PCS; 2024-08-06)
DX: I44.2 Atrioventricular block, complete (principal); G93.41 Metabolic encephalopathy; I50.43 Acute on chronic combined systolic (congestive) and diastolic (congestive) heart failure; J96.01 Acute respiratory failure with hypoxia; I46.9 Cardiac arrest, cause unspecified; J15.69 Pneumonia due to other Gram-negative bacteria; J15.9 Unspecified bacterial pneumonia; I13.0 Hypertensive heart and chronic kidney disease with heart failure and stage 1 through stage 4 chronic kidney disease, or unspecified chronic kidney disease; N17.9 Acute kidney failure, unspecified; N18.4 Chronic kidney disease, stage 4 (severe); E87.0 Hyperosmolality and hypernatremia; E87.29 Other acidosis; G93.1 Anoxic brain damage, not elsewhere classified; Z99.11 Dependence on respirator [ventilator] status; E78.5 Hyperlipidemia, unspecified; E11.65 Type 2 diabetes mellitus with hyperglycemia; E66.9 Obesity, unspecified; I25.10 Atherosclerotic heart disease of native coronary artery without angina pectoris; M10.9 Gout, unspecified; N40.0 Benign prostatic hyperplasia without lower urinary tract symptoms; I49.5 Sick sinus syndrome; Z88.6 Allergy status to analgesic agent; Z95.1 Presence of aortocoronary bypass graft; Z95.2 Presence of prosthetic heart valve; Z95.5 Presence of coronary angioplasty implant and graft; Z79.01 Long term (current) use of anticoagulants; Z82.5 Family history of asthma and other chronic lower respiratory diseases; Z82.49 Family history of ischemic heart disease and other diseases of the circulatory system; Z78.1 Physical restraint status; Z87.891 Personal history of nicotine dependence; Z68.25 Body mass index [BMI] 25.0-25.9, adult
CPT/HCPCS: 31500; 33208; 33210; 36415; 36556; 36600; 70450; 71045; 80048; 80053; 80061; 81001; 82805; 82962; 83036; 83605; 83735; 83880; 84443; 84484; 85025; 87040; 87070; 87081; 87086; 87205; 92610; 93005; 93306; 94002; 94003; 94640; 96365; 96375; 97110; 97116; 97163; 99152; 99291; 99292; G0378; J1815; J2250; J2405; J2470; J2704; J3480; J7060

== ENCOUNTER 2024-08-16 17:39 | Emergency (ER) | payer OTHER ==
[~2024-08-16] VITALS: Ht 177.8 cm; Wt 86.3 kg
[~2024-08-16 17:39] MED LIST changes: -AZIT-185 PO; -BUM1T PO; -INSLANTI SC; +INSU100I74 SC; -METH4PAK PO; -METO25TA5 PO; -PANT1INJ3 PO; -SODI650T PO
[2024-08-16 19:08] LABS: Basophils # (auto) 0 10 ^3/uL (0-0.2); Basophils % (auto) 0.4 % (0.0-2.0); Eosinophils # (auto) 0.4 10 ^3/uL (0-0.8); Eosinophils % (auto) 3.1 % (0.0-7.0); Hematocrit 30.2 % (41.0-53.0); Hemoglobin 9.7 g/dL (13.5-17.5); Lymphocytes # (auto) 0.9 10 ^3/uL (0.4-5.4); Lymphocytes % (auto) 7.6 % (10.0-50.0); Mean Corpuscular Hemoglobin 28.7 pg (28.0-32.0); Mean Corpuscular Hgb Conc. 32.2 g/dL (32.0-36.0); Mean Corpuscular Volume 89.3 fL (80.0-100.0); Monocytes # (auto) 0.7 10 ^3/uL (0-1.3); Monocytes % (auto) 5.9 % (0.0-12.0); Neutrophils # (auto) 9.6 10 ^3/uL (1.6-8.6); Nucleated Red Blood Cells % 0.1 %; Platelet Count (auto) 191 10^3/uL (140-450); Red Blood Cells 3.38 10^6/uL (4.5-5.90); Red Cell Distribution Width 17.7 % (11.8-14.3); White Blood Cell 11.5 10^3/uL (4.4-10.8)
[2024-08-16 19:23] LABS: Anion Gap 7 (5-15); Calcium 9.3 mg/dL (8.7-10.4); Carbon Dioxide 24 mmol/L (20-31); Chloride 105 mmol/L (98-107); Potassium 4.2 mmol/L (3.5-5.1)
[2024-08-16 19:29] LABS: BUN/Creatinine Ratio 22.2 (10.0-20.0)
[2024-08-16 19:30] LABS: Blood Urea Nitrogen 44 mg/dL (9-23); Glucose 345 mg/dL (74-106); Sodium 136 mmol/L (136-145)
--- NOTE | 2024-08-16 21:00 | ED.PDOC ---
History of Present Illness HPI Comments This patient is a 74-year-old male who was brought by EMS to our facility from a [facility] facility for evaluation of a surgical site status post pacemaker placement approximately 12 days ago. Facility stated that the wound was weeping, but evaluation at arrival was relatively unremarkable. No signs of infection. Wound appears to be healing. Vital signs were stable. Chief Complaint: Wound Check Time Seen by MD: 17:56 Primary Care Provider: Mandie Reviewed Notes: Nurses Notes, Pug Machine Operator Notes Allergies: Coded Allergies: Ibuprofen (Verified Allergy, Unknown, 03/02/17) Home Meds Reported Medications Insulin Lispro (Insulin Lispro Kwikpen) 100 Unit/Ml Inj, 2-10 UNIT SC TID for 50 Days, #15 DIRECTED INJECT 2-10 UNITS SUBCUTANEOUSLY 3 TIMES DAILY WITH EACH MEAL PER SLINDING SCALE. 08/05/24 Gabapentin (Gabapentin) 300 Mg Cap, 1 CAP PO BID for 30 Days, #60 08/05/24 Vericiguat (Verquvo) 5 Mg Tab, 0.5 TAB PO BID for 30 Days, #30 TAKE 1/2 TABLET (2.5 MG) BY MOUTH 2 TIMES EVERY DAY. 08/05/24 Loratadine (Claritin) 10 Mg Tab, 1 TAB PO DAILY for 90 Days, #90 08/05/24 Clopidogrel Bisulfate (CLOPIDOGREL) 75 Mg Tab, 1 TAB PO DAILY for 88 Days, #88 08/05/24 Bumetanide (Bumetanide) 1 Mg Tab, 1 TAB PO BID for 90 Days, #180 08/05/24 Pantoprazole Sodium Sesquihydr (Pantoprazole Sodium Dr) 40 Mg Tab, 1 TAB PO DAILY for 90 Days, #90 08/05/24 Sodium Bicarbonate (Sodium Bicarbonate) 325 Mg Tab, 2 TAB PO BID for 90 Days, #360 08/05/24 Insulin Glargine (Insulin Glargine Solostar) 100 Unit/Ml Inj, 25 UNIT SC DAILY for 60 Days, #15 08/05/24 Metoprolol Succinate (Metoprolol Succinate Er) 25 Mg Tab, 1 TAB PO DAILY for 30 Days, #30 08/05/24 Potassium Chloride (Klor-Con M10) 10 Meq Tab, 1 TAB PO BID for 90 Days, #180 01/30/24 Pancreatic Enzymes (Creon) 24,000 Unt Cap, 1 CAP PO TID for 66 Days, #200 01/29/24 Amlodipine Besylate (Amlodipine Besylate) 5 Mg Tab, 10 MG PO QAM for HTN, MG 01/29/24 Tamsulosin Hcl (Tamsulosin Hcl) 0.4 Mg Cap, 0.4 MG PO QPM for BPH for 30 Days, MG 01/29/24 Montelukast Sodium (MONTELUKAST SODIUM) 10 Mg Tab, 1 TAB PO HS for ALLEGIES for 90 Days, #90 01/29/24 Apixaban Base (ELIQUIS) 5 Mg Tab, 1 TAB PO BID for 30 Days, #60 01/29/24 Dulaglutide (Trulicity) 4.5 Mg/0.5 Ml Inj, 4.5 MG SC QWEEKLY for DIABETES, INJ 01/29/24 Amiodarone Hcl (Amiodarone Hcl) 200 Mg Tab, 1 TAB PO DAILY for ARRHYTHMIA for 90 Days, #90 01/29/24 Trazodone HCl (Trazodone Hydrochloride) 50 Mg Tab, 2 TAB PO HS for INSOMNIA for 90 Days, #180 01/29/24 Ascorbic Acid (VITAMIN C TABLET) 500 Mg Tb, 2 TAB PO DAILY for SUPPLEMENT, #30 TAB 3 Refills 01/29/24 Magnesium Oxide (MAGNESIUM OXIDE) 400 Mg Tab, 1 TAB PO DAILY for SUPPLEMENT, #30 TAB 5 Refills 01/29/24 Krill Oil ([place]-3 500 mg) 1 Cap Cap, 2 CAP PO BID for SUPPLEMENT, CAP 01/29/24 Allopurinol (Allopurinol) 100 Mg Tab, 100 MG PO BID for GOUT, MG 01/29/24 Isosorbide Dinitrate (Isosorbide Dinitrate) 20 Mg Tab, 20 MG PO BID, MG 09/23/17 Lisinopril (Lisinopril) 10 Mg Tab, 10 MG PO DAILY for 30 Days, MG 03/24/17 Atorvastatin Calcium (ATORVASTATIN CALCIUM) 40 Mg Tab, 1 TAB PO DAILY, #30 TAB 5 Refills 03/24/17 Information Source: Patient, Emergency Med Personnel Mode of Arrival: EMS Severity: Mild Timing: Days Duration: Since onset Prehospital treatment: None Past Medical History PAST MEDICAL HISTORY: Anemia, CHF, COPD, DM, High Lipids, HTN Surgical History: CABG, PTCA Surgical History (Other): Recent pacemaker placement Family History Family History: No family hx of Heart michael, No family hx of HTN Social History Smoker: Non-Smoker, Quit Greater Than 1 Year, Cigarettes Alcohol: Denies ETOH Use Drugs: Denies Drug Use Lives In: Home Constitutional: denies: chills, diaphoresis, fatigue, fever, malaise, sweats, weakness, others EENTM: denies: blurred vision, double vision, ear bleeding, ear discharge, ear drainage, ear pain, ear ringing, eye pain, eye redness, hearing loss, mouth pain, mouth swelling, nasal discharge, nose bleeding, nose congestion, nose pain, photophobia, tearing, throat pain, throat swelling, voice changes, others Respiratory: denies: cough, hemoptysis, orthopnea, SOB at rest, shortness of breath, SOB with excertion, stridor, wheezing, others Cardiovascular: denies: chest pain, dizzy spells, diaphoresis, Dyspnea on exertion, edema, irregular heart beat, left arm pain, lightheadedness, palpitations, PND, syncope, others Gastrointestinal: denies: abdomen distended, abdominal pain, blood streaked bowels, constipated, diarrhea, dysphagia, difficulty swallowing, hematemesis, melena, nausea, poor appetite, poor fluid intake, rectal bleeding, rectal pain, vomiting, others Genitourinary: denies: burning, dysuria, flank pain, frequency, hematuria, incontinence, penile discharge, penile sore, pain, testicle pain, testicle swelling, urgency, others Neurological: denies: dizziness, fainting, headache, left sided numbness, left sided weakness, numbness, paresthesia, pre-existing deficit, right sided numbness, right sided weakness, seizure, speech problems, tingling, tremors, weakness, others Musculoskeletal: denies: back pain, gout, joint pain, joint swelling, muscle pain, muscle stiffness, neck pain, others Integumetry: reports: wounds (Left-sided post pacemaker placement.); denies: bruises, change in color, change in hair/nails, dryness, laceration, lesions, lumps, rash, others Allergic/Immunocompromised: denies: Difficulty Healing, Frequent Infections, Hives, Itching, others Hematologic/Lymphatic: denies: anemia, blood clots, easy bleeding, easy bruising, swollen glands, others Endocrine: denies: excessive hunger, excessive sweating, excessive thirst, excessive urination, flushing, intolerance to cold, intolerance to heat, unexplained weight gain, unexplained weight loss, others Psychiatric: denies: anxiety, bipolar disorder, depression, hopeless, panic disorder, schizophrenia, sleepless, suicidal, others Physical Exam Exam Comments Patient appears to be in poor overall health. General Appearance: No Apparent Distress (Patient was in no distress at time of evaluation.), Normal HEENT: Normal ENT Inspection, Pharynx Normal, TMs Normal Neck: Full Range of Motion, Non-Tender, Normal, Normal Inspection Respiratory: Chest Non-Tender, Lungs Clear, No Accessory Muscle Use, No Respiratory Distress, Normal Breath Sounds Cardiovascular: No Edema, No JVD, No Murmur, No Gallop, Normal Peripheral Pulses, Regular Rate/Rhythm Breast Exam: Deferred Gastrointestinal: Non Tender, No Pulsatile Mass, Normal Bowel Sounds, Soft Genitalia: Deferred Pelvic: Deferred Rectal: Deferred Extremities: NOT DONE Neurologic: Alert, Normal Affect, Normal Mood, No Sensory Deficits Cerebellar Function: NOT DONE Reflexes: NOT DONE Skin: Other (Patient has a left-sided pacemaker surgical sided wrist intact Steri-Strips placed. No weeping noted. Signs of infection. Localized ecchymosis that is healing and progressing well.) Lymphatic: No Adenopathy Was a procedure done? Was a procedure done?: No Differential Dx Considerations may include: Postoperative complication, sepsis, electrolyte abnormality X-Ray, Labs, Meds, VS Vital Signs Date Time Temp Pulse Resp B/P (MAP) Pulse Ox O2 Delivery O2 Flow Rate FiO2 08/16/24 17:50 98.5 92 16 166/67 (100) 96 Lab Test 08/16/24 18:18 Range/Units White Blood Count 11.5 #H 4.4-10.8 10^3/uL Red Blood Count 3.38 L 4.5-5.90 10^6/uL Hemoglobin 9.7 L 13.5-17.5 g/dL Hematocrit 30.2 #L 41.0-53.0 % Mean Corpuscular Volume 89.3 80.0-100.0 fL Mean Corpuscular Hemoglobin 28.7 28.0-32.0 pg Mean Corpuscular Hemoglobin Concent 32.2 32.0-36.0 g/dL Red Cell Distribution Width 17.7 H 11.8-14.3 % Platelet Count 191 140-450 10^3/uL Mean Platelet Volume 7.9 6.9-10.8 fL Neutrophils (%) (Auto) 83.0 H 37.0-80.0 % Lymphocytes (%) (Auto) 7.6 L 10.0-50.0 % Monocytes (%) (Auto) 5.9 0.0-12.0 % Eosinophils (%) (Auto) 3.1 0.0-7.0 % Basophils (%) (Auto) 0.4 0.0-2.0 % Neutrophils # (Auto) 9.6 H 1.6-8.6 10 ^3/uL Lymphocytes # (Auto) 0.9 0.4-5.4 10 ^3/uL Monocytes # (Auto) 0.7 0-1.3 10 ^3/uL Eosinophils # (Auto) 0.4 0-0.8 10 ^3/uL Basophils # (Auto) 0 0-0.2 10 ^3/uL Nucleated Red Blood Cells 0.1 % Sodium Level 136 # 136-145 mmol/L Potassium Level 4.2 3.5-5.1 mmol/L Chloride Level 105 98-107 mmol/L Carbon Dioxide Level 24 20-31 mmol/L Anion Gap 7 5-15 Blood Urea Nitrogen 44 H 9-23 mg/dL Creatinine 1.98 H 0.700-1.30 mg/dL Glomerular Filtration Rate Calc 35 >90 mL/min BUN/Creatinine Ratio 22.2 H 10.0-20.0 Serum Glucose 345 #H 74-106 mg/dL Calcium Level 9.3 8.7-10.4 mg/dL X-Ray, Labs, Meds, VS Comment All studies performed the ED today were evaluated by me personally. Laboratories revealed a mild leukocytosis, mild anemia, what appears to be acute on chronic renal concerns as well as some hyperglycemia. Patient was given some fluids, insulin and will be sent back to any facility for continued management by their provider. Time of 1ST Reevaluation: 20:57 Reevaluation 1ST: Improved Consultation: PCP Patient Education/Counseling: Diagnosis, Treatment Family Education/Counseling: Diagnosis, Treatment Departure 1 Departure Time of Disposition: 20:58 Impression: Primary Impression: Encounter for evaluation of wound Additional Impressions: Leukocytosis Anemia Acute on chronic renal insufficiency Hyperglycemia Disposition: 04 [facility] Condition: Fair Discharged With: Self Critical Care Note Critical Care Time?: No Stability Stability form required: No Heart Score Heart Score: Heart Score Response (Comments) Value History N/A 0 EKG N/A 0 Age N/A 0 Risk Factors N/A 0 Troponin N/A 0 Total 0 JAKE PAIGE PAC Aug 16, 2024 21:00
[2024-08-16 22:43] VITALS: BP 144/78; PULSE 80; RESP 16; TEMP 98.5; O2SAT 96
[2024-08-16] MEDS: SODIUM CHLORIDE 0.9% 1,000 ML IV ONE (22:59)
[2024-08-16] MEDS: INSULIN LISPRO (HUMAN) 100 UNITS/ML ML SC ONE (23:00)
== END 2024-08-16 23:00 | disposition home or self-care (01) ==
LOC: ER 17:39 → EDBD 17:39 → EDUNIT# 17:39 → ER 22:58
DX: D72.829 Elevated white blood cell count, unspecified (principal); D64.9 Anemia, unspecified; E11.65 Type 2 diabetes mellitus with hyperglycemia; N28.9 Disorder of kidney and ureter, unspecified; I11.0 Hypertensive heart disease with heart failure; I50.9 Heart failure, unspecified; E78.5 Hyperlipidemia, unspecified; Z48.01 Encounter for change or removal of surgical wound dressing; Z95.0 Presence of cardiac pacemaker; Z88.6 Allergy status to analgesic agent; Z95.1 Presence of aortocoronary bypass graft; Z98.890 Other specified postprocedural states; Z87.891 Personal history of nicotine dependence; Z79.01 Long term (current) use of anticoagulants; Z79.02 Long term (current) use of antithrombotics/antiplatelets; Z79.4 Long term (current) use of insulin; Z79.85 Long-term (current) use of injectable non-insulin antidiabetic drugs; Z79.899 Other long term (current) drug therapy
CPT/HCPCS: 36415; 80048; 85025

== ENCOUNTER 2024-09-02 10:56 | Emergency (ER) | payer OTHER ==
[~2024-09-02] VITALS: Ht 177.8 cm; Wt 46.0 kg
--- NOTE | 2024-09-02 11:28 | ECG ---
[facility] Test Date: 2024-09-02 Test Time: 11:16:32 Pat Name: HARPREET MELGOZA Department: ER Room: Gender: M Candy Department Manager: GP : [id number] Requested By: EDWIN AGUILERA Order Number: [id number] Reading MD: Flex Ayers Measurements Intervals [place] Rate: 76 P: 70 CT: 243 QRS: -33 QRSD: 106 T: 5 QT: 427 QTc: 481 Interpretive Statements Sinus rhythm Prolonged CT interval Left atrial enlargement Left axis deviation Borderline prolonged QT interval Electronically Signed On 09-02-2024 21:19:39 PST by Flex Ayers Please click the below link to view image of tracing.
[2024-09-02] MEDS: SODIUM CHLORIDE 0.9% 250 ML IV ONE (11:30)
[2024-09-02] MEDS: ONDANSETRON HCL 4 MG/2 ML VIAL IV ONE (11:30)
[2024-09-02] MEDS ORDERED: DEXTROSE (50%) 50ML SYRG IV PRN (12:00)
--- NOTE | 2024-09-02 12:06 | ED.PDOC ---
History of Present Illness HPI Comments Martín Wilkins is a 74-year-old male patient who presents to the ED with chief complaint of dizziness and mechanical fall with no loss of consciousness due to generalized fatigue which happened yesterday. Per patient he has been presenting dizziness for the past year due to orthostatic hypotension, but has r ecently been getting worse since procedure of TAVR and posterior pacemaker placement in July 19, 2024. Denies palpitation, syncope, chest pain, dyspnea, nausea, vomiting, diarrhea, constipation, bleeding, dysuria, recent travel, sick contacts and motor or sensory deficits. Past medical history: Diabetes, dyslipidemia, Orthostatic hypotension, 06/2024 TAVR due to aortic stenosis with posterior AV block complicated with cardiac arrest requiring permanent pacemaker placement. 08/2019 [place] status post CABG and posterior status post PCI on 11/2019 with a total of 5 to 6 stents placement, Crohn's disease (followed by gastro group), CKD, COPD, BPH, osteoarthritis of left knee, asthma Surgical history: 08/2019 CABG, last PCI on 11/2019, 06/2024 TAVR and posterior pacemaker placement Family history: Mother had lung cancer, father of [place] Social history: Lives in [place] with (next of kin). Ex tobacco use, quit approximately 20 years ago (30 pack-year history of smoking). Denies current tobacco, alcohol and other drug abuse Allergies: Ibuprofen Home medication: Atorvastatin 40 mg p.o. daily, metoprolol 25 mg p.o. daily, allopurinol 100 mg p.o. b.i.d., [place] three a 1000 mg p.o. t.i.d., vitamin D3 one tablet p.o. daily, magnesium 400 mg p.o. daily, fiber therapy 625 mg p.o. daily, vitamin-C 1000 mg p.o. daily, trazodone 50 mg p.o. b.i.d., amiodarone 200 mg p.o. daily, Procrit 40 mg p.o. weekly, Lantus 23 units p.o. daily, Eliquis 5 mg p.o. b.i.d., melatonin three tablets per night, lispro p.r.n., loratadine 10 mg p.o. daily, montelukast 10 mg p.o. daily, sodium bicarbonate 650 mg p.o. b.i.d., tamsulosin 0.4 mg p.o. daily, bumetanide 1 mg p.o. b.i.d., gabapentin 300 mg p.o. daily, vitamin B12 5000 mg p.o. daily, varicose [place] 2.5 mg p.o. b.i.d., clopidogrel 75 mg p.o. daily Chief Complaint: Dizziness Time Seen by MD: 11:18 Primary Care Provider: Mandie Allergies: Coded Allergies: Ibuprofen (Verified Allergy, Unknown, 03/02/17) Home Meds Reported Medications Insulin Lispro (Insulin Lispro Kwikpen) 100 Unit/Ml Inj, 2-10 UNIT SC TID for 50 Days, #15 DIRECTED INJECT 2-10 UNITS SUBCUTANEOUSLY 3 TIMES DAILY WITH EACH MEAL PER SLINDING SCALE. 08/05/24 Gabapentin (Gabapentin) 300 Mg Cap, 1 CAP PO BID for 30 Days, #60 08/05/24 Vericiguat (Verquvo) 5 Mg Tab, 0.5 TAB PO BID for 30 Days, #30 TAKE 1/2 TABLET (2.5 MG) BY MOUTH 2 TIMES EVERY DAY. 08/05/24 Loratadine (Claritin) 10 Mg Tab, 1 TAB PO DAILY for 90 Days, #90 08/05/24 Clopidogrel Bisulfate (CLOPIDOGREL) 75 Mg Tab, 1 TAB PO DAILY for 88 Days, #88 08/05/24 Bumetanide (Bumetanide) 1 Mg Tab, 1 TAB PO BID for 90 Days, #180 08/05/24 Pantoprazole Sodium Sesquihydr (Pantoprazole Sodium Dr) 40 Mg Tab, 1 TAB PO DAILY for 90 Days, #90 08/05/24 Sodium Bicarbonate (Sodium Bicarbonate) 325 Mg Tab, 2 TAB PO BID for 90 Days, #360 08/05/24 Insulin Glargine (Insulin Glargine Solostar) 100 Unit/Ml Inj, 25 UNIT SC DAILY for 60 Days, #15 08/05/24 Metoprolol Succinate (Metoprolol Succinate Er) 25 Mg Tab, 1 TAB PO DAILY for 30 Days, #30 08/05/24 Potassium Chloride (Klor-Con M10) 10 Meq Tab, 1 TAB PO BID for 90 Days, #180 01/30/24 Pancreatic Enzymes (Creon) 24,000 Unt Cap, 1 CAP PO TID for 66 Days, #200 01/29/24 Amlodipine Besylate (Amlodipine Besylate) 5 Mg Tab, 10 MG PO QAM for HTN, MG 01/29/24 Tamsulosin Hcl (Tamsulosin Hcl) 0.4 Mg Cap, 0.4 MG PO QPM for BPH for 30 Days, MG 01/29/24 Montelukast Sodium (MONTELUKAST SODIUM) 10 Mg Tab, 1 TAB PO HS for ALLEGIES for 90 Days, #90 01/29/24 Apixaban Base (ELIQUIS) 5 Mg Tab, 1 TAB PO BID for 30 Days, #60 01/29/24 Dulaglutide (Trulicity) 4.5 Mg/0.5 Ml Inj, 4.5 MG SC QWEEKLY for DIABETES, INJ 01/29/24 Amiodarone Hcl (Amiodarone Hcl) 200 Mg Tab, 1 TAB PO DAILY for ARRHYTHMIA for 90 Days, #90 01/29/24 Trazodone HCl (Trazodone Hydrochloride) 50 Mg Tab, 2 TAB PO HS for INSOMNIA for 90 Days, #180 01/29/24 Ascorbic Acid (VITAMIN C TABLET) 500 Mg Tb, 2 TAB PO DAILY for SUPPLEMENT, #30 TAB 3 Refills 01/29/24 Magnesium Oxide (MAGNESIUM OXIDE) 400 Mg Tab, 1 TAB PO DAILY for SUPPLEMENT, #30 TAB 5 Refills 01/29/24 Krill Oil ([place]-3 500 mg) 1 Cap Cap, 2 CAP PO BID for SUPPLEMENT, CAP 01/29/24 Allopurinol (Allopurinol) 100 Mg Tab, 100 MG PO BID for GOUT, MG 01/29/24 Isosorbide Dinitrate (Isosorbide Dinitrate) 20 Mg Tab, 20 MG PO BID, MG 09/23/17 Lisinopril (Lisinopril) 10 Mg Tab, 10 MG PO DAILY for 30 Days, MG 03/24/17 Atorvastatin Calcium (ATORVASTATIN CALCIUM) 40 Mg Tab, 1 TAB PO DAILY, #30 TAB 5 Refills 03/24/17 Mode of Arrival: Ambulatory Past Medical History PAST MEDICAL HISTORY: Anemia, CHF, COPD, DM, High Lipids, HTN Surgical History: CABG, PTCA Family History Family History: No family hx of Heart michael, No family hx of HTN Social History Smoker: Non-Smoker, Quit Greater Than 1 Year, Cigarettes Alcohol: Denies ETOH Use Drugs: Denies Drug Use Lives In: Home Physical Exam Exam Comments Dry mucous membranes General Appearance: No Apparent Distress, Normal HEENT: Pale Conjuntivae (L), Pale Conjuntivae (R), Pharynx Normal, TMs Normal Neck: Full Range of Motion, Non-Tender, Normal, Normal Inspection Respiratory: Chest Non-Tender, Lungs Clear, No Accessory Muscle Use, No Respiratory Distress, Normal Breath Sounds Cardiovascular: No Edema, No JVD, No Gallop, Normal Peripheral Pulses, Regular Rate/Rhythm, Systolic Murmur Breast Exam: Deferred Gastrointestinal: No Organomegaly, Non Tender, No Pulsatile Mass, Normal Bowel Sounds, Soft Genitalia: Deferred Pelvic: Deferred Rectal: Deferred Extremities: No calf tenderness, Normal capillary refill, Normal inspection, Normal range of motion, Non-tender, No pedal edema Neurologic: Alert, business development intern II-XII nml as Tested, No Motor Deficits, Normal Affect, Normal Mood, No Sensory Deficits Cerebellar Function: Normal Reflexes: Normal Skin: Dry, Normal Color, Warm Lymphatic: No Adenopathy Was a procedure done? Was a procedure done?: No EKG EKG : Comments First-degree AV block at 75 beats per minute (LA interval approximally 260 milliseconds), negative T-waves in inferior leads Differential Dx Considerations may include: Tamponade, pacemaker dysfunction, bradyarrhythmia, side effect of home medication, sepsis, CHF X-Ray, Labs, Meds, VS Vital Signs Date Time Temp Pulse Resp B/P (MAP) Pulse Ox O2 Delivery O2 Flow Rate FiO2 09/02/24 12:27 98.3 76 20 92/55 (67) 98 98.3 09/02/24 11:23 97.8 78 14 95/45 (62) 94 Lab Test 09/02/24 13:31 09/02/24 13:26 09/02/24 12:08 Range/Units Troponin I High Sensitivity Pending 12 </=54 ng/L POC Glucose 235 H 70-106 mg/dl White Blood Count 8.7 4.4-10.8 10^3/uL Red Blood Count 3.57 L 4.5-5.90 10^6/uL Hemoglobin 10.6 L 13.5-17.5 g/dL Hematocrit 32.5 L 41.0-53.0 % Mean Corpuscular Volume 91.2 80.0-100.0 fL Mean Corpuscular Hemoglobin 29.8 28.0-32.0 pg Mean Corpuscular Hemoglobin Concent 32.7 32.0-36.0 g/dL Red Cell Distribution Width 20.1 H 11.8-14.3 % Platelet Count 243 140-450 10^3/uL Mean Platelet Volume 7.8 6.9-10.8 fL Neutrophils (%) (Auto) 79.1 37.0-80.0 % Lymphocytes (%) (Auto) 13.8 10.0-50.0 % Monocytes (%) (Auto) 5.0 0.0-12.0 % Eosinophils (%) (Auto) 1.4 0.0-7.0 % Basophils (%) (Auto) 0.7 0.0-2.0 % Neutrophils # (Auto) 6.9 1.6-8.6 10 ^3/uL Lymphocytes # (Auto) 1.2 0.4-5.4 10 ^3/uL Monocytes # (Auto) 0.4 0-1.3 10 ^3/uL Eosinophils # (Auto) 0.1 0-0.8 10 ^3/uL Basophils # (Auto) 0.1 0-0.2 10 ^3/uL Nucleated Red Blood Cells 0.0 % Prothrombin Time 11.7 9.3-11.8 sec Prothrombin Time INR 1.12 0.9-1.15 Activated Partial Thromboplast Time 30.2 24.5-34.5 SEC Sodium Level 136 136-145 mmol/L Potassium Level 4.6 3.5-5.1 mmol/L Chloride Level 100 98-107 mmol/L Carbon Dioxide Level 27 20-31 mmol/L Anion Gap 9 5-15 Blood Urea Nitrogen 41 H 9-23 mg/dL Creatinine 2.22 H 0.700-1.30 mg/dL Glomerular Filtration Rate Calc 31 >90 mL/min BUN/Creatinine Ratio 18.5 10.0-20.0 Serum Glucose 220 H 74-106 mg/dL Lactic Acid Level 1.4 0.4-2.0 mmol/L Calcium Level 9.8 8.7-10.4 mg/dL Magnesium Level 2.0 1.6-2.6 mg/dL Total Bilirubin 0.5 0.2-1.0 mg/dL Aspartate Amino Transferase (AST) 14 13-40 U/L Alanine Aminotransferase (ALT) 20 7-40 U/L Alkaline Phosphatase 120 H 46-116 U/L B-Type Natriuretic Peptide 126.41 0-100 pg/mL Total Protein 7.9 5.7-8.2 g/dL Albumin 4.1 3.2-4.8 g/dL Thyroid Stimulating Hormone (TSH) 1.12 0.55-4.78 uIU/mL Current Medications Medications (Trade) Dose Ordered Sig/Leatha Route Start Time Stop Time Status Last Admin Sodium Chloride 250 ml @ 250 mls/hr Q1H ONCE IV 09/02/24 11:30 09/02/24 12:29 DC 09/02/24 11:30 X-Ray, Labs, Meds, VS Comment Reviewed vital signs, chest x-ray, laboratory workup. Pending urine analysis and head CT report Time of 1ST Reevaluation: 13:58 Reevaluation 1ST: Unchanged Patient Education/Counseling: Diagnosis, Treatment, Prognosis Family Education/Counseling: Diagnosis, Treatment, Prognosis Departure 1 Departure Time of Disposition: 13:59 Impression: Primary Impression: Hypotension Disposition: 30 STILL A PATIENT Condition: Serious Additional Instructions: Patient continues symptomatic by dizziness, EKG showed first-degree AV block at 75 beats per minute with narrow QRS (not paced rhythm), chest x-ray showed no cardiomegaly and no lead fracture, patient presents chronic anemia (last he moglobin 9.4 currently is 10.6), urine analysis pending. Required bolus of 250 mL of normal saline during admission. Due to persistent symptoms and soft blood pressures, patient will benefit from admission to monitor vital signs, interrogate pacemaker, eventually complete echocardiogram and awaiting urine analysis results to rule out UTI. Critical Care Note Critical Care Time?: No Stability Stability form required: No Heart Score Heart Score: Heart Score Response (Comments) Value History N/A 0 EKG N/A 0 Age N/A 0 Risk Factors N/A 0 Troponin N/A 0 Total 0 EDWIN AGUILERA RESIDENT Sep 02, 2024 12:05
--- NOTE | 2024-09-02 12:20 | DVH ---
CLINICAL INFORMATION: 74 years old, Male; Generalized weakness. TECHNIQUE: Single AP portable chest radiograph was obtained. COMPARISON: XY CHEST XRAY 1 VIEW on DOS: 08/13/24, XY CHEST XRAY 1 VIEW on DOS: 08/12/24, XY CHEST PORT ABLE on DOS: 08/10/24 FINDINGS: Lungs: Clear. Cardiac: Heart size is within normal limits. Postsurgical changes of prior transcatheter aortic valve replacement and prior CABG. Pacemaker leads stable in position. Pulmonary vasculature: Unremarkable. Mediastinum/aleks: Unremarkable. Bones: No acute osseous abnormality identified. Other: No other significant findings. IMPRESSION: No evidence of acute disease in the chest.
[2024-09-02 12:27] VITALS: TEMP 98.3
[2024-09-02 12:43] LABS: Basophils # (auto) 0.1 10 ^3/uL (0-0.2); Basophils % (auto) 0.7 % (0.0-2.0); Eosinophils # (auto) 0.1 10 ^3/uL (0-0.8); Eosinophils % (auto) 1.4 % (0.0-7.0); Hematocrit 32.5 % (41.0-53.0); Hemoglobin 10.6 g/dL (13.5-17.5); Lymphocytes # (auto) 1.2 10 ^3/uL (0.4-5.4); Lymphocytes % (auto) 13.8 % (10.0-50.0); Mean Corpuscular Hemoglobin 29.8 pg (28.0-32.0); Mean Corpuscular Hgb Conc. 32.7 g/dL (32.0-36.0); Mean Corpuscular Volume 91.2 fL (80.0-100.0); Monocytes # (auto) 0.4 10 ^3/uL (0-1.3); Neutrophils # (auto) 6.9 10 ^3/uL (1.6-8.6); Neutrophils % (auto) 79.1 % (37.0-80.0); Platelet Count (auto) 243 10^3/uL (140-450); Red Blood Cells 3.57 10^6/uL (4.5-5.90); Red Cell Distribution Width 20.1 % (11.8-14.3); White Blood Cell 8.7 10^3/uL (4.4-10.8)
[2024-09-02 12:59] LABS: INR 1.12 (0.9-1.15); Partial Thromboplastin Time 30.2 SEC (24.5-34.5); Prothrombin Time 11.7 sec (9.3-11.8)
[2024-09-02 13:05] LABS: Alanine Aminotransferase 20 U/L (7-40); Albumin 4.1 g/dL (3.2-4.8); Anion Gap 9 (5-15); Aspartate Aminotransferase 14 U/L (13-40); BUN/Creatinine Ratio 18.5 (10.0-20.0); Calcium 9.8 mg/dL (8.7-10.4); Carbon Dioxide 27 mmol/L (20-31); Chloride 100 mmol/L (98-107); Potassium 4.6 mmol/L (3.5-5.1)
[2024-09-02 13:06] LABS: Bilirubin, Total 0.5 mg/dL (0.2-1.0); Total Protein 7.9 g/dL (5.7-8.2)
[2024-09-02 13:07] LABS: Alkaline Phosphatase 120 U/L (46-116); Blood Urea Nitrogen 41 mg/dL (9-23); Glucose 220 mg/dL (74-106); Sodium 136 mmol/L (136-145)
--- NOTE | 2024-09-02 13:58 | DVH ---
CLINICAL INFORMATION: 74 years old, Male; Persistent dizziness. TECHNIQUE: Axial imaging was obtained through the brain without contrast. Coronal and sagittal refor matted images were obtained, reviewed, and stored. Images were reviewed in brain and bone windows. A ll CT scans at this medical facility are performed using dose modulation techniques as appropriate to a performed exam including the following: Automated exposure control was utilized; adjustment of the MA and/or KV according to patient size; and use of iterative reconstruction technique. CTDIvol = 66.83 mGy DLP = 1315.22 mGy-cm COMPARISON: CT HEAD WITHOUT CONTRAST on DOS: 08/04/24 FINDINGS: There is no acute intracranial hemorrhage or extraaxial fluid collection. No mass effect o r midline shift. Scattered areas of hypoattenuation are seen in the periventricular and subcortical w darian matter, which are nonspecific but most likely sequelae of small vessel ischemic disease. The alexander tricles and sulci are within normal limits in size for age. Basal cisterns are patent. The calvar ium is unremarkable. Mild mucosal thickening areas of partial opacification of the paranasal sinuses. IMPRESSION: 1. No CT evidence of acute intracranial abnormality. 2. Additional nonacute findings as detailed above.
[2024-09-02] MEDS: SODIUM CHLORIDE 0.9% 500 ML IV ONE (15:24)
--- NOTE | 2024-09-02 16:18 | DVHDS2 ---
New Physician D'charge PN Admitting Diagnosis Admitting Diagnosis dizziness Discharge Diagnosis hypotension, resolved Operations or Procedures none Reason(s) For Hospitalization Surgery Hospital Course 74 M who comes to ER for dizziness. He was noted to have a SBP recorded in the 90s on arrival. I reviewed the patients chart and lab data in its entirety. The patient has been taking bumex 1 mg PO BID at home and recently last month he underwent a PPM for complete heart block at this hospital and echo at that time revealed EF 40-45%. He was given 250 ml NS bolus on arrival with improvement of BP and his dizziness and i decided to give him another 500 ml NS bolus. His BP improved and overall he feels better. I have asked him and his to take his BP at home prior to administration of his bumex and if SBP <100 mmHg he is to hold the bumex for that dose. He takes no other BP meds at home and his hypotension is likely due to volume depletion in the setting of diuretic use. His CBC was nml and CXR showed no infiltrates or edema. Cardiac enzymes were negative and chemistry panel revealed a GFR of 31 however the patient has known CKD III at is at his baseline GFR. He also mentions to me that he has a cardiology appt in the AM already scheduled and i have advised him to keep that appointment for tomorrow so he can establish care with cardiology. Patient and family agree with the plan of care and patient to be discharged home after NS fluid bolus complete. [facility] to arrange for outpt follow up and patient will f ollow up with his outpt reconstructive dentist in the AM. Instructed to return to ER or call 911 should his symptoms worsen. Treatment Plan Discharge Condition of Discharge Good Disposition Home Discharge Instructions Diet: Cardiac 2g Na,low cholest Activity: No Restrictions, As Tolerated Medications: see med sheet Follow Up Care Follow Up/Referral: pcp cardio as scheduled for the AM Discharge Statement: "Patient was advised to return to the ER or call 911 if any headaches, dizziness, shortness of breath, chest pain, abdominal pain, bleeding, fevers, or worsening of medical condition. Patient was counseled about treatment plan, medications, possible side effects, patientverbalized understanding. All questions were answered to the best of my ability. This discharge took greater then 30 minutes in planning, reviewing documentation, counseling the patient, and discussing with other team members." DIANA SANTOS MD Sep 02, 2024 16:18
[2024-09-02 16:30] VITALS: BP 129/61; PULSE 71; RESP 20; O2SAT 98
[2024-09-02] MEDS ORDERED: ACCU-CHEK COMFORT CURVE STRIP VI SCH (17:00)
[2024-09-02] MEDS ORDERED: InsuLIN REG 1unit/0.01ml Soln (100units/ml) SC SCH (17:00)
== END 2024-09-02 16:40 | disposition still patient (30) ==
LOC: ER 10:56
DX: I95.9 Hypotension, unspecified (principal); R42 Dizziness and giddiness; I13.0 Hypertensive heart and chronic kidney disease with heart failure and stage 1 through stage 4 chronic kidney disease, or unspecified chronic kidney disease; N18.30 Chronic kidney disease, stage 3 unspecified; I50.9 Heart failure, unspecified; J44.9 Chronic obstructive pulmonary disease, unspecified; E11.9 Type 2 diabetes mellitus without complications; E78.5 Hyperlipidemia, unspecified; Z95.1 Presence of aortocoronary bypass graft; Z79.1 Long term (current) use of non-steroidal anti-inflammatories (NSAID); Z87.891 Personal history of nicotine dependence
CPT/HCPCS: 36415; 70450; 71045; 80053; 82962; 83605; 83735; 83880; 84443; 84484; 85025; 85610; 85730; 86850; 86900; 86901; 93005

== ENCOUNTER 2025-04-15 04:50 | Inpatient (IN) | payer OTHER ==
[~2025-04-15] VITALS: Ht 177.8 cm; Wt 93.8 kg
--- NOTE | 2025-04-15 05:42 | ECG ---
[facility] Test Date: 2025-04-15 Test Time: 04:59:40 Pat Name: HARPREET MELGOZA Department: Room: [address] [place] [address] Gender: M Watch Supervisor: JACOB : 1950 Requested By: EMERGENCY EMERGENCY Order Number: [id number] Reading MD: Flex Ayers Measurements Intervals [place] Rate: 87 P: 19 NH: 253 QRS: -53 QRSD: 104 T: 90 QT: 382 QTc: 460 Interpretive Statements Sinus rhythm Atrial premature complex Prolonged NH interval Left anterior fascicular block Consider anterior infarct Nonspecific T abnormalities, lateral leads Electronically Signed On 04-16-2025 9:59:07 PDT by Flex Ayers Please click the below link to view image of tracing.
--- NOTE | 2025-04-15 06:40 | ED.PDOC ---
History of Present Illness HPI Comments 74 year old male presents to the ED via EMS with a chief complaint of generalized weakness onset today (04/15/25) around 03:00. Patient states he woke up to use restroom around 03:00, was experiencing weakness, made it to the restroom with his 's assistance. state patient was too weak, was not able to make it to bed, sat on the floor, 911 was called. Upon EMS arrival, patient had positive ortho stats. Patient states he was experiencing fever of 101 F last night. PMHx anemia, CHF, COPD, DM, HLD, HTN, CO. Denies nausea, vomiting, diarrhea, abdominal pain, dysuria, hematuria, headache, blurred vision, numbness/tingling. No other symptoms or modifying factors present at this time. Chief Complaint: General Weakness Time Seen by MD: 06:15 Primary Care Provider: Mandie Reviewed Notes: Medications, Allergies Allergies: Coded Allergies: Ibuprofen (Verified Allergy, Unknown, 03/02/17) Home Meds Reported Medications Insulin Lispro (Insulin Lispro Kwikpen) 100 Unit/Ml Inj, 2-10 UNIT SC TID for 50 Days, #15 DIRECTED INJECT 2-10 UNITS SUBCUTANEOUSLY 3 TIMES DAILY WITH EACH MEAL PER SLINDING SCALE. 08/05/24 Gabapentin (Gabapentin) 300 Mg Cap, 1 CAP PO BID for 30 Days, #60 08/05/24 Vericiguat (Verquvo) 5 Mg Tab, 0.5 TAB PO BID for 30 Days, #30 TAKE 1/2 TABLET (2.5 MG) BY MOUTH 2 TIMES EVERY DAY. 08/05/24 Loratadine (Claritin) 10 Mg Tab, 1 TAB PO DAILY for 90 Days, #90 08/05/24 Clopidogrel Bisulfate (CLOPIDOGREL) 75 Mg Tab, 1 TAB PO DAILY for 88 Days, #88 08/05/24 Bumetanide (Bumetanide) 1 Mg Tab, 1 TAB PO BID for 90 Days, #180 08/05/24 Pantoprazole Sodium Sesquihydr (Pantoprazole Sodium Dr) 40 Mg Tab, 1 TAB PO DAILY for 90 Days, #90 08/05/24 Sodium Bicarbonate (Sodium Bicarbonate) 325 Mg Tab, 2 TAB PO BID for 90 Days, #360 08/05/24 Insulin Glargine (Insulin Glargine Solostar) 100 Unit/Ml Inj, 25 UNIT SC DAILY for 60 Days, #15 08/05/24 Metoprolol Succinate (Metoprolol Succinate Er) 25 Mg Tab, 1 TAB PO DAILY for 30 Days, #30 08/05/24 Potassium Chloride (Klor-Con M10) 10 Meq Tab, 1 TAB PO BID for 90 Days, #180 01/30/24 Pancreatic Enzymes (Creon) 24,000 Unt Cap, 1 CAP PO TID for 66 Days, #200 01/29/24 Amlodipine Besylate (Amlodipine Besylate) 5 Mg Tab, 10 MG PO QAM for HTN, MG 01/29/24 Tamsulosin Hcl (Tamsulosin Hcl) 0.4 Mg Cap, 0.4 MG PO QPM for BPH for 30 Days, MG 01/29/24 Montelukast Sodium (MONTELUKAST SODIUM) 10 Mg Tab, 1 TAB PO HS for ALLEGIES for 90 Days, #90 01/29/24 Apixaban Base (ELIQUIS) 5 Mg Tab, 1 TAB PO BID for 30 Days, #60 01/29/24 Dulaglutide (Trulicity) 4.5 Mg/0.5 Ml Inj, 4.5 MG SC QWEEKLY for DIABETES, INJ 01/29/24 Amiodarone Hcl (Amiodarone Hcl) 200 Mg Tab, 1 TAB PO DAILY for ARRHYTHMIA for 90 Days, #90 01/29/24 Trazodone HCl (Trazodone Hydrochloride) 50 Mg Tab, 2 TAB PO HS for INSOMNIA for 90 Days, #180 01/29/24 Ascorbic Acid (VITAMIN C TABLET) 500 Mg Tb, 2 TAB PO DAILY for SUPPLEMENT, #30 TAB 3 Refills 01/29/24 Magnesium Oxide (MAGNESIUM OXIDE) 400 Mg Tab, 1 TAB PO DAILY for SUPPLEMENT, #30 TAB 5 Refills 01/29/24 Krill Oil (Kountze-3 500 mg) 1 Cap Cap, 2 CAP PO BID for SUPPLEMENT, CAP 01/29/24 Allopurinol (Allopurinol) 100 Mg Tab, 100 MG PO BID for GOUT, MG 01/29/24 Isosorbide Dinitrate (Isosorbide Dinitrate) 20 Mg Tab, 20 MG PO BID, MG 09/23/17 Lisinopril (Lisinopril) 10 Mg Tab, 10 MG PO DAILY for 30 Days, MG 03/24/17 Atorvastatin Calcium (ATORVASTATIN CALCIUM) 40 Mg Tab, 1 TAB PO DAILY, #30 TAB 5 Refills 03/24/17 Information Source: Patient, Spouse Mode of Arrival: EMS Severity: Moderate Timing: Hours Duration: Since onset Prehospital treatment: None Past Medical History PAST MEDICAL HISTORY: Anemia, CHF, COPD, DM, High Lipids, HTN, CO Surgical History: CABG, PTCA Family History Family History: No family hx of Heart michael, No family hx of HTN Social History Smoker: Non-Smoker, Quit Greater Than 1 Year, Cigarettes Alcohol: Denies ETOH Use Drugs: Denies Drug Use Lives In: Home Constitutional: reports: chills, fever, weakness; denies: diaphoresis, fatigue, malaise, sweats, others EENTM: denies: blurred vision, double vision, ear bleeding, ear discharge, ear drainage, ear pain, ear ringing, eye pain, eye redness, hearing loss, mouth pain, mouth swelling, nasal discharge, nose bleeding, nose congestion, nose pain, photophobia, tearing, throat pain, throat swelling, voice changes, others Respiratory: denies: cough, hemoptysis, orthopnea, SOB at rest, shortness of breath, SOB with excertion, stridor, wheezing, others Cardiovascular: denies: chest pain, dizzy spells, diaphoresis, Dyspnea on exertion, edema, irregular heart beat, left arm pain, lightheadedness, palpitations, PND, syncope, others Gastrointestinal: denies: abdomen distended, abdominal pain, blood streaked bowels, constipated, diarrhea, dysphagia, difficulty swallowing, hematemesis, melena, nausea, poor appetite, poor fluid intake, rectal bleeding, rectal pain, vomiting, others Genitourinary: denies: burning, dysuria, flank pain, frequency, hematuria, incontinence, penile discharge, penile sore, pain, testicle pain, testicle swelling, urgency, others Neurological: reports: weakness; denies: dizziness, fainting, headache, left sided numbness, left sided weakness, numbness, paresthesia, pre-existing deficit, right sided numbness, right sided weakness, seizure, speech problems, tingling, tremors, others Musculoskeletal: denies: back pain, gout, joint pain, joint swelling, muscle pain, muscle stiffness, neck pain, others Integumetry: denies: bruises, change in color, change in hair/nails, dryness, laceration, lesions, lumps, rash, wounds, others Allergic/Immunocompromised: denies: Difficulty Healing, Frequent Infections, Hives, Itching, others Hematologic/Lymphatic: denies: anemia, blood clots, easy bleeding, easy bruising, swollen glands, others Endocrine: denies: excessive hunger, excessive sweating, excessive thirst, excessive urination, flushing, intolerance to cold, intolerance to heat, unexplained weight gain, unexplained weight loss, others Psychiatric: denies: anxiety, bipolar disorder, depression, hopeless, panic disorder, schizophrenia, sleepless, suicidal, others All Other Systems: Reviewed and Negative Physical Exam General Appearance: Moderate Distress, Normal HEENT: Normal ENT Inspection, Pharynx Normal, TMs Normal Neck: Full Range of Motion, Non-Tender, Normal, Normal Inspection Respiratory: Chest Non-Tender, Lungs Clear, No Accessory Muscle Use, No Respiratory Distress, Normal Breath Sounds Cardiovascular: No Edema, No JVD, No Murmur, No Gallop, Normal Peripheral Pulses, Regular Rate/Rhythm Breast Exam: Deferred Gastrointestinal: No Organomegaly, Non Tender, No Pulsatile Mass, Normal Bowel Sounds, Soft Genitalia: Deferred Pelvic: Deferred Rectal: Deferred Extremities: No calf tenderness, Normal capillary refill, Normal inspection, Normal range of motion, Non-tender, No pedal edema Musculoskeletal : Apperance: Normal Neurologic: Alert, administrator pesticide II-XII nml as Tested, No Motor Deficits, Normal Affect, Normal Mood, No Sensory Deficits Cerebellar Function: NOT DONE Reflexes: NOT DONE Skin: Dry, Normal Color, Warm Peripheral Pulses: 3+ Radial (R), 3+ Radial (L) Lymphatic: No Adenopathy Was a procedure done? Was a procedure done?: No EKG EKG : Pulse Rate (adult): 87 Cardiac Rhythm: NSR Differential Dx Considerations may include: Anemia Electrolyte imbalance X-Ray, Labs, Meds, VS Vital Signs Date Time Temp Pulse Resp B/P (MAP) Pulse Ox O2 Delivery O2 Flow Rate FiO2 04/15/25 06:40 87 04/15/25 05:00 98.8 90 16 107/49 94 98.8 04/15/25 04:59 87 Lab Test 04/15/25 07:00 Range/Units White Blood Count Pending Red Blood Count Pending Hemoglobin Pending Hematocrit Pending Mean Corpuscular Volume Pending Mean Corpuscular Hemoglobin Pending Mean Corpuscular Hemoglobin Concent Pending Red Cell Distribution Width Pending Platelet Count Pending Mean Platelet Volume Pending Neutrophils (%) (Auto) Pending Lymphocytes (%) (Auto) Pending Monocytes (%) (Auto) Pending Basophils (%) (Auto) Pending Neutrophils # (Auto) Pending Lymphocytes # (Auto) Pending Monocytes # (Auto) Pending Sodium Level Pending Potassium Level Pending Chloride Level Pending Carbon Dioxide Level Pending Anion Gap Pending Blood Urea Nitrogen Pending Creatinine Pending Glomerular Filtration Rate Calc Pending BUN/Creatinine Ratio Pending Serum Glucose Pending Calcium Level Pending Troponin I High Sensitivity Pending B-Type Natriuretic Peptide Pending Current Medications Medications (Trade) Dose Ordered Sig/Leatha Route Start Time Stop Time Status Last Admin Sodium Chloride 1,000 ml @ 1,000 mls/hr Q1H ONCE IV 04/15/25 07:00 04/15/25 07:59 04/15/25 07:21 Patient alert. Complaining of generalized weakness. Vitals stable. Answering questions. Establish intravenous access. Was given fluids. Continue monitoring [place] [address] Ph: [phone] DIAGNOSTIC IMAGING Diagnostic Imaging Report : [id number] Signed PATIENT: HARPREET MELGOZA ACCT: [id number] UNIT: [id number] : 1950 LOC: ER ROOM / BED: / AGE / SEX: 74 / M ADM STATUS: REG ER SERVICE [id number] ORDERING PHYSICIAN: SJ DINERO MD PROCEDURE(s): CXRP - CHEST PORTABLE REASON: sob ORDER NUMBER(s): [id number], ACCESSION NUMBER(s): [id number] CLINICAL INFORMATION: Shortness of breath. TECHNIQUE: Single AP portable chest radiograph was obtained. COMPARISON: XY CHEST PORTABLE on DOS: 09/02/24, XY CHEST XRAY 1 VIEW on DOS: 08/13/24, XY CHEST XRAY 1 VIEW on DOS: 08/12/24 FINDINGS: Lungs: Atelectasis in the lung bases. No focal consolidation visualized. Cardiac: Heart size is within normal limits. Postsurgical changes of prior CABG and prior transcatheter aortic valve replacement. Stable satisfactory positioning of the pacemaker leads. Pulmonary vasculature: Mildly prominent pulmonary vasculature. Mediastinum/aleks: Unremarkable. Bones: No acute osseous abnormality identified. Other: No other significant findings. IMPRESSION: 1. Mildly prominent pulmonary vasculature, May suggest a mild degree of pulmonary vascular congestion in the appropriate clinical setting. 2. Mild bibasilar atelectasis with no focal consolidation visualized. Workstation: [id number] DICTATED BY: BILLY SANTOS DO DICTATED DATE/TIME: 04/15/25727 SIGNED BY: BILLY SANTOS DO SIGNED DATE/TIME: 04/15/25727 CC: Time of 1ST Reevaluation: 06:45 Reevaluation 1ST: Unchanged Patient Education/Counseling: Diagnosis, Treatment, Prognosis Family Education/Counseling: No Family Present SEPSIS Sepsis Screen Date sepsis recognized/suspect: Apr 15, 2025 Time Sepsis recognized/suspect: 0504 Recent Procedure: No On Antibiotic Therapy: No Respiratory Rate >20: No Heart Rate >90: No Temp<36 C (96.8 F) or >38.3 C: No SBP <90 or MAP <65 mmHG: No New Acute Mental Status Change: No Is the patient on CPAP, BIPAP,: No Physician Orders Covid19 Antigen Carrie (04/15/25 ) Rapid Influenza A&B (04/15/25 06:35) Troponin-I Hs (04/15/25 06:35) Complete Blood Count (04/15/25 06:35) B-Type Natriuretic Peptide (04/15/25 06:35) Chest Portable (04/15/25 06:35) Urinalysis (04/15/25 06:35) Troponin-I Hs (04/15/25 07:35) Troponin-I Hs (04/15/25 09:35) Basic Metabolic Panel (04/15/25 06:35) Sodium Chloride 0.9% (04/15/25 07:00) Vital Signs Date Time Temp Pulse Resp B/P (MAP) Pulse Ox O2 Delivery O2 Flow Rate FiO2 04/15/25 06:40 87 04/15/25 05:00 98.8 90 16 107/49 94 98.8 04/15/25 04:59 87 Laboratory Tests Test 04/15/25 07:00 White Blood Count Pending Medications Medications Dose Ordered Sig/Leatha Route Start Time Stop Time Status Last Admin Dose Admin Sodium Chloride 1,000 ml @ 1,000 mls/hr Q1H ONCE IV 04/15/25 07:00 04/15/25 07:59 04/15/25 07:21 Departure 1 Departure Time of Disposition: 06:51 Impression: Primary Impression: Orthostatic hypotension Disposition: ADMITTED INPATIENT Admit to: Med Surg Condition: Guarded Critical Care Note Critical Care Time?: No Stability Stability form required: No Heart Score Heart Score: Heart Score Response (Comments) Value History Slightly Suspicious 0 EKG Normal 0 Age >65 2 Risk Factors >3 or Hx ASHD 2 Troponin Normal limit 0 Total 4 I personally scribed for SJ DINERO MD ([email or web address]) on 04/15/25 at 06:40. Electronically submitted by Rosalina Guerrero ([email or web address]). I personally scribed for SJ DINERO MD ([email or web address]) on 04/15/25 at 07:34. Electronically submitted by Rosalina Guerrero ([email or web address]). SJ DINERO MD Apr 15, 2025 06:40
[2025-04-15] MEDS: SODIUM CHLORIDE 0.9% 1,000 ML IV ONE (07:21)
--- NOTE | 2025-04-15 07:30 | DVH ---
CLINICAL INFORMATION: Shortness of breath. TECHNIQUE: Single AP portable chest radiograph was obtained. COMPARISON: XY CHEST PORTABLE on DOS: 09/02/24, XY CHEST XRAY 1 VIEW on DOS: 08/13/24, XY CHEST XRAY 1 V IEW on DOS: 08/12/24 FINDINGS: Lungs: Atelectasis in the lung bases. No focal consolidation visualized. Cardiac: Heart size is within normal limits. Postsurgical changes of prior CABG and prior transcathet er aortic valve replacement. Stable satisfactory positioning of the pacemaker leads. Pulmonary vasculature: Mildly prominent pulmonary vasculature. Mediastinum/aleks: Unremarkable. Bones: No acute osseous abnormality identified. Other: No other significant findings. IMPRESSION: 1. Mildly prominent pulmonary vasculature, May suggest a mild degree of pulmonary vascular congestion in the appropriate clinical setting. 2. Mild bibasilar atelectasis with no focal consolidation visualized. Workstation: [id number]
[2025-04-15 07:42] LABS: Hematocrit 33.1 % (41.0-53.0); Hemoglobin 11.0 g/dL (13.5-17.5); Mean Corpuscular Hemoglobin 31.8 pg (28.0-32.0); Mean Corpuscular Volume 95.3 fL (80.0-100.0); Nucleated Red Blood Cells % 0.0 %
[2025-04-15 07:48] LABS: Anion Gap 11 (5-15); Carbon Dioxide 21 mmol/L (20-31); Potassium 5.0 mmol/L (3.5-5.1); Sodium 140 mmol/L (136-145)
[2025-04-15 07:49] LABS: Calcium 8.8 mg/dL (8.7-10.4)
[2025-04-15 08:00] LABS: BUN/Creatinine Ratio 14.7 (10.0-20.0); Blood Urea Nitrogen 34 mg/dL (9-23); Chloride 108 mmol/L (98-107); Glucose 205 mg/dL (74-106)
[2025-04-15 08:49] LABS: COVID19 ANTIGEN SOFIA FIA NEGATIVE (NEGATIVE)
--- NOTE | 2025-04-15 11:58 | DVH ---
EXAM: CT HEAD WITHOUT CONTRAST HISTORY: tia COMPARISON: CT HEAD WITHOUT CONTRAST on DOS: 09/02/24, CT HEAD WITHOUT CONTRAST on DOS: 08/04/24 TECHNIQUE: Noncontrast axial CT images of the head were performed. Sagittal and coronal reformatted i mages were obtained. This CT exam was performed using 1 or more of the following dose reduction techn iques: Automated exposure control, adjustment of the mA and/or kv according to patient size, or the u se of iterative reconstruction techniques. Radiation Dose: CTDI volume is 67.21 mGy. Dose-length product is 1456.98 mGy*cm FINDINGS: There is mild global brain atrophy. No intracranial hemorrhage, mass, midline shift, hydrocephalus, o r evidence of acute large vessel infarct. There is a small cavum septum pellucidum. There is minimal decreased attenuation in the periventricular white matter. There are Postoperative changes of Bilater al cataract extraction surgery. There is complete opacification of the right sphenoid sinus; mucosal thickening of the bilateral ethmoid and maxillary sinuses. The bilateral mastoid air cells and middle ear spaces are clear. No cranial fracture or scalp edema. Probable left frontal scalp scarring. IMPRESSION: 1. Mild global brain atrophy and chronic ischemic changes without evidence of acute intracranial proc ess. 2. Severe right sphenoid sinus disease; mild bilateral maxillary and ethmoid sinus disease. 3. Postoperative changes of Bilateral cataract extraction surgery. 4. 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
--- NOTE | 2025-04-15 12:07 | DVH ---
EXAM: CT CT AB PEL WO CON-NO ORAL OR IV HISTORY: colitis COMPARISON: None TECHNIQUE: Helical CT images of the abdomen and pelvis were performed without IV contrast. Sagittal a nd coronal reformatted images were obtained. This CT exam was performed using one or more of the foll owing dose reduction techniques: Automated exposure control, adjustment of the mA and/or kv according to patient size, or the use of iterative reconstruction techniques. Radiation Dose: Abdomen/Pelvis: CTDIvol 16.24 mGy, DLP 1034.32 mGy*cm. FINDINGS: CT abdomen: There are postoperative changes of median sternotomy, TAVR, and left chest pacemaker. The heart is borderline enlarged. The central pulmonary arteries are ectatic, not fully imaged here. The re is peribronchial thickening in the lung bases. There is a 7 mm right lower lobe noncalcified pulmo nary nodule (image 165, series 7). There is a 4 mm right middle lobe noncalcified pulmonary nodule (i mage 123, series 7). There is a pleural-based right lower lobe noncalcified pulmonary nodule measurin g 8 mm (image 56, series 7). There is a small sliding hiatal hernia. The spleen measures 14.5 cm long itudinal. There is at least 1 left renal cortical cyst. The noncontrast liver, gallbladder, pancreas, right kidney, and bilateral adrenal glands are unremarkable. No abdominal aortic aneurysm. There are thick atherosclerotic calcifications of the abdominal aorta and major branches. CT pelvis: No abnormal bowel dilatation, free air, or free fluid. There is apparent wall thickening t hroughout the colon, although the colon is diffusely decompressed. There are descending and sigmoid colon diverticula without evidence of acute diverticulitis. The appendix is not dilated. The prostat e is moderately enlarged, with mild mass effect on the urinary bladder lumen. There are bilateral fat ty inguinal indirect hernias. There is moderate lumbar degenerative disc disease. There is mild-to-m oderate osteoarthritis of the bilateral hips, slightly greater on the left. There is a lumbosacral t ransitional vertebrae. IMPRESSION: 1. Postoperative changes of the heart and extensive atherosclerotic vascular disease in the abdomen a nd pelvis. 2. Pulmonary arterial hypertension. 3. Reactive airways disease. 4. Multiple subcentimeter noncalcified nodules in the lung bases. Recommend outpatient CT follow-up according to Fleischner society guidelines. 5. Apparent diffuse colonic wall thickening, although the colon is diffusely decompressed. This appe arance may be due to mild pancolitis. 6. Descending and sigmoid colon diverticula without evidence of acute diverticulitis. 7. Moderate prostatic enlargement with mass effect on the urinary bladder lumen. Recommend nonemerge nt urology consultation if not already obtained. 8. No evidence of bowel obstruction, acute appendicitis, or other acute process in the abdomen or pel vis. Electronically drafted by Frankie Soto at 04/15/2025 1:45 PM MEASURING CLERK
[2025-04-15 12:16] LABS: Urine Protein, UAD 1+ (Negative)
[2025-04-15] MEDS: ACETAMINOPHEN 325 MG TAB PO ONE ×2 (14:00→17:41)
[2025-04-15 14:16] LABS: Hematocrit 33.3 % (41.0-53.0); Hemoglobin 11.0 g/dL (13.5-17.5); Mean Corpuscular Hemoglobin 31.4 pg (28.0-32.0); Mean Corpuscular Volume 95.3 fL (80.0-100.0); Nucleated Red Blood Cells % 0.0 %
[2025-04-15] MEDS: PIPERACILLIN-TAZOB 3.375GM 100 ML IV ONE (14:22)
[2025-04-15 17:14] VITALS: PULSE 108; RESP 18; O2SAT 94
[2025-04-15 19:30] VITALS: PULSE 99; RESP 18; O2SAT 96
[2025-04-15 19:37] LABS: Lactic Acid w/Reflex 3.4 mmol/L (0.4-2.0)
[2025-04-15] MEDS ORDERED: MORPHINE SULFATE INJ 2 MG/ml SYRG IV PRN (22:00)
[2025-04-15] MEDS: PIPERACILLIN-TAZOB 3.375GM 100 ML IV SCH (22:00)
[2025-04-15] MEDS ORDERED: NITROGLYCERIN 0.4 MG SL TAB SL PRN (22:00)
[2025-04-15] MEDS ORDERED: DEXTROSE (50%) 50ML SYRG IV PRN (22:15)
[2025-04-15] MEDS ORDERED: ONDANSETRON HCL 4 MG/2 ML VIAL IV PRN (22:15)
[2025-04-15] MEDS ORDERED: VANCOMYCIN PER PHARMACY 0 MG IV SCH (22:15)
[2025-04-15] MEDS: SOD CHL 0.45% 1,000 ML IV ONE (22:15)
[2025-04-15 22:56] VITALS: BP 100/52; PULSE 97; RESP 19; TEMP 99.4; O2SAT 96
[2025-04-15] MEDS: VANCOMYCIN 1GM/250ML IV SCH (23:01)
[2025-04-16] MEDS: IPRATROPIUM BROM 0.5 MG/2.5ML INH SOL NEB SCH (01:40)
[2025-04-16] MEDS: ALBUTEROL SULF 2.5 MG/0.5ML(0.5%) NEB SOLN NEB SCH (01:44)
[2025-04-16 06:33] LABS: Hematocrit 27.9 % (41.0-53.0); Hemoglobin 9.2 g/dL (13.5-17.5); Mean Corpuscular Hemoglobin 31.8 pg (28.0-32.0); Mean Corpuscular Volume 96.3 fL (80.0-100.0); Nucleated Red Blood Cells % 0.0 %
[2025-04-16 06:55] LABS: Alanine Aminotransferase 11 U/L (7-40); Albumin 3.4 g/dL (3.2-4.8); Alkaline Phosphatase 69 U/L (46-116); Anion Gap 12 (5-15); BUN/Creatinine Ratio 14.9 (10.0-20.0); Bilirubin, Total 0.6 mg/dL (0.2-1.0); Chloride 105 mmol/L (98-107); Potassium 4.2 mmol/L (3.5-5.1); Total Protein 6.8 g/dL (5.7-8.2)
[2025-04-16 06:57] LABS: Blood Urea Nitrogen 45 mg/dL (9-23); Calcium 8.2 mg/dL (8.7-10.4); Carbon Dioxide 18 mmol/L (20-31); Glucose 206 mg/dL (74-106); Sodium 135 mmol/L (136-145)
[2025-04-16] MEDS: InsuLIN REG 1unit/0.01ml Soln (100units/ml) SC SCH (07:03)
[2025-04-16] MEDS: ACCU-CHEK COMFORT CURVE STRIP VI SCH (07:08)
--- NOTE | 2025-04-16 07:30 | DVHHP2 ---
Admitting Diagnosis: Severe sepsis, Pancolitis, Sinusitis, Multiple lung nodules, DM History of Present Illness HPI 74 y.o. male with CHF, CAD, DM, CKD, COPD was brought to the ER c/o generalized weakness and fever for 1 day and diarrhea q3-4 hours for the past 3 days. Patient was not able to ambulate at home without assistance. Patient stated he was taking Abx for 3 days last month. In the ER patient had diarrhea as well. Denied AP, n/v. Patient's BP was low and he was given IV NS in the ER. CT head showed severe right sphenoid sinus disease; mild bilateral maxillary and ethmoid sinus disease. CT abdomen/chest showed extensive atherosclerotic vascular disease in the abdomen and pelvis,pulmonary arterial hypertension, multiple subcentimeter noncalcified nodules in the lung bases, diffuse colonic wall thickening, may be due to pancolitis, moderate prostatic enlargement. Home Meds Reported Medications Insulin Lispro (Insulin Lispro Kwikpen) 100 Unit/Ml Inj, 2-10 UNIT SC TID for 50 Days, #15 DIRECTED INJECT 2-10 UNITS SUBCUTANEOUSLY 3 TIMES DAILY WITH EACH MEAL PER SLINDING SCALE. 08/05/24 Gabapentin (Gabapentin) 300 Mg Cap, 1 CAP PO BID for 30 Days, #60 08/05/24 Vericiguat (Verquvo) 5 Mg Tab, 0.5 TAB PO BID for 30 Days, #30 TAKE 1/2 TABLET (2.5 MG) BY MOUTH 2 TIMES EVERY DAY. 08/05/24 Loratadine (Claritin) 10 Mg Tab, 1 TAB PO DAILY for 90 Days, #90 08/05/24 Clopidogrel Bisulfate (CLOPIDOGREL) 75 Mg Tab, 1 TAB PO DAILY for 88 Days, #88 08/05/24 Bumetanide (Bumetanide) 1 Mg Tab, 1 TAB PO BID for 90 Days, #180 08/05/24 Pantoprazole Sodium Sesquihydr (Pantoprazole Sodium Dr) 40 Mg Tab, 1 TAB PO DAILY for 90 Days, #90 08/05/24 Sodium Bicarbonate (Sodium Bicarbonate) 325 Mg Tab, 2 TAB PO BID for 90 Days, #360 08/05/24 Insulin Glargine (Insulin Glargine Solostar) 100 Unit/Ml Inj, 25 UNIT SC DAILY for 60 Days, #15 08/05/24 Metoprolol Succinate (Metoprolol Succinate Er) 25 Mg Tab, 1 TAB PO DAILY for 30 Days, #30 08/05/24 Potassium Chloride (Klor-Con M10) 10 Meq Tab, 1 TAB PO BID for 90 Days, #180 01/30/24 Pancreatic Enzymes (Creon) 24,000 Unt Cap, 1 CAP PO TID for 66 Days, #200 01/29/24 Amlodipine Besylate (Amlodipine Besylate) 5 Mg Tab, 10 MG PO QAM for HTN, MG 01/29/24 Tamsulosin Hcl (Tamsulosin Hcl) 0.4 Mg Cap, 0.4 MG PO QPM for BPH for 30 Days, MG 01/29/24 Montelukast Sodium (MONTELUKAST SODIUM) 10 Mg Tab, 1 TAB PO HS for ALLEGIES for 90 Days, #90 01/29/24 Apixaban Base (ELIQUIS) 5 Mg Tab, 1 TAB PO BID for 30 Days, #60 01/29/24 Dulaglutide (Trulicity) 4.5 Mg/0.5 Ml Inj, 4.5 MG SC QWEEKLY for DIABETES, INJ 01/29/24 Amiodarone Hcl (Amiodarone Hcl) 200 Mg Tab, 1 TAB PO DAILY for ARRHYTHMIA for 90 Days, #90 01/29/24 Trazodone HCl (Trazodone Hydrochloride) 50 Mg Tab, 2 TAB PO HS for INSOMNIA for 90 Days, #180 01/29/24 Ascorbic Acid (VITAMIN C TABLET) 500 Mg Tb, 2 TAB PO DAILY for SUPPLEMENT, #30 TAB 3 Refills 01/29/24 Magnesium Oxide (MAGNESIUM OXIDE) 400 Mg Tab, 1 TAB PO DAILY for SUPPLEMENT, #30 TAB 5 Refills 01/29/24 Krill Oil ([place]-3 500 mg) 1 Cap Cap, 2 CAP PO BID for SUPPLEMENT, CAP 01/29/24 Allopurinol (Allopurinol) 100 Mg Tab, 100 MG PO BID for GOUT, MG 01/29/24 Isosorbide Dinitrate (Isosorbide Dinitrate) 20 Mg Tab, 20 MG PO BID, MG 09/23/17 Lisinopril (Lisinopril) 10 Mg Tab, 10 MG PO DAILY for 30 Days, MG 03/24/17 Atorvastatin Calcium (ATORVASTATIN CALCIUM) 40 Mg Tab, 1 TAB PO DAILY, #30 TAB 5 Refills 03/24/17 Past Medical History Patient Family History: Asthma G8 FATHER FH: heart attack G8 FATHER Hypertension G8 MOTHER G8 FATHER H&P Exam Vital Signs Vital Signs Date Time Temp Pulse Resp B/P (MAP) Pulse Ox O2 Delivery O2 Flow Rate FiO2 04/16/25 06:00 87 12 94/46 (62) 95 04/15/25 22:56 99.4 21 99.4 04/15/25 19:30 Room Air* 0 SEPSIS Sepsis Screen Date sepsis recognized/suspect: Apr 15, 2025 Time Sepsis recognized/suspect: 1929 Recent Procedure: No On Antibiotic Therapy: Yes Respiratory Rate >20: No Heart Rate >90: Yes Temp<36 C (96.8 F) or >38.3 C: No SBP <90 or MAP <65 mmHG: No New Acute Mental Status Change: No Is the patient on CPAP, BIPAP,: No Physician Orders Supervisor [employer] (04/16/25 ) Sodium Chloride 0.9% (04/16/25 07:15) Abg W/ Co-Ox (04/16/25 07:07) *Dr. Pak [facility] (04/16/25 07:08) Complete Blood Count (04/17/25 06:00) Comprehensive Metabolic Panel (04/17/25 06:00) Vital Signs Date Time Temp Pulse Resp B/P (MAP) Pulse Ox O2 Delivery O2 Flow Rate FiO2 04/16/25 06:00 87 12 94/46 (62) 95 04/16/25 04:00 92 25 106/51 (69) 96 04/16/25 04:00 94 04/16/25 02:00 95 24 111/64 (80) 99 04/16/25 00:00 91 20 102/53 (69) 99 04/16/25 00:00 94 Laboratory Tests Test 04/15/25 20:03 04/16/25 06:13 Lactic Acid Level 2.0 mmol/L (0.4-2.0) White Blood Count 15.8 10^3/uL (4.4-10.8) #H Medications Medications Dose Ordered Sig/Leatha Route Start Time Stop Time Status Last Admin Dose Admin Diagnostic Test (Pha) 1 strip ACHS 04/16/25 07:00 04/16/25 07:08 1 STRIP Insulin Human Regular ACHS SC 04/16/25 07:00 04/16/25 07:03 3 UNITS Piperacillin Sod/ Tazobactam Sod 100 ml @ 25 mls/hr Q8HR IV 04/15/25 22:00 04/16/25 06:49 25 MLS/HR Sodium Chloride 1,000 ml @ 125 mls/hr Q8H ONCE IV 04/15/25 22:15 04/16/25 06:14 DC 04/15/25 22:15 125 MLS/HR Vancomycin HCl 250 ml @ 250 mls/hr Q1H IV 04/15/25 22:30 04/16/25 00:54 DC 04/16/25 02:13 250 MLS/HR Labs/Xrays Labs Test 04/16/25 06:13 04/15/25 20:03 04/15/25 10:34 04/15/25 09:56 Range/Units White Blood Count 15.8 #H 4.4-10.8 10^3/uL Red Blood Count 2.89 L 4.5-5.90 10^6/uL Hemoglobin 9.2 #L 13.5-17.5 g/dL Hematocrit 27.9 #L 41.0-53.0 % Mean Corpuscular Volume 96.3 80.0-100.0 fL Mean Corpuscular Hemoglobin 31.8 28.0-32.0 pg Mean Corpuscular Hemoglobin Concent 33.0 32.0-36.0 g/dL Red Cell Distribution Width 15.2 H 11.8-14.3 % Platelet Count 177 140-450 10^3/uL Mean Platelet Volume 7.1 6.9-10.8 fL Neutrophils (%) (Auto) 83.5 H 37.0-80.0 % Lymphocytes (%) (Auto) 7.9 L 10.0-50.0 % Monocytes (%) (Auto) 8.3 0.0-12.0 % Eosinophils (%) (Auto) 0.1 0.0-7.0 % Basophils (%) (Auto) 0.2 0.0-2.0 % Neutrophils # (Auto) 13.2 H 1.6-8.6 10 ^3/uL Lymphocytes # (Auto) 1.2 0.4-5.4 10 ^3/uL Monocytes # (Auto) 1.3 0-1.3 10 ^3/uL Eosinophils # (Auto) 0 0-0.8 10 ^3/uL Basophils # (Auto) 0 0-0.2 10 ^3/uL Nucleated Red Blood Cells 0.0 % Sodium Level 135 #L 136-145 mmol/L Potassium Level 4.2 3.5-5.1 mmol/L Chloride Level 105 98-107 mmol/L Carbon Dioxide Level 18 L 20-31 mmol/L Anion Gap 12 5-15 Blood Urea Nitrogen 45 #H 9-23 mg/dL Creatinine 3.02 H 0.700-1.30 mg/dL Glomerular Filtration Rate Calc 21 >90 mL/min BUN/Creatinine Ratio 14.9 10.0-20.0 Serum Glucose 206 H 74-106 mg/dL Calcium Level 8.2 L 8.7-10.4 mg/dL Total Bilirubin 0.6 0.2-1.0 mg/dL Aspartate Amino Transferase (AST) 9 L 13-40 U/L Alanine Aminotransferase (ALT) 11 7-40 U/L Alkaline Phosphatase 69 46-116 U/L Total Protein 6.8 5.7-8.2 g/dL Albumin 3.4 3.2-4.8 g/dL Lactic Acid Level 2.0 0.4-2.0 mmol/L Urine Color Yellow Yellow Urine Clarity Clear Clear Urine pH 5.5 5.0-9.0 Urine Specific [place] 1.024 1.001-1.035 Urine Protein 1+ H Negative Urine Ketones Negative Negative Urine Blood Trace H Negative /uL Urine Nitrite Negative Negative Urine Bilirubin Negative Negative Urine Urobilinogen Normal Negative mg/dL Urine Leukocyte Esterase Negative Negative /uL Urine RBC 6 0 - 3 /hpf Urine Microscopic WBC 4 H 0-3 /HPF Urine Squamous Epithelial Cells Few <5 /hpf Urine Bacteria None seen None Seen /hpf Urine Hyaline Casts Few 0 - 2 /lpf Urine Glucose 2+ H Normal mg/dL Troponin I High Sensitivity 11 </=54 ng/L Test 04/15/25 07:00 04/15/25 00:00 Range/Units B-Type Natriuretic Peptide 214.88 0-100 pg/mL Influenza Type A Antigen Negative Negative Influenza Type B Antigen Negative Negative SARS-CoV-2 Antigen (Rapid) Negative NEGATIVE Assessment/Plan Problem List: (1) Severe sepsis (2) Pancolitis (3) Sinusitis (4) Multiple lung nodules (5) DM (diabetes mellitus) (6) GRACIE (acute kidney injury) Plan ABG, NS, Abx, Insulin, RT, GI, pulmonology and nephrology consults Plan discussed with: Patient, Spouse CHEYENNE SAGE MD Apr 16, 2025 07:30
[2025-04-16 07:35] LABS: Base Excess -5.8 mmol/L (-2.0-3.0)
[2025-04-16 09:00] VITALS: BP 96/43; PULSE 85; RESP 18; TEMP 98.2; O2SAT 93
[2025-04-16] MEDS: SODIUM CHLORIDE 0.9% 1,000 ML IV SCH (10:58)
--- NOTE | 2025-04-16 12:18 | DVHINCON2 ---
Date of service: Apr 15, [address] cassidy Reason for Consultation pulm nodule History of Present Illness HPI Pt is a 74 yo male, h/o CAD, HTN, DM and CHF, s/p CABG, previous smoker, presented with diarrheal illness and generalized weakness. Pt reports a near syncopal episode at night and came in to the ER. Denies fever or abd pain. IN ER borderline hypotensive. dehydrated. CTAbd and pelvis reports pulm nodules and pulm htn. 1. Postoperative changes of the heart and extensive atherosclerotic vascular disease in the abdomen and pelvis. 2. Pulmonary arterial hypertension. 3. Reactive airways disease. 4. Multiple subcentimeter noncalcified nodules in the lung bases. Recommend outpatient CT follow-up according to Fleischner society guidelines. 5. Apparent diffuse colonic wall thickening, although the colon is diffusely decompressed. This appearance may be due to mild pancolitis. 6. Descending and sigmoid colon diverticula without evidence of acute diverticulitis. 7. Moderate prostatic enlargement with mass effect on the urinary bladder lumen. Recommend nonemergent urology consultation if not already obtained. 8. No evidence of bowel obstruction, acute appendicitis, or other acute process in the abdomen or pelvis. Home Meds Reported Medications Insulin Lispro (Insulin Lispro Kwikpen) 100 Unit/Ml Inj, 2-10 UNIT SC TID for 50 Days, #15 DIRECTED INJECT 2-10 UNITS SUBCUTANEOUSLY 3 TIMES DAILY WITH EACH MEAL PER SLINDING SCALE. 08/05/24 Gabapentin (Gabapentin) 300 Mg Cap, 1 CAP PO BID for 30 Days, #60 08/05/24 Vericiguat (Verquvo) 5 Mg Tab, 0.5 TAB PO BID for 30 Days, #30 TAKE 1/2 TABLET (2.5 MG) BY MOUTH 2 TIMES EVERY DAY. 08/05/24 Loratadine (Claritin) 10 Mg Tab, 1 TAB PO DAILY for 90 Days, #90 08/05/24 Clopidogrel Bisulfate (CLOPIDOGREL) 75 Mg Tab, 1 TAB PO DAILY for 88 Days, #88 08/05/24 Bumetanide (Bumetanide) 1 Mg Tab, 1 TAB PO BID for 90 Days, #180 08/05/24 Pantoprazole Sodium Sesquihydr (Pantoprazole Sodium Dr) 40 Mg Tab, 1 TAB PO DAILY for 90 Days, #90 1/6/25 Sodium Bicarbonate (Sodium Bicarbonate) 325 Mg Tab, 2 TAB PO BID for 90 Days, #360 08/05/24 Insulin Glargine (Insulin Glargine Solostar) 100 Unit/Ml Inj, 25 UNIT SC DAILY for 60 Days, #15 08/05/24 Metoprolol Succinate (Metoprolol Succinate Er) 25 Mg Tab, 1 TAB PO DAILY for 30 Days, #30 08/05/24 Potassium Chloride (Klor-Con M10) 10 Meq Tab, 1 TAB PO BID for 90 Days, #180 01/30/24 Pancreatic Enzymes (Creon) 24,000 Unt Cap, 1 CAP PO TID for 66 Days, #200 01/29/24 Amlodipine Besylate (Amlodipine Besylate) 5 Mg Tab, 10 MG PO QAM for HTN, MG 01/29/24 Tamsulosin Hcl (Tamsulosin Hcl) 0.4 Mg Cap, 0.4 MG PO QPM for BPH for 30 Days, MG 01/29/24 Montelukast Sodium (MONTELUKAST SODIUM) 10 Mg Tab, 1 TAB PO HS for ALLEGIES for 90 Days, #90 01/29/24 Apixaban Base (ELIQUIS) 5 Mg Tab, 1 TAB PO BID for 30 Days, #60 01/29/24 Dulaglutide (Trulicity) 4.5 Mg/0.5 Ml Inj, 4.5 MG SC QWEEKLY for DIABETES, INJ 01/29/24 Amiodarone Hcl (Amiodarone Hcl) 200 Mg Tab, 1 TAB PO DAILY for ARRHYTHMIA for 90 Days, #90 01/29/24 Trazodone HCl (Trazodone Hydrochloride) 50 Mg Tab, 2 TAB PO HS for INSOMNIA for 90 Days, #180 01/29/24 Ascorbic Acid (VITAMIN C TABLET) 500 Mg Tb, 2 TAB PO DAILY for SUPPLEMENT, #30 TAB 3 Refills 01/29/24 Magnesium Oxide (MAGNESIUM OXIDE) 400 Mg Tab, 1 TAB PO DAILY for SUPPLEMENT, #30 TAB 5 Refills 01/29/24 Krill Oil ([place]-3 500 mg) 1 Cap Cap, 2 CAP PO BID for SUPPLEMENT, CAP 01/29/24 Allopurinol (Allopurinol) 100 Mg Tab, 100 MG PO BID for GOUT, MG 01/29/24 Isosorbide Dinitrate (Isosorbide Dinitrate) 20 Mg Tab, 20 MG PO BID, MG 09/23/17 Lisinopril (Lisinopril) 10 Mg Tab, 10 MG PO DAILY for 30 Days, MG 03/24/17 Atorvastatin Calcium (ATORVASTATIN CALCIUM) 40 Mg Tab, 1 TAB PO DAILY, #30 TAB 5 Refills 03/24/17 Past Medical History Cardiac: CHF, HTN Pulmonary: COPD Central Nervous System: No pertinent Hx GI: No pertinent Hx Hemotology/Oncology: No pertinent Hx Hepatobiliary: No pertinent Hx Psychiatric: No pertinent Hx Musculoskeletal: No pertinent Hx Rheumotologic: No pertinent Hx Infectious Disease: No peritnent Hx ENT: No pertinent Hx Renal/: No pertinent Hx Endocrine: No pertinent Hx Dermatology: No pertinent Hx Past Surgical History: No pertinent Hx Family History: No pertinent Hx Patient Family History: Asthma G8 FATHER, Onset:Unknown FH: heart attack G8 FATHER, Onset:Unknown FH: lung cancer G8 MOTHER, Onset:Unknown Hypertension G8 MOTHER G8 FATHER, Onset:Unknown Review of Systems Constitutional: Malaise Ears, Nose, & Throat: No symptom reported Eyes: No symptom reported Pulmonary/Respiratory: No symptom reported Cardiovascular: No symptom reported Gastrointestinal: Diarrhea Genitourinary: No symptom reported Musculoskeletal: No symptom reported Skin: No symptom reported Psychiatric: No symptom reported Endocrine: No symptom reported Hemotologic/Lymphatic: No symptom reported H&P Exam Vital Signs Vital Signs Date Time Temp Pulse Resp B/P (MAP) Pulse Ox O2 Delivery O2 Flow Rate FiO2 04/16/25 09:00 98.2 85 18 96/43 (60) 93 98.2 04/16/25 09:00 Room Air* 0 21 General Appeara: Well developed, Well nourished Head Exam: Normal inspection Neck Exam: Normal inspection, Non-tender, Normal alignment Eye Exam: bilateral eye Normal inspection, bilateral eye PERRL Ear Exam: bilateral ear Auricle normal, bilateral ear Canal normal Nasal Exam: Normal inspection Mouth: Normal Inspection Pulmonary/Respiratory: Normal inspection, Normal breath sounds Cardiovascular/Chest: Normal inspection Peripheral Pulses: 4+ carotid (R), 4+ carotid (L) Abdominal Exam: Normal bowel sounds, Soft Labs/Xrays Labs Test 04/16/25 11:49 04/16/25 07:25 04/16/25 06:13 04/15/25 20:03 Range/Units POC Glucose 146 H 70-106 mg/dl Blood Gas Specimen Type Arterial Blood Gas Sample Site Right radial Blood Gas Patient Temperature 37.0 Arterial Blood Date Drawn [id number] Arterial Blood pH 7.425 7.350-7.450 Arterial Blood Partial Pressure CO2 27.4 L 35.0-48.0 mmHg Arterial Blood Partial Pressure O2 82.6 L 83.0-108.0 mmHg Arterial Blood HCO3 17.6 L 21.0-28.0 mmol/L Arterial Blood Oxygen Saturation 94.8 94.0-98.0 % Arterial Blood Base Excess -5.8 L -2.0-3.0 mmol/L Arterial Blood Oxyhemoglobin 93.9 L 94.0-98.0 % Arterial Blood Carboxyhemoglobin 0.5 0.5-1.5 % Arterial Blood Methemoglobin 0.5 0.0-1.5 % Mike Test Yes Blood Gas Total Hemoglobin 9.80 L 13.5-17.5 g/dL Blood Gas Liter Flow 2.00 Blood Gas Modality Nasal cannula FiO2 % 28.0 White Blood Count 15.8 #H 4.4-10.8 10^3/uL Red Blood Count 2.89 L 4.5-5.90 10^6/uL Hemoglobin 9.2 #L 13.5-17.5 g/dL Hematocrit 27.9 #L 41.0-53.0 % Mean Corpuscular Volume 96.3 80.0-100.0 fL Mean Corpuscular Hemoglobin 31.8 28.0-32.0 pg Mean Corpuscular Hemoglobin Concent 33.0 32.0-36.0 g/dL Red Cell Distribution Width 15.2 H 11.8-14.3 % Platelet Count 177 140-450 10^3/uL Mean Platelet Volume 7.1 6.9-10.8 fL Neutrophils (%) (Auto) 83.5 H 37.0-80.0 % Lymphocytes (%) (Auto) 7.9 L 10.0-50.0 % Monocytes (%) (Auto) 8.3 0.0-12.0 % Eosinophils (%) (Auto) 0.1 0.0-7.0 % Basophils (%) (Auto) 0.2 0.0-2.0 % Neutrophils # (Auto) 13.2 H 1.6-8.6 10 ^3/uL Lymphocytes # (Auto) 1.2 0.4-5.4 10 ^3/uL Monocytes # (Auto) 1.3 0-1.3 10 ^3/uL Eosinophils # (Auto) 0 0-0.8 10 ^3/uL Basophils # (Auto) 0 0-0.2 10 ^3/uL Nucleated Red Blood Cells 0.0 % Sodium Level 135 #L 136-145 mmol/L Potassium Level 4.2 3.5-5.1 mmol/L Chloride Level 105 98-107 mmol/L Carbon Dioxide Level 18 L 20-31 mmol/L Anion Gap 12 5-15 Blood Urea Nitrogen 45 #H 9-23 mg/dL Creatinine 3.02 H 0.700-1.30 mg/dL Glomerular Filtration Rate Calc 21 >90 mL/min BUN/Creatinine Ratio 14.9 10.0-20.0 Serum Glucose 206 H 74-106 mg/dL Calcium Level 8.2 L 8.7-10.4 mg/dL Total Bilirubin 0.6 0.2-1.0 mg/dL Aspartate Amino Transferase (AST) 9 L 13-40 U/L Alanine Aminotransferase (ALT) 11 7-40 U/L Alkaline Phosphatase 69 46-116 U/L Total Protein 6.8 5.7-8.2 g/dL Albumin 3.4 3.2-4.8 g/dL Lactic Acid Level 2.0 0.4-2.0 mmol/L Test 04/15/25 10:34 04/15/25 09:56 04/15/25 07:00 04/15/25 00:00 Range/Units Urine Color Yellow Yellow Urine Clarity Clear Clear Urine pH 5.5 5.0-9.0 Urine Specific [place] 1.024 1.001-1.035 Urine Protein 1+ H Negative Urine Ketones Negative Negative Urine Blood Trace H Negative /uL Urine Nitrite Negative Negative Urine Bilirubin Negative Negative Urine Urobilinogen Normal Negative mg/dL Urine Leukocyte Esterase Negative Negative /uL Urine RBC 6 0 - 3 /hpf Urine Microscopic WBC 4 H 0-3 /HPF Urine Squamous Epithelial Cells Few <5 /hpf Urine Bacteria None seen None Seen /hpf Urine Hyaline Casts Few 0 - 2 /lpf Urine Glucose 2+ H Normal mg/dL Troponin I High Sensitivity 11 </=54 ng/L B-Type Natriuretic Peptide 214.88 0-100 pg/mL Influenza Type A Antigen Negative Negative Influenza Type B Antigen Negative Negative SARS-CoV-2 Antigen (Rapid) Negative NEGATIVE Assessment/Plan Plan pulm nodules pulm htn near syncope DM pt seen and examined plan f/up on CT as out-pt hydration bronchodilators prn monitor renal function replace lytes dvt proph Plan discussed with: Patient KATHARINE MANUEL MD Apr 16, 2025 12:18
--- NOTE | 2025-04-16 12:19 | DVHPN2 ---
Progress Note - Dictate Date Seen: Apr 16, 2025 Has the PT tested + for MRSA If YES, has PT been informed?: No Medical Necessity Reason Pt with a Central, PICC or Fol: No vital signs Vital Sign Date Time Temp Pulse Resp B/P (MAP) Pulse Ox O2 Delivery O2 Flow Rate FiO2 04/16/25 09:00 98.2 85 18 96/43 (60) 93 98.2 04/16/25 09:00 Room Air* 0 21 Total Intake and Output 04/15/25 04/15/25 04/16/25 14:59 22:59 06:59 Intake Total 1100 ml Balance 1100 ml medications Current Medications Medications Dose Ordered Sig/Leatha Route Start Time Stop Time Status Last Admin Dose Admin Nitroglycerin 0.4 mg Q5MINP PRN SL 04/15/25 22:00 Morphine Sulfate 2 mg Q30M PRN IV 04/15/25 22:00 Piperacillin Sod/ Tazobactam Sod 100 ml @ 25 mls/hr Q8HR IV 04/15/25 22:00 04/16/25 06:49 25 MLS/HR Diagnostic Test (Pha) 1 strip ACHS 04/16/25 07:00 04/16/25 11:56 1 STRIP Insulin Human Regular ACHS SC 04/16/25 07:00 04/16/25 07:03 3 UNITS Dextrose 50 ml UD PRN IV 04/15/25 22:15 Albuterol 2.5 mg Q6HR NEB 04/16/25 00:00 Ipratropium [place] 0.5 mg Q6HP NEB 04/16/25 00:00 Ondansetron HCl 4 mg Q6HPRN PRN IV 04/15/25 22:15 Vancomycin HCl 0 ml @ 0 mls/hr UD IV 04/15/25 22:15 Sodium Chloride 1,000 ml @ 100 mls/hr Q10H IV 04/16/25 07:15 04/16/25 10:58 100 MLS/HR laboratory and microbiology Laboratory Tests 04/16/25 06:13 Test 04/16/25 06:13 Range/Units Serum Glucose 206 H 74-106 mg/dL Assessment/Plan pulm nodules pulm htn near syncope DM pt seen and examined plan f/up on CT as out-pt hydration bronchodilators prn monitor renal function replace lytes dvt proph Plan discussed with: Patient KATHARINE MANUEL MD Apr 16, 2025 12:19
[2025-04-16 12:52] VITALS: BP 112/45; PULSE 79; RESP 18; TEMP 98.4; O2SAT 95
[2025-04-16 17:00] VITALS: BP 121/54; PULSE 96; RESP 18; TEMP 98.6; O2SAT 94
--- NOTE | 2025-04-16 17:14 | DVHINCON2 ---
Date of service: Apr 16, 2025 Referring Physician Reason for Consultation christian History of Present Illness 74 years old man with past medical history Chronic kidney disease IIIb GFR 36 recently, congestive heart failure, prostatomegaly Coronary artery disease, diabetes, COPD presented with chief complaints of generalized weakness, diarrhea extensively, fever for the past three days Patient seen and examined in holding area currently getting he reports last urination was yesterday and has not urinated since then Nephrology consulted kidney injury Echocardiogram from July 2024 ef 40 to 45 Past Medical History As per HPI Allergies: Coded Allergies: Ibuprofen (Verified Allergy, Unknown, 04/16/25) Home Meds Reported Medications Insulin Lispro (Insulin Lispro Kwikpen) 100 Unit/Ml Inj, 2-10 UNIT SC TID for 50 Days, #15 DIRECTED INJECT 2-10 UNITS SUBCUTANEOUSLY 3 TIMES DAILY WITH EACH MEAL PER SLINDING SCALE. 08/05/24 Gabapentin (Gabapentin) 300 Mg Cap, 1 CAP PO BID for 30 Days, #60 08/05/24 Vericiguat (Verquvo) 5 Mg Tab, 0.5 TAB PO BID for 30 Days, #30 TAKE 1/2 TABLET (2.5 MG) BY MOUTH 2 TIMES EVERY DAY. 08/05/24 Loratadine (Claritin) 10 Mg Tab, 1 TAB PO DAILY for 90 Days, #90 08/05/24 Clopidogrel Bisulfate (CLOPIDOGREL) 75 Mg Tab, 1 TAB PO DAILY for 88 Days, #88 08/05/24 Bumetanide (Bumetanide) 1 Mg Tab, 1 TAB PO BID for 90 Days, #180 08/05/24 Pantoprazole Sodium Sesquihydr (Pantoprazole Sodium Dr) 40 Mg Tab, 1 TAB PO DAILY for 90 Days, #90 08/05/24 Sodium Bicarbonate (Sodium Bicarbonate) 325 Mg Tab, 2 TAB PO BID for 90 Days, #360 08/05/24 Insulin Glargine (Insulin Glargine Solostar) 100 Unit/Ml Inj, 25 UNIT SC DAILY for 60 Days, #15 08/05/24 Metoprolol Succinate (Metoprolol Succinate Er) 25 Mg Tab, 1 TAB PO DAILY for 30 Days, #30 08/05/24 Potassium Chloride (Klor-Con M10) 10 Meq Tab, 1 TAB PO BID for 90 Days, #180 01/30/24 Pancreatic Enzymes (Creon) 24,000 Unt Cap, 1 CAP PO TID for 66 Days, #200 01/29/24 Amlodipine Besylate (Amlodipine Besylate) 5 Mg Tab, 10 MG PO QAM for HTN, MG 01/29/24 Tamsulosin Hcl (Tamsulosin Hcl) 0.4 Mg Cap, 0.4 MG PO QPM for BPH for 30 Days, MG 01/29/24 Montelukast Sodium (MONTELUKAST SODIUM) 10 Mg Tab, 1 TAB PO HS for ALLEGIES for 90 Days, #90 01/29/24 Apixaban Base (ELIQUIS) 5 Mg Tab, 1 TAB PO BID for 30 Days, #60 01/29/24 Dulaglutide (Trulicity) 4.5 Mg/0.5 Ml Inj, 4.5 MG SC QWEEKLY for DIABETES, INJ 01/29/24 Amiodarone Hcl (Amiodarone Hcl) 200 Mg Tab, 1 TAB PO DAILY for ARRHYTHMIA for 90 Days, #90 01/29/24 Trazodone HCl (Trazodone Hydrochloride) 50 Mg Tab, 2 TAB PO HS for INSOMNIA for 90 Days, #180 01/29/24 Ascorbic Acid (VITAMIN C TABLET) 500 Mg Tb, 2 TAB PO DAILY for SUPPLEMENT, #30 TAB 3 Refills 01/29/24 Magnesium Oxide (MAGNESIUM OXIDE) 400 Mg Tab, 1 TAB PO DAILY for SUPPLEMENT, #30 TAB 5 Refills 01/29/24 Krill Oil ([place]-3 500 mg) 1 Cap Cap, 2 CAP PO BID for SUPPLEMENT, CAP 01/29/24 Allopurinol (Allopurinol) 100 Mg Tab, 100 MG PO BID for GOUT, MG 01/29/24 Isosorbide Dinitrate (Isosorbide Dinitrate) 20 Mg Tab, 20 MG PO BID, MG 09/23/17 Lisinopril (Lisinopril) 10 Mg Tab, 10 MG PO DAILY for 30 Days, MG 03/24/17 Atorvastatin Calcium (ATORVASTATIN CALCIUM) 40 Mg Tab, 1 TAB PO DAILY, #30 TAB 5 Refills 03/24/17 Current Medications Current Medications Medications (Trade) Dose Ordered Sig/Leatha Route PRN Reason Start Time Stop Time Status Last Admin Nitroglycerin (Ntrostat Sublingual) 0.4 mg Q5MINP PRN SL FOR CHEST PAIN 04/15/25 22:00 Morphine Sulfate 2 mg Q30M PRN IV FOR CHEST PAIN 04/15/25 22:00 Piperacillin Sod/ Tazobactam Sod 100 ml @ 25 mls/hr Q8HR IV 04/15/25 22:00 04/16/25 06:49 Diagnostic Test (Pha) (Accu-Chek Comfort Curve T) 1 strip ACHS 04/16/25 07:00 04/16/25 11:56 Insulin Human Regular (InsuLIN R) ACHS SC 04/16/25 07:00 04/16/25 07:03 Dextrose 50 ml UD PRN IV Blood Sugar LESS THAN 60 04/15/25 22:15 Albuterol (Ventolin Medneb) 2.5 mg Q6HR NEB 04/16/25 00:00 Ipratropium [place] (Atrovent Medneb) 0.5 mg Q6HP NEB 04/16/25 00:00 Ondansetron HCl (Zofran) 4 mg Q6HPRN PRN IV NAUSEA / VOMITING 04/15/25 22:15 Vancomycin HCl 0 ml @ 0 mls/hr UD IV 04/15/25 22:15 Vancomycin HCl 250 ml @ 250 mls/hr Q1H IV 04/15/25 22:30 04/16/25 00:54 DC 04/16/25 02:13 Sodium Chloride 1,000 ml @ 100 mls/hr Q10H IV 04/16/25 07:15 04/16/25 10:58 Family History: Asthma G8 FATHER, Onset:Unknown FH: heart attack G8 FATHER, Onset:Unknown FH: lung cancer G8 MOTHER, Onset:Unknown Hypertension G8 MOTHER G8 FATHER, Onset:Unknown Review of Systems As documented in HPI H&P Exam Vital Signs/I&O Vital Sign Date Time Temp Pulse Resp B/P (MAP) Pulse Ox O2 Delivery O2 Flow Rate FiO2 04/16/25 12:52 98.4 79 18 112/45 (67) 95 98.4 04/16/25 09:00 Room Air* 0 21 l Intake and Output 04/15/25 04/16/25 19:00 07:00 Intake Total 1100 ml Balance 1100 ml Intake IV Total 1100 ml Physical Exam General-not in any distress HEENT-normocephalic, no icterus, no pallor, neck supple Respiratory-fair air entry bilateral, no rhonchi, no wheeze [id number] heard, no murmurs appreciated Abdominal-soft, nontender, nondistended Musculoskeletal-no pedal edema, no calf tenderness Genitourinary-deferred Neuro-awake alert oriented x3, Psychiatric-not agitated, cooperative, Labs/Diagnostic Data Labs/Diagnostic Data Laboratory Tests Test 04/16/25 11:49 04/16/25 07:25 04/16/25 07:02 04/16/25 06:13 Range/Units POC Glucose 146 H 199 H 70-106 mg/dl Blood Gas Specimen Type Arterial Blood Gas Sample Site Right radial Blood Gas Patient Temperature 37.0 Arterial Blood Date Drawn [id number] Arterial Blood pH 7.425 7.350-7.450 Arterial Blood Partial Pressure CO2 27.4 L 35.0-48.0 mmHg Arterial Blood Partial Pressure O2 82.6 L 83.0-108.0 mmHg Arterial Blood HCO3 17.6 L 21.0-28.0 mmol/L Arterial Blood Oxygen Saturation 94.8 94.0-98.0 % Arterial Blood Base Excess -5.8 L -2.0-3.0 mmol/L Arterial Blood Oxyhemoglobin 93.9 L 94.0-98.0 % Arterial Blood Carboxyhemoglobin 0.5 0.5-1.5 % Arterial Blood Methemoglobin 0.5 0.0-1.5 % Mike Test Yes Blood Gas Total Hemoglobin 9.80 L 13.5-17.5 g/dL Blood Gas Liter Flow 2.00 Blood Gas Modality Nasal cannula FiO2 % 28.0 White Blood Count 15.8 #H 4.4-10.8 10^3/uL Red Blood Count 2.89 L 4.5-5.90 10^6/uL Hemoglobin 9.2 #L 13.5-17.5 g/dL Hematocrit 27.9 #L 41.0-53.0 % Mean Corpuscular Volume 96.3 80.0-100.0 fL Mean Corpuscular Hemoglobin 31.8 28.0-32.0 pg Mean Corpuscular Hemoglobin Concent 33.0 32.0-36.0 g/dL Red Cell Distribution Width 15.2 H 11.8-14.3 % Platelet Count 177 140-450 10^3/uL Mean Platelet Volume 7.1 6.9-10.8 fL Neutrophils (%) (Auto) 83.5 H 37.0-80.0 % Lymphocytes (%) (Auto) 7.9 L 10.0-50.0 % Monocytes (%) (Auto) 8.3 0.0-12.0 % Eosinophils (%) (Auto) 0.1 0.0-7.0 % Basophils (%) (Auto) 0.2 0.0-2.0 % Neutrophils # (Auto) 13.2 H 1.6-8.6 10 ^3/uL Lymphocytes # (Auto) 1.2 0.4-5.4 10 ^3/uL Monocytes # (Auto) 1.3 0-1.3 10 ^3/uL Eosinophils # (Auto) 0 0-0.8 10 ^3/uL Basophils # (Auto) 0 0-0.2 10 ^3/uL Nucleated Red Blood Cells 0.0 % Sodium Level 135 #L 136-145 mmol/L Potassium Level 4.2 3.5-5.1 mmol/L Chloride Level 105 98-107 mmol/L Carbon Dioxide Level 18 L 20-31 mmol/L Anion Gap 12 5-15 Blood Urea Nitrogen 45 #H 9-23 mg/dL Creatinine 3.02 H 0.700-1.30 mg/dL Glomerular Filtration Rate Calc 21 >90 mL/min BUN/Creatinine Ratio 14.9 10.0-20.0 Serum Glucose 206 H 74-106 mg/dL Calcium Level 8.2 L 8.7-10.4 mg/dL Total Bilirubin 0.6 0.2-1.0 mg/dL Aspartate Amino Transferase (AST) 9 L 13-40 U/L Alanine Aminotransferase (ALT) 11 7-40 U/L Alkaline Phosphatase 69 46-116 U/L Total Protein 6.8 5.7-8.2 g/dL Albumin 3.4 3.2-4.8 g/dL Test 04/15/25 20:03 04/15/25 17:35 04/15/25 13:55 04/15/25 10:34 Range/Units Lactic Acid Level 2.0 3.4 *H 0.4-2.0 mmol/L White Blood Count 22.1 H 4.4-10.8 10^3/uL Red Blood Count 3.49 L 4.5-5.90 10^6/uL Hemoglobin 11.0 L 13.5-17.5 g/dL Hematocrit 33.3 L 41.0-53.0 % Mean Corpuscular Volume 95.3 80.0-100.0 fL Mean Corpuscular Hemoglobin 31.4 28.0-32.0 pg Mean Corpuscular Hemoglobin Concent 32.9 32.0-36.0 g/dL Red Cell Distribution Width 14.3 11.8-14.3 % Platelet Count 209 140-450 10^3/uL Mean Platelet Volume 7.2 6.9-10.8 fL Neutrophils (%) (Auto) 88.6 H 37.0-80.0 % Lymphocytes (%) (Auto) 3.4 L 10.0-50.0 % Monocytes (%) (Auto) 7.9 0.0-12.0 % Eosinophils (%) (Auto) 0.0 0.0-7.0 % Basophils (%) (Auto) 0.1 0.0-2.0 % Neutrophils # (Auto) 19.5 H 1.6-8.6 10 ^3/uL Lymphocytes # (Auto) 0.7 0.4-5.4 10 ^3/uL Monocytes # (Auto) 1.7 H 0-1.3 10 ^3/uL Eosinophils # (Auto) 0 0-0.8 10 ^3/uL Basophils # (Auto) 0 0-0.2 10 ^3/uL Nucleated Red Blood Cells 0.0 % Urine Color Yellow Yellow Urine Clarity Clear Clear Urine pH 5.5 5.0-9.0 Urine Specific [place] 1.024 1.001-1.035 Urine Protein 1+ H Negative Urine Ketones Negative Negative Urine Blood Trace H Negative /uL Urine Nitrite Negative Negative Urine Bilirubin Negative Negative Urine Urobilinogen Normal Negative mg/dL Urine Leukocyte Esterase Negative Negative /uL Urine RBC 6 0 - 3 /hpf Urine Microscopic WBC 4 H 0-3 /HPF Urine Squamous Epithelial Cells Few <5 /hpf Urine Bacteria None seen None Seen /hpf Urine Hyaline Casts Few 0 - 2 /lpf Urine Glucose 2+ H Normal mg/dL Test 04/15/25 09:56 04/15/25 08:12 04/15/25 07:00 04/15/25 00:00 Range/Units Troponin I High Sensitivity 11 12 14 </=54 ng/L White Blood Count 25.6 H 4.4-10.8 10^3/uL Red Blood Count 3.47 L 4.5-5.90 10^6/uL Hemoglobin 11.0 L 13.5-17.5 g/dL Hematocrit 33.1 L 41.0-53.0 % Mean Corpuscular Volume 95.3 80.0-100.0 fL Mean Corpuscular Hemoglobin 31.8 28.0-32.0 pg Mean Corpuscular Hemoglobin Concent 33.3 32.0-36.0 g/dL Red Cell Distribution Width 14.5 H 11.8-14.3 % Platelet Count 229 140-450 10^3/uL Mean Platelet Volume 7.4 6.9-10.8 fL Neutrophils (%) (Auto) 86.6 H 37.0-80.0 % Lymphocytes (%) (Auto) 5.3 L 10.0-50.0 % Monocytes (%) (Auto) 7.8 0.0-12.0 % Eosinophils (%) (Auto) 0.2 0.0-7.0 % Basophils (%) (Auto) 0.1 0.0-2.0 % Neutrophils # (Auto) 22.2 H 1.6-8.6 10 ^3/uL Lymphocytes # (Auto) 1.4 0.4-5.4 10 ^3/uL Monocytes # (Auto) 2.0 H 0-1.3 10 ^3/uL Eosinophils # (Auto) 0.1 0-0.8 10 ^3/uL Basophils # (Auto) 0 0-0.2 10 ^3/uL Nucleated Red Blood Cells 0.0 % Sodium Level 140 136-145 mmol/L Potassium Level 5.0 3.5-5.1 mmol/L Chloride Level 108 H 98-107 mmol/L Carbon Dioxide Level 21 20-31 mmol/L Anion Gap 11 5-15 Blood Urea Nitrogen 34 H 9-23 mg/dL Creatinine 2.32 H 0.700-1.30 mg/dL Glomerular Filtration Rate Calc 29 >90 mL/min BUN/Creatinine Ratio 14.7 10.0-20.0 Serum Glucose 205 H 74-106 mg/dL Calcium Level 8.8 8.7-10.4 mg/dL B-Type Natriuretic Peptide 214.88 0-100 pg/mL Influenza Type A Antigen Negative Negative Influenza Type B Antigen Negative Negative SARS-CoV-2 Antigen (Rapid) Negative NEGATIVE Assessment Acute kidney injury hemodynamic mediated etiology in the setting of sepsis however rule out obstructive etiology Baseline Chronic kidney disease IIIb Severe sepsis/alvarez colitis Anemia Prostate enlargement Mild hyponatremia Metabolic acidosis/lactic acidosis Pulmonary hypertension Recommendations Continue IV fluids today as ordered Check bladder scan Lugo catheter Urine workup as ordered Renally dose antibiotics to GFR Urology consult Strict Is&Os charting We will follow renal function closely Plan discussed with: Patient RODNEY CAASS MD Apr 16, 2025 17:14
[2025-04-16 19:11] VITALS: O2SAT 93
[2025-04-16 20:00] VITALS: PULSE 84; RESP 18; O2SAT 95
[2025-04-16 21:00] VITALS: BP 110/72; PULSE 80; RESP 18; TEMP 98.4; O2SAT 95
--- NOTE | 2025-04-16 21:02 | DVHINCON2 ---
DATE OF CONSULTATION: 04/16/2025 GASTROENTEROLOGY CONSULTATION REFERRING PHYSICIAN: Dr Tammy Cates. REASON FOR CONSULTATION: Acute onset diarrhea. HISTORY OF PRESENT ILLNESS: The patient is a 74-year-old male with a past medical history significant for congestive heart failure, coronary artery disease, type 2 diabetes, chronic kidney disease, COPD, irritable bowel syndrome, admitted with a 1-day history of generalized weakness, fever, and diarrhea. The patient reports that he had an urge to defecate at approximately 4 a.m. in the morning yesterday. This was associated with significant weakness and presyncope type symptoms. The patient states that he had nearly 10+ bowel movements over the past 24 hours prompting his visit to the ER. On arrival to the hospital, the patient was noted to have a white blood cell count of 25.6, hemoglobin 11.1, hematocrit 33.1, and platelet count of 229,000. The patient denies noting any bloody elements in his stool. Admission BMP was essentially unremarkable aside from a BUN of 34 and creatinine of 2.32 and lactic acid of 3.4. Diagnostic CT study of the abdomen and pelvis obtained on admission was significant for diffuse colonic wall thickening and descending and sigmoid diverticulosis without diverticulitis. There is also evidence of moderate prostatic enlargement, but no evidence of bowel obstruction, acute appendicitis, or acute process in the abdomen and pelvis. The patient denies any recent travel or sick contacts. He does report taking some antibiotics last month for 3 days. He denies any prior incidents of diarrhea similar to this in the past. Gastroenterology service has been asked for right input regarding his symptoms. DRUG ALLERGIES: IBUPROFEN. HOME MEDICATIONS: On admission, the patient is on allopurinol, amiodarone, amlodipine, Eliquis, vitamin C, atorvastatin, Bumex, Plavix, Trulicity, gabapentin, insulin glargine, insulin Lispro, Krill oil, lisinopril, Claritin, magnesium oxide, metoprolol, montelukast, Creon, pantoprazole, potassium chloride, sodium bicarbonate, tamsulosin, trazodone, and Verquvo. PAST MEDICAL HISTORY: Significant for congestive heart failure, CAD, type 2 diabetes, CKD, COPD. PAST SURGICAL HISTORY: None. SOCIAL HISTORY: The patient denies drugs, alcohol, and tobacco. REVIEW OF SYSTEMS: A 12-point review of systems is limited, but as stated above in the HPI. PHYSICAL EXAMINATION: VITAL SIGNS: Temperature 98.6, heart rate 96, respirations 18, blood pressure is 124/54, O2 saturation 93% on room air. GENERAL: This is a 74-year-old male in no acute distress. Afebrile, alert and oriented x3. HEENT: Unremarkable. CARDIOVASCULAR EXAM: Regular rhythm. RESPIRATORY EXAM: Clear to auscultation. GASTROINTESTINAL EXAM: Soft, nontender, and nondistended. EXTREMITIES: No clubbing, no cyanosis or edema. LABORATORY EVALUATION: Most recent labs include sodium 135, potassium 4.2, chloride 105, bicarbonate 18, BUN 45, creatinine 3.02, blood glucose 206, lactic acid 2.0, calcium 8.2, bilirubin 0.6, AST 9, ALT 11, alkaline phosphatase 69, total protein 6.8, albumin 3.4, white blood cell count 15.8, hemoglobin 9.2, hematocrit 27.9, MCV 96.3, platelet count is 177. CT results as stated above in the HPI. ASSESSMENT: * Pancolitis likely secondary to infectious etiology. Other possibilities would include inflammatory, although this is somewhat unlikely. * Sepsis. * Leukocytosis. * Type 2 diabetes. * Acute on chronic renal failure. * COPD. * Coronary artery disease. * Congestive heart failure. * Mild anemia without evidence of vinicius GI bleeding. RECOMMENDATIONS: * Obtain stool cultures to exclude Clostridium difficile, salmonella, Shigella, Yersinia, Campylobacter, E. coli, ova and parasites, fecal leukocytes. * Agree with empiric antibiotic therapy. * Imodium 1-2 tablets p.r.n. q. 6 hours for diarrhea. * Clear liquid diet. * IV fluid hydration. * No indication for urgent colonoscopy at this time. We will follow up on an outpatient basis. DO SAL Pantoja/JONATHAN TID: [id number] RECEIPT: [id number]
[2025-04-17] VITALS (8 sets, daily range): BP systolic 131–151; BP diastolic 74–84; PULSE 71–84; RESP 18–20; TEMP 97.6–98.8; O2SAT 92–96
[2025-04-17] MEDS ORDERED: MAGN400T40 PO (01:20)
[2025-04-17] MEDS ORDERED: FIBECAP PO (01:20)
[2025-04-17] MEDS ORDERED: INSLANTI SC (01:20)
[2025-04-17] MEDS ORDERED: CHOL20007 PO (01:20)
[2025-04-17] MEDS ORDERED: METH50006 SL (01:20)
[2025-04-17] MEDS ORDERED: SODI650T PO (01:20)
[2025-04-17] MEDS: LOPERAMIDE HCL 2 MG CAP/TAB PO PRN (02:11)
[2025-04-17 07:27] LABS: Alanine Aminotransferase 12 U/L (7-40); Albumin 3.3 g/dL (3.2-4.8); Alkaline Phosphatase 72 U/L (46-116); Anion Gap 10 (5-15); BUN/Creatinine Ratio 19.8 (10.0-20.0); Bilirubin, Total 0.5 mg/dL (0.2-1.0); Hematocrit 29.0 % (41.0-53.0); Hemoglobin 9.9 g/dL (13.5-17.5); Mean Corpuscular Hemoglobin 32.2 pg (28.0-32.0); Mean Corpuscular Volume 93.9 fL (80.0-100.0); Nucleated Red Blood Cells % 0.0 %; Potassium 3.9 mmol/L (3.5-5.1); Sodium 138 mmol/L (136-145); Total Protein 6.7 g/dL (5.7-8.2)
[2025-04-17 07:30] LABS: Blood Urea Nitrogen 54 mg/dL (9-23); Calcium 8.2 mg/dL (8.7-10.4); Carbon Dioxide 20 mmol/L (20-31); Chloride 108 mmol/L (98-107); Glucose 126 mg/dL (74-106)
--- NOTE | 2025-04-17 07:51 | DVHPN ---
DATE: 04/17/2025 GASTROENTEROLOGY PROGRESS NOTE REFERRING PHYSICIAN: Dr. Tammy Cates. SUBJECTIVE: The patient is seen and examined. The patient is doing well. The patient reports that he had 1 bout of fecal incontinence yesterday evening, after which he received one 2 mg tablet of Imodium. He has had a bowel movement since then, but denies any further episodes of incontinence. Still is having some diarrhea. Denies any bloody stools. He states his stools are now brown in color. He denies any abdominal pain, tolerating clear liquids. PHYSICAL EXAM: VITAL SIGNS: Temperature 97.6, heart rate 84, respirations 20, blood pressure 144/79, O2 saturation 96% on room air. GENERAL: This is a 74-year-old male in no acute distress. Afebrile. Alert and oriented x 3. HEENT: Unremarkable. CARDIOVASCULAR: Regular rate and rhythm. RESPIRATORY: Clear to auscultation. GASTROINTESTINAL: Soft, nontender and nondistended. EXTREMITIES: No clubbing, no cyanosis or edema. LABORATORY EXAM: White blood cell count 10.5, hemoglobin 9.9, hematocrit 29.0, MCV 93.9, platelet count 178,000. Basic metabolic panel is essentially unremarkable. BUN 54, creatinine 2.73. Liver transaminases are normal. The patient does have fecal leukocytes noted. Stool culture is currently pending. ASSESSMENT: * Pancolitis, likely secondary to infectious etiology. * Sepsis. * Leukocytosis. * Type 2 diabetes. * [id number] renal failure. * COPD. * History of coronary artery disease. * History of congestive heart failure. * Mild anemia without evidence of GI bleed. RECOMMENDATIONS: * Await results of stool cultures. * Empiric antibiotic therapy with Zosyn. Consider adding metronidazole for anaerobic coverage. * Continue Imodium 1 tablet every 6 hours for diarrhea. * Continue clear liquid diet. * Continue IV hydration. * Further recommendations based on hospital course. DO FLACO Pantoja TID: [id number] RECEIPT: [id number]
[2025-04-17] MEDS: VANCOMYCIN 750MG KIT 100 ML IV ONE (11:20)
--- NOTE | 2025-04-17 13:19 | DVHPN2 ---
Progress Note - Dictate Date Seen: Apr 17, 2025 Has the PT tested + for MRSA If YES, has PT been informed?: No Medical Necessity Reason Pt with a Central, PICC or Fol: No vital signs Vital Sign Date Time Temp Pulse Resp B/P (MAP) Pulse Ox O2 Delivery O2 Flow Rate FiO2 04/17/25 09:00 97.9 74 19 131/79 (96) 92 97.9 04/17/25 08:00 Room Air* 0 21 Total Intake and Output 04/16/25 04/16/25 04/17/25 15:00 23:00 07:00 Intake Total 100 ml 100 ml 120 ml Output Total 100 ml Balance 100 ml 100 ml 20 ml medications Current Medications Medications Dose Ordered Sig/Leatha Route Start Time Stop Time Status Last Admin Dose Admin Nitroglycerin 0.4 mg Q5MINP PRN SL 04/15/25 22:00 Morphine Sulfate 2 mg Q30M PRN IV 04/15/25 22:00 Piperacillin Sod/ Tazobactam Sod 100 ml @ 25 mls/hr Q8HR IV 04/15/25 22:00 04/17/25 05:48 25 MLS/HR Diagnostic Test (Pha) 1 strip ACHS 04/16/25 07:00 04/17/25 11:26 1 STRIP Insulin Human Regular ACHS SC 04/16/25 07:00 04/17/25 12:19 4 UNITS Dextrose 50 ml UD PRN IV 04/15/25 22:15 Albuterol 2.5 mg Q6HR NEB 04/16/25 00:00 Ipratropium [place] 0.5 mg Q6HP NEB 04/16/25 00:00 Ondansetron HCl 4 mg Q6HPRN PRN IV 04/15/25 22:15 Vancomycin HCl 0 ml @ 0 mls/hr UD IV 04/15/25 22:15 Sodium Chloride 1,000 ml @ 100 mls/hr Q10H IV 04/16/25 07:15 04/17/25 05:31 100 MLS/HR Loperamide HCl 2 mg Q6HPRN PRN PO 04/16/25 20:45 04/17/25 08:48 2 MG Amiodarone HCl 200 mg DAILY PO 04/18/25 10:00 UNV Amlodipine Besylate 10 mg QAM PO 04/18/25 07:00 UNV Apixaban 5 mg BID PO 04/17/25 22:00 UNV Gabapentin 300 mg BID PO 04/17/25 22:00 UNV Pantoprazole Sodium 40 mg DAILY PO 04/18/25 10:00 UNV Tamsulosin HCl 0.4 mg QPM PO 04/17/25 18:00 UNV Trazodone HCl 100 mg HS PO 04/17/25 22:00 UNV Patient Own Medication 1 tab DAILY PO 04/18/25 10:00 UNV laboratory and microbiology Laboratory Tests 04/17/25 06:21 Test 04/17/25 06:21 Range/Units Serum Glucose 126 H 74-106 mg/dL Assessment/Plan pulm nodules pulm htn near syncope DM pt seen and examined events low oxygen requirements on room air no distress labs and imaging reviewed plan f/up on CT as out-pt hydration bronchodilators prn monitor renal function replace lytes dvt proph Plan discussed with: Patient KATHARINE MANUEL MD Apr 17, 2025 13:19
[2025-04-17] MEDS ORDERED: LOPERAMIDE HCL 2 MG CAP/TAB PO PRN (13:30)
--- NOTE | 2025-04-17 14:58 | DVHPN2 ---
Progress Note Date Seen: Apr 17, 2025 Has the PT tested + for MRSA If YES, has PT been informed?: No Medical Necessity Reason Pt with a Central, PICC or Fol: No Subjective Patient reports: No new complaints Other Systems: Patient seen and examined by myself today in follow-up Objective vital signs Vital Sign Date Time Temp Pulse Resp B/P (MAP) Pulse Ox O2 Delivery O2 Flow Rate FiO2 04/17/25 09:00 97.9 74 19 131/79 (96) 92 97.9 04/17/25 08:00 Room Air* 0 21 Total Intake and Output 04/16/25 04/16/25 04/17/25 15:00 23:00 07:00 Intake Total 100 ml 100 ml 120 ml Output Total 100 ml Balance 100 ml 100 ml 20 ml medications Current Medications Medications Dose Ordered Sig/Leatha Route Start Time Stop Time Status Last Admin Dose Admin Nitroglycerin 0.4 mg Q5MINP PRN SL 04/15/25 22:00 Morphine Sulfate 2 mg Q30M PRN IV 04/15/25 22:00 Piperacillin Sod/ Tazobactam Sod 100 ml @ 25 mls/hr Q8HR IV 04/15/25 22:00 04/17/25 14:23 25 MLS/HR Diagnostic Test (Pha) 1 strip ACHS 04/16/25 07:00 04/17/25 11:26 1 STRIP Insulin Human Regular ACHS SC 04/16/25 07:00 04/17/25 12:19 4 UNITS Dextrose 50 ml UD PRN IV 04/15/25 22:15 Albuterol 2.5 mg Q6HR NEB 04/16/25 00:00 Ipratropium [place] 0.5 mg Q6HP NEB 04/16/25 00:00 Ondansetron HCl 4 mg Q6HPRN PRN IV 04/15/25 22:15 Vancomycin HCl 0 ml @ 0 mls/hr UD IV 04/15/25 22:15 Sodium Chloride 1,000 ml @ 100 mls/hr Q10H IV 04/16/25 07:15 04/17/25 05:31 100 MLS/HR Loperamide HCl 2 mg Q6HPRN PRN PO 04/16/25 20:45 04/17/25 08:48 2 MG Amiodarone HCl 200 mg DAILY PO 04/18/25 10:00 Amlodipine Besylate 10 mg QAM PO 04/18/25 07:00 Apixaban 5 mg BID PO 04/17/25 22:00 Gabapentin 300 mg BID PO 04/17/25 22:00 Pantoprazole Sodium 40 mg DAILY PO 04/18/25 10:00 Tamsulosin HCl 0.4 mg QPM PO 04/17/25 18:00 Trazodone HCl 100 mg HS PO 04/17/25 22:00 Atorvastatin Calcium 40 mg HS PO 04/17/25 22:00 Loperamide HCl 2 mg PRN PRN PO 04/17/25 13:30 Examination: LUNGS:Normal, CVS:Normal, MSK:Normal laboratory and microbiology Laboratory Tests 04/17/25 06:21 Test 04/17/25 06:21 Range/Units Serum Glucose 126 H 74-106 mg/dL Microbiology Date/Time Source Procedure Growth Status 04/17/25 02:10 Stool Stool Culture - Preliminary Resulted 04/17/25 02:10 Stool Shiga Toxin I & II - Final Resulted 04/15/25 17:34 Blood Blood Culture - Preliminary NO GROWTH AFTER 24 HOURS OF INCUBATION. Resulted Problem List/Assessment/Plan Problem List/Assessment/Plan Acute kidney injury superimposed Chronic Kidney Disease stage IIIB secondary hemodynamic mediated Severe sepsis/alvarez colitis Anemia of chronic kidney disease BPH Anemia of chronic kidney disease Chronic systolic Congestive heart failure TAVR Hypoalbuminemia Recommendations Kidney function slightly worsened today No urine output charted Check urine electrolytes and protein excretion Check kidney ultrasound GI consult Cardiology consult We will continue to follow Plan discussed with: Patient ASIA RIVERA MD Apr 17, 2025 14:58
--- NOTE | 2025-04-17 15:11 | DVHPN2 ---
Progress Note - Dictate Date Seen: Apr 17, 2025 Has the PT tested + for MRSA If YES, has PT been informed?: No Medical Necessity Reason Pt with a Central, PICC or Fol: No Subjective Patient feels well. Complains of two episodes of diarrhea. vital signs Vital Sign Date Time Temp Pulse Resp B/P (MAP) Pulse Ox O2 Delivery O2 Flow Rate FiO2 04/17/25 13:00 98.0 71 18 138/75 (96) 93 98.0 04/17/25 08:00 Room Air* 0 21 Total Intake and Output 04/16/25 04/16/25 04/17/25 15:00 23:00 07:00 Intake Total 100 ml 100 ml 120 ml Output Total 100 ml Balance 100 ml 100 ml 20 ml medications Current Medications Medications Dose Ordered Sig/Leatha Route Start Time Stop Time Status Last Admin Dose Admin Nitroglycerin 0.4 mg Q5MINP PRN SL 04/15/25 22:00 Morphine Sulfate 2 mg Q30M PRN IV 04/15/25 22:00 Piperacillin Sod/ Tazobactam Sod 100 ml @ 25 mls/hr Q8HR IV 04/15/25 22:00 04/17/25 14:23 25 MLS/HR Diagnostic Test (Pha) 1 strip ACHS 04/16/25 07:00 04/17/25 11:26 1 STRIP Insulin Human Regular ACHS SC 04/16/25 07:00 04/17/25 12:19 4 UNITS Dextrose 50 ml UD PRN IV 04/15/25 22:15 Albuterol 2.5 mg Q6HR NEB 04/16/25 00:00 Ipratropium Merkel 0.5 mg Q6HP NEB 04/16/25 00:00 Ondansetron HCl 4 mg Q6HPRN PRN IV 04/15/25 22:15 Vancomycin HCl 0 ml @ 0 mls/hr UD IV 04/15/25 22:15 Sodium Chloride 1,000 ml @ 100 mls/hr Q10H IV 04/16/25 07:15 04/17/25 05:31 100 MLS/HR Loperamide HCl 2 mg Q6HPRN PRN PO 04/16/25 20:45 04/17/25 15:06 2 MG Amiodarone HCl 200 mg DAILY PO 04/18/25 10:00 Amlodipine Besylate 10 mg QAM PO 04/18/25 07:00 Apixaban 5 mg BID PO 04/17/25 22:00 Gabapentin 300 mg BID PO 04/17/25 22:00 Pantoprazole Sodium 40 mg DAILY PO 04/18/25 10:00 Tamsulosin HCl 0.4 mg QPM PO 04/17/25 18:00 Trazodone HCl 100 mg HS PO 04/17/25 22:00 Atorvastatin Calcium 40 mg HS PO 04/17/25 22:00 Loperamide HCl 2 mg PRN PRN PO 04/17/25 13:30 objective General appearance: No acute distress Respiratory: Lungs clear to auscultation. No wheezing, crackles Cardiovascular: Regular rate and rhythm, no murmurs. No edema Abdomen: Soft, nondistended, nontender, bowel sounds present MSK: Normal range of motion. Neuro: Alert, no neurological deficits Psych: Appropriate mood and affect. laboratory and microbiology Laboratory Tests 04/17/25 06:21 Test 04/17/25 06:21 Range/Units Serum Glucose 126 H 74-106 mg/dL Assessment/Plan 1. Pancolitis 2. Severe Sepsis 3. Type 2 DM 4. Pacemaker Plan: - Continue antibiotics - Imodium dosage increased - C. difficile results pending. Shiga toxin negative. - Blood cultures negative - Leukocytosis resolving - Nephrology consulted for CKD -Diet increased to cardiac diet - Daily CBC and BMP - Full code Plan discussed with: Patient, Spouse MARJAN GARCIA Apr 17, 2025 15:10
--- NOTE | 2025-04-17 15:29 | DVH ---
CLINICAL HISTORY: christian TECHNIQUE: Complete ultrasound exam of the kidneys and bladder was performed. COMPARISON: None FINDINGS: The right kidney has increased echogenicity and measures 12.3 cm. There is no focal parenchymal abnor mality or evidence for stone. There is no hydronephrosis. The left kidney has increased echogenicity and measures 12.2 cm. There are cysts measuring up to 2.2 cm with no evidence for stone. There is no hydronephrosis. The bladder is grossly unremarkable. The prostate gland is enlarged, with a volume of 81 mL. IMPRESSION: Echogenic kidneys, compatible with medical renal disease. Prostatomegaly.
[2025-04-17] MEDS: TAMSULOSIN HYDROCHLORIDE 0.4 MG CAP PO SCH (18:00)
[2025-04-17] MEDS: ATORVASTATIN 20 MG TAB PO SCH (21:42)
[2025-04-17] MEDS: APIXABAN 5 MG TAB PO SCH (21:43)
[2025-04-17] MEDS: GABAPENTIN 300 MG CAP PO SCH (21:43)
[2025-04-18] VITALS (8 sets, daily range): BP systolic 131–163; BP diastolic 61–86; PULSE 70–75; RESP 18–20; TEMP 97.2–99; O2SAT 92–96
[2025-04-18] MEDS ORDERED: IPRATROPIUM BROM 0.5 MG/2.5ML INH SOL NEB PRN (06:45)
[2025-04-18] MEDS ORDERED: ALBUTEROL SULF 2.5 MG/0.5ML(0.5%) NEB SOLN NEB PRN (06:45)
[2025-04-18] MEDS: PANTOPRAZOLE 40 MG TAB PO SCH (09:53)
[2025-04-18] MEDS: AMIODARONE HCL 200 MG TAB PO SCH (09:54)
[2025-04-18] MEDS: VANCOMYCIN 750MG KIT 100 ML IV ONE (10:54)
--- NOTE | 2025-04-18 11:37 | DVHPN2 ---
Progress Note Date Seen: Apr 18, 2025 Has the PT tested + for MRSA If YES, has PT been informed?: No Medical Necessity Reason Pt with a Central, PICC or Fol: No Subjective Patient reports: No new complaints, Feels better (Reports diarrhea is better) Review of Systems: HEENT:Normal, CVS:Normal, RESPIRATORY:Normal, GI:Normal, :Normal, MSK:Normal, NEURO:Normal Objective vital signs Vital Sign Date Time Temp Pulse Resp B/P (MAP) Pulse Ox O2 Delivery O2 Flow Rate FiO2 04/18/25 08:39 97.8 74 20 148/61 (90) 94 97.8 04/18/25 06:42 Room Air 04/18/25 06:42 0 21 Total Intake and Output 04/17/25 04/17/25 04/18/25 15:00 23:00 07:00 Intake Total 100 ml 1620 ml 500 ml Output Total 3 ml 400 ml Balance 100 ml 1617 ml 100 ml medications Current Medications Medications Dose Ordered Sig/Leatha Route Start Time Stop Time Status Last Admin Dose Admin Nitroglycerin 0.4 mg Q5MINP PRN SL 04/15/25 22:00 Morphine Sulfate 2 mg Q30M PRN IV 04/15/25 22:00 Piperacillin Sod/ Tazobactam Sod 100 ml @ 25 mls/hr Q8HR IV 04/15/25 22:00 04/18/25 05:57 25 MLS/HR Diagnostic Test (Pha) 1 strip ACHS 04/16/25 07:00 04/18/25 11:05 1 STRIP Insulin Human Regular ACHS SC 04/16/25 07:00 04/18/25 06:26 2 UNITS Dextrose 50 ml UD PRN IV 04/15/25 22:15 Ondansetron HCl 4 mg Q6HPRN PRN IV 04/15/25 22:15 Vancomycin HCl 0 ml @ 0 mls/hr UD IV 04/15/25 22:15 Sodium Chloride 1,000 ml @ 100 mls/hr Q10H IV 04/16/25 07:15 04/18/25 02:31 100 MLS/HR Amiodarone HCl 200 mg DAILY PO 04/18/25 10:00 Amlodipine Besylate 10 mg QAM PO 04/18/25 07:00 04/18/25 06:26 10 MG Apixaban 5 mg BID PO 04/17/25 22:00 04/18/25 09:53 5 MG Gabapentin 300 mg BID PO 04/17/25 22:00 04/18/25 09:53 300 MG Pantoprazole Sodium 40 mg DAILY PO 04/18/25 10:00 04/18/25 09:53 40 MG Tamsulosin HCl 0.4 mg QPM PO 04/17/25 18:00 Trazodone HCl 100 mg HS PO 04/17/25 22:00 04/17/25 21:42 100 MG Atorvastatin Calcium 40 mg HS PO 04/17/25 22:00 04/17/25 21:42 40 MG Loperamide HCl 2 mg PRN PRN PO 04/17/25 13:30 Albuterol 2.5 mg Q6HPRN PRN NEB 04/18/25 06:45 Ipratropium [place] 0.5 mg Q6HPRN PRN NEB 04/18/25 06:45 Examination: GENERAL:Normal, HEENT:Normal, NECK:Normal, LUNGS:Normal, CVS:Normal, ABDOMEN:Normal, MSK:Normal, SKIN:Normal, NEURO:Normal, :Normal laboratory and microbiology Laboratory Tests 04/18/25 06:24 04/17/25 06:21 Test 04/17/25 06:21 Range/Units Serum Glucose 126 H 74-106 mg/dL Microbiology Date/Time Source Procedure Growth Status 04/17/25 02:10 Stool Stool Culture - Preliminary Resulted 04/17/25 02:10 Stool Shiga Toxin I & II - Final Resulted 04/15/25 17:34 Blood Blood Culture - Preliminary NO GROWTH AFTER 48 HOURS OF INCUBATION. Resulted Problem List/Assessment/Plan Problem List/Assessment/Plan Acute kidney injury superimposed Chronic Kidney Disease stage IIIB secondary hemodynamic mediated Severe sepsis/alvarez colitis Anemia of chronic kidney disease BPH Anemia of chronic kidney disease Chronic systolic Congestive heart failure TAVR Hypoalbuminemia Recommendations Renal function better with IV fluids Stable for discharge from Nephrology standpoint Outpatient Acute kidney injury in one week after discharge Plan discussed with: Patient, Spouse RODNEY CASAS MD Apr 18, 2025 11:37
[2025-04-18] MEDS ORDERED: AUG875T PO (11:39)
--- NOTE | 2025-04-18 14:50 | DVHDS2 ---
Discharge Summary Date of Admission Apr 15, 2025 at 21:54 Date of Discharge: Apr 18, 2025 Labs/Diagnostic Data: Laboratory Results Test 04/18/25 11:04 04/18/25 06:24 04/17/25 06:21 04/17/25 02:10 POC Glucose 184 mg/dl (70-106) Creatinine 2.28 mg/dL (0.700-1.30) Glomerular Filtration Rate Calc 30 mL/min (>90) Random Vancomycin Level 13.4 ug/mL (5-10) White Blood Count 10.5 10^3/uL (4.4-10.8) Red Blood Count 3.08 10^6/uL (4.5-5.90) Hemoglobin 9.9 g/dL (13.5-17.5) Hematocrit 29.0 % (41.0-53.0) Mean Corpuscular Volume 93.9 fL (80.0-100.0) Mean Corpuscular Hemoglobin 32.2 pg (28.0-32.0) Mean Corpuscular Hemoglobin Concent 34.3 g/dL (32.0-36.0) Red Cell Distribution Width 14.6 % (11.8-14.3) Platelet Count 178 10^3/uL (140-450) Mean Platelet Volume 7.7 fL (6.9-10.8) Neutrophils (%) (Auto) 78.0 % (37.0-80.0) Lymphocytes (%) (Auto) 12.4 % (10.0-50.0) Monocytes (%) (Auto) 5.9 % (0.0-12.0) Eosinophils (%) (Auto) 3.3 % (0.0-7.0) Basophils (%) (Auto) 0.4 % (0.0-2.0) Neutrophils # (Auto) 8.2 10 ^3/uL (1.6-8.6) Lymphocytes # (Auto) 1.3 10 ^3/uL (0.4-5.4) Monocytes # (Auto) 0.6 10 ^3/uL (0-1.3) Eosinophils # (Auto) 0.3 10 ^3/uL (0-0.8) Basophils # (Auto) 0 10 ^3/uL (0-0.2) Nucleated Red Blood Cells 0.0 % Sodium Level 138 mmol/L (136-145) Potassium Level 3.9 mmol/L (3.5-5.1) Chloride Level 108 mmol/L (98-107) Carbon Dioxide Level 20 mmol/L (20-31) Anion Gap 10 (5-15) Blood Urea Nitrogen 54 mg/dL (9-23) BUN/Creatinine Ratio 19.8 (10.0-20.0) Serum Glucose 126 mg/dL (74-106) Calcium Level 8.2 mg/dL (8.7-10.4) Total Bilirubin 0.5 mg/dL (0.2-1.0) Aspartate Amino Transferase (AST) 10 U/L (13-40) Alanine Aminotransferase (ALT) 12 U/L (7-40) Alkaline Phosphatase 72 U/L (46-116) Total Protein 6.7 g/dL (5.7-8.2) Albumin 3.3 g/dL (3.2-4.8) Stool for White Cells Many Test 04/16/25 07:25 04/15/25 20:03 04/15/25 10:34 04/15/25 09:56 Blood Gas Specimen Type Arterial Blood Gas Sample Site Right radial Blood Gas Patient Temperature 37.0 Arterial Blood Date Drawn [id number] Arterial Blood pH 7.425 (7.350-7.450) Arterial Blood Partial Pressure CO2 27.4 mmHg (35.0-48.0) Arterial Blood Partial Pressure O2 82.6 mmHg (83.0-108.0) Arterial Blood HCO3 17.6 mmol/L (21.0-28.0) Arterial Blood Oxygen Saturation 94.8 % (94.0-98.0) Arterial Blood Base Excess -5.8 mmol/L (-2.0-3.0) Arterial Blood Oxyhemoglobin 93.9 % (94.0-98.0) Arterial Blood Carboxyhemoglobin 0.5 % (0.5-1.5) Arterial Blood Methemoglobin 0.5 % (0.0-1.5) Mike Test Yes Blood Gas Total Hemoglobin 9.80 g/dL (13.5-17.5) Blood Gas Liter Flow 2.00 Blood Gas Modality Nasal cannula FiO2 % 28.0 Lactic Acid Level 2.0 mmol/L (0.4-2.0) Urine Color Yellow (Yellow) Urine Clarity Clear (Clear) Urine pH 5.5 (5.0-9.0) Urine Specific [place] 1.024 (1.001-1.035) Urine Protein 1+ (Negative) Urine Ketones Negative (Negative) Urine Blood Trace /uL (Negative) Urine Nitrite Negative (Negative) Urine Bilirubin Negative (Negative) Urine Urobilinogen Normal mg/dL (Negative) Urine Leukocyte Esterase Negative /uL (Negative) Urine RBC 6 /hpf (0 - 3) Urine Microscopic WBC 4 /HPF (0-3) Urine Squamous Epithelial Cells Few /hpf (<5) Urine Bacteria None seen /hpf (None Seen) Urine Hyaline Casts Few /lpf (0 - 2) Urine Glucose 2+ mg/dL (Normal) Troponin I High Sensitivity 11 ng/L (</=54) Test 04/15/25 07:00 04/15/25 00:00 B-Type Natriuretic Peptide 214.88 pg/mL (0-100) Influenza Type A Antigen Negative (Negative) Influenza Type B Antigen Negative (Negative) SARS-CoV-2 Antigen (Rapid) Negative (NEGATIVE) Other Laboratory Tests 04/18/25 06:24 04/17/25 06:21 Brief Hx & Hospital Course: Patient is a 74-year-old male with past medical history of COPD, CHF, pacemaker due to heart block, type 2 diabetes who presented with complaints of generalized weakness and fever for the past day with associated diarrhea for 3 days. Patient was brought in as he could not ambulate independently any longer. Patient presented hypotensive and was meeting sepsis criteria. CT abdomen and pelvis had showed multiple subcentimeter noncalcified nodules in the lung bases. There was diffuse colonic wall thickening concerning for mild pancolitis. Patient was started on broad-spectrum antibiotics vancomycin and Zosyn. His leukocytosis improved from 25.6-10.5 prior to discharge. His blood pressure normalized with IV fluids. His diarrhea had subsequently resolved. Stool studies were done which were negative for Campylobacter or Shiga toxin. Blood cultures were negative. Patient was discharged on Augmentin for an additional 5 days. He was advised to stay well-hydrated. Patient is to follow-up with his PCP. Condition at Discharge: Good Final Diagnosis/Problems List Colitis Secondary Diagnosis: Severe Sepsis GRACIE on CKD Type 2 Diabetes Pacemaker Discharge Disposition: Home Discharge Instruct/Medications Diet: Cardiac 2g Na,low cholest Activity: No Restrictions, As Tolerated Follow Up/Referral: Follow up with PCP. Medications: Augmentin for 5 days. Scheduled Allopurinol (Allopurinol), 100 MG PO BID, (Reported) Amiodarone Hcl (Amiodarone Hcl), 1 TAB PO DAILY, (Reported) Amlodipine Besylate (Amlodipine Besylate), 10 MG PO QAM, (Reported) Amoxicillin & Pot Clavulanate (Augmentin Tablet), 875 MG PO BID Apixaban Base (Eliquis), 1 TAB PO BID, (Reported) Ascorbic Acid (Vitamin C Tablet), 2 TAB PO DAILY, (Reported) Atorvastatin Calcium (Atorvastatin Calcium), 1 TAB PO DAILY, (Reported) Bumetanide (Bumetanide), 1 TAB PO BID, (Reported) Cholecalciferol (Vitamin D3), 1 TAB PO DAILY, (Reported) Dulaglutide (Trulicity), 4.5 MG SC QWEEKLY, (Reported) Gabapentin (Gabapentin), 1 CAP PO BID, (Reported) Insulin Glargine (Insulin Glargine Solostar), 25 UNIT SC DAILY, (Reported) Insulin Lispro (Insulin Lispro Kwikpen), 2-10 UNIT SC TID, (Reported) Isosorbide Dinitrate (Isosorbide Dinitrate), 20 MG PO BID, (Reported) Krill Oil ([place]-3 500 mg), 2 CAP PO BID, (Reported) Lisinopril (Lisinopril), 10 MG PO DAILY, (Reported) Loratadine (Claritin), 1 TAB PO DAILY, (Reported) Magnesium Oxide (Magnesium Oxide), 1 TAB PO DAILY, (Reported) Mecobalamin (B12), 5,000 MCG SL DAILY, (Reported) Metoprolol Succinate (Metoprolol Succinate Er), 1 TAB PO DAILY, (Reported) Montelukast Sodium (Montelukast Sodium), 1 TAB PO HS, (Reported) Pancreatic Enzymes (Creon), 1 CAP PO TID, (Reported) Pantoprazole Sodium Sesquihydr (Pantoprazole Sodium Dr), 1 TAB PO DAILY, (Reported) Potassium Chloride (Klor-Con M10), 1 TAB PO BID, (Reported) Sodium Bicarbonate (Sodium Bicarbonate), 2 TAB PO BID, (Reported) Tamsulosin Hcl (Tamsulosin Hcl), 0.4 MG PO QPM, (Reported) Trazodone HCl (Trazodone Hydrochloride), 2 TAB PO HS, (Reported) Vericiguat (Verquvo), 0.5 TAB PO BID, (Reported) Miscellaneous Medications Fiber (Fiber Formula), 1 PO, (Reported) Discontinued Medications Clopidogrel Bisulfate (Clopidogrel), 1 TAB PO DAILY, (Reported) Insulin Glargine (Lantus), 23 UNIT SC DAILY, (Reported) Magnesium Oxide (Magnesium Oxide), 400 MG PO DAILY, (Reported) Sodium Bicarbonate (Sodium Bicarbonate), 650 MG PO DAILY, (Reported) Discharge Statement: "Patient was advised to return to the ER or call 911 if any headaches, dizziness, shortness of breath, chest pain, abdominal pain, bleeding, fevers, or worsening of medical condition. Patient was counseled about treatment plan, medications, possible side effects, patientverbalized understanding. All questions were answered to the best of my ability. This discharge took greater then 30 minutes in planning, reviewing documentation, counseling the patient, and discussing with other team members." ASSESSMENT ASSESSMENT Assessment Colitis MARJAN GARCIA DO Apr 18, 2025 14:50
--- NOTE | 2025-04-18 16:11 | DVHPN2 ---
Progress Note - Dictate Date Seen: Apr 18, 2025 Has the PT tested + for MRSA If YES, has PT been informed?: No Medical Necessity Reason Pt with a Central, PICC or Fol: No vital signs Vital Sign Date Time Temp Pulse Resp B/P (MAP) Pulse Ox O2 Delivery O2 Flow Rate FiO2 04/18/25 12:54 97.9 70 20 131/65 (87) 94 97.9 04/18/25 08:00 Room Air* 0 21 Total Intake and Output 04/17/25 04/17/25 04/18/25 15:00 23:00 07:00 Intake Total 100 ml 1620 ml 500 ml Output Total 3 ml 400 ml Balance 100 ml 1617 ml 100 ml laboratory and microbiology Laboratory Tests 04/18/25 06:24 04/17/25 06:21 Test 04/17/25 06:21 Range/Units Serum Glucose 126 H 74-106 mg/dL Assessment/Plan pulm nodules pulm htn near syncope DM pt seen and examined events low oxygen requirements on room air no distress labs and imaging reviewed plan f/up on CT as out-pt hydration bronchodilators prn monitor renal function replace lytes dvt proph Plan discussed with: Patient KATHARINE MANUEL MD Apr 18, 2025 16:11
== END 2025-04-18 14:00 | disposition home or self-care (01) | DRG 872 ==
LOC: EDBD 04:50 → ER 04:54 → OVERFLOW 21:54 → TELE-WESTW 04-16 17:51
PROVIDERS: ADMIT Student in an Organized Health Care Education/Training Program; ATTEND Internal Medicine
DX: A41.9 Sepsis, unspecified organism (principal); N17.9 Acute kidney failure, unspecified; E87.20 Acidosis, unspecified; E87.1 Hypo-osmolality and hyponatremia; I13.0 Hypertensive heart and chronic kidney disease with heart failure and stage 1 through stage 4 chronic kidney disease, or unspecified chronic kidney disease; I50.22 Chronic systolic (congestive) heart failure; K52.9 Noninfective gastroenteritis and colitis, unspecified; I25.10 Atherosclerotic heart disease of native coronary artery without angina pectoris; N18.32 Chronic kidney disease, stage 3b; R65.20 Severe sepsis without septic shock; Z20.822 Contact with and (suspected) exposure to COVID-19; I27.21 Secondary pulmonary arterial hypertension; M10.9 Gout, unspecified; N40.0 Benign prostatic hyperplasia without lower urinary tract symptoms; K57.30 Diverticulosis of large intestine without perforation or abscess without bleeding; J44.89 Other specified chronic obstructive pulmonary disease; I95.1 Orthostatic hypotension; G47.00 Insomnia, unspecified; E86.0 Dehydration; E11.22 Type 2 diabetes mellitus with diabetic chronic kidney disease; E78.5 Hyperlipidemia, unspecified; D63.1 Anemia in chronic kidney disease; E88.09 Other disorders of plasma-protein metabolism, not elsewhere classified; Z95.1 Presence of aortocoronary bypass graft; Z87.891 Personal history of nicotine dependence; Z82.5 Family history of asthma and other chronic lower respiratory diseases; Z82.49 Family history of ischemic heart disease and other diseases of the circulatory system; Z80.1 Family history of malignant neoplasm of trachea, bronchus and lung; Z79.899 Other long term (current) drug therapy; Z79.02 Long term (current) use of antithrombotics/antiplatelets; Z79.01 Long term (current) use of anticoagulants; Z88.8 Allergy status to other drugs, medicaments and biological substances
CPT/HCPCS: 36415; 36600; 70450; 71045; 74176; 76775; 80048; 80053; 80202; 81001; 82565; 82805; 82962; 83605; 83880; 84484; 85025; 85048; 87040; 87045; 87426; 87427; 87804; 93005; 96365; 96375; G0378; J1815; J2543

== ENCOUNTER 2025-06-08 20:57 | Emergency (ER) | payer MEDICARE, OTHER ==
[2025-06-08] MEDS: FUROSEMIDE 40 MG/4 ML VIAL IV ONE (00:30)
[~2025-06-08 20:57] MED LIST changes: +AUG875T PO; +CHOL20007 PO; -CLOP75TA70 PO; +FIBECAP PO; +METH50006 SL
[2025-06-08 21:51] LABS: Base Excess -3.7 mmol/L (-2.0-3.0)
--- NOTE | 2025-06-08 21:54 | DVH ---
CHEST RADIOGRAPH Indication: Shortness of breath Technique: Single frontal view of the chest was obtained COMPARISON: XY CHEST PORTABLE on DOS: 04/15/25, XY CHEST PORTABLE on DOS: 09/02/24, XY CHEST XRAY 1 VIEW on DOS: 08/13/24, XY CHEST XRAY 1 VIEW on DOS: 08/12/24, XY CHEST PORTABLE on DOS: 08/10/24 FINDINGS: Previous sternotomy. Left chest wall pacing device with lead tips unchanged. Cardiac silhouette is enlarged. Diffuse prominence of the pulmonary vasculature and slight prominence of the interstitium. Bones and soft tissues demonstrate no significant abnormality. IMPRESSION: Cardiomegaly with pulmonary venous congestion and mild edema.
[2025-06-08] MEDS: ALBUTEROL SULF 2.5 MG/0.5ML(0.5%) NEB SOLN NEB ONE (21:55)
[2025-06-08 22:16] LABS: COVID19 ANTIGEN SOFIA FIA NEGATIVE (NEGATIVE)
[2025-06-08 22:49] LABS: Potassium 4.5 mmol/L (3.5-5.1); Sodium 139 mmol/L (136-145)
[2025-06-08 22:50] LABS: Anion Gap 4 (5-15); Carbon Dioxide 23 mmol/L (20-31)
[2025-06-08 22:52] VITALS: PULSE 79; O2SAT 93
[2025-06-08 22:55] LABS: BUN/Creatinine Ratio 13.7 (10.0-20.0)
[2025-06-08 23:00] LABS: Hematocrit 27.9 % (41.0-53.0); Hemoglobin 9.4 g/dL (13.5-17.5); Mean Corpuscular Hemoglobin 30.7 pg (28.0-32.0); Mean Corpuscular Volume 90.9 fL (80.0-100.0); Nucleated Red Blood Cells % 0.1 %
[2025-06-08 23:12] LABS: Blood Urea Nitrogen 26 mg/dL (9-23); Calcium 8.4 mg/dL (8.7-10.4); Chloride 112 mmol/L (98-107); Glucose 233 mg/dL (74-106)
--- NOTE | 2025-06-08 23:45 | ED.PDOC ---
History of Present Illness HPI Comments 74-year-old male presents with spouse for chief complaint of shortness of breath and chest wall tightness. Patient endorses onset of symptoms after going to a movies and eating popcorn and developing a coughing fit, earlier, this afternoon. Patient reports on being fine, with the exception on mild, baseline shortness of breath upon exertion. He states on cough subsiding since then. Denies any further acute symptoms along with any pertinent recent events. Significant medical history for AFib, anemia, CAD, CHF, CKD stage IV, COPD, DM type 2, HLD, HTN, DE status post PTCA, complete heart block status post pacemaker, CABG, colitis, pneumonia, sepsis, and former tobacco cigarette user. REVIEW OF SYSTEMS: General: No fever, no chills, or fatigue HEENT: No sore throat, no earache, no congestion, no neck pain. Cardiac: Chest wall tightness. No palpitations. Lungs: Shortness of breath, no cough. GI: No nausea, no vomiting, no diarrhea, no constipation, no abdominal pain : No dysuria, frequency, or urgency. No hematuria. Musculoskeletal: Chest wall tightness. No joint pain , no joint swelling, no extremity edema. Skin: No rash, no itching. Neuro: No headache, no dizziness, no weakness (And as sated in HPI) PHYSICAL EXAM: General: Awake, alert and oriented. No acute distress. Skin: Skin in warm, dry and intact. Appropriate color for ethnicity. HEENT: The head is normocephalic and atraumatic. Conjunctivae are clear without exudates or hemorrhage. Sclera is non-icteric. Eyelids are normal in appearance without swelling or lesions. Oral mucosa is pink and moist Neck: The neck is supple with normal range of motion. No JVD. Cardiac: Heart rate and rhythm are normal. No murmurs, gallops, or rubs are auscultated. Respiratory: No signs of respiratory distress. Lung sounds are clear in all lobes bilaterally without rales, rhonchi, or wheezes. Patient desaturates to 88% at rest on room air. Abdominal: Abdomen is soft, non-tender without distention, guarding or rigidity. Bowel sounds are present and normoactive in all four quadrants. Extremities: Upper and lower extremities are atraumatic in appearance without deformity or edema. Neurological: The patient is awake, alert and oriented to person, place, and time with normal speech. Speech is clear. There is no facial asymmetry. Psychiatric: Appropriate mood and affect. Good judgement and insight. Chief Complaint: Shortness of Breath Time Seen by MD: 21:00 Primary Care Provider: Mandie Reviewed Notes: Nurses Notes, Medications, Allergies Allergies: Coded Allergies: Ibuprofen (Verified Allergy, Unknown, 04/16/25) Home Meds Active Scripts Amoxicillin & Pot Clavulanate (AUGMENTIN TABLET) 875 Mg Tb, 875 MG PO BID for 5 Days, #10 TAB 0 Refills Prov:MARJAN GARCIA DO 04/18/25 Reported Medications Mecobalamin (B12) 5,000 Mcg Sub, 5000 MCG SL DAILY, INJ 04/17/25 Fiber (FIBER FORMULA) Cap, 1 PO, CAP 04/17/25 Cholecalciferol (VITAMIN D3) 2,000 Unit Tab, 1 TAB PO DAILY, #30 TAB 5 Refills 04/17/25 Insulin Lispro (Insulin Lispro Kwikpen) 100 Unit/Ml Inj, 2-10 UNIT SC TID for 50 Days, #15 DIRECTED INJECT 2-10 UNITS SUBCUTANEOUSLY 3 TIMES DAILY WITH EACH MEAL PER SLINDING SCALE. 08/05/24 Gabapentin (Gabapentin) 300 Mg Cap, 1 CAP PO BID for 30 Days, #60 08/05/24 Vericiguat (Verquvo) 5 Mg Tab, 0.5 TAB PO BID for 30 Days, #30 TAKE 1/2 TABLET (2.5 MG) BY MOUTH 2 TIMES EVERY DAY. 08/05/24 Loratadine (Claritin) 10 Mg Tab, 1 TAB PO DAILY for 90 Days, #90 08/05/24 Bumetanide (Bumetanide) 1 Mg Tab, 1 TAB PO BID for 90 Days, #180 08/05/24 Pantoprazole Sodium Sesquihydr (Pantoprazole Sodium Dr) 40 Mg Tab, 1 TAB PO DAILY for 90 Days, #90 08/05/24 Sodium Bicarbonate (Sodium Bicarbonate) 325 Mg Tab, 2 TAB PO BID for 90 Days, #360 08/05/24 Insulin Glargine (Insulin Glargine Solostar) 100 Unit/Ml Inj, 25 UNIT SC DAILY for 60 Days, #15 08/05/24 Metoprolol Succinate (Metoprolol Succinate Er) 25 Mg Tab, 1 TAB PO DAILY for 30 Days, #30 08/05/24 Potassium Chloride (Klor-Con M10) 10 Meq Tab, 1 TAB PO BID for 90 Days, #180 01/30/24 Pancreatic Enzymes (Creon) 24,000 Unt Cap, 1 CAP PO TID for 66 Days, #200 01/29/24 Amlodipine Besylate (Amlodipine Besylate) 5 Mg Tab, 10 MG PO QAM for HTN, MG 01/29/24 Tamsulosin Hcl (Tamsulosin Hcl) 0.4 Mg Cap, 0.4 MG PO QPM for BPH for 30 Days, MG 01/29/24 Montelukast Sodium (MONTELUKAST SODIUM) 10 Mg Tab, 1 TAB PO HS for ALLEGIES for 90 Days, #90 01/29/24 Apixaban Base (ELIQUIS) 5 Mg Tab, 1 TAB PO BID for 30 Days, #60 01/29/24 Dulaglutide (Trulicity) 4.5 Mg/0.5 Ml Inj, 4.5 MG SC QWEEKLY for DIABETES, INJ 01/29/24 Amiodarone Hcl (Amiodarone Hcl) 200 Mg Tab, 1 TAB PO DAILY for ARRHYTHMIA for 90 Days, #90 01/29/24 Trazodone HCl (Trazodone Hydrochloride) 50 Mg Tab, 2 TAB PO HS for INSOMNIA for 90 Days, #180 01/29/24 Ascorbic Acid (VITAMIN C TABLET) 500 Mg Tb, 2 TAB PO DAILY for SUPPLEMENT, #30 TAB 3 Refills 01/29/24 Magnesium Oxide (MAGNESIUM OXIDE) 400 Mg Tab, 1 TAB PO DAILY for SUPPLEMENT, #30 TAB 5 Refills 01/29/24 Krill Oil (Ulysses-3 500 mg) 1 Cap Cap, 2 CAP PO BID for SUPPLEMENT, CAP 01/29/24 Allopurinol (Allopurinol) 100 Mg Tab, 100 MG PO BID for GOUT, MG 01/29/24 Isosorbide Dinitrate (Isosorbide Dinitrate) 20 Mg Tab, 20 MG PO BID, MG 09/23/17 Lisinopril (Lisinopril) 10 Mg Tab, 10 MG PO DAILY for 30 Days, MG 03/24/17 Atorvastatin Calcium (ATORVASTATIN CALCIUM) 40 Mg Tab, 1 TAB PO DAILY, #30 TAB 5 Refills 03/24/17 Information Source: Patient, Spouse Mode of Arrival: Ambulatory Severity: Moderate Timing: Hours Duration: Since onset Prehospital treatment: None Past Medical History PAST MEDICAL HISTORY: AFIB, Anemia, CAD, CHF (Reduced systolic function), CKF (Stage IV), COPD, DM (Type 2), High Lipids, HTN, DE Past Medical History (Other): Colitis Severe sepsis GRACIE on CKD Complete heart block status post pacemaker Pneumonia Surgical History: CABG, Pacemaker (Due to heart block), PTCA Family History Family History: No family hx of Heart michael, No family hx of HTN Social History Smoker: Non-Smoker, Quit Greater Than 1 Year, Cigarettes Alcohol: Denies ETOH Use Drugs: Denies Drug Use Lives In: Home Was a procedure done? Was a procedure done?: No EKG EKG : Pulse Rate (adult): 79 [place]: Normal Cardiac Rhythm: Paced Block: None Hypertrophy: None ST: Normal Differential Dx Considerations may include: Differential diagnoses considered includebut arenot limited to acute Bronchitis, Asthma, COPD, Pneumothorax, PE, CHF, Pulmonary HTN, Anemia, CO Poisoning, Methemoglobinemia, Hyperventilation, Metabolic Acidosis, Pulmonary Edema, Pneumonia, ACS, Pericardial Tamponade, Anxiety, other X-Ray, Labs, Meds, VS Vital Signs Date Time Temp Pulse Resp B/P (MAP) Pulse Ox O2 Delivery O2 Flow Rate FiO2 06/09/25 02:01 159/67 06/08/25 23:45 79 06/08/25 22:52 79 93 Nasal Cannula* 2 28 06/08/25 22:50 98.7 79 18 149/55 (86) 94 98.7 06/08/25 21:55 18 93 Nasal Cannula* 2 28 06/08/25 21:11 79 06/08/25 20:58 98.2 94 24 167/59 90 98.2 06/08/25 00:30 151/67 Lab Test 06/09/25 03:00 06/09/25 02:00 06/08/25 22:05 06/08/25 21:37 Range/Units Troponin I High Sensitivity Pending 20 19 </=54 ng/L White Blood Count 6.5 4.4-10.8 10^3/uL Red Blood Count 3.07 L 4.5-5.90 10^6/uL Hemoglobin 9.4 L 13.5-17.5 g/dL Hematocrit 27.9 L 41.0-53.0 % Mean Corpuscular Volume 90.9 80.0-100.0 fL Mean Corpuscular Hemoglobin 30.7 28.0-32.0 pg Mean Corpuscular Hemoglobin Concent 33.8 32.0-36.0 g/dL Red Cell Distribution Width 16.2 H 11.8-14.3 % Platelet Count 187 140-450 10^3/uL Mean Platelet Volume 7.6 6.9-10.8 fL Neutrophils (%) (Auto) 66.6 37.0-80.0 % Lymphocytes (%) (Auto) 18.3 10.0-50.0 % Monocytes (%) (Auto) 8.7 0.0-12.0 % Eosinophils (%) (Auto) 5.6 0.0-7.0 % Basophils (%) (Auto) 0.8 0.0-2.0 % Neutrophils # (Auto) 4.3 1.6-8.6 10 ^3/uL Lymphocytes # (Auto) 1.2 0.4-5.4 10 ^3/uL Monocytes # (Auto) 0.6 0-1.3 10 ^3/uL Eosinophils # (Auto) 0.4 0-0.8 10 ^3/uL Basophils # (Auto) 0.1 0-0.2 10 ^3/uL Nucleated Red Blood Cells 0.1 % D-Dimer, Quantitative 0.38 0.0-0.49 mg/L FEU Sodium Level 139 136-145 mmol/L Potassium Level 4.5 3.5-5.1 mmol/L Chloride Level 112 H 98-107 mmol/L Carbon Dioxide Level 23 20-31 mmol/L Anion Gap 4 L 5-15 Blood Urea Nitrogen 26 H 9-23 mg/dL Creatinine 1.90 H 0.700-1.30 mg/dL Glomerular Filtration Rate Calc 37 >90 mL/min BUN/Creatinine Ratio 13.7 10.0-20.0 Serum Glucose 233 H 74-106 mg/dL Lactic Acid Level 1.3 0.4-2.0 mmol/L Calcium Level 8.4 L 8.7-10.4 mg/dL B-Type Natriuretic Peptide 181.32 0-100 pg/mL Influenza Type A Antigen Negative Negative Influenza Type B Antigen Negative Negative SARS-CoV-2 Antigen (Rapid) Negative NEGATIVE Test 06/08/25 21:32 Range/Units Blood Gas Specimen Type Arterial Blood Gas Sample Site Right radial Blood Gas Patient Temperature 37.0 Arterial Blood Date Drawn [id number] Arterial Blood pH 7.459 H 7.350-7.450 Arterial Blood Partial Pressure CO2 27.5 L 35.0-48.0 mmHg Arterial Blood Partial Pressure O2 68.5 L 83.0-108.0 mmHg Arterial Blood HCO3 19.1 L 21.0-28.0 mmol/L Arterial Blood Oxygen Saturation 91.9 L 94.0-98.0 % Arterial Blood Base Excess -3.7 L -2.0-3.0 mmol/L Arterial Blood Oxyhemoglobin 90.2 L 94.0-98.0 % Arterial Blood Carboxyhemoglobin 1.5 0.5-1.5 % Arterial Blood Methemoglobin 0.4 0.0-1.5 % Mike Test Modified Blood Gas Total Hemoglobin 10.60 L 13.5-17.5 g/dL Blood Gas Liter Flow 2.00 Blood Gas Modality Room air FiO2 % 28.0 Current Medications Medications (Trade) Dose Ordered Sig/Leatha Route Start Time Stop Time Status Last Admin Albuterol (Ventolin Medneb) 2.5 mg ONCE ONCE NEB 06/08/25 21:30 06/08/25 21:31 DC 06/08/25 21:55 Furosemide (Lasix Injection) 20 mg ONCE ONCE IV 06/08/25 23:45 06/08/25 23:55 DC 06/08/25 00:30 Furosemide (Lasix Injection) 20 mg ONCE ONCE IV 06/09/25 01:30 06/09/25 01:33 DC 06/09/25 02:01 Time of 1ST Reevaluation: 23:27 Reevaluation 1ST: Unchanged Patient Education/Counseling: Treatment, Other (Need for admission) Family Education/Counseling: Treatment, Other (Need for admission) SEPSIS Sepsis Screen Date sepsis recognized/suspect: Jun 08, 2025 Time Sepsis recognized/suspect: 2253 Recent Procedure: No On Antibiotic Therapy: No Respiratory Rate >20: No Heart Rate >90: No Temp<36 C (96.8 F) or >38.3 C: No SBP <90 or MAP <65 mmHG: No New Acute Mental Status Change: No Is the patient on CPAP, BIPAP,: No Physician Orders Electrocardigram (06/08/25 21:00) Abg W/ Co-Ox (06/08/25 21:21) Chest Xray 1 View (06/08/25 21:21) Titrate Oxygen (06/08/25 21:21) Oxygen (06/08/25 ) Continous Pulse Oximetry (06/08/25 21:21) Saline Lock (06/08/25 21:21) Customer Program Specialist (06/08/25 ) Troponin-I Hs (06/09/25 02:28) Discharge (06/09/25 01:38) Vital Signs Date Time Temp Pulse Resp B/P (MAP) Pulse Ox O2 Delivery O2 Flow Rate FiO2 06/09/25 02:01 159/67 06/08/25 23:45 79 06/08/25 22:52 79 93 Nasal Cannula* 2 28 06/08/25 22:50 98.7 79 18 149/55 (86) 94 98.7 06/08/25 21:55 18 93 Nasal Cannula* 2 28 06/08/25 21:11 79 06/08/25 20:58 98.2 94 24 167/59 90 98.2 06/08/25 00:30 151/67 Laboratory Tests Test 06/08/25 22:05 Lactic Acid Level 1.3 mmol/L (0.4-2.0) White Blood Count 6.5 10^3/uL (4.4-10.8) Medications Medications Dose Ordered Sig/Leatha Route Start Time Stop Time Status Last Admin Dose Admin Albuterol 2.5 mg ONCE ONCE NEB 06/08/25 21:30 06/08/25 21:31 DC 06/08/25 21:55 Furosemide 20 mg ONCE ONCE IV 06/09/25 01:30 06/09/25 01:33 DC 06/09/25 02:01 Furosemide 20 mg ONCE ONCE IV 06/08/25 23:45 06/08/25 23:55 DC 06/08/25 00:30 Departure 1 Departure Time of Disposition: 03:29 Impression: Primary Impression: Acute exacerbation of CHF (congestive heart failure) Additional Impression: Hypoxia Disposition: 09 ADMITTED INPATIENT Admit to: Tele Condition: Guarded Comments MDM: Patient is stabilized in the emergency department. Patient admitted to hospitalist service for further treatment, evaluation and monitoring. Extensive evaluation was performed in attempt to identify or rule out: (See differential diagnosis section) The following tests were ordered, and results were reviewed by me and discussed with patient: (See diagnostic results section) The following test were independently interpreted by me: EKG, BMP, D-dimer, rapid influenza a and B test, COVID-19 antigen Carrie test, lactic acid reflux, troponin, CBC, BNP I reviewed and agreed with the following test results read by other providers: Chest x-ray I reviewed the following notes from the pt's past medical encounters: August 04, 2024 and April 15, 2025 encounters for complete AV heart block and sepsis, panel colitis, cellulitis, etc., respectively. Additional information was gathered from interviewing the following independent historians: Spouse Discussion of management or test interpretation with external physician/other qualified health urgent care technician: Dr. Pan Addressed an acute or chronic illness that poses a threat to life or bodily function: CHF exacerbation, hypoxia Decision regarding hospitalization or escalation of hospital level of care: Risk and benefits of admission for further treatment of patient's condition was considered. Due to patient's current clinical condition, high risk of decline and poor outcome if discharged and need for further inpatient management and monitoring, patient will be admitted to the hospital. Drug therapy requiring intensive monitoring for toxicity: IV furosemide Critical Care Note Critical Care Time?: No Stability Stability form required: No Heart Score Heart Score: Heart Score Response (Comments) Value History Moderate Suspicious 1 EKG Normal 0 Age >65 2 Risk Factors >3 or Hx ASHD 2 Troponin Normal limit 0 Total 5 I personally scribed for ISAURA STEPHENS MD ([email or web address]) on 06/08/25 at 23:45. Electronically submitted by Shai Hancock [email or web address]). ISAURA STEPHENS MD Jun 08, 2025 23:45
[2025-06-09] MEDS: FUROSEMIDE 20 MG/2 ML VIAL IV ONE (02:01)
[2025-06-09] MEDS: hydrALAZINE HCL 20 MG/ML VL IV ONE (04:57)
--- NOTE | 2025-06-09 05:45 | ECG ---
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
[2025-06-09 07:29] VITALS: PULSE 79; RESP 19; O2SAT 93
[2025-06-09 08:00] VITALS: BP 152/66; PULSE 80; RESP 17; TEMP 98.8; O2SAT 92
--- NOTE | 2025-06-09 13:21 | DVHINCON2 ---
DATE OF CONSULTATION: 06/09/2025 CHIEF COMPLAINT: Coming in for shortness of breath. HISTORY OF PRESENT ILLNESS: This is a 74-year-old male with significant past medical history for COPD, coronary artery disease with a history of 5-vessel CABG, essential hypertension, chronic kidney disease, diabetes mellitus type 2, atrial fibrillation on Eliquis, congestive heart failure, obstructive sleep apnea, who presents to Emergency Room with a chief complaint of new onset of shortness of breath. The patient apparently was at the [place] this past evening, was watching a movie when he felt like he was like choking on a piece of popcorn which resolved within a few minutes. The patient, however, when leaving the [employer], felt that he was feeling short of breath on exertion by the time he got to his car. The patient, once he got home, recorded his pulse ox on his finger which was in the mid 80s and the patient decided to come into the ER for further evaluation. The patient denied any chest pain symptoms, nausea, vomiting, wheezing complaints. The patient felt a little bit pressure in his lungs when taking deep inspirations. He has chronic orthopnea symptoms but no lower extremity edema that he ever had in the past. He was previously on oxygen over 4 years ago for a period of 3 months after having his CABG procedure. He denies any cough, any phlegm, any fevers or chills, diarrhea, constipation, bloody or tarry stools, urinary burning sensation but does have frequency at times. PAST MEDICAL HISTORY: Again COPD, CAD, hypertension, CKD, diabetes mellitus type 2, atrial fibrillation, obstructive sleep apnea, congestive heart failure, and irritable bowel syndrome. PAST SURGICAL HISTORY: A 5-vessel CABG in 08/2019, aortic valve replacement in 06/2024, and pacemaker placement in 07/[address] Hair. SOCIAL HISTORY: Denies use of any current tobacco, quit about 20 years ago. No alcohol. No illicit drugs. MEDICATIONS AT HOME: Per medical reconciliation. MEDICATION ALLERGIES: IBUPROFEN. REVIEW OF SYSTEMS: A 10-point review of systems was covered with the patient and was negative with exception to what was present in history of present illness. PHYSICAL EXAMINATION: VITAL SIGNS: Temperature 98.8, pulse rate of 80, blood pressure of 151/67, respiratory rate of 17 with a pulse ox of about 90% on 2 liters nasal cannula. GENERAL: Seems to be alert and oriented x 4 not in acute distress male sitting up in bed. HEENT: Normocephalic, atraumatic. Extraocular muscles intact. Pupils are equally round and reactive to light and accommodation. Mucous membranes are moist. CARDIOVASCULAR: S1, S2 positive. Regular rate and rhythm. No rubs, gallops, or murmurs. LUNGS: Clear to auscultation bilaterally. No wheezing, rhonchi, or rales. ABDOMEN: Soft, nontender, nondistended. Positive bowel sounds. No guarding. No rebound. EXTREMITIES: No lower extremity edema, clubbing, or cyanosis. NEUROLOGIC: No focal deficits. Cranial nerve testing 2-12 overall seems to be intact. LABORATORY WORKUP: White count of 6.5, H and H of 9.4 and 27.9, platelet count of 187,000. D-dimer of 0.38. Chemistry showed sodium 139, potassium 4.5, chloride 112, carbon dioxide 23, anion gap of 4, BUN of 26, creatinine 1.90, serum glucose of 233, lactic acid 1.3, calcium 8.4. Troponins 19, repeat of 20, and repeat of 20. Influenza A and B was negative. SARS-CoV-2 PCR was negative. Arterial blood gas was completed and showed a pH of 7.459, pCO2 of 27.5, pO2 of 68.5, bicarb of 19.1. This is on 2 liters nasal cannula oxygen. IMAGING: Chest x-ray completed shows that the patient has cardiomegaly with pulmonary venous congestion and mild edema. DIAGNOSES: * Hypoxia. * Acute CHF exacerbation. The patient was seen in the Emergency Room. Imaging and physical examination was completed. Chest x-ray is consistent with acute CHF exacerbation with pulmonary edema and pulmonary vascular congestion. The patient did receive Lasix 40 mg with improvement of his symptoms, currently down to 1 liter of nasal cannula and oxygen satting at about 92%-93%. The patient does take Bumex 1 mg half a tablet once a day for underlying CHF. His superintendent operating is Dr. Macias. He was last seen a few months ago. The patient says that he did receive a pacemaker earlier this year in July by Dr. Hair. He does take his anticoagulation for history of AFib for stroke prevention. The patient will be educated on increasing his Bumex to 1 mg once a day for three days and to cut down to 0.5 mg once a day after that. The patient will be ordered oxygen 2 liters nasal cannula continuously to be used at home. The patient does have a pulse oximeter to monitor his oxygenation at home as well. The patient has been informed in case if he has worsening shortness of breath oor if he develops any chest pain, fevers, chills, or any other concerning signs and/or symptoms, to return to the Emergency Room. The patient will be arranged for a close PCP followup as well as a cardiology referral with Dr. Macias within the next 3-5 days. The patient to otherwise continue all other home medications without any adjustments. The patient is stable from my standpoint for discharge. The [facility]. Jeancarlos Cuevas MD LM/ALBAN/PALOMO TID: [id number] RECEIPT: [id number] [facility]
== END 2025-06-09 08:39 | disposition home or self-care (01) ==
LOC: ER 20:57
DX: I13.0 Hypertensive heart and chronic kidney disease with heart failure and stage 1 through stage 4 chronic kidney disease, or unspecified chronic kidney disease (principal); E11.22 Type 2 diabetes mellitus with diabetic chronic kidney disease; I50.9 Heart failure, unspecified; N18.4 Chronic kidney disease, stage 4 (severe); R09.02 Hypoxemia; Z79.899 Other long term (current) drug therapy; Z20.822 Contact with and (suspected) exposure to COVID-19
CPT/HCPCS: 36415; 36600; 71045; 80048; 82805; 83605; 83880; 84484; 85025; 85379; 87426; 87804; 93005; 94640; 96374; 96375; 96376; 99285; J0360; J1938